=== PATIENT | male | born 1940 | race Two or more races ===

== ENCOUNTER → 2016-09-23 | Outpatient (REF) | payer MEDICARE, OTHER ==
[~2016-09-23] MED LIST: ATOR1TAB21 PO; CHLO25TA PO
[2016-09-23 16:33] LABS: BASO % 0.9 % (0.0-1.0); EOS # 0.2 K/mm3 (0.0-0.50); EOS % 4.1 % (0.0-3.0); LARGE UNSTAINED CELL # 0.1 K/mm3 (0.0-0.4); LARGE UNSTAINED CELL % 2.3 % (0.0-4.0); LYMPH # 1.8 K/mm3 (1.5-4.5); LYMPH % 27.5 % (24.0-44.0); MEAN CORPUSCULAR HEMOGLOBIN 33.2 pg (27.0-33.0); MEAN CORPUSCULAR HGB CONC 34.6 g/dl (32.0-36.5); MONO # 0.5 K/mm3 (0.0-0.8); NEUTROPHILS # 3.4 K/mm3 (1.8-7.7); NEUTROPHILS % 57.2 % (36.0-66.0); PLATELET COUNT, AUTOMATED 234 k/mm3 (150-450); RED CELL DISTRIBUTION WIDTH 12.8 % (11.5-14.5); WHITE BLOOD COUNT 5.9 K/mm3 (4.0-10.0)
[2016-09-23 18:39] LABS: ALBUMIN 4.1 GM/DL (3.2-5.2); ALBUMIN/GLOBULIN RATIO 1.21 (1.00-1.93); ALKALINE PHOSPHATASE 68 U/L (45-117); ALT/SGPT 43 U/L (12-78); ANION GAP 7 MEQ/L (8-16); AST/SGOT 25 U/L (15-37); BILIRUBIN,TOTAL 1.2 MG/DL (0.2-1.0); BLOOD UREA NITROGEN 19 MG/DL (7-18); CALCIUM LEVEL 9.1 MG/DL (8.8-10.2); CARBON DIOXIDE LEVEL 33 MEQ/L (21-32); CHLORIDE LEVEL 99 MEQ/L (98-107); CHOLESTEROL LEVEL 179 MG/DL (<200); GLOMERULAR FILTRATION RATE > 60.0 (>42); GLUCOSE, FASTING 115 MG/DL (83-110); POTASSIUM SERUM 3.6 MEQ/L (3.5-5.1); SODIUM LEVEL 139 MEQ/L (136-145); TOTAL PROTEIN 7.5 GM/DL (6.4-8.2); TRIGLYCERIDES LEVEL 124 MG/DL (<150)
== END ==
LOC: M SFHCPLAZ 11:14
PROVIDERS: ATTEND Nurse Practitioner Family
DX: I10 Essential (primary) hypertension (principal); R73.01 Impaired fasting glucose; E78.00 Pure hypercholesterolemia, unspecified
CPT/HCPCS: 36415; 80053; 80061; 83036; 84443; 85025; G0463

== ENCOUNTER → 2017-09-14 | Outpatient (REF) | payer MEDICARE, OTHER ==
[2017-09-14 17:53] LABS: ALBUMIN/GLOBULIN RATIO 1.18 (1.00-1.93); ALKALINE PHOSPHATASE 66 U/L (45-117); ALT/SGPT 45 U/L (12-78); ANION GAP 9 MEQ/L (8-16); AST/SGOT 26 U/L (7-37); BILIRUBIN,TOTAL 1.6 MG/DL (0.2-1.0); BLOOD UREA NITROGEN 22 MG/DL (7-18); CALCIUM LEVEL 9.3 MG/DL (8.8-10.2); CARBON DIOXIDE LEVEL 30 MEQ/L (21-32); CHLORIDE LEVEL 101 MEQ/L (98-107); CHOLESTEROL LEVEL 195 MG/DL (<200); CHOLESTEROL RISK RATIO 3.362 (<5); GLOMERULAR FILTRATION RATE > 60.0 (>42); GLUCOSE, FASTING 94 MG/DL (70-100); HDL CHOLESTEROL 58 MG/DL (>40); LDL CHOLESTEROL 98.8 MG/DL (<100); NON-HDL-C 137 MG/DL; POTASSIUM SERUM 3.4 MEQ/L (3.5-5.1); SODIUM LEVEL 140 MEQ/L (136-145); TOTAL PROTEIN 7.4 GM/DL (6.4-8.2); TRIGLYCERIDES LEVEL 191 MG/DL (<150)
== END ==
LOC: M SFHCPLAZ 16:02
DX: E78.5 Hyperlipidemia, unspecified (principal)
CPT/HCPCS: 80053

== ENCOUNTER → 2017-10-08 | Outpatient (REF) | payer MEDICARE, OTHER ==
[2017-10-08 13:10] LABS: ANION GAP 9 MEQ/L (8-16); BLOOD UREA NITROGEN 20 MG/DL (7-18); CALCIUM LEVEL 9.3 MG/DL (8.8-10.2); CARBON DIOXIDE LEVEL 31 MEQ/L (21-32); CHLORIDE LEVEL 100 MEQ/L (98-107); CREATININE FOR GFR 1.06 MG/DL (0.70-1.30); GLOMERULAR FILTRATION RATE > 60.0 (>42); GLUCOSE, FASTING 112 MG/DL (70-100); POTASSIUM SERUM 3.5 MEQ/L (3.5-5.1); SODIUM LEVEL 140 MEQ/L (136-145)
== END ==
LOC: M SFHCPLAZ 10:39
DX: I10 Essential (primary) hypertension (principal)
CPT/HCPCS: 80048

== ENCOUNTER → 2018-03-22 | Outpatient (REF) | payer MEDICARE, OTHER ==
[2018-03-22 13:05] LABS: ALBUMIN 3.8 GM/DL (3.2-5.2); ALT/SGPT 31 U/L (12-78); BLOOD UREA NITROGEN 26 MG/DL (7-18); CARBON DIOXIDE LEVEL 32 MEQ/L (21-32); CHLORIDE LEVEL 102 MEQ/L (98-107); CREATININE FOR GFR 1.01 MG/DL (0.70-1.30); GLOMERULAR FILTRATION RATE > 60.0 (>42); GLUCOSE, FASTING 109 MG/DL (70-100); POTASSIUM SERUM 3.7 MEQ/L (3.5-5.1); SODIUM LEVEL 140 MEQ/L (136-145)
== END ==
LOC: M SFHCPLAZ 10:59
PROVIDERS: ATTEND Nurse Practitioner Family
DX: I10 Essential (primary) hypertension (principal); E78.5 Hyperlipidemia, unspecified
CPT/HCPCS: 36415; 80053; G0463

== ENCOUNTER → 2018-05-14 | Outpatient (REF) | payer MEDICARE, OTHER ==
[2018-05-14 18:19] LABS: BASO # 0.1 10^3/uL (0.0-0.2); BASO % 0.7 % (0.0-1.0); EOS # 0.5 10^3/uL (0.0-0.50); EOS % 5.6 % (0.0-3.0); HEMATOCRIT 46.6 % (42.0-52.0); HEMOGLOBIN 15.8 g/dl (13.5-17.5); LYMPH # 2.6 10^3/uL (1.5-4.5); LYMPH % 31.7 % (24.0-44.0); MEAN CORPUSCULAR HEMOGLOBIN 32.8 pg (27.0-33.0); MEAN CORPUSCULAR HGB CONC 33.9 g/dl (32.0-36.5); MEAN CORPUSCULAR VOLUME 96.7 fl (80.0-96.0); MONO # 0.9 10^3/uL (0.0-0.8); MONO % 10.5 % (0.0-5.0); NEUTROPHILS # 4.1 10^3/uL (1.8-7.7); NEUTROPHILS % 51.1 % (36.0-66.0); PLATELET COUNT, AUTOMATED 242 10^3/uL (150-450); RED BLOOD COUNT 4.82 10^6/uL (4.30-6.10); WHITE BLOOD COUNT 8.1 10^3/uL (4.0-10.0)
[2018-05-14 18:39] LABS: BLOOD UREA NITROGEN 26 MG/DL (7-18); CALCIUM LEVEL 8.8 MG/DL (8.8-10.2); CARBON DIOXIDE LEVEL 31 MEQ/L (21-32); CHLORIDE LEVEL 105 MEQ/L (98-107); CREATININE FOR GFR 0.98 MG/DL (0.70-1.30); GLOMERULAR FILTRATION RATE > 60.0 (>42); GLUCOSE, FASTING 101 MG/DL (70-100); SODIUM LEVEL 141 MEQ/L (136-145)
[2018-05-14 19:02] LABS: HEMOGLOBIN A1c 5.9 %
== END ==
LOC: M SFHCPLAZ 15:34
PROVIDERS: ATTEND Nurse Practitioner Family
DX: R19.09 Other intra-abdominal and pelvic swelling, mass and lump (principal); R73.01 Impaired fasting glucose
CPT/HCPCS: 36415; 80048; 83036; 85025; G0463

== ENCOUNTER → 2018-05-21 | Outpatient (CLI) | payer MEDICARE, OTHER ==
--- NOTE | 2018-05-21 14:16 | REP ---
LIMITED PELVIC ULTRASOUND: HISTORY: Groin lump. Bilateral inguinal hernias are present. The right inguinal hernia contains peritoneal fat and intestine. The left inguinal hernia contains peritoneal fat. Bilateral lymph nodes are present. The largest on the right measures 2.2 cm. The largest on the left measures 1.4 cm. The right inguinal hernia is reducible. The left inguinal hernia is not reducible. IMPRESSION: Bilateral inguinal hernias as described above. Electronically Signed by Sarwat Magana MD 05/21/2018 02:20 P
== END ==
LOC: M RAD 10:53
PROVIDERS: ATTEND Nurse Practitioner Family
DX: K40.11 Bilateral inguinal hernia, with gangrene, recurrent (principal)

== ENCOUNTER → 2018-11-22 | Outpatient (REF) | payer MEDICARE, OTHER ==
[~2018-11-22] MED LIST changes: +CHLO125TA PO; -CHLO25TA PO
[2018-11-22 11:00] LABS: BASO # 0.1 10^3/uL (0.0-0.2); EOS # 0.5 10^3/uL (0.0-0.50); EOS % 7.3 % (0.0-3.0); HEMOGLOBIN 16.2 g/dl (13.5-17.5); LYMPH % 29.4 % (24.0-44.0); MEAN CORPUSCULAR HEMOGLOBIN 32.2 pg (27.0-33.0); MEAN CORPUSCULAR HGB CONC 33.8 g/dl (32.0-36.5); MEAN CORPUSCULAR VOLUME 95.4 fl (80.0-96.0); MONO # 0.8 10^3/uL (0.0-0.8); MONO % 12.3 % (0.0-5.0); NEUTROPHILS # 3.4 10^3/uL (1.8-7.7); NEUTROPHILS % 49.6 % (36.0-66.0); PLATELET COUNT, AUTOMATED 250 10^3/uL (150-450); RED BLOOD COUNT 5.03 10^6/uL (4.30-6.10); WHITE BLOOD COUNT 6.8 10^3/uL (4.0-10.0)
[2018-11-22 11:24] LABS: ALBUMIN 3.8 GM/DL (3.2-5.2); ALT/SGPT 37 U/L (12-78); BILIRUBIN,TOTAL 1.1 MG/DL (0.2-1.0); BLOOD UREA NITROGEN 19 MG/DL (7-18); CALCIUM LEVEL 9.2 MG/DL (8.8-10.2); CARBON DIOXIDE LEVEL 34 MEQ/L (21-32); CHLORIDE LEVEL 101 MEQ/L (98-107); CHOLESTEROL LEVEL 177 MG/DL (<200); CHOLESTEROL RISK RATIO 2.854 (<5); CREATININE FOR GFR 0.95 MG/DL (0.70-1.30); GLOMERULAR FILTRATION RATE > 60.0 (>42); GLUCOSE, FASTING 120 MG/DL (70-100); HDL CHOLESTEROL 62 MG/DL (>40); LDL CHOLESTEROL 98 MG/DL (<100); NON-HDL-C 115 MG/DL; SODIUM LEVEL 141 MEQ/L (136-145); TOTAL PROTEIN 7.2 GM/DL (6.4-8.2); TRIGLYCERIDES LEVEL 86 MG/DL (<150)
== END ==
LOC: M SFHCPLAZ 07:58
PROVIDERS: ATTEND Family Medicine
DX: L30.9 Dermatitis, unspecified (principal); E78.00 Pure hypercholesterolemia, unspecified; I10 Essential (primary) hypertension

== ENCOUNTER → 2019-03-14 | Outpatient (CLI) | payer MEDICARE, OTHER ==
[2019-03-14 13:17] LABS: HEMOGLOBIN A1c 5.8 %
== END ==
LOC: M WUC 10:27
PROVIDERS: ATTEND Family Medicine
DX: R73.01 Impaired fasting glucose (principal)

== ENCOUNTER 2020-03-31 22:44 | Inpatient (IN) | payer MEDICARE, OTHER ==
[~2020-03-31] VITALS: Ht 180.3 cm; Wt 82.1 kg
[2020-03-31] MEDS ORDERED: NS 1,000 ML IV ONE (23:00)
[2020-03-31] MEDS ORDERED: JANT4TAB PO (23:01)
[2020-03-31] MEDS ORDERED: ASPI1TAB22 PO (23:08)
[2020-03-31] MEDS ORDERED: ATOR40TA75 PO (23:08)
[2020-03-31] MEDS ORDERED: OS-CTAB PO (23:08)
[2020-03-31 23:33] LABS: BASO # 0.1 10^3/uL (0.0-0.2); BASO % 0.5 % (0.0-1.0); EOS # 0.1 10^3/uL (0.0-0.5); EOS % 1.4 % (0.0-3.0); HEMATOCRIT 31.8 % (42.0-52.0); LYMPH # 1.6 10^3/uL (1.5-5.0); LYMPH % 16.5 % (24.0-44.0); MEAN CORPUSCULAR HEMOGLOBIN 30.7 pg (27.0-33.0); MEAN CORPUSCULAR HGB CONC 31.4 g/dl (32.0-36.5); MEAN CORPUSCULAR VOLUME 97.5 fl (80.0-96.0); MONO # 0.6 10^3/uL (0.0-0.8); MONO % 6.2 % (0.0-5.0); NEUTROPHILS # 7.2 10^3/uL (1.5-8.5); NEUTROPHILS % 75.1 % (36.0-66.0); PLATELET COUNT, AUTOMATED 372 10^3/uL (150-450); RED BLOOD COUNT 3.26 10^6/uL (4.30-6.10); WHITE BLOOD COUNT 9.6 10^3/uL (4.0-10.0)
[2020-03-31] MEDS ORDERED: ONDANSETRON 4MG/2ML VIAL IV ONE (23:45)
[2020-03-31 23:53] LABS: PARTIAL THROMBOPLASTIN TIME 27.7 SECONDS (24.2-38.5)
[2020-04-01] VITALS (19 sets, daily range): BP systolic 106–134; BP diastolic 52–71
[2020-04-01 00:02] LABS: INR 2.13; PROTHROMBIN TIME 24.3 SECONDS (12.5-14.3)
[2020-04-01 00:12] LABS: RSV AMPLIFICATION NEGATIVE (NEGATIVE)
[2020-04-01] MEDS ORDERED: PANTOPRAZOLE 40MG VIAL (C9113 PER 1) IV ONE (00:30)
[2020-04-01 00:37] LABS: ALBUMIN 2.9 GM/DL (3.2-5.2); ALT/SGPT 36 U/L (12-78); BILIRUBIN,DIRECT 0.1 MG/DL (0.0-0.2); BILIRUBIN,TOTAL 0.6 MG/DL (0.2-1.0); BLOOD UREA NITROGEN 56 MG/DL (7-18); CALCIUM LEVEL 8.4 MG/DL (8.8-10.2); CARBON DIOXIDE LEVEL 27 MEQ/L (21-32); CHLORIDE LEVEL 107 MEQ/L (98-107); CPK CREATINE PHOSPHOKINASE 73 U/L (39-308); CREATININE FOR GFR 0.81 MG/DL (0.70-1.30); GLOMERULAR FILTRATION RATE > 60.0 (>42); GLUCOSE, FASTING 165 MG/DL (70-100); LIPASE 89 U/L (73-393); MB/CK RELATIVE INDEX 2.74 (< OR =4); POTASSIUM SERUM 4.4 MEQ/L (3.5-5.1); SODIUM LEVEL 142 MEQ/L (136-145); TROPONIN I 0.08 NG/ML (< 0.10)
[2020-04-01] MEDS ORDERED: ISOVUE-370 76% 100ML VIAL As Ordered ONE (00:50)
[2020-04-01] MEDS ORDERED: NS 1,000 ML IV ONE (01:00)
--- NOTE | 2020-04-01 01:31 | REPVR ---
PROCEDURE INFORMATION: Exam: CT Head Without Contrast Exam date and time: 04/01/2020 1:00 AM Age: 79 years old Clinical indication: Syncope and collapse; Additional info: Syncope, blood thinners TECHNIQUE: Imaging protocol: Computed tomography of the head without contrast. Radiation optimization: All CT scans at this facility use at least one of these dose optimization techniques: automated exposure control; mA and/or kV adjustment per patient size (includes targeted exams where dose is matched to clinical indication); or iterative reconstruction. COMPARISON: No relevant prior studies available. FINDINGS: Brain: There is minimal patchy low attenuation of deep white matter. 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 Cerebral ventricles: No ventriculomegaly. Bones/joints: Unremarkable. No acute fracture. Paranasal sinuses: Minimal ethmoid sinus mucosal thickening. Mastoid air cells: Visualized mastoid air cells are well aerated. Soft tissues: Unremarkable. IMPRESSION: 1. 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 2. Otherwise negative noncontrast head CT. Electronically signed by: Alfreod Corrigan On 04/01/2020 01:32:05 AM
--- NOTE | 2020-04-01 01:40 | REPVR ---
PROCEDURE INFORMATION: Exam: CT Abdomen And Pelvis With Contrast Exam date and time: 04/01/2020 1:00 AM Age: 79 years old Clinical indication: Other: Gi bleeding; Additional info: Syncope, blood thinners, gi bleeding TECHNIQUE: Imaging protocol: Computed tomography of the abdomen and pelvis with intravenous contrast. Radiation optimization: All CT scans at this facility use at least one of these dose optimization techniques: automated exposure control; mA and/or kV adjustment per patient size (includes targeted exams where dose is matched to clinical indication); or iterative reconstruction. Contrast material: ISOVUE 370; Contrast volume: 100 ml; Contrast route: INTRAVENOUS (IV); COMPARISON: Pelvis, limited US 05/21/2018 11:05 AM FINDINGS: Tubes, catheters and devices: Pacemaker in position. Lungs: Minimal bibasilar interstitial coarsening with fibro-atelectatic change. Liver: Multiple hepatic cysts measuring up to 4.0 cm in the lateral right hepatic lobe with a Hounsfield measurement of -3. Gallbladder and bile ducts: Normal. No calcified stones. No ductal dilation. Pancreas: Normal. No ductal dilation. Spleen: Normal. No splenomegaly. Adrenal glands: Normal. No mass. Kidneys and ureters: Probable bilateral renal peripelvic cysts. 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 Appendix: Right inguinal hernia containing the appendix which is within normal limits. Intraperitoneal space: Unremarkable. No free air. No significant fluid collection. Vasculature: There is mild calcification of the abdominal aorta with extension into the iliac arteries. Lymph nodes: Borderline right inferior hilar nodes. Urinary bladder: Unremarkable as visualized. Reproductive: Unremarkable as visualized. Bones/joints: Unremarkable. No acute fracture. Soft tissues: Residua of right inguinal incision with clips adjacent to the right common femoral artery. IMPRESSION: 1. Small right inguinal hernia which contains a normal appendix. 2. Minimal bibasilar pulmonary interstitial coarsening with fibro-atelectatic change. 3. Otherwise negative CT abdomen/pelvis. COMMENTS: Consistent with the [employer]'s Incidental Findings Committee white paper (J Am Merle Radiol 2018): Any incidental renal lesion less than 1 cm or classified as too small to characterize, or any incidental cystic renal lesion characterized as simple-appearing, is likely benign. No follow-up imaging is recommended for these lesions per consensus recommendations based on imaging criteria. Electronically signed by: Alfredo Corrigan On 04/01/2020 01:40:36 AM
[2020-04-01] MEDS ORDERED: ACET-908 PO (03:29)
[2020-04-01] MEDS ORDERED: WARF-20 PO (03:29)
[2020-04-01] MEDS ORDERED: THERTAB19 PO (03:29)
[2020-04-01] MEDS ORDERED: ASPI81TA26 PO (03:29)
[2020-04-01] MEDS ORDERED: MED REC COMMENT (03:31)
--- NOTE | 2020-04-01 04:09 | HPEPDOC ---
General Date of Admission Date of Service: Apr 01, 2020 Attending Physician: SHANNON ROWELL MD Chief Complaint The patient is a 79-year-old male admitted with a reason for visit of Syncope. History of Present Illness History of present illness: Mr. Joy is a 80 year old male patient who recently underwent an mitral valve repair surgery at [facility], dyslipidemia, hypertension presented to the emergency department after sustaining a fall. He reports he was feeling tired the whole day but did his regular work, in the evening he felt more tired and was feeling dizzy. He did not feel like eating his dinner, as he was walking to use the restroom he felt dizzy and had a syncopal episode. He reports he did not hit his head, lost consciousness for a few seconds. His was with him and he felt. Later he use the restroom and noticed black/dark colored stool and no hematochezia. He denied having any chest pain, abdominal pain, headache, vision changes during or after this episode. In the ED he was feeling dizzy and nauseous and had an brown color coffee ground emesis mixed with food. He reports feeling nauseous and dizzy whenever he sits up from a laying position or stands up. Past medical history: On 03/08/2020 patient had minimally invasive mitral valve repair with triangular resection of posterior leaflet and the placement of 33 mm stimulus annuloplasty band. And cryoablation to the left and right atrium with clipping of the left atrial appendage. Last echocardiogram on 01/18/2020, LVEF 70%. 24-hour halter monitor 01/03/2020baseline A. fib with a narrow QRS complex no pauses, occasional ventricular ectopy including single ventricular couplet. Ascending aortic dilation 02/03/2017 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 Coronary artery disease 50% proximal to mid RCA stenosis Dilated aortic root Hyperlipidemia Hypertension. Mitral regurgitation Past surgical history: As above. Social history: Quit smoking 35 years ago, smoked for 16 years one pack a day. Alcohol: Drinks 1 glass of wine 1-2 times a week. - Denies any illicit or recreational drug use. Family History: Father: 23 years ago, in WWII. Mother: 43 years, MVA Sons: Alive, 1 child with partial colectomy for suspected Crohn's. Daughter: Alive 52 years no known medical conditions. REVIEW OF SYSTEMS: Constitutional: Denies having fever, chills, night sweats, weight loss, headaches. Eyes: Denies blurry vision or double vision. Cardiovascular: Denies any chest pain or palpitations. Respiratory: Denies shortness of breath and cough. Gastrointestinal (GI): Reports nausea and one episode of vomiting in the ED. Genitourinary: Denies dysuria, hematuria. Musculoskeletal: Denies muscle aches and pains. Skin: Denies rashes or ulcers. Hematology/Oncology: Denies any easy bleeding or bruising. All other review of systems is negative. PHYSICAL EXAMINATION: General: Patient is awake, alert, oriented times three, laying in bed , no apparent distress. Eyes: Conjunctiva clear, pupils equal round and reactive to light and accommodation. EOM full, Fundus: not visualized. ENT: Hearing Bilateral normal. No nasal deviation, oropharynx clear with no lesions/erythema. Cardiovascular: S1, S2 heard, no murmur, rub, or gallop. Respiratory: Chest is clear to auscultation bilaterally, no rhonchi, wheezes or rubs. Abdomen: Soft, bowel sounds positive, no bruits. Nontender on palpation. Central nervous system (PEDIATRIC OPHTHALMOLOGIST): Awake, alert and fully oriented. Cranial nerves III-XII grossly intact. Motor: Strength normal, patient moves all extremities. Sensory: grossly normal to touch. Cerebellar: no tremor. Skin: No rashes or subcutaneous nodules Imaging: CT head without contrast on 04/01/2020: Reported as 1. 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 2. Otherwise negative noncontrast head CT. CT abdomen/pelvis with IV contrast on 04/01/2020: Reported as 1. Small right inguinal hernia which contains a normal appendix. 2. Minimal bibasilar pulmonary interstitial coarsening with fibro-atelectatic change. 3. Otherwise negative CT abdomen/pelvis. Impression: 29-year-old male patient with recent cardiac surgery and on Coumadin who presented to ED with following syncope, dizziness and dark/black stool. In the ED patient had an coffee-ground emesis mixed with food. His POC hemoglobin is 10 which dropped from 12 (3 weeks ago before the valve repair), hct 31.8, MCV is 97.5, INR 2.13 within therapeutic range, electrolytes are stable, BUN 56, cr eatinine 0.81, normal liver enzymes. Hospitalist team was contacted for further management. Plan: Symptomatic anemia and upper GI bleed: - Patient has a hemoglobin of 10 dropped from 12. He reports feeling dizziness and nausea. - Probably an ulcer bleed vs AVM vs mucosal bleed. - General Duty Nurse manager neonatal Dr. Martell was contacted from the ED and was told he was okay with holding or reversing the Coumadin if necessary. - Keep him nothing by mouth and IV fluids at 120 MLS per hour. - Start IV Protonix 40 MG twice a day. - Please contact surgery manager neonatal Dr. Agustin in the morning for probable endoscopic intervention. - Will monitor H&H every 6 hours. - Will transfuse packed RBC if hemoglobin drops to less than 9. - Hold off on Coumadin for now. - Will monitor him on telemetry overnight Dyslipidemia: - Will continue his home medication. DVT prophylaxis: -Teds and sequentials. Home Medications Scheduled Aspirin (Aspirin EC) 81 Mg Tablet.dr 81 MG PO DAILY, (Reported) Atorvastatin Calcium (Atorvastatin Calcium) 40 Mg Tablet, 40 MG PO DAILY, (Reported) Multivitamin with Folic Acid (Thera Tablet) 400 Mcg Tablet, 1 TAB PO DAILY, (Reported) Warfarin Sodium (Jantoven) 4 Mg Tablet, 6 MG PO DAILY, (Reported) ,WED,FRI,SAT,SUN Warfarin Sodium (Warfarin Sodium) 4 Mg Tablet, 4 MG PO DAILY, (Reported) MON,THURS Scheduled PRN Acetaminophen (Acetaminophen) 325 Mg Tablet, 650 MG PO Q4H PRN for PAIN, (Reported) Miscellaneous Medications [Med Rec Comment] , (Reported) USED EXTERNAL HISTORY AND LIST FROM DR. TEJADA FROM 03/27/20 Allergies Coded Allergies: No Known Allergies (Unverified , 03/31/20) A-FIB/CHADSVASC A-FIB History Current/History of A-Fib/PAF?: Yes Current PO Anticoag Therapy: No Treatment Reason Anticoagulant not given: Current bleeding Vital Signs Vital Signs Date Time Temp Pulse Resp B/P (MAP) Pulse Ox O2 Delivery O2 Flow Rate FiO2 04/01/20 03:15 75 16 112/56 (74) 98 04/01/20 02:30 Room Air 03/31/20 22:48 98.3 Laboratory Data Labs 24H Laboratory Tests 2 03/31/20 23:19: Immature Granulocyte % (Auto) 0.3, Neutrophils (%) (Auto) 75.1H, Lymphocytes (%) (Auto) 16.5L, Monocytes (%) (Auto) 6.2H, Eosinophils (%) (Auto) 1.4, Basophils (%) (Auto) 0.5, Neutrophils # (Auto) 7.2, Lymphocytes # (Auto) 1.6, Monocytes # (Auto) 0.6, Eosinophils # (Auto) 0.1, Basophils # (Auto) 0.1, Nucleated Red Blood Cells % (auto) 0.0, Prothrombin Time 24.3H, Prothromb Time International Ratio 2.13, Activated Partial Thromboplast Time 27.7, Anion Gap 8, Glomerular Filtration Rate > 60.0, Lactic Acid Level 1.7, Calcium Level 8.4L, Total Bilirubin 0.6, Direct Bilirubin 0.1, Aspartate Amino Transf (AST/SGOT) 23, Alanine Aminotransferase (ALT/SGPT) 36, Alkaline Phosphatase 89, Total Creatine Kinase 73, Creatine Kinase MB 2.0, Creatine Kinase MB Relative Index 2.74, Troponin I 0.08, Total Protein 6.0L, Albumin 2.9L, Albumin/Globulin Ratio 0.9, Lipase 89, Coronavirus (COVID-19)(PCR) NEGATIVE, Influenza Type A (RT-PCR) NEGATIVE, Influenza Type B (RT-PCR) NEGATIVE, Respiratory Syncytial Virus (PCR) NEGATIVE CBC/BMP Laboratory Tests 03/31/20 23:19 Plan / VTE VTE Prophylaxis Ordered?: Yes GME ATTESTATION GME ATTESTATION My faculty preceptor for this patient encounter was physically present during the encounter and was fully available. All aspects of the patient interview, examination, medical decision making process, and medical care plan development were reviewed and approved by the faculty preceptor. The faculty preceptor is aware and concurs with the plan as stated in the body of this note and will attest to such by his/her cosignature. ATTENDING NOTE I, A Yousef, have independently examined this patient and performed my own phys ical exam, as well as reviewed the documentation and edited where necessary. I have discussed in detail with the resident / student the findings and plan of treatment as documented by the resident / student and edited their note. I agree with their findings and treatment plan and have edited their documentation. I will continue to follow the patient during this hospital stay. Grey Velarde MD Apr 01, 2020 04:09 SHANNON ROWELL MD Apr 01, 2020 06:13
[2020-04-01] MEDS ORDERED: MOM 30ML SUSPENSION UDC PO PRN (04:15)
[2020-04-01] MEDS ORDERED: MAALOX 30 ML SUSP *UDC PO PRN (04:15)
[2020-04-01] MEDS: NS 1,000 ML IV SCH (05:29)
[2020-04-01 07:08] LABS: HEMATOCRIT 23.7 % (42.0-52.0); MEAN CORPUSCULAR HEMOGLOBIN 31.8 pg (27.0-33.0); MEAN CORPUSCULAR HGB CONC 31.6 g/dl (32.0-36.5); MEAN CORPUSCULAR VOLUME 100.4 fl (80.0-96.0); PLATELET COUNT, AUTOMATED 317 10^3/uL (150-450); RED BLOOD COUNT 2.36 10^6/uL (4.30-6.10); WHITE BLOOD COUNT 8.1 10^3/uL (4.0-10.0)
[2020-04-01 07:10] LABS: HEMOGLOBIN 7.5 g/dl (13.5-17.5)
[2020-04-01 07:41] LABS: BLOOD UREA NITROGEN 62 MG/DL (7-18); CARBON DIOXIDE LEVEL 28 MEQ/L (21-32); CHLORIDE LEVEL 113 MEQ/L (98-107); CREATININE FOR GFR 0.82 MG/DL (0.70-1.30); GLOMERULAR FILTRATION RATE > 60.0 (>42); GLUCOSE, FASTING 146 MG/DL (70-100); POTASSIUM SERUM 4.8 MEQ/L (3.5-5.1); SODIUM LEVEL 144 MEQ/L (136-145)
[2020-04-01 09:00] LABS: INR 2.45; PROTHROMBIN TIME 27.1 SECONDS (12.5-14.3)
[2020-04-01] MEDS ORDERED: DOCUSATE SODIUM 100MG CAPSULE PO SCH (09:00)
[2020-04-01 09:01] LABS: PARTIAL THROMBOPLASTIN TIME 32.1 SECONDS (24.2-38.5)
[2020-04-01] MEDS: PANTOPRAZOLE 40MG VIAL (C9113 PER 1) IV SCH ×2 (09:13→20:23)
[2020-04-01] MEDS ORDERED: FUROSEMIDE 40MG/4ML VIAL (J1940) IV ONE (10:00)
--- NOTE | 2020-04-01 11:46 | IPNPDOC ---
Text Note Date of Service The patient was seen on 04/01/20. NOTE SUBJECTIVE: Had 2 melanotic stools overnight. No abdominal pain, no coffee mathieu und emesis any more. No Fever ro chills. PHYSICAL EXAMINATION: Vitals As below. General: Patient is awake, alert, oriented times three, laying in bed , no apparent distress. Eyes: Conjunctiva clear, pupils equal round and reactive to light and accommodation. EOM full, Fundus: not visualized. ENT: Hearing Bilateral normal. No nasal deviation, oropharynx clear with no lesions/erythema. Cardiovascular: S1, S2 heard, no murmur, rub, or gallop. Respiratory: Chest is clear to auscultation bilaterally, no rhonchi, wheezes or rubs. Abdomen: Soft, bowel sounds positive, no bruits. Nontender on palpation. Central nervous system (TRANSFER DRIVER): Awake, alert and fully oriented. Cranial nerves III-XII grossly intact. Motor: Strength normal, patient moves all extremities. Sensory: grossly normal to touch. Cerebellar: no tremor. Skin: No rashes or subcutaneous nodules Imaging: CT head without contrast on 04/01/2020: Reported as 1. 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 2. Otherwise negative noncontrast head CT. CT abdomen/pelvis with IV contrast on 04/01/2020: Reported as 1. Small right inguinal hernia which contains a normal appendix. 2. Minimal bibasilar pulmonary interstitial coarsening with fibro-atelectatic change. 3. Otherwise negative CT abdomen/pelvis. Assessment and Plan: 79-year-old male patient with recent cardiac surgery( 03/08/20) and on Coumadin who presented to ED with syncope, dizziness and dark/black stool. In the ED patient had an coffee-ground emesis mixed with food. His POC hemoglobin is 10 which dropped from 12 (3 weeks ago before the valve repair). He was admitted for GIB. Acute Blood loss anemia Hb down to 7.5 will transfuse 2 units of PRBC GIB Probably an ulcer bleed vs AVM vs mucosal bleed. Allergy Physician application support Dr. Martell was contacted from the ED and was told he was okay with holding or reversing the Coumadin if necessary. Holding coumadin. INR 2.4 will give 2 units of FFP. IV Protonix 40 MG twice a day. monitor H&H every 6 hours. Syncope vasovagal due to GIB. Mitral valve surgery for Mitral regurgitation On 03/08/2020 patient had minimally invasive mitral valve repair with triangular resection of posterior leaflet and the placement of 33 mm stimulus annuloplasty band. And cryoablation to the left and right atrium with clipping of the left atrial appendage. Last echocardiogram on 01/18/2020, LVEF 70%. 24-hour halter monitor 01/03/2020baseline A. fib with a narrow QRS complex no pauses, occasional ventricular ectopy including single ventricular couplet. Ascending aortic dilation 02/03/2017 Chronic 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 on coumadin Coronary artery disease 50% proximal to mid RCA stenosis Dilated aortic root Hypertension. Dyslipidemia: DVT prophylaxis: -Teds and sequentials. VS,Fishbone, I+O VS, Fishbone, I+O Laboratory Tests 03/31/20 23:19 04/01/20 06:58 Vital Signs Date Time Temp Pulse Resp B/P (MAP) Pulse Ox O2 Delivery O2 Flow Rate FiO2 04/01/20 04:52 98.1 78 18 118/57 (77) 97 Room Air I&O- Last 24 Hours up to 6 AM 04/01/20 06:00 Intake Total 2000 ml Output Total 600 ml Balance 1400 ml TRAVIS CHANEY MD Apr 01, 2020 07:51
--- NOTE | 2020-04-01 16:35 | ECGEPIP ---
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
[2020-04-01 16:50] LABS: HEMATOCRIT 29.6 % (42.0-52.0); HEMOGLOBIN 9.3 g/dl (13.5-17.5)
[2020-04-01] MEDS: SUCRALFATE SUSP 1GM/10ML UD PO SCH (19:23)
[2020-04-01] MEDS ORDERED: NS 500 ML IV ONE (22:00)
[2020-04-01] MEDS ORDERED: LIDOCAINE 2% 100MG/5ML SDV (FOR ANES.) As Ordered ONE (22:33)
[2020-04-01] MEDS ORDERED: fentaNYL 100 MCG/2 ML INJECTION (J3010) As Ordered ONE (22:33)
[2020-04-01] MEDS ORDERED: propofoL 200 MG/20 ML VIAL As Ordered ONE (22:33)
[2020-04-01] MEDS ORDERED: ROCURONIUM BROMIDE 50 MG/5 ML VIAL As Ordered ONE (22:38)
[2020-04-01] MEDS ORDERED: MIDAZOLAM INJ 2MG/2ML VIAL (J2250 PER 1MG) As Ordered ONE (23:27)
[2020-04-01] MEDS ORDERED: PHENYLephrine HCL 500 MCG/5 ML (100MCG/ML) SYRINGE (J2370) As Ordered ONE (23:36)
[2020-04-02] VITALS (14 sets, daily range): BP systolic 112–140; BP diastolic 56–63
[2020-04-02] MEDS ORDERED: ONDANSETRON 4MG/2ML VIAL As Ordered ONE ×2 (00:02→01:11)
[2020-04-02] MEDS ORDERED: SUGAMMADEX SODIUM 500 MG/5 ML VIAL (BRIDION) As Ordered ONE (00:10)
[2020-04-02] MEDS ORDERED: ONDANSETRON 4MG/2ML VIAL IV PRN (00:45)
[2020-04-02] MEDS ORDERED: METOCLOPRAMIDE INJ 10MG/2ML VIAL (J2765 PER 1) IV PRN (00:45)
[2020-04-02] MEDS ORDERED: NS 1,000 ML IV SCH (00:45)
[2020-04-02 01:03] LABS: BASO % 0.4 % (0.0-1.0); EOS % 0.3 % (0.0-3.0); HEMATOCRIT 25.3 % (42.0-52.0); HEMOGLOBIN 7.8 g/dl (13.5-17.5); LYMPH # 1.7 10^3/uL (1.5-5.0); LYMPH % 16.4 % (24.0-44.0); MEAN CORPUSCULAR HEMOGLOBIN 29.2 pg (27.0-33.0); MEAN CORPUSCULAR HGB CONC 30.8 g/dl (32.0-36.5); MEAN CORPUSCULAR VOLUME 94.8 fl (80.0-96.0); MONO # 0.9 10^3/uL (0.0-0.8); MONO % 9.3 % (0.0-5.0); NEUTROPHILS # 7.4 10^3/uL (1.5-8.5); NEUTROPHILS % 73.2 % (36.0-66.0); RED BLOOD COUNT 2.67 10^6/uL (4.30-6.10); WHITE BLOOD COUNT 10.1 10^3/uL (4.0-10.0)
[2020-04-02 01:11] LABS: PLATELET COUNT, AUTOMATED 208 10^3/uL (150-450)
[2020-04-02 01:22] LABS: INR 2.3; PROTHROMBIN TIME 25.8 SECONDS (12.5-14.3)
[2020-04-02 02:06] LABS: BLOOD UREA NITROGEN 60 MG/DL (7-18); CALCIUM LEVEL 7.3 MG/DL (8.8-10.2); CARBON DIOXIDE LEVEL 27 MEQ/L (21-32); CHLORIDE LEVEL 117 MEQ/L (98-107); GLOMERULAR FILTRATION RATE > 60.0 (>42); GLUCOSE, FASTING 133 MG/DL (70-100); POTASSIUM SERUM 4.2 MEQ/L (3.5-5.1); SODIUM LEVEL 148 MEQ/L (136-145)
[2020-04-02] MEDS: SUCRALFATE SUSP 1GM/10ML UD PO SCH ×4 (04:46→17:10)
[2020-04-02] MEDS: PANTOPRAZOLE 40MG VIAL (C9113 PER 1) IV SCH ×2 (08:29→20:15)
[2020-04-02 10:41] LABS: BASO # 0.1 10^3/uL (0.0-0.2); BASO % 0.6 % (0.0-1.0); EOS # 0.1 10^3/uL (0.0-0.5); EOS % 1.5 % (0.0-3.0); HEMATOCRIT 26.6 % (42.0-52.0); HEMOGLOBIN 8.5 g/dl (13.5-17.5); LYMPH # 1.8 10^3/uL (1.5-5.0); LYMPH % 19.8 % (24.0-44.0); MEAN CORPUSCULAR HEMOGLOBIN 29.8 pg (27.0-33.0); MEAN CORPUSCULAR VOLUME 93.3 fl (80.0-96.0); MONO % 10.5 % (0.0-5.0); NEUTROPHILS # 6.1 10^3/uL (1.5-8.5); NEUTROPHILS % 67.3 % (36.0-66.0); PLATELET COUNT, AUTOMATED 182 10^3/uL (150-450); RED BLOOD COUNT 2.85 10^6/uL (4.30-6.10)
[2020-04-02 10:58] LABS: INR 1.92; PROTHROMBIN TIME 22.4 SECONDS (12.5-14.3)
--- NOTE | 2020-04-02 11:08 | IPNPDOC ---
Text Note Date of Service The patient was seen on 04/02/20. NOTE SUBJECTIVE: Had 3 melanotic stools last ngiht none this morning. He had EGD last night the report of which is not available at this time. But pt reports that something was bleeding at 2 spots so had clipps placed in 1 spot and the other spot was burned. Deneis any abdominal pain, nausea or vomiting. Feels a little bloated and passing flatus. PHYSICAL EXAMINATION: Vitals As below. General: Patient is awake, alert, oriented times three, laying in bed , no apparent distress. Eyes: Conjunctiva clear, pupils equal round and reactive to light and accommodation. EOM full, Fundus: not visualized. ENT: Hearing Bilateral normal. No nasal deviation, oropharynx clear with no le sions/erythema. Cardiovascular: S1, S2 heard, no murmur, rub, or gallop. Respiratory: Chest is clear to auscultation bilaterally, no rhonchi, wheezes or rubs. Abdomen: Soft, bowel sounds positive, no bruits. Nontender on palpation. Central nervous system (REMEDIATION BIOANALYTICS CONSULTANT): Awake, alert and fully oriented. Cranial nerves III-XII grossly intact. Motor: Strength normal, patient moves all extremities. Sensory: grossly normal to touch. Cerebellar: no tremor. Skin: No rashes or subcutaneous nodules Imaging: CT head without contrast on 04/01/2020: Reported as 1. 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 2. Otherwise negative noncontrast head CT. CT abdomen/pelvis with IV contrast on 04/01/2020: Reported as 1. Small right inguinal hernia which contains a normal appendix. 2. Minimal bibasilar pulmonary interstitial coarsening with fibro-atelectatic change. 3. Otherwise negative CT abdomen/pelvis. Assessment and Plan: 79-year-old male patient with recent cardiac surgery( 03/08/20) and on Coumadin who presented to ED with syncope, dizziness and dark/black stool. In the ED patient had an coffee-ground emesis mixed with food. His POC hemoglobin is 10 which dropped from 12 (3 weeks ago before the valve repair). He was admitted for GIB. Acute Blood loss anemia s/p 6 units of PRBC and 4 units of FFP Hb 8.5 thsi am will monitor q6. GIB S/P EGD yesterday report not seen in EMR yet. Found to have Bleeding duodenal ulcer had clipps placed and cauterization done Team Manager combustion engineer Dr. Martell was contacted from the ED and was told he was okay with holding or reversing the Coumadin if necessary. Holding coumadin. given 4 FFP. IV Protonix 40 MG twice a day and sucralfate qid. monitor H&H every 6 hours. Syncope vasovagal due to GIB. Mitral valve surgery for Mitral regurgitation On 03/08/2020 patient had minimally invasive mitral valve repair with triangular resection of posterior leaflet and the placement of 33 mm stimulus annuloplasty band. And cryoablation to the left and right atrium with clipping of the left atrial appendage. Last echocardiogram on 01/18/2020, LVEF 70%. 24-hour halter monitor 01/03/2020baseline A. fib with a narrow QRS complex no pauses, occasional ventricular ectopy including single ventricular couplet. Ascending aortic dilation 02/03/2017 Chronic 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 on coumadin now on hold. Coronary artery disease 50% proximal to mid RCA stenosis Dilated aortic root Hypertension. No medications at present. Dyslipidemia: on hold DVT prophylaxis: Teds and sequentials. VS,Fishbone, I+O VS, Fishbone, I+O Laboratory Tests 04/01/20 16:34 04/02/20 00:45 04/02/20 10:34 Vital Signs Date Time Temp Pulse Resp B/P (MAP) Pulse Ox O2 Delivery O2 Flow Rate FiO2 04/02/20 09:39 97.7 69 18 112/57 (75) 97 Room Air 04/02/20 00:35 10 I&O- Last 24 Hours up to 6 AM 04/02/20 06:00 Intake Total 3271 ml Output Total 2800 ml Balance 471 ml TRAVIS CHANEY MD Apr 02, 2020 11:08
[2020-04-02 11:10] LABS: BLOOD UREA NITROGEN 51 MG/DL (7-18); CALCIUM LEVEL 7.9 MG/DL (8.8-10.2); CARBON DIOXIDE LEVEL 28 MEQ/L (21-32); CHLORIDE LEVEL 116 MEQ/L (98-107); CREATININE FOR GFR 0.85 MG/DL (0.70-1.30); GLOMERULAR FILTRATION RATE > 60.0 (>42); GLUCOSE, FASTING 100 MG/DL (70-100); MAGNESIUM LEVEL 2.1 MG/DL (1.8-2.4); POTASSIUM SERUM 3.8 MEQ/L (3.5-5.1); SODIUM LEVEL 148 MEQ/L (136-145)
[2020-04-02] MEDS: NS 1,000 ML IV SCH (14:34)
--- NOTE | 2020-04-02 21:36 | IPN ---
PROGRESS NOTE DATE: 04/02/2020 SUBJECTIVE: The patient was admitted on the march by the Hospitalist with evidence for a GI bleed. I was asked to see him yesterday and he continued to have significant bloody stools during the course of the day. He received transfusions and I took him to the Operating Room late last night into early this morning for an upper endoscopy. Endoscopy disclosed a small duodenal ulcer with an arterial bleeder. He was treated with a heater probe and Hemoclip with cessation of bleeding. He was allowed some ice chips overnight. He reports he has had no further bloody movements since last night. He denies any abdominal pain. Vital signs show that he has been afebrile overnight. His pulse is in the 60's and 70's. Blood pressure is excellent, and his room air oxygen saturation is normal. Intake and output show that yesterday he had 4 liters in with 2,800 out. He has had an excellent urine output today. PHYSICAL EXAMINATION: GENERAL APPEARANCE: The patient is sitting up in bed looking quite comfortable. He is alert and oriented. HEART: Regular rhythm of about 80. LUNGS: Clear bilaterally. ABDOMEN: Soft, nondistended and nontender. LABORATORY STUDIES: Lab studies today show a white count of 9, hemoglobin of 8, hematocrit 27 and a platelet count of 182,000. Differential count shows 67% neutrophils, 20% lymphocytes and 10% monocytes. Chemistry profile shows a sodium of 148, potassium 3.8, chloride 116, CO2 of 28, BUN of 51, creatinine 0.8 and a glucose of 100. Coagulation studies today after two additional units of FFP overnight are still with a PT of 22.4 and an INR of 1.9. He has so far received a total of 5 units of packed red blood cells and 4 units of fresh frozen plasma. IMPRESSION: The patient is quite stable at present with no evidence for ongoing bleeding. His hematocrit has settled to an acceptable but low point. He does not appear to require any further transfusion at this point. PLAN: I have advanced him to a clear liquid diet. He is off any IV fluids at this time. He will remain on the Carafate and twice daily Protonix. He should remain in the hospital for observation for re-bleeding for at least the next 48 hours I would think. MEDIS[facility] HEALTH NETWORKSegundo
[2020-04-03] VITALS (16 sets, daily range): BP systolic 108–138; BP diastolic 51–68
[2020-04-03] MEDS: SUCRALFATE SUSP 1GM/10ML UD PO SCH ×5 (00:25→23:08)
[2020-04-03 00:37] LABS: HEMATOCRIT 24.8 % (42.0-52.0); HEMOGLOBIN 7.9 g/dl (13.5-17.5); MEAN CORPUSCULAR HGB CONC 31.9 g/dl (32.0-36.5); MEAN CORPUSCULAR VOLUME 94.3 fl (80.0-96.0); PLATELET COUNT, AUTOMATED 181 10^3/uL (150-450); RED BLOOD COUNT 2.63 10^6/uL (4.30-6.10)
[2020-04-03 05:20] LABS: BASO % 0.4 % (0.0-1.0); EOS # 0.3 10^3/uL (0.0-0.5); EOS % 4.2 % (0.0-3.0); HEMATOCRIT 24.8 % (42.0-52.0); HEMOGLOBIN 8.1 g/dl (13.5-17.5); LYMPH # 2.1 10^3/uL (1.5-5.0); LYMPH % 25.9 % (24.0-44.0); MEAN CORPUSCULAR HGB CONC 32.7 g/dl (32.0-36.5); MONO # 0.6 10^3/uL (0.0-0.8); NEUTROPHILS # 4.9 10^3/uL (1.5-8.5); NEUTROPHILS % 60.9 % (36.0-66.0); PLATELET COUNT, AUTOMATED 179 10^3/uL (150-450); RED BLOOD COUNT 2.61 10^6/uL (4.30-6.10)
[2020-04-03 05:49] LABS: BLOOD UREA NITROGEN 31 MG/DL (7-18); CALCIUM LEVEL 7.7 MG/DL (8.8-10.2); CARBON DIOXIDE LEVEL 30 MEQ/L (21-32); CHLORIDE LEVEL 114 MEQ/L (98-107); CREATININE FOR GFR 0.76 MG/DL (0.70-1.30); GLOMERULAR FILTRATION RATE > 60.0 (>42); GLUCOSE, FASTING 90 MG/DL (70-100); POTASSIUM SERUM 3.4 MEQ/L (3.5-5.1); SODIUM LEVEL 148 MEQ/L (136-145)
--- NOTE | 2020-04-03 07:46 | ROOR ---
Patient Name: Rufino Mcneill Procedure Date: 04/01/2020 10:27 PM Date of : 1940 Age: 79 Gender: Male Note Status: Finalized Procedure: Upper GI endoscopy Indications: Hematochezia, Active gastrointestinal bleeding Providers: Thanh Agustin MD Referring MD: 2. Inpatient 2. Inpatient Requesting Provider: Medicines: General Anesthesia Complications: No immediate complications. Procedure: Pre-Anesthesia Assessment: - Prior to the procedure, a History and Physical was performed, and patient medications and allergies were reviewed. The patient is competent. The risks and benefits of the procedure and the sedation options and risks were discussed with the patient. All questions were answered and informed consent was obtained. Patient identification and proposed procedure were verified by the physician, the nurse and the anesthesiologist in the procedure room. Mental Status Examination: alert and oriented. Prophylactic Antibiotics: The patient does not require prophylactic antibiotics. Prior Anticoagulants: The patient has taken Coumadin (warfarin). ASA Grade Assessment: E - Emergency. After reviewing the risks and benefits, the patient was deemed in satisfactory condition to undergo the procedure. The anesthesia plan was to use general anesthesia. Immediately prior to administration of medications, the patient was re-assessed for adequacy to receive sedatives. The heart rate, respiratory rate, oxygen saturations, blood pressure, adequacy of pulmonary ventilation, and response to care were monitored throughout the procedure. The physical status of the patient was re-assessed after the procedure. The Endoscope was introduced through the mouth, and advanced to the second part of duodenum. The upper GI endoscopy was somewhat difficult due to excessive bleeding. The patient tolerated the procedure well. Findings: The examined esophagus was normal. Hematin (altered blood/nygnjo-shevel-spxe material) was found in the entire examined stomach. One spurting cratered duodenal ulcer with a visible vessel was found in the first portion of the duodenum. The lesion was 8 mm in largest dimension. Coagulation for hemostasis using heater probe was successful. The bleeding was significantly lessened but a slow ooze remained. For hemostasis, two hemostatic clips were successfully placed (MR conditional). There was no bleeding at the end of the procedure. Impression: - Normal esophagus. - Hematin (altered blood/dfpqgd-ytsdhe-kqxj material) in the entire stomach. - Spurting duodenal ulcer with a visible vessel. Treated with a heater probe. Clips (MR conditional) were placed. - No specimens collected. Recommendation: - [facility]. - NPO. Procedure Code(s): --- Professional --- 61952, Esophagogastroduodenoscopy, flexible, transoral; with control of bleeding, any method Diagnosis Code(s): --- Professional --- K92.2, Gastrointestinal hemorrhage, unspecified K26.4, Chronic or unspecified duodenal ulcer with hemorrhage K92.1, Melena (includes Hematochezia) CPT copyright 2019 [employer]. All rights reserved. The codes documented in this report are preliminary and upon venetian blind worker review may be revised to meet current compliance requirements. Thanh Agustin MD Thanh Agustin MD 04/03/2020 7:46:26 AM Electronically signed by Thanh Agustin MD Number of Addenda: 0 Note Initiated On: 04/01/2020 10:27 PM Estimated Blood Loss: Estimated blood loss: 50 mL.
[2020-04-03] MEDS: PANTOPRAZOLE 40MG VIAL (C9113 PER 1) IV SCH ×2 (08:48→19:49)
--- NOTE | 2020-04-03 08:51 | IPNPDOC ---
Date Seen The patient was seen on 04/03/20. Progress Note SUBJECTIVE: c/o weakness and fatigue. no cp,sob, palpitations, lightheadedness, or dizziness. tolerating his diet w/o abd pain, n/v/coffee ground emesis. denies brbpr. no f/c OBJECTIVE: PE: VITALS: SEE BELOW GEN:pale. no cyanosis aaox3 no respiratory distress HEENT:no jvd or carotid bruits moist mm LUNGS:CTAB no w/r/r HEART:S1S2 RRR nondisplaced pmi ABD:+bs soft nt nd EXT:no edema LABORATORY DATA: SEE BELOW HOSPITAL MEDICATIONS: SEE BELOW Imaging: CT head without contrast on 04/01/2020: Reported as 1. 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 2. Otherwise negative noncontrast head CT. CT abdomen/pelvis with IV contrast on 04/01/2020: Reported as 1. Small right inguinal hernia which contains a normal appendix. 2. Minimal bibasilar pulmonary interstitial coarsening with fibro-atelectatic change. 3. Otherwise negative CT abdomen/pelvis. Assessment and Plan: 79-year-old male patient with recent cardiac surgery( 03/08/20) and on Coumadin admitted for symptomatic anemia with hemoglobin decrease from 12 to 10 and ugibleed w coffee ground emesis. Acute Blood loss anemia s/p 5 units of PRBC and 4 units of FFP no recurrent GI bleed sstill c/o fatigue and weakness, and has not been out of bed. 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 Martell: hold and reverse warfarin due to acute gi bleed IV Protonix 40 MG twice a day and sucralfate qid. monitor H&H every 6 hours. Vasovagal Syncope due to GIB. symptomatic anemia rbc transfused Mitral valve surgery for Mitral regurgitation On 03/08/2020 mitral valve repair with triangular resection of posterior leaflet and the placement of 33 mm stimulus annuloplasty band. And cryoablation to the left and right atrium with clipping of the left atrial appendage. Last echocardiogram on 01/18/2020, LVEF 70%. Telemetry monitoring Ascending aortic dilation 02/03/2017 no acute issues Chronic 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 rate controlled off coumadin due to acute gibleed s/p rbc and ffp transfusion Coronary artery disease 50% proximal to mid RCA stenosis Dilated aortic root no acute ischemic symptoms Hypertension. controlled on no meds Dyslipidemia: chronmic DVT prophylaxis: Teds and sequentials. disposition: await advancement of diet , PT consulted. off warfarin for Afib . VS, I&O, 24H, Fishbone Vital Signs/I&O Vital Signs Date Time Temp Pulse Resp B/P (MAP) Pulse Ox O2 Delivery O2 Flow Rate FiO2 04/03/20 04:00 97.3 81 18 130/64 (86) 97 Room Air 04/02/20 00:35 10 I&O- Last 24 Hours up to 6 AM 04/03/20 06:00 Intake Total 1480 ml Output Total 825 ml Balance 655 ml Laboratory Data 24H LABS Laboratory Tests 2 04/02/20 10:34: Immature Granulocyte % (Auto) 0.3, Neutrophils (%) (Auto) 67.3H, Lymphocytes (%) (Auto) 19.8L, Monocytes (%) (Auto) 10.5H, Eosinophils (%) (Auto) 1.5, Basophils (%) (Auto) 0.6, Neutrophils # (Auto) 6.1, Lymphocytes # (Auto) 1.8, Monocytes # (Auto) 1.0H, Eosinophils # (Auto) 0.1, Basophils # (Auto) 0.1, Nucleated Red Blood Cells % (auto) 0.0, Prothrombin Time 22.4H, Prothromb Time International Ratio 1.92, Anion Gap 4L, Glomerular Filtration Rate > 60.0, Calcium Level 7.9L, Magnesium Level 2.1 04/03/20 00:31: Nucleated Red Blood Cells % (auto) 0.0 04/03/20 04:39: Immature Granulocyte % (Auto) 0.6, Neutrophils (%) (Auto) 60.9, Lymphocytes (%) (Auto) 25.9, Monocytes (%) (Auto) 8.0H, Eosinophils (%) (Auto) 4.2H, Basophils (%) (Auto) 0.4, Neutrophils # (Auto) 4.9, Lymphocytes # (Auto) 2.1, Monocytes # (Auto) 0.6, Eosinophils # (Auto) 0.3, Basophils # (Auto) 0.0, Nucleated Red Blood Cells % (auto) 0.0, Anion Gap 4L, Glomerular Filtration Rate > 60.0, Calcium Level 7.7L CBC/BMP Laboratory Tests 04/02/20 10:34 04/03/20 00:31 04/03/20 04:39 CONCHIS RAM MD Apr 03, 2020 07:18
[2020-04-03] MEDS: ATORVASTATIN 20 MG TAB PO SCH (09:47)
[2020-04-03] MEDS: NS 0.45% 1,000 ML IV SCH (09:48)
[2020-04-03 19:57] LABS: HEMATOCRIT 28.2 % (42.0-52.0)
[2020-04-03 20:27] LABS: BLOOD UREA NITROGEN 28 MG/DL (7-18); CARBON DIOXIDE LEVEL 28 MEQ/L (21-32); CHLORIDE LEVEL 113 MEQ/L (98-107); GLOMERULAR FILTRATION RATE > 60.0 (>42); GLUCOSE, FASTING 135 MG/DL (70-100); POTASSIUM SERUM 3.4 MEQ/L (3.5-5.1); SODIUM LEVEL 146 MEQ/L (136-145)
[2020-04-04] MEDS: NS 0.45% 1,000 ML IV SCH (00:40)
[2020-04-04 02:00] VITALS: BP 116/60
[2020-04-04] MEDS: SUCRALFATE SUSP 1GM/10ML UD PO SCH (05:26)
[2020-04-04 06:00] VITALS: BP 118/64
[2020-04-04] MEDS ORDERED: NS 0.45% 1,000 ML IV SCH (09:00)
[2020-04-04] MEDS ORDERED: POTASSIUM CHLORIDE 10 MEQ SR TABLET PO ONE (09:00)
[2020-04-04] MEDS: PANTOPRAZOLE 40MG VIAL (C9113 PER 1) IV SCH (09:08)
[2020-04-04] MEDS: ATORVASTATIN 20 MG TAB PO SCH (09:08)
[2020-04-04 09:32] LABS: BASO % 0.5 % (0.0-1.0); EOS # 0.3 10^3/uL (0.0-0.5); EOS % 4.1 % (0.0-3.0); HEMATOCRIT 29.2 % (42.0-52.0); HEMOGLOBIN 9.8 g/dl (13.5-17.5); LYMPH # 1.7 10^3/uL (1.5-5.0); LYMPH % 21.7 % (24.0-44.0); MEAN CORPUSCULAR HEMOGLOBIN 31.4 pg (27.0-33.0); MEAN CORPUSCULAR HGB CONC 33.6 g/dl (32.0-36.5); MEAN CORPUSCULAR VOLUME 93.6 fl (80.0-96.0); MONO # 0.8 10^3/uL (0.0-0.8); MONO % 9.6 % (0.0-5.0); NEUTROPHILS % 63.8 % (36.0-66.0); PLATELET COUNT, AUTOMATED 217 10^3/uL (150-450); RED BLOOD COUNT 3.12 10^6/uL (4.30-6.10); WHITE BLOOD COUNT 7.8 10^3/uL (4.0-10.0)
[2020-04-04 10:00] VITALS: BP 115/61
[2020-04-04 10:01] LABS: BLOOD UREA NITROGEN 20 MG/DL (7-18); CALCIUM LEVEL 8.1 MG/DL (8.8-10.2); CARBON DIOXIDE LEVEL 28 MEQ/L (21-32); CHLORIDE LEVEL 111 MEQ/L (98-107); CREATININE FOR GFR 0.72 MG/DL (0.70-1.30); GLOMERULAR FILTRATION RATE > 60.0 (>42); GLUCOSE, FASTING 98 MG/DL (70-100); POTASSIUM SERUM 3.2 MEQ/L (3.5-5.1); SODIUM LEVEL 143 MEQ/L (136-145)
[2020-04-04] MEDS ORDERED: SUCR1ORA PO (10:36)
[2020-04-04] MEDS ORDERED: PROT1TAB2 PO ×2 (10:36→10:52)
--- NOTE | 2020-04-04 10:46 | DS.PDOC ---
Discharge Summary General Date of Admission Apr 01, 2020 at 03:40 Date of Discharge 04/03/20 Discharge Summary DISCHARGE DIAGNOSES: Acute Upper GI Bleed Spurting Duodenal Ulcer with visible vessel Acute Blood Loss Anemia in the setting of chronic warfarin for Afib Symptomatic Anemia Mitral Valve Repair Chronic Atrial Fibrillation DISCHARGE MEDICATIONS: see below DISCHARGE INSTRUCTIONS: repeat EGD to be scheduled by Dr. Agustin. FU appt with Dr. Agustin, Dr. Fernandez, PCP within 5-7days Return to ER if recurrent GI bleed. No warfarin or ASA until seen by Dr. Agustin. HISTORY OF PRESENT ILLNESS: 79-year-old male patient with recent cardiac surgery( 03/08/20) and on Coumadin admitted for vasovagal syncope due to symptomatic anemia with hemoglobin decrease from 12 to 10 and ugibleed w coffee ground emesis. HOSPITAL COURSE: Acute Blood loss anemia s/p 7 units of PRBC and 4 units of FFP no recurrent GI bleed s/p EGD-bleeding duodenal ulcer w visible vessel on ppi bid and carafate held warfarin and aspirin not orthostatic on discharge recommend repeat egd as outpt Acute Upper GIB/Bleeding duodenal ulcer s/p cauterization and clips in the setting of chronic warfarin for Afib S/P EGD 04/01/[address] Martell: hold and reverse warfarin due to acute gi bleed was on IV Protonix 40 MG twice a day and sucralfate qid. held warfarin and aspirin not orthostatic on discharge recommend repeat egd as outpt Vasovagal Syncope due to GIB. symptomatic anemia 7 units rbc transfused Mitral valve surgery for Mitral regurgitation On 03/08/2020 mitral valve repair with triangular resection of posterior leaflet and the placement of 33 mm stimulus annuloplasty band. And cryoablation to the left and right atrium with clipping of the left atrial appendage. Last echocardiogram on 01/18/2020, LVEF 70%. Telemetry monitoring Ascending aortic dilation 02/03/2017 no acute issues Chronic 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 rate controlled off coumadin due to acute gibleed s/p rbc 7units and 4 units ffp transfusion Coronary artery disease 50% proximal to mid RCA stenosis Dilated aortic root no acute ischemic symptoms Hypertension. controlled on no meds Dyslipidemia: chronmic DVT prophylaxis: Teds and sequentials. ALLERGIES: Please see below. PHYSICAL EXAMINATION ON DISCHARGE: VITAL SIGNS: Please see below. GEN:pale. no cyanosis aaox3 no respiratory distress HEENT:no jvd or carotid bruits moist mm LUNGS:CTAB no w/r/r HEART:S1S2 RRR nondisplaced pmi ABD:+bs soft nt nd EXT:no edema LABORATORY DATA: Please see below. Imaging: CT head without contrast on 04/01/2020: Reported as 1. 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 2. Otherwise negative noncontrast head CT. CT abdomen/pelvis with IV contrast on 04/01/2020: Reported as 1. Small right inguinal hernia which contains a normal appendix. 2. Minimal bibasilar pulmonary interstitial coarsening with fibro-atelectatic change. 3. Otherwise negative CT abdomen/pelvis. ACTIVITY:as tolerated DIET: mechanical soft diet DISCHARGE CONDITION:stable TIME SPENT ON DISCHARGE: 30 MIN PROCEDURES PERFORMED DURING STAY: Patient Name: Rufino Mcneill Procedure Date: 04/01/2020 10:27 PM Date of : 1940 Age: 79 Gender: Male Note Status: Finalized Procedure: Upper GI endoscopy Indications: Hematochezia, Active gastrointestinal bleeding Providers: Thanh Agustin MD Referring MD: 2. Inpatient 2. Inpatient Requesting Provider: Medicines: General Anesthesia Complications: No immediate complications. Procedure: Pre-Anesthesia Assessment: - Prior to the procedure, a History and Physical was performed, and patient medications and allergies were reviewed. The patient is competent. The risks and benefits of the procedure and the sedation options and risks were discussed with the patient. All questions were answered and informed consent was obtained. Patient identification and proposed procedure were verified by the physician, the nurse and the anesthesiologist in the procedure room. Mental Status Examination: alert and oriented. Prophylactic Antibiotics: The patient does not require prophylactic antibiotics. Prior Anticoagulants: The patient has taken Coumadin (warfarin). ASA Grade Assessment: E - Emergency. After reviewing the risks and benefits, the patient was deemed in satisfactory condition to undergo the procedure. The anesthesia plan was to use general anesthesia. Immediately prior to administration of medications, the patient was re-assessed for adequacy to receive sedatives. The heart rate, respiratory rate, oxygen saturations, blood pressure, adequacy of pulmonary ventilation, and response to care were monitored throughout the procedure. The physical status of the patient was re-assessed after the procedure. The Endoscope was introduced through the mouth, and advanced to the second part of duodenum. The upper GI endoscopy was somewhat difficult due to excessive bleeding. The patient tolerated the procedure well. Findings: The examined esophagus was normal. Hematin (altered blood/rpohrh-efeogr-jvww material) was found in the entire examined stomach. One spurting cratered duodenal ulcer with a visible vessel was found in the first portion of the duodenum. The lesion was 8 mm in largest dimension. Coagulation for hemostasis using heater probe was successful. The bleeding was significantly lessened but a slow ooze remained. For hemostasis, two hemostatic clips were successfully placed (MR conditional). There was no bleeding at the end of the procedure. Impression: - Normal esophagus. - Hematin (altered blood/mbboxy-qofbct-vgqp material) in the entire stomach. - Spurting duodenal ulcer with a visible vessel. Treated with a heater probe. Clips (MR conditional) were placed. - No specimens collected. Recommendation: - Return patient to [facility] for ongoing care. - NPO. Procedure Code(s): --- Professional --- 27009, Esophagogastroduodenoscopy, flexible, transoral; with control of bleeding, any method Diagnosis Code(s): --- Professional --- K92.2, Gastrointestinal hemorrhage, unspecified K26.4, Chronic or unspecified duodenal ulcer with hemorrhage K92.1, Melena (includes Hematochezia) CPT copyright 2019 [employer]. All rights reserved. The codes documented in this report are preliminary and upon sugar grinder review may be revised to meet current compliance requirements. Thanh Agustin MD Thanh Agustin MD 04/03/2020 7:46:26 AM Electronically signed by Thanh Agustin MD TIME SPENT ON DISCHARGE: Greater than minutes. Vital Signs/I&Os Vital Signs Date Time Temp Pulse Resp B/P (MAP) Pulse Ox O2 Delivery O2 Flow Rate FiO2 04/04/20 06:00 98.8 92 16 118/64 (82) 98 Room Air 04/02/20 00:35 10 I&O- Last 24 Hours up to 6 AM 04/04/20 06:00 Intake Total 3158 ml Output Total 900 ml Balance 2258 ml Laboratory Data Labs 24H Laboratory Tests 2 04/03/20 19:51: Anion Gap 5L, Glomerular Filtration Rate > 60.0, Calcium Level 8.0L 04/04/20 08:46: Anion Gap 4L, Glomerular Filtration Rate > 60.0, Calcium Level 8.1L, Immature Gr anulocyte % (Auto) 0.3, Neutrophils (%) (Auto) 63.8, Lymphocytes (%) (Auto) 21.7L, Monocytes (%) (Auto) 9.6H, Eosinophils (%) (Auto) 4.1H, Basophils (%) (Auto) 0.5, Neutrophils # (Auto) 5.0, Lymphocytes # (Auto) 1.7, Monocytes # (Auto) 0.8, Eosinophils # (Auto) 0.3, Basophils # (Auto) 0.0, Nucleated Red Blood Cells % (auto) 0.0 CBC/BMP Laboratory Tests 04/03/20 19:51 04/04/20 08:46 Discharge Medications Scheduled Aspirin (Aspirin EC) 81 Mg Tablet.dr, 81 MG PO DAILY, (Reported) Atorvastatin Calcium (Atorvastatin Calcium) 40 Mg Tablet, 40 MG PO DAILY, (Reported) Multivitamin with Folic Acid (Thera Tablet) 400 Mcg Tablet, 1 TAB PO DAILY, (Reported) Pantoprazole Sodium (Protonix) 40 Mg Tablet.dr, 40 MG PO BID Sucralfate (Sucralfate) 1 Gm/10 Ml Oral.susp, 1 GM PO ACHS Warfarin Sodium (Jantoven) 4 Mg Tablet, 6 MG PO DAILY, (Reported) TUES,WED,FRI,SAT,SUN Warfarin Sodium (Warfarin Sodium) 4 Mg Tablet, 4 MG PO DAILY, (Reported) THU, Scheduled PRN Acetaminophen (Acetaminophen) 325 Mg Tablet, 650 MG PO Q4H PRN for PAIN, (Reported) Miscellaneous Medications [Med Rec Comment] , (Reported) USED EXTERNAL HISTORY AND LIST FROM DR. TEJADA FROM 03/27/20 Allergies Coded Allergies: No Known Allergies (Unverified , 03/31/20) CONCHIS RAM MD Apr 04, 2020 10:46
--- NOTE | 2020-04-05 08:38 | IPN ---
PROGRESS NOTE DATE: 04/03/2020 SUBJECTIVE: The patient is now postop day #2 from an EGD with cauterization and clipping of a bleeding duodenal ulcer. He had a significant blood loss requiring transfusion initially of 5 units of packed red blood cells and 4 units of FFP. He is ordered a blood transfusion today by the hospitalist. OBJECTIVE: VITAL SIGNS: Show that he has been afebrile over the past 24 hours. His pulse has been in the 60s to 80s. Blood pressure is stable and excellent and his room air oxygen saturation is normal. INTAKE AND OUTPUT: Show that yesterday he had 2800 recorded in with 1200 recorded out. He has had no bowel movements since his upper endoscopy. GENERAL: The patient is propped up in the bed looking quite comfortable. He is alert and oriented. He denies any abdominal pain. He has had no nausea or vomiting. He has had some flatus, but no bowel movements. HEART: Shows a regular rate and rhythm. LUNGS: Clear. ABDOMEN: Soft and nontender. LABORATORY DATA: This morning show a white count of 8, hemoglobin of 8, hematocrit of 25, and a platelet count of 179,000. Differential count is essentially normal. Chemistry profile this morning showed a sodium of 148, potassium 3.4, chloride 114, CO2 of 30, BUN 31, creatinine 0.76, and a glucose of 90. IMPRESSION: The patient is doing well with no signs of any ongoing bleeding. He denies any abdominal pain. He remains on Sucralfate and pantoprazole. PLAN: The patient does not seem to be having any bleeding at this point. He has tolerated a full liquid diet. I will advance him to a soft diet today. There is some blood ordered by the hospitalist. From my standpoint if there is no further evidence of bleeding, he can be discharged when the hospitalist is satisfied. [facility] CENTERSegundo
== END 2020-04-04 12:15 | disposition home or self-care (01) | DRG 811 ==
LOC: M ED 22:44 → M ED INP 04-01 03:40 → ENRESERV 04-01 03:57 → M PCU 04-01 04:52 → M MSPAV 04-03 11:10
PROVIDERS: ADMIT Family Medicine; ATTEND Internal Medicine Nephrology
PROC: 0W3P8ZZ Control Bleeding in Gastrointestinal Tract, Via Natural or Artificial Opening Endoscopic (ICD-10-PCS; principal; 2020-04-01 21:52)
DX: D62 Acute posthemorrhagic anemia (principal); K26.4 Chronic or unspecified duodenal ulcer with hemorrhage; I48.20 Chronic atrial 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, unspecified; I10 Essential (primary) hypertension; E78.5 Hyperlipidemia, unspecified; I25.10 Atherosclerotic heart disease of native coronary artery without angina pectoris; I34.0 Nonrheumatic mitral (valve) insufficiency; Z87.891 Personal history of nicotine dependence; Z79.82 Long term (current) use of aspirin; Z79.899 Other long term (current) drug therapy

== ENCOUNTER → 2020-04-05 | Outpatient (REF) | payer MEDICARE, OTHER ==
[~2020-04-05] MED LIST changes: +ACET-908 PO; +ASPI1TAB22 PO; +ASPI81TA26 PO; +ATOR40TA75 PO; +JANT4TAB PO; +MED REC COMMENT; +OS-CTAB PO; +PROT1TAB2 PO; +SUCR1ORA PO; +THERTAB19 PO; +WARF-20 PO
[2020-04-05 14:22] LABS: HEMOGLOBIN 10.5 g/dl (13.5-17.5); MEAN CORPUSCULAR HEMOGLOBIN 30.9 pg (27.0-33.0); MEAN CORPUSCULAR HGB CONC 31.8 g/dl (32.0-36.5); MEAN CORPUSCULAR VOLUME 97.1 fl (80.0-96.0); PLATELET COUNT, AUTOMATED 263 10^3/uL (150-450); WHITE BLOOD COUNT 9.4 10^3/uL (4.0-10.0)
[2020-04-05 14:50] LABS: ALBUMIN 3.1 GM/DL (3.2-5.2); ALT/SGPT 45 U/L (12-78); BILIRUBIN,TOTAL 0.8 MG/DL (0.2-1.0); BLOOD UREA NITROGEN 14 MG/DL (7-18); CALCIUM LEVEL 8.5 MG/DL (8.8-10.2); CARBON DIOXIDE LEVEL 32 MEQ/L (21-32); CHLORIDE LEVEL 108 MEQ/L (98-107); CHOLESTEROL LEVEL 102 MG/DL (<200); CHOLESTEROL RISK RATIO 2.684 (<5); CREATININE FOR GFR 0.85 MG/DL (0.70-1.30); GLOMERULAR FILTRATION RATE > 60.0 (>42); GLUCOSE, FASTING 106 MG/DL (70-100); HDL CHOLESTEROL 38 MG/DL (>40); LDL CHOLESTEROL 36 MG/DL (<100); NON-HDL-C 64 MG/DL; POTASSIUM SERUM 3.9 MEQ/L (3.5-5.1); SODIUM LEVEL 143 MEQ/L (136-145); TOTAL PROTEIN 5.7 GM/DL (6.4-8.2); TRIGLYCERIDES LEVEL 142 MG/DL (<150)
== END ==
LOC: M SFHCPLAZ 11:32
PROVIDERS: ATTEND Family Medicine
DX: D50.0 Iron deficiency anemia secondary to blood loss (chronic) (principal); E78.00 Pure hypercholesterolemia, unspecified; I10 Essential (primary) hypertension

== ENCOUNTER → 2020-05-31 | Outpatient (CLI) | payer MEDICARE, OTHER ==
[~2020-05-31] MED LIST changes: +CHLO125TA; +ELIQ5TAB
== END ==
LOC: M LABSMTC 09:34
PROVIDERS: ATTEND Anesthesiology
DX: Z01.812 Encounter for preprocedural laboratory examination (principal); Z20.822 Contact with and (suspected) exposure to COVID-19

== ENCOUNTER 2020-06-05 08:38 | Day surgery (SDC) | payer MEDICARE, OTHER ==
[~2020-06-05] VITALS: Ht 180.3 cm; Wt 79.4 kg
[~2020-06-05 08:38] MED LIST changes: +NS 1,000 ML IV ONE
[2020-06-05] MEDS ORDERED: propofoL 200 MG/20 ML VIAL As Ordered ONE (09:12)
[2020-06-05] MEDS ORDERED: LIDOCAINE 2% 100MG/5ML SDV (FOR ANES.) As Ordered ONE (09:12)
[2020-06-05] MEDS ORDERED: fentaNYL 100 MCG/2 ML INJECTION (J3010) As Ordered ONE (09:43)
--- NOTE | 2020-06-05 10:37 | ROOR ---
Patient Name: Rufino Mcneill Procedure Date: 06/05/2020 10:08 AM Date of : 1940 Age: 79 Room: [facility] Gender: Male Note Status: Finalized Procedure: Upper GI endoscopy Indications: Follow-up of acute duodenal ulcer with hemorrhage Providers: Thanh Agustin MD Referring MD: DINA JIMENEZ MD Requesting Provider: Medicines: Monitored Anesthesia Care Complications: No immediate complications. Procedure: Pre-Anesthesia Assessment: - Prior to the procedure, a History and Physical was performed, and patient medications and allergies were reviewed. The patient is competent. The risks and benefits of the procedure and the sedation options and risks were discussed with the patient. All questions were answered and informed consent was obtained. Patient identification and proposed procedure were verified by the physician, the nurse and the anesthesiologist in the procedure room. Mental Status Examination: alert and oriented. Prophylactic Antibiotics: The patient does not require prophylactic antibiotics. Prior Anticoagulants: The patient has taken Eliquis (apixaban), last dose was 4 days prior to procedure. ASA Grade Assessment: III - A patient with severe systemic disease. After reviewing the risks and benefits, the patient was deemed in satisfactory condition to undergo the procedure. The anesthesia plan was to use monitored anesthesia care (MAC). Immediately prior to administration of medications, the patient was re-assessed for adequacy to receive sedatives. The heart rate, respiratory rate, oxygen saturations, blood pressure, adequacy of pulmonary ventilation, and response to care were monitored throughout the procedure. The physical status of the patient was re-assessed after the procedure. The Endoscope was introduced through the mouth, and advanced to the second part of duodenum. The upper GI endoscopy was accomplished without difficulty. The patient tolerated the procedure well. Findings: The examined esophagus was normal. A 2 cm hiatal hernia was present. The entire examined stomach was normal. A small flat scar at the site of his prior ulcer post-ulcer deformity was found in the duodenal bulb. Biopsies were taken with a cold forceps for Helicobacter pylori testing. Impression: - Normal esophagus. - 2 cm hiatal hernia. - Normal stomach. - Duodenal deformity. Biopsied. Recommendation: - Await pathology results. - Telephone endoscopist for pathology results in 1 week. Procedure Code(s): --- Professional --- 53769, Esophagogastroduodenoscopy, flexible, transoral; with biopsy, single or multiple Diagnosis Code(s): --- Professional --- K44.9, Diaphragmatic hernia without obstruction or gangrene K31.89, Other diseases of stomach and duodenum K26.0, Acute duodenal ulcer with hemorrhage CPT copyright 2019 [employer]. All rights reserved. The codes documented in this report are preliminary and upon assistant to the vice president review may be revised to meet current compliance requirements. Thanh Agustin MD Thanh Agustin MD 06/05/2020 10:36:57 AM Electronically signed by Thanh Agustin MD Number of Addenda: 0 Note Initiated On: 06/05/2020 10:08 AM Estimated Blood Loss: Estimated blood loss was minimal.
[2020-06-05 10:45] VITALS: BP 118/64
== END 2020-06-05 10:58 | disposition home or self-care (01) ==
LOC: M OPP 08:38
PROVIDERS: ATTEND Surgery
DX: K26.0 Acute duodenal ulcer with hemorrhage (principal); D13.2 Benign neoplasm of duodenum; K44.9 Diaphragmatic hernia without obstruction or gangrene; K31.89 Other diseases of stomach and duodenum; I10 Essential (primary) hypertension; E78.5 Hyperlipidemia, unspecified; I48.91 Unspecified atrial fibrillation; I25.10 Atherosclerotic heart disease of native coronary artery without angina pectoris; Z87.891 Personal history of nicotine dependence; Z96.89 Presence of other specified functional implants; Z79.01 Long term (current) use of anticoagulants; Z79.899 Other long term (current) drug therapy
CPT/HCPCS: 43239; 88305; J3010

== ENCOUNTER → 2020-07-06 | Outpatient (REF) | payer MEDICARE, OTHER ==
[~2020-07-06] MED LIST changes: -ACET-908 PO; +ACET-910 PO; -CHLO125TA; +CRAN400C PO; -ELIQ5TAB; +ELIQ5TAB PO; +FISH1000 PO; +HYDR-3713 PO; +KELP150T2 PO; -NS 1,000 ML IV ONE; +PANT40TA29 PO; +VITMTA PO
[2020-07-06 15:16] LABS: HEMATOCRIT 50.9 % (42.0-52.0); HEMOGLOBIN 16.6 g/dl (13.5-17.5); MEAN CORPUSCULAR HEMOGLOBIN 30.5 pg (27.0-33.0); MEAN CORPUSCULAR HGB CONC 32.6 g/dl (32.0-36.5); MEAN CORPUSCULAR VOLUME 93.4 fl (80.0-96.0); PLATELET COUNT, AUTOMATED 246 10^3/uL (150-450); RED BLOOD COUNT 5.45 10^6/uL (4.30-6.10); WHITE BLOOD COUNT 7.2 10^3/uL (4.0-10.0)
[2020-07-06 15:19] LABS: BLOOD UREA NITROGEN 22 MG/DL (7-18); CALCIUM LEVEL 9.7 MG/DL (8.8-10.2); CARBON DIOXIDE LEVEL 33 MEQ/L (21-32); CHLORIDE LEVEL 103 MEQ/L (98-107); CREATININE FOR GFR 1.08 MG/DL (0.70-1.30); GLOMERULAR FILTRATION RATE > 60.0 (>42); GLUCOSE, FASTING 125 MG/DL (70-100); POTASSIUM SERUM 3.6 MEQ/L (3.5-5.1); SODIUM LEVEL 141 MEQ/L (136-145)
== END ==
LOC: M SFHCPLAZ 12:23
PROVIDERS: ATTEND Family Medicine
DX: Z01.818 Encounter for other preprocedural examination (principal); Z79.899 Other long term (current) drug therapy
CPT/HCPCS: 36415; 80048; 85027; 93005; G0463

== ENCOUNTER → 2020-07-12 | Outpatient (CLI) | payer MEDICARE, OTHER ==
[~2020-07-12] MED LIST changes: -HYDR-3713 PO
== END ==
LOC: M LABSMTC 10:06
PROVIDERS: ATTEND Anesthesiology
DX: Z11.52 Encounter for screening for COVID-19 (principal)

== ENCOUNTER 2020-07-17 11:45 | Day surgery (SDC) | payer MEDICARE, OTHER ==
[~2020-07-17] VITALS: Ht 180.3 cm; Wt 83.9 kg
[~2020-07-17 11:45] MED LIST changes: +LIDOCAINE 1% MDV 20ML VIAL SQ PRN; +LR 1,000 ML IV ONE
[2020-07-17] MEDS ORDERED: fentaNYL 250 MCG/5 ML INJECTION (J3010) As Ordered ONE (12:30)
[2020-07-17] MEDS ORDERED: LIDOCAINE 2% 100MG/5ML SDV (FOR ANES.) As Ordered ONE (12:31)
[2020-07-17] MEDS ORDERED: ROCURONIUM BROMIDE 50 MG/5 ML VIAL As Ordered ONE ×2 (12:31→14:46)
[2020-07-17] MEDS ORDERED: propofoL 200 MG/20 ML VIAL As Ordered ONE (12:31)
[2020-07-17] MEDS ORDERED: MIDAZOLAM INJ 2MG/2ML VIAL (J2250 PER 1MG) As Ordered ONE (12:31)
[2020-07-17] MEDS ORDERED: ONDANSETRON 4MG/2ML VIAL As Ordered ONE (12:31)
[2020-07-17] MEDS ORDERED: dexameTHASONE 4 MG/ML 1ML VIAL (J1100 PER 1MG) As Ordered ONE (12:31)
[2020-07-17] MEDS ORDERED: BUPIVACAINE HCL 0.25% 30ML VIAL As Ordered ONE (13:41)
[2020-07-17] MEDS ORDERED: SUGAMMADEX SODIUM 500 MG/5 ML VIAL (BRIDION) As Ordered ONE (14:35)
[2020-07-17] MEDS ORDERED: ePHEDrine SULFATE 25 MG/5 ML(5MG/ML) SYRINGE As Ordered ONE (14:35)
[2020-07-17] MEDS ORDERED: METOCLOPRAMIDE INJ 10MG/2ML VIAL (J2765 PER 1) IV PRN (16:35)
[2020-07-17] MEDS ORDERED: PERCOCET 5MG/325MG TAB PO PRN (16:35)
[2020-07-17] MEDS ORDERED: LR 1,000 ML IV SCH (16:35)
[2020-07-17] MEDS ORDERED: ONDANSETRON 4MG/2ML VIAL IV PRN (16:35)
[2020-07-17] MEDS: fentaNYL 100 MCG/2 ML INJECTION (J3010) IV PRN ×2 (16:43→17:00)
[2020-07-17] MEDS ORDERED: HYDR-3713 PO (17:16)
[2020-07-17] MEDS ORDERED: ACETAMINOPHEN TAB 650MG DOSE (2X325MG) PO PRN (17:25)
[2020-07-17] MEDS ORDERED: NORCO, ANEXSIA 5/325MG TABLET (HYDROcodone/ACETAMINOPHEN) PO PRN (17:25)
[2020-07-17 18:25] VITALS: BP 135/63
--- NOTE | 2020-07-18 07:31 | RO ---
OPERATIVE NOTE DATE OF OPERATION: 07/17/2020 PREOPERATIVE DIAGNOSIS: Right inguinal hernia. POSTOPERATIVE DIAGNOSIS: Large indirect right inguinal hernia. PROCEDURE PERFORMED: Robotic-assisted laparoscopic repair of a right inguinal hernia with mesh. The mesh utilized was ProGrip reference code [id number] and the lot number [id number]. SURGEON: Thanh Agustin MD GENERAL WAREHOUSE WORKER: CARMEN Alvarenga. Leatha's assistance was essential for placement of the robotic trocars, management of the robotic instruments, insertion and withdrawal of needles and mesh. ANESTHESIA: General INDICATIONS FOR THE PROCEDURE: The patient is a 79-year-old man who had complained of a uncomfortable bulge in the right inguinal area and was found to have a reducible, moderate sized right inguinal hernia. He is now for repair. OPERATIVE PROCEDURE: The patient was brought to the operating room and placed on the table in a supine position. He was placed under general endotracheal anesthesia. The patient's abdomen, groins and genitalia were prepped and draped in a sterile fashion. 1/4% Marcaine was infiltrated the trocar sites. A short transverse supraumbilical incision was made and a Veress needle was inserted. After a positive hanging drop test, the abdomen was inflated with carbon dioxide. An 8 mm port was placed over the scope and advanced through the abdominal wall without difficulty. Initial exam showed a normal appearing liver. Visualized portions of the small and large bowel were normal. The patient was noted to have a hernia defect on the right but there was no evidence of a hernia on the left. A second robotic port was placed in the right upper quadrant and a third in the left upper quadrant. The patient was then placed in a 15 degree Trendelenburg position. The patient cart of the da Alex XI robot was brought into position and the endoscope arm was docked to the middle port. The camera was inserted and targeting took place in the right side of the pelvis. A fenestrated bipolar and cauterizing scissors were inserted in the other two ports. I moved to the control console to proceed with the surgery. Initial inspection confirmed a large indirect hernia sac on the right with no evidence of hernia on the left. A peritoneal flap was begun at the medial umbilical fold and extended laterally and then inferiorly toward the anterior-superior iliac spine. The flap was completely developed medially initially by deepening the dissection down to expose the pubic symphysis and Rock's ligament and ensuring that there was no evidence of femoral hernia. The lateral aspect of the dissection was then performed and last the hernia sac was carefully dissected free from within the inguinal canal. There was some mild edema noted at points of the dissection in the surrounding tissues. The hernia sac was then dissected off of the underlying spermatic cord structures. A small defect was created in the peritoneum near the opening of the hernia. Once the preperitoneal space was completely developed, I elected to close the internal ring with a 2-0 V-Loc. This was started laterally and worked medially toward the spermatic cord to narrow the opening to prevent herniation of the mesh through this defect. The ProGrip mesh was then rolled and inserted into the abdomen after the corners had been lightly trimmed. This was placed into the preperitoneal space and unfolded and centered over the sutured internal ring. The adherent side of the mesh was pressed gently into the soft tissues of the inguinal floor. The peritoneum was then closed with a running suture of 2-0 V-Loc beginning at the lateral extent of the flap. The inverted hernia sac was incorporated into the closure to strengthen the sutures along the peritoneal edge and also to cover the area of the small defect. As the closure proceeded medially, the patient was gradually returned to a flat and then 5 degree reverse Trendelenburg position with reduction of the intra-abdominal pressure to allow the flap to fall down upon the mesh. The closure was completed. All needles were removed. There had been minimal blood loss with the procedure. The robotic instruments were removed. The robot was undocked and withdrawn. The abdomen was deflated and the trocars were then removed. I then proceeded to close the skin incisions with buried sutures of 4-0 Vicryl and Steri-Strips. Light dressings were applied. The patient tolerated the procedure well without apparent complication. He was awakened in the operating room, extubated and moved to the recovery room in stable condition.
== END 2020-07-17 18:25 | disposition home or self-care (01) ==
LOC: M SDC 11:45
PROVIDERS: ATTEND Surgery
DX: K40.90 Unilateral inguinal hernia, without obstruction or gangrene, not specified as recurrent (principal); I11.9 Hypertensive heart disease without heart failure; E78.5 Hyperlipidemia, unspecified; K25.9 Gastric ulcer, unspecified as acute or chronic, without hemorrhage or perforation; I48.92 Unspecified atrial flutter; I71.2 Thoracic aortic aneurysm, without rupture; N40.0 Benign prostatic hyperplasia without lower urinary tract symptoms; Z95.2 Presence of prosthetic heart valve; Z79.899 Other long term (current) drug therapy; Z79.01 Long term (current) use of anticoagulants; Z87.891 Personal history of nicotine dependence
CPT/HCPCS: 49650; C1781; J1100; J2250; J2405; J3010; S2900

== ENCOUNTER → 2021-01-12 | Outpatient (CLI) | payer MEDICARE, OTHER ==
[~2021-01-12] MED LIST changes: +HYDR-3713 PO; -LIDOCAINE 1% MDV 20ML VIAL SQ PRN; -LR 1,000 ML IV ONE; +PANT20TA6 PO
== END ==
LOC: M LABSMTC 10:27
PROVIDERS: ATTEND Anesthesiology
DX: Z20.828 Contact with and (suspected) exposure to other viral communicable diseases (principal); Z11.52 Encounter for screening for COVID-19

== ENCOUNTER 2021-01-17 12:02 | Day surgery (SDC) | payer MEDICARE, OTHER ==
[~2021-01-17] VITALS: Ht 180.3 cm; Wt 83.9 kg
[~2021-01-17 12:02] MED LIST changes: +NS 1,000 ML IV ONE
--- OUTSIDE RECORDS SUMMARY | 2021-01-17 12:45 | CCD | Continuity of Care Document ---
Author Author Rufino BULLOCK PA Organization Unknown Address [address], [address] [place] [address] Phone [phone] Problems Active Problems Provider Date History of polyp of colon Dyllan Castro MD Onset: 012 Social History Type Date Description Comments Sex Unknown ETOH Use consumes 1-2 glasses of wine per week Tobacco Use Start: Unknown End: Unknown Patient is a former smoker 1 ppd x16 years quit in 1984 Recreational Drug Use Denies Drug Use Allergies, Adverse Reactions, Alerts Description No Known Drug Allergies Medications Active Medications SIG Qnty Indications Ordering Provide r Date Pantoprazole Sodium 40mg Tablets D R Take One Tablet By Mouth Twice A Day (Maximum Daily Dose =2) 60tabs Thanh Agustin M.D. 04/30/2020 Atorvastatin Calcium 20mg Tablets 1 by mouth every day Unknown Thera-Tabs Tablets 1 every d ay Unknown Acetaminophen 325mg Tablets a s needed Unknown Eliquis 5mg Tablets twice a d ay 60tabs Veronica Haro Immunizations Description No Information Available Vital Signs Date Vital Result Comment 11/12/2020 1:45pm BP Systolic 120 mmHg BP Diastolic 70 mmHg Body Temperature 98.5 F Height 71 inches 5'11" Weight 191.00 lb BMI (Body Mass Index) 26.6 kg/m2 [place] Body Weight 172 lb Weight 86.638 kg BSA (Body Surface Area) 2.07 m2 07/31/2020 2:13pm BP Systolic 118 mmHg BP Diastolic 76 mmHg Height 71 inches 5'11" Weight 185.00 lb BMI (Body Mass Index) 25.8 kg/m2 [place] Body Weight 172 lb Weight 83.916 kg BSA (Body Surface Area) 2.04 m2 Results Test Acquired Date Facility Test Result H/L Range Note Laboratory test finding 06/05/2020 [facility] [address] [id number] [phone] Pathology Request For Service (SEE NOTE) 1 1 FINAL DIAGNOSIS Duodenum, biopsy: Duodenal mucosa with intact villous architecture. No evidence for celiac disease. 06/06/2020 - 1255 CLINICAL DIAGNOSIS Duodenal ulcer follow up 06/06/2020 - 712 GROSS DIAGNOSIS Received in formalin labeled "duodenal biopsy" consists of two fragments of wooten tissue, 0.3 x 0.3 x 0.2 cm in aggregate. All in one. -SV 06/06/2020 - 712 Signed LE RAMIREZ MD 06/06/2020 1443 Procedures Date Code Description Status 07/17/2020 25566 Lap Inguinal Hernia Repair Compl eted 06/13/2020 74560 Office/Outpatient Established Mo d MDM 30-39 Min Completed 06/05/2020 56539 Endoscopy Upper GI Biopsy Comple [employer] Description No Information Available Encounters Type Date Location Provider Dx Diagnosis Office Visit 07/31/2020 2:00p [facility] FATOU Jamil K40.90 Unil inguinal hernia, w/o obst or gangr, not spcf as recur Z48.815 Encntr for surgical aftcr fo llowing surgery on the dgstv sys Office Visit 06/13/2020 9:45a [facility] Thanh childs M.D. K26.0 Acute duodenal ulcer with hemorrhage K40.90 Unil inguinal hernia, w/o ob st or gangr, not spcf as recur Assessments Date Code Description Provider 07/31/2020 K40.90 Unilateral inguinal hernia, without obstruction or gangrene, not specified as recurrent FATOU Velasco 07/31/2020 Z48.815 Encounter for surgic al aftercare following surgery on the digestive system FATOU Velasco 07/17/2020 K40.90 Unilateral inguinal hernia, without obstruction or gangrene, not specified as recurrent Thanh Agustin M.D. 06/13/2020 K26.0 Acute duodenal ulcer with hemorr christa Thanh Agustin M.D. 06/13/2020 K40.90 Unilateral inguinal hernia, without obstruction or gangrene, not specified as recurrent Thanh Agustin M.D. 06/05/2020 K26.0 Acute duodenal ulcer with hemorr christa Thanh Agustin M.D. 06/05/2020 K44.9 Diaphragmatic hernia without obs truction or gangrene Thanh Agustin M.D. 06/05/2020 K31.89 Other diseases of stomach and du odenum Thanh Agustin M.D. Plan of Treatment No Information Available Functional Status Description No Information Available Mental Status Description No Information Available Referrals Description No Information Available
--- OUTSIDE RECORDS SUMMARY | 2021-01-17 12:47 | CCD ---
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 Name Role Phone Mitzi BENTON MD Unavailable Unavailable Mitzi BENTON MD Unavailable Unavailable Mitzi BENTON MD Unavailable Unavailable Mitzi BENTON MD Unavailable Unavailable CHANMitzi SANTIAGO MD Unavailable Unavailable Mitzi BENTON MD Unavailable Unavailable Mitzi BENTON MD Unavailable Unavailable Mitzi BENTON MD Unavailable Unavailable Mitzi BENTON MD Unavailable Unavailable Mitzi BENTON MD Unavailable Unavailable Mitzi BENTON MD Unavailable Unavailable Mitzi BENTON MD Unavailable Unavailable Mitzi BENTON MD Unavailable Unavailable Jared-Doug, Mireya Uribe MD Unavailable Unavailable El-Khally, Mireya Uribe MD Unavailable Unavailable El-Khally, Mireya Uribe MD Unavailable Unavailable El-Khally, Mireya Uribe MD Unavailable Unavailable El-Khally, Mireya Uribe MD Unavailable Unavailable El-Khally, Mireya Uribe MD Unavailable Unavailable El-Khally, Mireya Uribe MD Unavailable Unavailable El-Khally, Mireya Uribe MD Unavailable Unavailable El-Khally, Mireya Uribe MD Unavailable Unavailable El-Khally, Mireya Uribe MD Unavailable Unavailable El-Khally, Mireya Uribe MD Unavailable Unavailable El-Khally, Mireya Uribe MD Unavailable Unavailable El-Khally, Mireya Uribe MD Unavailable Unavailable El-Khally, Mireya Uribe MD Unavailable Unavailable El-Khally, Mireya Uribe MD Unavailable Unavailable El-Khally, A Ziad MD Unavailable Unavailable El-Khally, A Ziad MD Unavailable Unavailable El-Khally, A Ziad MD Unavailable Unavailable El-Khally, A Ziad MD Unavailable Unavailable El-Khally, A Ziad MD Unavailable Unavailable El-Khally, A Ziad MD Unavailable Unavailable El-Khally, A Ziad MD Unavailable Unavailable El-Khally, A Ziad MD Unavailable Unavailable El-Khally, A Ziad MD Unavailable Unavailable El-Khally, A Ziad MD Unavailable Unavailable El-Khally, A Ziad MD Unavailable Unavailable El-Khally, A Ziad MD Unavailable Unavailable El-Khally, A Ziad MD Unavailable Unavailable El-Khally, A Ziad MD Unavailable Unavailable El-Khally, A Ziad MD Unavailable Unavailable El-Khally, A Ziad MD Unavailable Unavailable El-Khally, A Ziad MD Unavailable Unavailable El-Khally, A Ziad MD Unavailable Unavailable El-Khally, A Ziad MD Unavailable Unavailable El-Khally, A Ziad MD Unavailable Unavailable El-Khally, A Ziad MD Unavailable Unavailable El-Khally, A Ziad MD Unavailable Unavailable El-Khally, A Ziad MD Unavailable Unavailable El-Khally, A Ziad MD Unavailable Unavailable El-Khally, A Ziad MD Unavailable Unavailable El-Khally, A Ziad MD Unavailable Unavailable El-Khally, A Ziad MD Unavailable Unavailable El-Khally, A Ziad MD Unavailable Unavailable Michelle Cramer MD Unavailable Unavailable Michelle Cramer MD Unavailable Unavailable Michelle Cramer MD Unavailable Unavailable Michelle Cramer MD Unavailable Unavailable Michelle Cramer MD Unavailable Unavailable Michelle Cramer MD Unavailable Unavailable Michelle Cramer MD Unavailable Unavailable Michelle Cramer MD Unavailable Unavailable Michelle Cramer MD Unavailable Unavailable Michelle Cramer MD Unavailable Unavailable Michelle Cramer MD Unavailable Unavailable Michelle Cramer MD Unavailable Unavailable Michelle Cramer MD Unavailable Unavailable Michelle Cramer MD Unavailable Unavailable Michelle Cramer MD Unavailable Unavailable Michelle Cramer MD Unavailable Unavailable Michelle Cramer MD Unavailable Unavailable Michelle Cramer MD Unavailable Unavailable Michelle Cramer MD Unavailable Unavailable Michelle Cramer MD Unavailable Unavailable Michelle Cramer MD Unavailable Unavailable Michelle Cramer MD Unavailable Unavailable Michelle Cramer MD Unavailable Unavailable Michelle Cramer MD Unavailable Unavailable Michelle Cramer MD Unavailable Unavailable Michelle Cramer MD Unavailable Unavailable Michelle Cramer MD Unavailable Unavailable Michelle Cramer MD Unavailable Unavailable Michelle Cramer MD Unavailable Unavailable Michelle Cramer MD Unavailable Unavailable Michelle Cramer MD Unavailable Unavailable Michelle Cramer MD Unavailable Unavailable Michelle Cramer MD Unavailable Unavailable Michelle Cramer MD Unavailable Unavailable Michelle Cramer MD Unavailable Unavailable Michelle Cramer MD Unavailable Unavailable Michelle Cramer MD Unavailable Unavailable Michelle Cramer MD Unavailable Unavailable Michelle Cramer MD Unavailable Unavailable Michelle Cramer MD Unavailable Unavailable Michelle Cramer MD Unavailable Unavailable Michelle Cramer MD Unavailable Unavailable Michelle Cramer MD Unavailable Unavailable Michelle Cramer MD Unavailable Unavailable Michelle Cramer MD Unavailable Unavailable Michelle Cramer MD Unavailable Unavailable Michelle Cramer MD Unavailable Unavailable Michelle Cramer MD Unavailable Unavailable Michelle Cramer MD Unavailable Unavailable Michelle Cramer MD Unavailable Unavailable Michelle Cramer MD Unavailable Unavailable Michelle Cramer MD Unavailable Unavailable Michelle Cramer MD Unavailable Unavailable Michelle Cramer MD Unavailable Unavailable Michelle Cramer MD Unavailable Unavailable Michelle Cramer MD Unavailable Unavailable Michelle Cramer MD Unavailable Unavailable Michelle Cramer MD Unavailable Unavailable Michelle Cramer MD Unavailable Unavailable Michelle Cramer MD Unavailable Unavailable ULISES, M SUSHILA PA Unavailable Unavailable ULISES, M SUSHILA PA Unavailable Unavailable ULISES, M SUSHILA PA Unavailable Unavailable ULISES, M SUSHILA PA Unavailable Unavailable ULISES, M SUSHILA PA Unavailable Unavailable ULISES, M SUSHILA PA Unavailable Unavailable ULISES, M SUSHILA PA Unavailable Unavailable ULISES, M SUSHILA PA Unavailable Unavailable ULISES, M SUSHILA PA Unavailable Unavailable ULISES, M SUSHILA PA Unavailable Unavailable ULISES, M SUSHILA PA Unavailable Unavailable ULISES, M SUSHILA PA Unavailable Unavailable ULISES, M SUSHILA PA Unavailable Unavailable ULISES, M SUSHILA PA Unavailable Unavailable ULISES, M SUSHILA PA Unavailable Unavailable ULISES, M SUSHILA PA Unavailable Unavailable ULISES, M SUSHILA PA Unavailable Unavailable ULISES, M SUSHILA PA Unavailable Unavailable ULISES, M SUSHILA PA Unavailable Unavailable ULISES, M SUSHILA PA Unavailable Unavailable ULISES, M SUSHILA PA Unavailable Unavailable ULISES, M SUSHILA PA Unavailable Unavailable ULISES, M SUSHILA PA Unavailable Unavailable ULISES, M SUSHILA PA Unavailable Unavailable ULISES, M SUSHILA PA Unavailable Unavailable ULISES, M SUSHILA PA Unavailable Unavailable ULISES, M SUSHILA PA Unavailable Unavailable ULISES, M SUSHILA PA Unavailable Unavailable ULISES, M SUSHILA PA Unavailable Unavailable ULISES, M SUSHILA PA Unavailable Unavailable ULISES, M SUSHILA PA Unavailable Unavailable ULISES, M SUSHILA PA Unavailable Unavailable ULISES, M SUSHILA PA Unavailable Unavailable ULISES, M SUSHILA PA Unavailable Unavailable ULISES, M SUSHILA PA Unavailable Unavailable ULISES, M SUSHILA PA Unavailable Unavailable ULISES, M SUSHILA PA Unavailable Unavailable ULISES, M SUSHILA PA Unavailable Unavailable ULISES, M SUSHILA PA Unavailable Unavailable ULISES, M SUSHILA PA Unavailable Unavailable ULISES, M SUSHILA PA Unavailable Unavailable ULISES, M SUSHILA PA Unavailable Unavailable ULISES, M SUSHILA PA Unavailable Unavailable ULISES, M SUSHILA PA Unavailable Unavailable ULISES, M SUSHILA PA Unavailable Unavailable ULISES, M SUSHILA PA Unavailable Unavailable ULISES, M SUSHILA PA Unavailable Unavailable ULISES, M SUSHILA PA Unavailable Unavailable ULISES, M SUSHILA PA Unavailable Unavailable ULISES, M SUSHILA PA Unavailable Unavailable ULISES, M SUSHILA PA Unavailable Unavailable ULISES, M SUSHILA PA Unavailable Unavailable ULISES, M SUSHILA PA Unavailable Unavailable ULISES, M SUSHILA PA Unavailable Unavailable ULISES, M SUSHILA PA Unavailable Unavailable ULISES, M SUSHILA PA Unavailable Unavailable ULISES, M SUSHILA PA Unavailable Unavailable ULISES, M SUSHILA PA Unavailable Unavailable ULISES, M SUSHILA PA Unavailable Unavailable ULISES, M SUSHILA PA Unavailable Unavailable ULISES, M SUSHILA PA Unavailable Unavailable ULISES, M SUSHILA PA Unavailable Unavailable ULISES, M SUSHILA PA Unavailable Unavailable ULISES, M SUSHILA PA Unavailable Unavailable ULISES, M SUSHILA PA Unavailable Unavailable ULISES, M SUSHILA PA Unavailable Unavailable ULISES, M SUSHILA PA Unavailable Unavailable ULISES, M SUSHILA PA Unavailable Unavailable ULISES, M SUSHILA PA Unavailable Unavailable ULISES, M SUSHILA PA Unavailable Unavailable ULISES, M SUSHILA PA Unavailable Unavailable ULISES, M SUSHILA PA Unavailable Unavailable ULISES, M SUSHILA PA Unavailable Unavailable ULISES, M SUSHILA PA Unavailable Unavailable ULISES, M SUSHILA PA Unavailable Unavailable ULISES, M SUSHILA PA Unavailable Unavailable ULISES, M SUSHILA PA Unavailable Unavailable Detor, M Antonia SHAPER MACHINE HAND Unavailable Unavailable Detor, M Antonia SHAPER MACHINE HAND Unavailable Unavailable Detor, M Antonia SHAPER MACHINE HAND Unavailable Unavailable Detor, M Antonia SHAPER MACHINE HAND Unavailable Unavailable Detor, M Antonia SHAPER MACHINE HAND Unavailable Unavailable Detor, M Antonia SHAPER MACHINE HAND Unavailable Unavailable Detor, M Antonia SHAPER MACHINE HAND Unavailable Unavailable Detor, M Antonia SHAPER MACHINE HAND Unavailable Unavailable Detor, M Antonia SHAPER MACHINE HAND Unavailable Unavailable Detor, M Antonia SHAPER MACHINE HAND Unavailable Unavailable Detor, M Antonia SHAPER MACHINE HAND Unavailable Unavailable Detor, Immanuel Knight SHAPER MACHINE HAND Unavailable Unavailable Detor, Immanuel Knight SHAPER MACHINE HAND Unavailable Unavailable Detor, Immanuel Knight SHAPER MACHINE HAND Unavailable Unavailable Detor, Immanuel Knight SHAPER MACHINE HAND Unavailable Unavailable Detor, Immanuel Knight SHAPER MACHINE HAND Unavailable Unavailable Detor, Immanuel Knight SHAPER MACHINE HAND Unavailable Unavailable Detor, Immanuel Knight SHAPER MACHINE HAND Unavailable Unavailable Detor, Immanuel Knight SHAPER MACHINE HAND Unavailable Unavailable Detor, Immanuel Knight SHAPER MACHINE HAND Unavailable Unavailable Detor, Immanuel Knight SHAPER MACHINE HAND Unavailable Unavailable Detor, Immanuel Knight SHAPER MACHINE HAND Unavailable Unavailable Detor, Immanuel Knight SHAPER MACHINE HAND Unavailable Unavailable Detor, Immanuel Knight SHAPER MACHINE HAND Unavailable Unavailable Detor, Immanuel Knight SHAPER MACHINE HAND Unavailable Unavailable Detor, Immanuel Knight SHAPER MACHINE HAND Unavailable Unavailable Detor, Immanuel Knight SHAPER MACHINE HAND Unavailable Unavailable Detor, Immanuel Knight SHAPER MACHINE HAND Unavailable Unavailable Detor, Immanuel Knight SHAPER MACHINE HAND Unavailable Unavailable Detor, Immanuel Knight SHAPER MACHINE HAND Unavailable Unavailable Detor, Immanuel Knight SHAPER MACHINE HAND Unavailable Unavailable Detor, Immanuel Knight SHAPER MACHINE HAND Unavailable Unavailable Detor, Immanuel Knight SHAPER MACHINE HAND Unavailable Unavailable Detor, Immanuel Knight SHAPER MACHINE HAND Unavailable Unavailable Detor, Immanuel Knight SHAPER MACHINE HAND Unavailable Unavailable Detor, Immanuel Knight SHAPER MACHINE HAND Unavailable Unavailable Detor, Immanuel Knight SHAPER MACHINE HAND Unavailable Unavailable MELISA, Nael LOPEZ MD Unavailable Unavailable MELISA, O JOHN HALL Unavailable Unavailable MELISA, O JOHN HALL Unavailable Unavailable MELISA, O JOHN HALL Unavailable Unavailable MELISA, Nael LOPEZ MD Unavailable Unavailable MELISA, O JOHN HALL Unavailable Unavailable MELISA, O JHON HLAL Unavailable Unavailable MELISA, O JOHN HALL Unavailable Unavailable MELISA, Nael LOPEZ MD Unavailable Unavailable MELISA, Nael LOPEZ MD Unavailable Unavailable MELISANael MD Unavailable Unavailable MELISANael MD Unavailable Unavailable MELISANael MD Unavailable Unavailable MELISANael MD Unavailable Unavailable MELISANael MD Unavailable Unavailable MELISA O JOHN HALL Unavailable Unavailable MELISA O JOHN HALL Unavailable Unavailable MELISANael MD Unavailable Unavailable MELISA, O JOHN HALL Unavailable Unavailable MELISA, O JOHN HALL Unavailable Unavailable MELISA, O JOHN HALL Unavailable Unavailable MELISA, O JOHN HALL Unavailable Unavailable MELISA, O JOHN HALL Unavailable Unavailable MELISA, O JHON HALL Unavailable Unavailable MELISA, O JOHN HALL Unavailable Unavailable MELISA, O JOHN HALL Unavailable Unavailable MELISA, O JOHN HALL Unavailable Unavailable MELISA, O JOHN HALL Unavailable Unavailable MELISA, O JOHN HALL Unavailable Unavailable MELISA, O JOHN MD Unavailable Unavailable Nael VINCENT MD Unavailable Unavailable Nael VINCENT MD Unavailable Unavailable Nael VINCENT MD Unavailable Unavailable Nael VINCENT MD Unavailable Unavailable Nael VINCENT MD Unavailable Unavailable Nael VINCENT MD Unavailable Unavailable Nael VINCNET MD Unavailable Unavailable Nael VINCENT MD Unavailable Unavailable Nael VINCENT MD Unavailable Unavailable Nael VINCENT MD Unavailable Unavailable Nael VINCENT MD Unavailable Unavailable Nael VINCENT MD Unavailable Unavailable Nael VINCENT MD Unavailable Unavailable Tres Chambers MD Unavailable Unavaila ble MigeedTres MD Unavailable Unavaila ble MigeedTres MD Unavailable Unavaila ble MigeedTres MD Unavailable Unavaila ble MigeedTres MD Unavailable Unavaila ble MigeedTres MD Unavailable Unavaila ble MigeedTres MD Unavailable Unavaila ble MigeedTres MD Unavailable Unavaila ble MigeedTres MD Unavailable Unavaila ble MigeedTres MD Unavailable Unavaila ble MigeedTres MD Unavailable Unavaila ble MigeedTres MD Unavailable Unavaila ble MigeedTres MD Unavailable Unavaila ble MigeedTres MD Unavailable Unavaila ble MigeedTres MD Unavailable Unavaila ble MigeedTres MD Unavailable Unavaila ble MigeedTres MD Unavailable Unavaila ble MigeedTres MD Unavailable Unavaila ble MigeedTres MD Unavailable Unavaila ble MigeedTres MD Unavailable Unavaila ble MigeedTres MD Unavailable Unavaila ble MigeedTres MD Unavailable Unavaila ble MigeedTres MD Unavailable Unavaila ble MigeedTres MD Unavailable Unavaila ble MigeedTres MD Unavailable Unavaila ble MigeedTres MD Unavailable Unavaila ble MigeedTres MD Unavailable Unavaila ble MigeedTres MD Unavailable Unavaila ble MigeedTres MD Unavailable Unavaila ble MigeedTres MD Unavailable Unavaila ble MigeedTres MD Unavailable Unavaila ble MigeedTres MD Unavailable Unavaila ble MigeedTres MD Unavailable Unavaila ble MigeedTres MD Unavailable Unavaila ble MigeedTres MD Unavailable Unavaila ble MigeedTres MD Unavailable Unavaila ble MigeedTres MD Unavailable Unavaila ble MigeedTres MD Unavailable Unavaila ble MigeedTres MD Unavailable Unavaila ble MigeedTres MD Unavailable Unavaila ble MigeedTres MD Unavailable Unavaila ble MigeedTres MD Unavailable Unavaila ble MigeedTres MD Unavailable Unavaila ble MigeedTres MD Unavailable Unavaila ble MigeedTres MD Unavailable Unavaila ble MigeedTres MD Unavailable Unavaila ble MigeedTres MD Unavailable Unavaila ble MigeedTres MD Unavailable Unavaila ble MigeedTres MD Unavailable Unavaila ble Maria Luisa Fernandez MD Unavailable Unavailable Maria Luisa Fernandez MD Unavailable Unavailable Maria Luisa Fernandez MD Unavailable Unavailable Maria Luisa Fernandez MD Unavailable Unavailable Maria Luisa Fernandez MD Unavailable Unavailable Maria Luisa Feranndez MD Unavailable Unavailable Maria Luisa Fernandez MD Unavailable Unavailable Maria Luisa Fernandez MD Unavailable Unavailable Maria Luisa Fernandez MD Unavailable Unavailable Maria Luisa Fernandez MD Unavailable Unavailable Maria Luisa Fernandez MD Unavailable Unavailable Maria Luisa Fernandez MD Unavailable Unavailable Maria Luisa Fernandez MD Unavailable Unavailable Maria Luisa Fernandez MD Unavailable Unavailable Maria Luisa Fernandez MD Unavailable Unavailable Maria Luisa Fernandez MD Unavailable Unavailable Maria Luisa Fernandez MD Unavailable Unavailable Maria Luisa Fernandez MD Unavailable Unavailable Maria Luisa Fernandez MD Unavailable Unavailable Maria Luisa Fernandez MD Unavailable Unavailable Maria Luisa Fernandez MD Unavailable Unavailable Maria Luisa Fernandez MD Unavailable Unavailable Maria Luisa Fernandez MD Unavailable Unavailable Maria Luisa Fernandez MD Unavailable Unavailable Maria Luisa Fernandez MD Unavailable Unavailable Maria Luisa Fernandez MD Unavailable Unavailable Maria Luisa Fernandez MD Unavailable Unavailable Maria Luisa Fernandez MD Unavailable Unavailable Maria Luisa Fernandez MD Unavailable Unavailable Maria Luisa Fernandez MD Unavailable Unavailable Maria Luisa Feranndez MD Unavailable Unavailable Maria Luisa Fernandez MD Unavailable Unavailable Maria Luisa Fernandez MD Unavailable Unavailable Maria Luisa Fernandez MD Unavailable Unavailable Maria Luisa Fernandez MD Unavailable Unavailable Maria Luisa Fernandez MD Unavailable Unavailable Maria Luisa Fernandez MD Unavailable Unavailable Maria Luisa Fernandez MD Unavailable Unavailable Maria Luisa Fernandez MD Unavailable Unavailable Maria Luisa Fernandez MD Unavailable Unavailable Maria Luisa Fernandez MD Unavailable Unavailable Maria Luisa Fernandez MD Unavailable Unavailable Maria Luisa Fernandez MD Unavailable Unavailable Maria Luisa Fernandez MD Unavailable Unavailable Maria Luisa Fernandez MD Unavailable Unavailable Maria Luisa Fernandez MD Unavailable Unavailable Maria Luisa Fernandez MD Unavailable Unavailable Maria Luisa Fernandez MD Unavailable Unavailable Maria Luisa Fernandez MD Unavailable Unavailable Maria Luisa Fernandez MD Unavailable Unavailable Maria Luisa Fernandez MD Unavailable Unavailable Maria Luisa Fernandez MD Unavailable Unavailable Maria Luisa Fernandez MD Unavailable Unavailable Maria Luisa Fernandez MD Unavailable Unavailable Maria Luisa Fernandez MD Unavailable Unavailable Maria Luisa Fernandez MD Unavailable Unavailable Maria Luisa Fernandez MD Unavailable Unavailable Poncho Fernandeztech Unavailable Unavailable Olya Croft OD GRINDER OPERATOR Unavailable Unavailable Olya Croft OD GRINDER OPERATOR Unavailable Unavailable Brimmer, L Roopa OD GRINDER OPERATOR Unavailable Unavailable Brimmer, L Roopa OD GRINDER OPERATOR Unavailable Unavailable Brimmer, L Roopa OD GRINDER OPERATOR Unavailable Unavailable Brimmer, L Roopa OD GRINDER OPERATOR Unavailable Unavailable Brimmer, L Roopa OD GRINDER OPERATOR Unavailable Unavailable Brimmer, L Roopa OD GRINDER OPERATOR Unavailable Unavailable Brimmer, L Roopa OD GRINDER OPERATOR Unavailable Unavailable Brimmer, L Roopa OD GRINDER OPERATOR Unavailable Unavailable Brimmer, L Roopa OD GRINDER OPERATOR Unavailable Unavailable Brimmer, L Roopa OD GRINDER OPERATOR Unavailable Unavailable Brimmer, L Roopa OD GRINDER OPERATOR Unavailable Unavailable Brimmer, L Roopa OD GRINDER OPERATOR Unavailable Unavailable Brimmer, L Roopa OD GRINDER OPERATOR Unavailable Unavailable Brimmer, L Roopa OD GRINDER OPERATOR Unavailable Unavailable Brimmer, L Roopa OD GRINDER OPERATOR Unavailable Unavailable Brimmer, L Roopa OD GRINDER OPERATOR Unavailable Unavailable Brimmer, L Roopa OD GRINDER OPERATOR Unavailable Unavailable Brimmer, L Roopa OD GRINDER OPERATOR Unavailable Unavailable Marie, L Janki PA Unavailable Unavailable Marie, L Janki PA Unavailable Unavailable Marie, L Janki PA Unavailable Unavailable Marie, L Janki PA Unavailable Unavailable Marie, L Janki PA Unavailable Unavailable Marie, L Janki PA Unavailable Unavailable Marie, L Janki PA Unavailable Unavailable Marie, L Janki PA Unavailable Unavailable Marie, L Janki PA Unavailable Unavailable Marie, L Janki PA Unavailable Unavailable Marie, L Janki PA Unavailable Unavailable Marie, L Janki PA Unavailable Unavailable Marie, L Janki PA Unavailable Unavailable Marie, L Janki PA Unavailable Unavailable Marie, L Janki PA Unavailable Unavailable Marie, L Janki PA Unavailable Unavailable Marie, L Janki PA Unavailable Unavailable Marie, L Janki PA Unavailable Unavailable Marie, L Janki PA Unavailable Unavailable Marie, L Janki PA Unavailable Unavailable Marie, L Janki PA Unavailable Unavailable Marie, L Janki PA Unavailable Unavailable Marie, L Janki PA Unavailable Unavailable Marie, L Janki PA Unavailable Unavailable Marie, L Janki PA Unavailable Unavailable Marie, L Janki PA Unavailable Unavailable Marie, L Janki PA Unavailable Unavailable Marie, L Janki PA Unavailable Unavailable Marie, L Janki PA Unavailable Unavailable Marie, L Janki PA Unavailable Unavailable Marie, L Janki PA Unavailable Unavailable Marie, L Janki PA Unavailable Unavailable Marie, L Janki PA Unavailable Unavailable Marie, L Janki PA Unavailable Unavailable Marie, L Janki PA Unavailable Unavailable Marie, L Janki PA Unavailable Unavailable Marie, Olya Janki PA Unavailable Unavailable Marie, L Janki PA Unavailable Unavailable Marie, L Janki PA Unavailable Unavailable Oates, L Judith RPA Unavailable Unavailable Oates, L Judith RPA Unavailable Unavailable Oates, L Judith RPA Unavailable Unavailable Oates, L Judith RPA Unavailable Unavailable Oates, L Judith RPA Unavailable Unavailable Oates, L Judith RPA Unavailable Unavailable Oates, L Judith RPA Unavailable Unavailable Oates, L Judith RPA Unavailable Unavailable Oates, L Judith RPA Unavailable Unavailable Oates, L Judith RPA Unavailable Unavailable Oates, L Judith RPA Unavailable Unavailable Oates, L Judith RPA Unavailable Unavailable Oates, L Judith RPA Unavailable Unavailable Oates, L Judith RPA Unavailable Unavailable Oates, L Judith RPA Unavailable Unavailable Oates, L Judith RPA Unavailable Unavailable Oates, L Judith RPA Unavailable Unavailable Oates, L Judith RPA Unavailable Unavailable Oates, L Judith RPA Unavailable Unavailable Oates, L Judith RPA Unavailable Unavailable Oates, L Judith RPA Unavailable Unavailable Oates, L Judith RPA Unavailable Unavailable Oates, L Judith RPA Unavailable Unavailable Oates, L Judith RPA Unavailable Unavailable Oates, L Judith RPA Unavailable Unavailable Oates, L Judith RPA Unavailable Unavailable Oates, L Judith RPA Unavailable Unavailable Oates, L Judith RPA Unavailable Unavailable Oates, L Judith RPA Unavailable Unavailable Oates, L Judith RPA Unavailable Unavailable Oates, L Judith RPA Unavailable Unavailable Oates, L Judith RPA Unavailable Unavailable Butler, V MISTY PA-C Unavailable Unavailable Butler, V MISTY PA-C Unavailable Unavailable Tahir, V MISTY PA-C Unavailable Unavailable Butler, V MISTY PA-C Unavailable Unavailable Butler, V MISTY PA-C Unavailable Unavailable Butler, V MISTY PA-C Unavailable Unavailable Butler, V MISTY PA-C Unavailable Unavailable Butler, V MISTY PA-C Unavailable Unavailable Butler, V MISTY PA-C Unavailable Unavailable Butler, V MISTY PA-C Unavailable Unavailable Butler, V MISTY PA-C Unavailable Unavailable Butler, V MISTY PA-C Unavailable Unavailable Butler, V MISTY PA-C Unavailable Unavailable Tahir, V MISTY PA-C Unavailable Unavailable Michelle Cramer MD Unavailable Unavailable Michelle Cramer MD Unavailable Unavailable Michelle Cramer MD Unavailable Unavailable Michelle Cramer MD Unavailable Unavailable Michelle Cramer MD Unavailable Unavailable Michelle Cramer MD Unavailable Unavailable Michelle Cramer MD Unavailable Unavailable Michelle Cramer MD Unavailable Unavailable Michelle Cramer MD Unavailable Unavailable Michelle Cramer MD Unavailable Unavailable Michelle Cramer MD Unavailable Unavailable Michelle Cramer MD Unavailable Unavailable Michelle Cramer MD Unavailable Unavailable Michelle Cramer MD Unavailable Unavailable Michelle Cramer MD Unavailable Unavailable Michelle Cramer MD Unavailable Unavailable Michelle Cramer MD Unavailable Unavailable Michelle Cramer MD Unavailable Unavailable Michelle Cramer MD Unavailable Unavailable Michelle Cramer MD Unavailable Unavailable Michelle Cramer MD Unavailable Unavailable Michelle Cramer MD Unavailable Unavailable Michelle Cramer MD Unavailable Unavailable Michelle Cramer MD Unavailable Unavailable Michelle Cramer MD Unavailable Unavailable Michelle Cramer MD Unavailable Unavailable Michelle Cramer MD Unavailable Unavailable Michelle Cramer MD Unavailable Unavailable Michelle Cramer MD Unavailable Unavailable Michelle Cramer MD Unavailable Unavailable Michelle Cramer MD Unavailable Unavailable Michelle Cramer MD Unavailable Unavailable Michelle Cramer MD Unavailable Unavailable Michelle Cramer MD Unavailable Unavailable Michelle Cramer MD Unavailable Unavailable Michelle Cramer MD Unavailable Unavailable Michelle Cramer MD Unavailable Unavailable Michelle Cramer MD Unavailable Unavailable Michelle Cramer MD Unavailable Unavailable Michelle Cramer MD Unavailable Unavailable Michelle Cramer MD Unavailable Unavailable Michelle Cramer MD Unavailable Unavailable Michelle Cramer MD Unavailable Unavailable Michelle Cramer MD Unavailable Unavailable Michelle Cramer MD Unavailable Unavailable Michelle Cramer MD Unavailable Unavailable Michelle Cramer MD Unavailable Unavailable Michelle Cramer MD Unavailable Unavailable Michelle Cramer MD Unavailable Unavailable Michelle Cramer MD Unavailable Unavailable Michelle Cramer MD Unavailable Unavailable Michelle Cramer MD Unavailable Unavailable Michelle Cramer MD Unavailable Unavailable Michelle Cramer MD Unavailable Unavailable Michelle Cramer MD Unavailable Unavailable Michelle Cramer MD Unavailable Unavailable Michelle Cramer MD Unavailable Unavailable Michelle Cramer MD Unavailable Unavailable Michelle Cramer MD Unavailable Unavailable Michelle Cramer MD Unavailable Unavailable Re-disclosure Warning The records that you are about to access may contain information from federally-assisted alcohol or drug abuse programs. If such information is present, then the following federally mandated warning applies: This information has been disclosed to you from records protected by federal confidentiality rules (42 CFR part 2). The federal rules prohibit you from making any further disclosure of this information unless further disclosure is expressly permitted by the written consent of the person to whom it pertains or as otherwise permitted by 42 CFR part 2. A general authorization for the release of medical or other information is NOT sufficient for this purpose. The Federal rules restrict any use of the information to criminally investigate or prosecute any alcohol or drug abuse patient.The records that you are about to access may contain highly sensitive health information, the redisclosure of which is protected by Article 27-F of the [facility] Public Health law. If you continue you may have access to information: Regarding HIV / AIDS; Provided by facilities licensed or operated by the [facility] Office of Mental Health; or Provided by the [facility] Office for People With Developmental Disabilities. If such information is present, then the following [facility] mandated warning applies: This information has been disclosed to you from confidential records which are protected by state law. State law prohibits you from making any further disclosure of this information without the specific written consent of the person to whom it pertains, or as otherwise permitted by law. Any unauthorized further disclosure in violation of state law may result in a fine or mcc sentence or both. A general authorization for the release of medical or other information is NOT sufficient authorization for further disc losure. Encounters Encounter Providers Location Date Indications Data Source(s ) Outpatient JOSHUA.CT-SJP.SYR 01/02/2021 09:26:24 AM EDT [facility] Unknown [id number] [facility] [id number] 11/30/2020 12:00:00 AM EDT eCW1 ([facility]) Outpatient SJP.CT-[email or web address] 11/21/2020 01:11:37 PM EDT [facility] Outpatient Attender: Judith Arechiga/Flynn/Rossy yanez 11/12/2020 01:45:00 PM EDT MEDJOEL ([facility], ) Outpatient Attender: Janki LOPEZYA-SJP.YA 08/2020 10:05:15 AM EDT - 11/02/2020 11:15:03 AM EDT [facility] Outpatient SJP.CT-SJP.SYR 10/10/2020 09:17:00 AM EDT [facility] Outpatient Referrer: Janki SETHIP.YA 12:00:00 AM EDT [facility] Outpatient [address] [facility] [address] 08/31/2020 12:00:00 AM EDT eCW1 ([facility]) Outpatient SJP.CT-SJP.SYR 08/29/2020 10:26:22 AM EDT [facility] Office Visit Attender: Judith Arechiga/Flynn/Vini/R eindl 07/31/2020 02:00:00 PM EDT MEDENT ([facility], ) Outpatient SJP.CT-SJP.SYR 07/18/2020 11:48:55 AM EDT [facility] Outpatient Attender: MISTY SETHIP.YA 09:12:21 AM EDT [facility] Outpatient [address] [facility] [address] 07/06/2020 12:00:00 AM EDT eCW1 ([facility]) Unknown [address] [facility] [address] 07/04/2020 12:00:00 AM EDT eCW1 ([facility]) Outpatient Attender: JOHN Arechiga/Flynn/Vini/Re indl 06/13/2020 09:45:00 AM EDT MEDENT ([facility]) Outpatient [email or web address]-[email or web address] 06/06/2020 11:10:13 AM EST [facility] Outpatient [email or web address]-SJP.YA 05/31/2020 12:00:00 AM EST [facility] <td ID="encounterTypeDescriptionID0">COV ID [id number] IMM</td><td>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</td><td>[facility]</td><td>05/12/2020</td><td>9:17AM</td><td>04/14/2020 11:59PM</td><td></td>Outpatient Attender: Roopa Croft NP [facility] 05/12/2020 09:17:00 AM EST - 04/14/2020 11:59:00 PM EST MANUEL ([facility]) Outpatient Attender: Janki LAINEZ SJP.YA-SJP.YA 12/2020 02:52:04 PM EST - 05/09/2020 04:15:42 PM EST [facility] Outpatient SJP.YA-SJP.YA 05/01/2020 12:00:00 AM EST [facility] Outpatient SJP.CT-SJP.SYR 04/25/2020 03:33:05 PM EST [facility] Outpatient SJP.YA-SJP.YA 04/24/2020 12:00:00 AM EST [facility] Outpatient Attender: JOHN Arechiga/Flynn/Vini/Ruthie keith 04/23/2020 09:45:00 AM EST MEDENT ([facility] Outpatient [facility] [facility], [facility] [id number] 04/19/2020 12:00:00 AM EST eCW1 ([facility]) Outpatient SJP.YA-SJP.YA 04/17/2020 12:00:00 AM EST [facility] Outpatient<td ID="encounterTypeDescripti onID1">COVID 19 IMM</td><td>Sushila LAINEZ</td><td>[facility]</td><td>04/14/2020</td><td>9:31AM</td><td>10:09AM</td><td></td> Attender: SUSHILA [facility] 04/14/2020 09:31:00 AM EST - 04/14/2020 10:09:00 AM EST MANUEL ([facility]) Outpatient Attender: Janki LAINEZ SJP.YA-SJP.YA 12:00:00 AM EST - 04/11/2020 03:49:01 PM EST [facility] Outpatient [address] [facility], [facility] [address] 04/05/2020 12:00:00 AM EST eCW1 ([facility]) Outpatient Attender: Antonia HILARIOP MOCAM-MOCAM 2019 12:00:00 AM EST - 03/28/2020 12:03:09 PM EST [facility] Outpatient Attender: MISTY FAIRCHILDP.YA-SJP.YA 12:00:00 AM EST - 03/27/2020 03:36:19 PM EST [facility] Outpatient SJP.YA-SJP.YA 03/27/2020 12:00:00 AM EST [facility] Outpatient SJP.YA-SJP.YA 03/21/2020 12:00:00 AM EST [facility] Outpatient SJP.YA-SJP.YA 03/16/2020 12:00:00 AM EST [facility] Inpatient Admitter: Michelle Cramer MDReferrer: MAU GARZA MD ES1-SJ.ANES 03/08/2020 02:13:24 PM EST [facility] Inpatient Attender: Michelle Cramer MDAd mitter: Michelle Cramer MDConsultant: Precious Chambers MD [id number] 03/08/2020 10:54:00 AM EST - 03/14/2020 10:45:00 AM EST [facility] Patient discharged. Outpatient Referrer: Michelle Cramer MD MOB-MOB.PAT 03/05 11:58:00 AM EST - 03/05/2020 11:58:18 AM EST [facility] Outpatient Attender: Michelle Cramer MDReferrer: Michelle sorto MD ES1-SJ.PL 03/01/2020 10:02:00 AM EST - 03/01/2020 11:59:00 PM EST [facility] Patient discharged. Outpatient Attender: Michelle Cramer MDReferrer: Michelle sorto MD MOB-MOB.PAT 03/01/2020 09:55:38 AM EST - 03/01/2020 11:29:33 AM EST [facility] Outpatient Referrer: Michelle Cramer MD 02/15/2020 12:01:29 PM EST [facility] Outpatient Attender: MISTY LOPEZYA-SJP.YA 12:00:00 AM EST - 02/29/2020 10:58:19 AM EST [facility] Outpatient Attender: Michelle Cramer MD MOCAM-MOCAM.CSA 02/07 12:00:00 AM EST - 02/08/2020 02:39:54 PM EST [facility] Outpatient Attender: Rony To MDA dmitter: Rony To MDReferrer: Maria Luisa Fernandez MD ES1-SJ.CVAU 02/03/2020 07:48:00 AM EST - 02/03/2020 03:15:00 PM EST [facility] Patient discharged. Unknown [address] [facility] [address] 01/23/2020 12:00:00 AM EDT eC ([facility]) Outpatient GURINDERP.YA-SJP 01/18/2020 07:16:46 PM EDT [facility] Outpatient SJP.YA-SJP.YA 01/18/2020 12:00 :00 AM EDT - 01/18/2020 08:23:40 AM EDT [facility] Outpatient Referrer: Janki LOPEZCT-JOSHUA.SYR 08/2019 09:33:05 AM EDT - 01/10/2020 09:15:18 AM EDT [facility] Outpatient Attender: Janki LOPEZYA-SJP.YA 04/2019 11:17:21 AM EDT - 01/11/2020 10:23:53 AM EDT [facility] Immunizations Vaccine Date Status Description Data Source(s) COVID-19 VACCINE Moderna 12/24/2020 12:00:00 AM EDT completed [facility] Vaccine Series Complete: YESThis Data wa s Submitted to [facility] Via [employer]. Moderna #2 dose COVID-19(given elsewhere) SARSCOV2 VAC 100MCG/0.5ML IM 07/10/2020 03:04:00 PM EDT completed eCW1 ([facility]) Moderna #2 dose COVID-19(given elsewhere) SARSCOV2 VAC 100MCG/0.5ML IM 07/10/2020 03:04:00 PM EDT completed eCW1 ([facility]) Moderna COVID-19 05/12/2020 09:25:00 AM EST completed <td ID="Yiwvsijwyucvu-Nduhqywrqoq-XO6">Moderna COVID-19</td><td ID="ImmunizationDose-1">2</td><td>05/12/2020</td><td ID="Iapihuvqwmdjj-ErozmHpyo-IY0">Right Deltoid</td><td></td><td ID="Idmctiabyzcqg-Tpzhio-PF6">Complete (Administered)</td><td>[facility]</td><td ID="Impjbawcvxvce-Ktssz-Fvum-Comment-ID1"></td> MANUEL ([facility]) Note: GIVEN BY MARY CHAMBERLAIN COVID-19 VACCINE Moderna 05/12/2020 12:00:00 AM EST completed [facility] Vaccine Series Complete: YESThis Data wa s Submitted to [facility] [employer]. Moderna #1 dose COVID-19(given elsewhere) SARSCOV2 VAC 100MCG/0.5ML IM 04/14/2020 03:03:00 PM EST completed eCW1 ([facility]) Moderna #1 dose COVID-19(given elsewhere) SARSCOV2 VAC 100MCG/0.5ML IM 04/14/2020 03:03:00 PM EST completed eCW1 ([facility]) Moderna COVID-19 04/14/2020 09:42:00 AM EST completed <td ID="Rjhdxaggiwjju-Cixmvanoucy-VC9">Moderna COVID-19</td><td ID="ImmunizationDose-0">1</td><td>04/14/2020</td><td ID="Dniqcqwiqbedl-RagtrYtwi-HB4">Right Deltoid</td><td></td><td ID="Mtzzlrhuggozr-Lqzhho-JJ5">Complete (Administered)</td><td>[facility]</td><td ID="Sfmsoprswrqkj-Fqnhl-Hvsb-Comment-ID0"></td> MANUEL ([facility]) COVID-19 VACCINE a 04/14/2020 12:00:00 AM EST completed [facility] Vaccine Series Complete: NOThis Data was Submitted to [facility] Via [employer]. INFLUENZA VIRUS VACCINE QUADRIVAL SPLIT (65 YR UP)/PF 01/04/2020 12:00:00 AM EDT completed [facility] Medications Medication Brand Name Start Date Product Form Dose Route Admi nistrative Instructions Pharmacy Instructions Status Indications Reaction Description Data Source(s) 100 mcg/0.5 mL 12/24/2020 12:00:00 AM EDT suspension 0 INJECT DIRECTED INJECT DIRECTED SOLD: 12/24/2020 [facility] apixaban 5 MG Oral Tablet [Eliquis] Eliquis 5 MG TABS tablet Eliquis 5 MG TABS tablet 10/03/2020 12:00:00 AM EDT active TAKE ONE TABLET BY MOUTH TWICE A DAY [facility] Chlorthalidone 25 MG Oral Tablet chlorthalidone (HYGRO TEN) 25 MG tablet chlorthalidone (HYGROTEN) 25 MG tablet 06/19/2020 12:00:00 AM EDT 1 {tbl} Oral active Take 1 tablet by albert th daily [facility] pantoprazole 40 MG Delayed Release Oral Tablet Pantoprazole Sodium 04/30/2020 12:00:00 AM EST active M EDJOEL ([facility]) lidocaine (PF) (XYLOCAINE-MPF) 1 % injection [id number] 07:44:43 AM EST active As needed, Start ing Thu03/14/20 at 0744, Intra-Procedure [facility] Medication administered onsite Warfarin Sodium 4 MG Oral Tablet warfarin (COUMADIN) 4 MG tablet warfarin (COUMADIN) 4 MG tablet 03/14/2020 12:00:00 AM EST 4 mg Oral aborted Take 1 tablet (4 mg total) by mouth daily Take 1 tab daily or as directed [facility] Acetaminophen 325 MG Oral Tablet acetaminophen (TYLENO L) 325 MG tablet acetaminophen (TYLENOL) 325 MG tablet 03/14/2020 12:00:00 AM EST 65 0 mg Oral aborted Take 2 tablets (650 mg to ruddy) by mouth every 4 (four) hours [facility] Aspirin 81 MG Delayed Release Oral Tablet aspirin EC 8 1 MG EC tablet aspirin EC 81 MG EC tablet 03/14/2020 12:00:00 AM EST 81 mg Oral ab orted Take 1 tablet (81 mg total) by mouth daily [facility] Warfarin Sodium 3 MG Oral Tablet warfarin (COUMADIN) t ablet 3 mg warfarin (COUMADIN) tablet 3 mg 03/13/2020 05:00:00 PM EST 3 mg Oral completed 3 mg, Oral, WAR, First dose on Thu03/13/20 at 1700, For 1 dose
For administration and preparation considerations, refer to [facility] Policy on [employer].
[facility] Medication administered onsite Warfarin Sodium 3 MG Oral Tablet warfarin (COUMADIN) t ablet 3 mg warfarin (COUMADIN) tablet 3 mg 03/12/2020 05:00:00 PM EST 3 mg Oral completed 3 mg, Oral, WAR17, First dose on Thu03/12/20 at 1700, For 1 dose
For administration and preparation considerations, refer to [facility] Policy on [employer].
[facility] Medication administered onsite Warfarin Sodium 3 MG Oral Tablet warfarin (COUMADIN) t ablet 3 mg warfarin (COUMADIN) tablet 3 mg 03/11/2020 05:00:00 PM EST 3 mg Oral completed 3 mg, Oral, WAR17, First dose on Thu03/11/20 at 1700, For 1 dose
For administration and preparation considerations, refer to [facility] Policy on Intr[employer].
[facility] Medication administered onsite acetaminophen (TYLENOL) 325 MG tablet 650 mg 0 04:00:00 PM EST 650 mg Oral active [Order 1 S tart] Name: acetaminophen (TYLENOL) 325 MG tablet 650 mg Signed Summary: 650 mg, Oral, Every 4 hours (scheduled), First dose on 03/11/20 at 1600, Post-op
"Maximum dose of acetaminophen is 4,000 mg from all sources in 24 hours."
[Order 1 End] [Order 2 Start] Name: acetaminophen (TYLENOL) suppository 650 mg Signed Summary: 650 mg (1 suppository), Rectal, Every 4 hours (scheduled), First dose on 03/11/20 at 1600, Post-op [Order 2 End] [facility] Medication administered onsite lidocaine (ASPERCREME) 4 % 2 patch [id number] 03/11/2020 02:00:00 PM EST 2 {patch} Transdermal active 2 patch, Riley sdermal, Administer over 12 Hours, Daily, First dose on 03/11/20 at 1400 [facility] Medication administered onsite Warfarin Sodium 5 MG Oral Tablet warfarin (COUMADIN) t ablet 2.5 mg warfarin (COUMADIN) tablet 2.5 mg 03/10/2020 05:00:00 PM EST 2.5 mg Oral completed 2.5 mg, Oral, WAR17, First d ose on 03/10/20 at 1700, For 1 dose
For administration and preparation considerations, refer to [facility] Policy on [employer].
[facility] Medication administered onsite Ascorbic Acid 500 MG Oral Tablet ascorbic acid (VITAMI N C) tablet 500 mg ascorbic acid (VITAMIN C) tablet 500 mg 03/10/2020 09:00:00 AM EST 500 mg Oral active 500 mg, Oral, Daily, First dose on 03/10/20 at 0900, Post-op [facility] Medication administered onsite Daily Cleopatra (THERAGRAN) 1 tablet 30651-822-65 03/10/2020 09:00:00 AM EST 1 {tbl} Oral active 1 tablet, Oral, Daily, First dose on 03/10/20 at 0900, Post-op [facility] Medication administered onsite POLYETHYLENE GLYCOL 3350 142 MG/ML Oral Solution polyethylene glycol (GLYCOLAX) packet 17 g polyethylene glycol (GLYCOLAX) packet 17 g 03/10/2020 09:00:00 AM EST 17 g Oral active 17 g, Or al, Daily, First dose on 03/10/20 at 0900, Post-op
Start 2nd POD and continue until result.
[facility] Medication administered onsite Folic Acid 1 MG Oral Tablet folic acid (FOLVITE) table t 1 mg folic acid (FOLVITE) tablet 1 mg 03/10/2020 09:00:00 AM EST 1 mg Oral active 1 mg, Oral, Daily, First dose on 03/10/20 at 0900, Post-op [facility] Medication administered onsite heparin (porcine) injection 5,000 Units [id number] 03/09/20 10:00:00 PM EST 5000 U Subcutaneous active 5,000 Units , Subcutaneous, Every 8 hours (scheduled), First dose on Thu03/09/20 at 2200, Post-op
Hold for platelet count less than 90,000, INR greater than or equal to 1.7 if receiving coumadin t herapy
[facility] Medication administered onsite normal saline flush 0.9 % injection 3 mL [id number] 03/09/2020 10:00:00 PM EST 3 mL Intravenous active 3 mL , Intravenous, PROTOCOL, First dose on Thu03/09/20 at 2200, Post-op
May convert IV to a saline lock when taking in good p.o. intake (minimally 600 mL).
[facility] Medication administered onsite ferrous gluconate 324 MG Oral Tablet ferrous gluconate (FERGON) tablet 324 mg ferrous gluconate (FERGON) tablet 324 mg 03/09/2020 09:00:00 PM EST 324 mg Oral active 324 mg, Oral, 2 times daily, First dose on Thu03/09/20 at 2100, Post-op
Start when taking good p.o. intake.
[facility] Medication administered onsite Docusate Sodium 100 MG Oral Capsule docusate sodium (C OLACE) capsule 100 mg docusate sodium (COLACE) capsule 100 mg 03/09/2020 09:00:00 PM EST 100 mg Oral active 100 mg, Oral, 2 times daily, First dose on Thu03/09/20 at 2100, Post-op
hold for loose stools
[facility] Medication administered onsite Warfarin Sodium 5 MG Oral Tablet warfarin (COUMADIN) t ablet 2.5 mg warfarin (COUMADIN) tablet 2.5 mg 03/09/2020 05:00:00 PM EST 2.5 mg Oral completed 2.5 mg, Oral, WAR17, First d ose on Thu03/09/20 at 1700, For 1 dose
For administration and preparation considerations, refer to [facility] Policy on Intr[employer].
[facility] Medication administered onsite acetaminophen (TYLENOL) 325 MG tablet 650 mg 0 01:49:54 PM EST 650 mg Oral aborted [facility] Medication administered onsite potassium chloride SA (K-DUR,KLOR-CON) CR tablet 20 mEq 62003/09/2020 01:49:53 PM EST 20 meq Oral active 20 mEq, Oral, As needed, Serum K+ 3.9-4.1, Starting Thu03/09/20 at 1349, Post-op
For serum creatinine (SCR) 0.8 to 1.5
[facility] Medication administered onsite potassium chloride SA (K-DUR,KLOR-CON) CR tablet 40 mEq 6203 03/09/2020 01:49:53 PM EST 40 meq Oral active 40 mEq, Oral, As needed, Serum K+ 3.5-3.8, Starting Thu03/09/20 at 1349, Post-op
For serum creatinine (SCR) 0.8 to 1.5
[facility] Medication administered onsite potassium chloride SA (K-DUR,KLOR-CON) CR tablet 10 mEq 62003/09/2020 01:49:53 PM EST 10 meq Oral active 10 mEq, Oral, As needed, Serum K+ 3.9-4.1, Starting Thu03/09/20 at 1349, Post-op
For serum creatinine (SCR) greater than 1.5
[facility] Medication administered onsite potassium chloride SA (K-DUR,KLOR-CON) CR tablet 20 mEq [id number] 03/09/2020 01:49:53 PM EST 20 meq Oral active 20 mEq, Oral, As needed, Serum K+ 3.5-3.8, Starting Thu03/09/20 at 1349, Post-op
For serum creatinine (SCR) greater than 1.5
[facility] Medication administered onsite 50 ML Magnesium Sulfate 40 MG/ML Injecti on magnesium sulfate 2 g in sterile diluent magnesium sulfate 2 g in sterile diluent 03/09/2020 01:49:52 PM EST 2 g Intravenous active 2 g, Int ravenous, at 50 mL/hr, As needed, serum Mg 1.5-1.8, Starting Thu03/09/20 at 1349, Post-op
Give 2 grams magnesium sulfate IV x 1 run over 1 hour. For serum creatinine (SCR) greater than 1.5
[facility] Medication administered onsite magnesium sulfate 1 g in dextrose 5% infusion (premix) 33064 -[id number] 03/09/2020 01:49:52 PM EST 1 g Intravenous active 1 g, Intravenous, at 200 mL/hr, As needed, serum Mg 1.9-2.1, Starting Thu03/09/20 at 1349, Post-op
Give 1 grams magnesium sulfate IV x 1 run over 1 hour For serum creatinine (SCR) greater than 1.5
[facility] Medication administered onsite 50 ML Magnesium Sulfate 40 MG/ML Injecti on magnesium sulfate 2 g in sterile diluent magnesium sulfate 2 g in sterile diluent 03/09/2020 01:49:52 PM EST 2 g Intravenous active 2 g, Int ravenous, at 50 mL/hr, As needed, serum Mg 1.9-2.1, Starting Thu03/09/20 at 1349, Post-op
Give 2 grams magnesium sulfate IV x 1 run over 1 hour. For serum creatinine (SCR) 0.8 to 1.5
[facility] Medication administered onsite 50 ML Magnesium Sulfate 40 MG/ML Injecti on magnesium sulfate 2 g in sterile diluent magnesium sulfate 2 g in sterile diluent 03/09/2020 01:49:52 PM EST 2 g Intravenous active 2 g, Int ravenous, at 50 mL/hr, As needed, serum Mg 1.5-1.8, Starting Thu03/09/20 at 1349, Post-op
Give 2 grams magnesium sulfate IV x 2 runs over 1 hour each. For serum creatinine (SCR) 0.8 to 1.5
[facility] Medication administered onsite ondansetron (ZOFRAN) injection 4 mg [id number] 03/09/2020 01:49:5 2 PM EST 4 mg Intravenous active 4 mg, In travenous, Every 6 hours PRN, nausea, vomiting, Starting Thu03/09/20 at 1349, Post-op
If no response in 15-30 minutes, give metoclopramide 10 mg IV x 1 then q6h prn N/V.
[facility] Medication administered onsite Bisacodyl 10 MG Rectal Suppository bisacodyl (DULCOLAX ) suppository 10 mg bisacodyl (DULCOLAX) suppository 10 mg 03/09/2020 01:49:52 PM EST 10 mg Rectal active 10 mg, Rectal, Daily PRN, constipation, Starting Thu03/09/20 at 1349, Post-op
If polyethylene glycol not effective.
[facility] Medication administered onsite Nitroglycerin 0.4 MG Sublingual Tablet n itroglycerin (NITROSTAT) SL tablet 0.4 mg nitroglycerin (NITROSTAT) SL tablet 0.4 mg 03/09/2020 01:49:52 P M EST 0.4 mg Sublingual active 0.4 mg, S ublingual, Every 5 min PRN, chest pain, Starting Thu03/09/20 at 1349, Post-op
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 Notify MD/PA/OD GRINDER OPERATOR.
[facility] Medication administered onsite Albuterol 0.83 MG/ML Inhalant Solution a lbuterol (PROVENTIL) nebulizer solution 2.5 mg albuterol (PROVENTIL) nebulizer solution 2.5 mg 2019 01:49:51 PM EST 2.5 mg active 2.5 mg, Nebulization, RT every 2 hours as needed, wheezing, shortness of breath, Starting Thu03/09/20 at 1349, Post-op [facility] Medication administered onsite Aluminum Hydroxide 64 MG/ML Oral Suspens ion aluminum hydroxide (ALTERNAGEL) suspension 15 mL aluminum hydroxide (ALTERNAGEL) suspension 15 mL 03/09 01:49:51 PM EST 15 mL Oral active 15 mL, Oral, Every 4 hours PRN, for indigestion/ gas, Starting Thu03/09/20 at 1349, Post-op [facility] Medication administered onsite Chlorthalidone 25 MG Oral Tablet chlorthalidone (HYGRO TEN) tablet 25 mg chlorthalidone (HYGROTEN) tablet 25 mg 03/09/2020 01:00:00 PM EST 2 5 mg Oral aborted 25 mg, Oral, Daily, First dose on Thu03/09/20 at 1300 [facility] Medication administered onsite 1 ML Ketorolac Tromethamine 15 MG/ML Car tridge ketorolac (TORADOL) injection 15 mg ketorolac (TORADOL) injection 15 mg 03/09/2020 12:25:50 PM EST 15 mg Intravenous aborted 15 mg, Intrav enous, Every 6 hours PRN, severe pain (7-10), breakthrough, Starting Thu03/09/20 at 1225, For 24 hours
For a total of 4 doses
[facility] Medication administered onsite Docusate Sodium 100 MG Oral Capsule docusate sodium (C OLACE) capsule 100 mg docusate sodium (COLACE) capsule 100 mg 03/09/2020 09:00:00 AM EST 100 mg Oral aborted 100 mg, Oral, Daily, First dose on Thu03/09/20 at 0900, PACU & Post-op
Give PO/OG. Start first POD
[facility] Medication administered onsite Folic Acid 1 MG Oral Tablet folic acid (FOLVITE) table t 1 mg folic acid (FOLVITE) tablet 1 mg 03/09/2020 09:00:00 AM EST 1 mg Oral aborted 1 mg, Oral, Daily, First dose on Thu03/09/20 at 0900, PACU & Post-op
Give PO/OG. Start first POD
[facility] Medication administered onsite Ascorbic Acid 500 MG Oral Tablet ascorbic acid (VITAMI N C) tablet 500 mg ascorbic acid (VITAMIN C) tablet 500 mg 03/09/2020 09:00:00 AM EST 500 mg Oral aborted 500 mg, Oral, Daily, First dose on Thu03/09/20 at 0900, PACU & Post-op
Give PO/OG. Start first POD.
[facility] Medication administered onsite Famotidine 20 MG Oral Tablet famotidine (PEPCID) table t 40 mg famotidine (PEPCID) tablet 40 mg 03/09/2020 09:00:00 AM EST 40 mg Oral active 40 mg, Oral, Daily, First dose on Thu03/09/20 at 0900
Start after extubation
[facility] Medication administered onsite Aspirin 81 MG Delayed Release Oral Tablet aspirin EC t ablet 81 mg aspirin EC tablet 81 mg 03/09/2020 09:00:00 AM EST 81 mg Oral activ e 81 mg, Oral, Daily, First dose on Thu03/09/20 at 0900
Hold for platelet count less than 90,000. If OG tube in place, give non-enteric coated aspirin.
[facility] Medication administered onsite Insulin Lispro 100 UNT/ML Injectable Jia ution insulin lispro (HumaLOG) injection 1-6 Units insulin lispro (HumaLOG) injection 1-6 Units 0 08:00:00 AM EST Subcutaneous aborted 1-6 Units, Subcutaneous, MEALSS, First dose on Thu03/09/20 at 0800, Post IV Insulin - Critical Care
Frail 3 units Nutritional and Correction Insulin Scale Blood Glucose (mg/dl) <70 start hypoglycemia protocol Glucose &nbsp ; Eats >=50% Eats &l t;50% Eats Nothing (mg/dl) of meal of meal or NPO &nb sp; 70- 120 2 units 1 units 0 units 121-170 & nbsp; 3 units 2 units 0 units 171-220 &nbsp ; 4 units 2 units 1 units 221-270 &am p;nbsp; 4 units 3 units 1 units 271-320 &n bsp; 5 units 3 units 2 units 321- 370 5 units 4 units 2 units 371- 420 6 units 4 units 3 units >420 call MD 6 units 5 units 3 units Test glucose within 30 minutes of insulin administration. Administer insulin within 15 minutes (before or after) of t he patient starting to eat. For patients that are NPO, use the NPO (correction) scale to cover POC glucose at 08:00, 12:00, 17:00.
[facility] Medication administered onsite Patient on Coumadin during hospitalizati on. (To order Coumadin on discharge click the don t prescribe button and go to new orders on discharge section. Coumadin can be ordered there. Alternatively, reconcile the pre admission Coumadin dose if it appears on the list below) 03/09/2020 06:22:35 AM EST 1 {each} active 1 each, Miscellaneous, Daily Coumadin Notification (1000), Starting Thu03/09/20 at 0622, Until Discontinued
Indication for Warfarin: Atrial Fibrillation
Target INR: Other - Specify in Comments / 1.8-2.5 [facility] Medication administered onsite heparin (porcine) injection 5,000 Units [id number] 03/09/20 06:00:00 AM EST 5000 U Subcutaneous aborted 5,000 Units , Subcutaneous, Every 8 hours (scheduled), First dose on Thu03/09/20 at 0600, PACU & Post-op
Start first POD. Hold for platelet count less than 90,000, INR greater than or equal to 1.7 if receiving coumadin therapy.
[facility] Medication administered onsite normal saline flush 0.9 % injection 3 mL [id number] 03/09/2020 06:00:00 AM EST 3 mL Intravenous aborted 3 mL , Intravenous, PROTOCOL, First dose on Thu03/09/20 at 0600, PACU & Post-op
May convert to saline lock with minimally 600 ml PO intake on first POD; prior to transfer
[facility] Medication administered onsite cefazolin (ANCEF) injection 2 g 03/09/2020 01:00:00 AM EST 2 g Intravenous completed 2 g, Intravenou s, Administer over 6 Minutes, Every 8 hours (relative), First dose on Thu03/09/20 at 0100, For 5 doses
Not to exceed 48 hours from time of closure. Time of closure = 1800 RN may administer IV push or infuse this medication through syringe adapter set ref [id number]. Flush line after use
[facility] Medication administered onsite milrinone (PRIMACOR) infusion 20 mg/100 mL [id number] 03/09/2020 12:00:00 AM EST 0.25 ug/kg/min Intravenous aborted 0.25 mcg/kg/min 80.9 kg (6.0675 mL/hr, rounded to 6.1 mL/hr), Intravenous, at 6.1 mL/hr, Continuous, Starting Thu03/09/20 at 0000
This is a "Triggered Filled Infusion" and is automatically sent based on the current rate documented in the flow sheets.Infuse this medication only through single port tubing (SmartSite Infusion Set ref [id number]). Medication and tubing is to be discarded if infusion off for 4 hours.
[facility] Medication administered onsite Famotidine (PEPCID) injection 20 mg [id number] 03/08/2020 09:00:0 0 PM EST 20 mg Intravenous aborted 20 mg, I ntravenous, Every 12 hours (scheduled), First dose on Kierra 03/08/20 at 2100, PACU & Post-op
D/C after extubation
[facility] Medication administered onsite atorvastatin 40 MG Oral Tablet atorvastatin (LIPITOR) tablet 40 mg atorvastatin (LIPITOR) tablet 40 mg 03/08/2020 09:00:00 PM EST 40 mg Oral active 40 mg, Oral, Nightly, First dose on Kierra 03/08/20 at 2100 [facility] Medication administered onsite albumin human 5 % bottle 25 g [id number] 03/08/2020 08:00:00 PM EST 25 g Intravenous completed Hypotension 25 g, Intrav enous, Once, Indications: Hypotension, Kierra 03/08/20 at 2000, For 1 dose [facility] Hypotension Medication administered onsite Vitamin B 12 1 MG/ML Injectable Solution cyanocobalami n injection 1,000 mcg cyanocobalamin injection 1,000 mcg 03/08/2020 07:00:00 PM EST 10 00 ug Subcutaneous completed 1,000 mcg, S ubcutaneous, Once, Kierra 03/08/20 at 1900, For 1 dose, PACU & Post-op
DEEP SUBCUTANEOUS
[facility] Medication administered onsite Dexmedetomidine HCl 400 mcg in sodium chloride (NS) 0.9 % 10 0 mL infusion 03/08/2020 07:00:00 PM EST Intravenous aborted Post-op, 0.2-0.7 mcg/kg/hr 80.9 kg (4.045-14.1575 mL/hr, rounded to 4-14.2 mL/hr), Intravenous, Continuous, Starting Kierra 03/08/20 at 1900, Until Thu03/09/20 at 0445, at 4-14.2 mL/hr [facility] Medication administered onsite propofol (DIPRIVAN) infusion 10 mg/mL [id number] 03/08/2020 07:00 :00 PM EST Intravenous completed 0-25 mcg /kg/min 80.9 kg (0-12.135 mL/hr, rounded to 0-12.1 mL/hr), Intravenous, at 0-12.1 mL/hr, Continuous, Starting Kierra 03/08/20 at 1900, For 2 hours, Post-op
Titrate to maintain target RASS score 0 to -2May give IV bolus of 0.5 mg/kg over 1 minute to maintain target sedation score. If needed may repeat x 1 in 10 minutes prn.PROPOFOL OFF 2 HOURS AFTER ADMISSION TO CVICU
[facility] Medication administered onsite norepinephrine bitartrate (LEVOPHED) 4 m g in sodium chloride (NS) 0.9 % 250 mL infusion 03/08/2020 07:00:00 PM EST Intravenous ab orted PACU & Post-op, 0-6 mcg/min (0-22.5 mL/hr), Intravenous, Continuous, Starting Kierra 03/08/20 at 1900, Until Thu03/09/20 at 1350, at 0-22.5 mL/hr [facility] Medication administered onsite Magnesium Chloride 0.43810 MEQ/ML / Pota ssium Chloride 0.0497 MEQ/ML / Sodium Acetate 0.0163 MEQ/ML / Sodium Chloride 0.0899 MEQ/ML / Sodium gluconate 5.02 MG/ML Injectable Solution [Normosol-R] electrolyte-R (NORMOSOL-R/PLASMALYTE-R) solution electrolyte-R (NORMOSOL-R/PLASMALYTE-R) solution 03/08 07:00:00 PM EST Intravenous aborted at 0 -80 mL/hr, Intravenous, Continuous, Starting Kierra 03/08/20 at 1900, Post-op
From 0600 first post-op day, adjust IV and PO intake so that total fluid intake is 2 liters in 24 hours
[facility] Medication administered onsite potassium chloride 20 mEq in 50 mL IVPB (CRITICAL CARE/PCU O NLY) [id number] 03/08/2020 06:32:04 PM EST 20 meq Intravenous aborted 20 mEq, Intravenous, Administer over 60 Minutes, As needed, other, Starting Kierra 03/08/20 at 1832, PACU & Post-op
For Serum K+ 3.5 to 3.8, give 20 meq for 2 doses, each dose over an hour through a central line For Serum K+ 3.9 to 4.1, give 20 meq for 1 dose, over 1 hour through a central line
[facility] Medication administered onsite HYDROmorphone (DILAUDID) injection 0.2 mg [id number] 03/08/2020 06:32:03 PM EST 0.2 mg Intravenous aborted 0.2 mg, Intravenous, Every 10 min PRN, severe pain (7-10), Starting Kierra 03/08/20 at 1832, For 7 days, PACU & Post- op
Indicated for patients greater than 75 years of age and/or frail. FOR INTUBATED PATIENTS ONLY. DISCONTINUE POST EXTUBATION. Maximum dose 2 mg.
[facility] Medication administered onsite fentaNYL Citrate (PF) (SUBLIMAZE) injection 25 mcg [id number] 03/08/2020 06:32:03 PM EST 25 ug Intravenous aborted 25 mcg, Intravenous, Every 10 min PRN, moderate pain (4-6), Starting Kierra 03/08/20 at 1832, For 7 days, PACU & Post-op
Maximum 10 doses in a 24-hour period. DISCONTINUE 6 HOURS POST EXTUBATION
[facility] Medication administered onsite Metoprolol Tartrate 25 MG Oral Tablet me toprolol tartrate (LOPRESSOR) tablet 12.5 mg metoprolol tartrate (LOPRESSOR) tablet 12.5 mg 020 01:00:00 PM EST 12.5 mg Oral aborted Nonrheumatic mitral valv e regurgitation 12.5 mg, Oral, 2 times daily, First dose on Kierra 03/08/20 at 1300, Pre-op
Hold for HR < 60, or SBP <100
[facility] Nonrheumatic mitral valve regurgitation Medication administered onsite heparin (porcine) injection 5,000 Units [id number] 03/08/20 01:00:00 PM EST 5000 U Subcutaneous completed Nonrheumatic mitral valve regurgitation 5,000 Units, Subcutaneous, Once, Kierra 03/08/20 at 1300, For 1 dose, Pre- op
Once on admission. Hold for platelets < 90,000.
[facility] Nonrheumatic mitral valve regurgitation Medication administered onsite Magnesium Chloride 0.47975 MEQ/ML / Pota ssium Chloride 0.0497 MEQ/ML / Sodium Acetate 0.0163 MEQ/ML / Sodium Chloride 0.0899 MEQ/ML / Sodium gluconate 5.02 MG/ML Injectable Solution [Normosol-R] electrolyte-R (NORMOSOL-R/PLASMALYTE-R) solution electrolyte-R (NORMOSOL-R/PLASMALYTE-R) solution 03/08 01:00:00 PM EST Intravenous aborted at 3 0 mL/hr, Intravenous, Continuous, Starting Kierra 03/08/20 at 1300, Pre-op
For cardiac surgery patients only
[facility] Medication administered onsite normal saline flush 0.9 % injection 3 mL [id number] 02/03/2020 02:00:00 PM EST 3 mL Intravenous active 3 mL , Intravenous, PROTOCOL, First dose on Thu02/03/20 at 1400, Pre-op
flush per protocol, D/C Main IV fluid if appropriate
[facility] Medication administered onsite iopamidol (ISOVUE-370) 76 % [id number] 02/03/2020 12:11:08 PM EST active As needed, Starting Thu02/03/20 at 1211, Intra-Procedu re [facility] Medication administered onsite 1 ML heparin sodium, porcine 1000 UNT/ML Injection hep dony (porcine) injection heparin (porcine) injection 02/03/2020 12:01:54 PM EST active As needed, Starting Thu02/03/20 at 1201, Intra-Procedure [facility] Medication administered onsite 4 ML Verapamil hydrochloride 2.5 MG/ML Injection verap tosin (ISOPTIN) injection verapamil (ISOPTIN) injection 02/03/2020 12:01:23 PM EST active As needed, Starting Thu02/03/20 at 1201, Intra-Procedure [facility] Medication administered onsite lidocaine 1 % injection [id number] 02/03/2020 11:57:25 AM EST active As needed, Starting Thu02/03/20 at 1157, Intra-Procedure [facility] Medication administered onsite fentaNYL Citrate (PF) (SUBLIMAZE) injection [id number] 02/03/2020 11:56:48 AM EST active As neede d, Starting Thu02/03/20 at 1156, Intra-Procedure [facility] Medication administered onsite 2 ML Midazolam 1 MG/ML Injection midazolam (VERSED) in jection midazolam (VERSED) injection 02/03/2020 11:56:36 AM EST active As needed, Starting Thu02/03/20 at 1156, Intra-Procedure [facility] Medication administered onsite Aspirin 325 MG Oral Tablet aspirin tablet 325 mg aspirin tab let 325 mg 02/03/2020 09:00:00 AM EST 325 mg Oral completed 325 mg, Oral, Once, Thu02/03/20 at 0900, For 1 dose, Pre-op
Give if scheduled for cardiac or peripheral angioplasty/stent or carotid stenting. Administer AM dose prior to procedure if NOT taken at home. Max of 1 dose per day.
[facility] Medication administered onsite sodium chloride 0.9% (NS) infusion [id number] 02/03/2020 09:00:00 AM EST 100 mL/h Intravenous active at 100 m L/hr, 100 mL/hr, Intravenous, Continuous, Starting Thu02/03/20 at 0900, Pre-op
Start two hours prior to scheduled start time
[facility] Medication administered onsite Diphenhydramine Hydrochloride 50 MG Oral Capsule diphenhydrAMINE (BENADRYL) capsule 50 mg diphenhydrAMINE (BENADRYL) capsule 50 mg 02/03/2020 09 :00:00 AM EST 50 mg Oral completed 50 mg, Oral, cafeteria helper, Thu02/03/20 at 0900, For 1 dose, Pre-op [facility] Medication administered onsite normal saline flush 0.9 % injection 3 mL [id number] 02/03/2020 09:00:00 AM EST 3 mL Intravenous active 3 mL , Intravenous, Every 8 hours (scheduled), First dose on Thu02/03/20 at 0900, Pre-op
Rapid push positive pressure flushing shall be performed with a 10 cc normal saline syringe to check the PATENCY of a PIV site prior to any infusion therapy initiation unless resistance is met.
[facility] Medication administered onsite normal saline flush 0.9 % injection 3 mL [id number] 02/03/2020 09:00:00 AM EST 3 mL Intravenous active 3 mL , Intravenous, Every 8 hours (scheduled), First dose on Thu02/03/20 at 0900, Pre-op
Rapid push positive pressure flushing shall be performed with a 10 cc normal saline syringe to check the PATENCY of a PIV site prior to any infusion therapy initiation unless resistance is met.
[facility] Medication administered onsite apixaban 5 MG Oral Tablet Apixaban (ELIQUIS) 5 MG TABS tablet Apixaban (ELIQUIS) 5 MG TABS tablet 12/30/2019 12:00:00 AM EDT 5 mg Oral aborted 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 Take 1 tablet (5 mg total) by mouth 2 (t wo) times a day [facility] 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 [place] 450 MG CAPS [id number] 10/13/2011 12:00:00 AM EDT Oral aborted Take by mouth daily [facility] Calcium Carbonate 1500 MG Oral Tablet ca lcium carbonate (CALCIUM 600) 600 MG tablet calcium carbonate (CALCIUM 600) 600 MG tablet 10/13/2011 12: 00:00 AM EDT 600 mg Oral aborted Take 600 mg by m outh daily [facility] Calcium Carbonate 1500 MG Oral Tablet calcium carbonat e (OS-SETH) 600 MG tablet calcium carbonate (OS-SETH) 600 MG tablet 600 mg Oral aborted Take 600 mg by mouth daily [facility] Chlorthalidone 25 MG Oral Tablet chlorthalidone (HYGRO TEN) 25 MG tablet chlorthalidone (HYGROTEN) 25 MG tablet 25 mg Oral aborted Take 25 mg by mouth daily [facility] atorvastatin 40 MG Oral Tablet atorvastatin (LIPITOR) 40 MG tablet atorvastatin (LIPITOR) 40 MG tablet 40 mg Oral aborted Take 40 mg by mouth nightly [facility] Insurance Providers Payer name Policy type / Coverage type Policy ID Covered constitution party ID Covered constitution party's relationship to subramanian Policy Subramanian Plan Information MEDICARE [id number] Mary [id number] MEDICARE [id number] SP [id number] MEDICARE [id number] xxxxxxxxxxx [id number] MEDICARE [id number] Mary [id number] D67 Medicare Part A [facility] Other 0 [id number] Self 0 UMR [id number] xxxxxxxxx [id number] UMR [id number] Mary [id number] UMR [id number] Mary [id number] R [facility] [id number] SP [id number] INSURANCE COVID-19 COVID Mary C OVID INSURANCE COVID-19 [id number] [id number] INSURANCE COVID-19 COVID Mary C OVID ANSI-Medicare Part B [id number] ANSI-Commercial [id number] ANSI-Commercial [id number] ANSI-Medicare Part B [id number] ANSI-Medicare Part B [id number] ANSI-Commercial [id number] ANSI-Commercial [id number] ANSI-Commercial [id number] ANSI-Medicare Part B [id number] ANSI-Commercial [id number] ANSI-Commercial [id number] ANSI-Medicare Part B [id number] ANSI-Commercial [id number] MEDICARE [id number] SP [id number] A [facility]OMCO [id number] SP [id number] [facility] [id number] SP [id number] [facility] [id number] SP [id number] UMR [facility] [id number] SP [id number] A MEDICARE [id number] SP [id number] R [facility] [id number] SP [id number] [facility] Other 0 [id number] Self 0 UMR O [id number] S [id number] MEDICARE C [id number] S [id number] MEDICARE [id number] SP [id number] ANSI-Commercial [id number] ANSI-Medicare Part B [id number] ANSI-Commercial [id number] ANSI-Commercial [id number] ANSI-Commercial [id number] Problems, Conditions, and Diagnoses Code Display Name Description Problem Type Effective Dates Data Source(s) I77.810 Thoracic aortic ectasia Thoracic aortic ectasia Diagno sis 11/02/2020 10:05:15 AM EDT [facility] I10 Essential (primary) hypertension Essential (primary) h ypertension Diagnosis 11/02/2020 10:05:15 AM EDT [facility] I25.10 Atherosclerotic heart diseas e of [place] coronary artery without angina pectoris Atherosclerotic heart disease of [place] Diagnosis 11/02/2020 10:05:15 AM EDT [facility] E78.2 Mixed hyperlipidemia Mixed hyperlipidemia Diagnosis 11/02/2020 10:05:15 AM EDT [facility] I34.1 Nonrheumatic mitral (valve) prolapse Nonrheumati c mitral (valve) prolapse Diagnosis 11/02/2020 10:05:15 AM EDT [facility] I48.92 Unspecified atrial flutter Unspecified atrial flutter Diagnosis 11/02/2020 10:05:15 AM EDT [facility] Z01.818 Encounter for other preprocedural examin ation Encounter for other preprocedural examin Diagnosis 07/10/2020 09:12:21 AM EDT [facility] I48.91 Unspecified atrial 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 Unspecified atri al 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 Diagnosis 05/09/2020 02:52:04 PM EST [facility] 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 Diagnosis 03/08/2020 10:54:00 AM [facility] R06.02 Shortness of breath Shortness of breath Diagnosis 1 05/09/2019 10:54:00 AM [facility] I34.0 Nonrheumatic mitral (valve) insufficienc y Nonrheumatic mitral (valve) insufficienc Diagnosis 03/08/2020 10:54:00 AM [facility] U07.1 COVID-19 COVID-19 Diagnosis 03/05/2020 11:58:00 AM [facility] I34.0 Nonrheumatic mitral (valve) insufficienc y Nonrheumatic mitral (valve) insufficienc Diagnosis 02/08/2020 01:50:01 PM EST [facility] I34.1 Nonrheumatic mitral (valve) prolapse Nonrheumati c mitral (valve) prolapse Diagnosis 02/08/2020 01:50:01 PM EST [facility] s Z95.2 [id number] Status post mitral valve replacement Pro blem 07/13/2020 12:00:00 AM EDT eCW1 ([facility]) Z01.818 Preoperative clearance Preoperative clearance [id number] 07/10/2020 12:00:00 AM EDT [facility] I25.10 Coronary artery disease Coronary artery disease [id number] 05/09/2020 12:00:00 AM EST [facility] E78.6 [id number] Low HDL (under 40) Problem 04/19/2020 12:00: 00 AM EST eCW1 ([facility]) Z79.01 care home current use of anticoagulant L edvin term current use of anticoagulant [id number] 04/11/2020 12:00:00 AM EST [facility] I48.92 [id number] Atrial flutter, unspecified type Problem 04/05/2020 12:00:00 AM EST eCW1 ([facility]) E78.00 [id number] Pure hypercholesterolemia, unspecified Pr oblem 04/05/2020 12:00:00 AM EST eCW1 ([facility]) D50.0 [id number] Anemia due to gastrointestinal blood loss Problem 04/05/2020 12:00:00 AM EST eCW1 ([facility]) 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 s care home (current) use of anticoagulants [id number] 03/21/2020 12:00:00 AM EST [facility] I48.92 Atrial flutter Atrial flutter [id number] 03/13/2020 12:00: 00 AM EST [facility] I77.810 Dilated aortic root Dilated aortic root [id number] 1 05/02/2019 12:00:00 AM [facility] I34.0 Mitral regurgitation Mitral regurgitation [id number] 03/01/2020 12:00:00 AM [facility] I48.91 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 [id number] 1 04/14/2019 12:00:00 AM EST [facility] I34.0 Nonrheumatic mitral valve regurgitation Nonrheumatic mitral valve regurgitation [id number] 02/13/2020 12:00:00 AM EST [facility] I10 Essential hypertension Essential hypertension [id number] 01/25/2020 12:00:00 AM EDT [facility] E78.2 Mixed hyperlipidemia Mixed hyperlipidemia [id number] 01/25/2020 12:00:00 AM EDT [facility] R06.02 SOB (shortness of breath) SOB (shortness of breath) 64 600352 01/25/2020 12:00:00 AM EDT [facility] I34.0 Mitral valve insufficiency Mitral valve insufficiency [id number] 01/25/2020 12:00:00 AM EDT [facility] I48.91 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 [id number] 1 12:00:00 AM EDT [facility] Surgeries/Procedures Procedure Description Date Indications Data Source(s) OFFICE OUTPATIENT VISIT 25 MINUTES 11/12/2020 12:00:00 AM EDT [facility] ([facility], ) POCT AMB EKG <td>POCT AMB EKG</td><td>Rou dustin</td><td>11/02/2020 11:20 AM EDT</td><td> Atrial flutter</td><td> </td> 11/02/2020 11:20:00 AM EDT Atrial flutter [facility] Atrial flutter Lap Inguinal Hernia Repair 07/17/2020 12:00:00 AM EDT [facility] ([facility], ) OFFICE OUTPATIENT VISIT 25 MINUTES 06/13/2020 12:00:00 AM EDT [facility] ([facility], ) Endoscopy Upper GI Biopsy 06/05/2020 12:00:00 AM EST [facility] ([facility], ) Moderna COVID-19 Vaccine Moderna COVID-19 Vaccine 05/12/2020 12:00: 00 AM EST [place] ([facility]) Moderna COVID19 Vaccine Administration First Dose Mode rna COVID19 Vaccine Administration First Dose 04/14/2020 12:00:00 AM EST [place] ([facility]) ECG ROUTINE ECG W/LEAST 12 LDS W/I&R <td>POCT AMB EKG</td><td>Routine</td><td>04/11/2020 4:22 PM EST</td><td> 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</td><td> </td> 04/11/2020 09:22:00 PM EST 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 [facility] 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 BLOOD COUNT COMPLETE AUTO&AUTO DIFRNTL WBC COUNT <td>C BC AND DIFFERENTIAL</td><td>Routine</td><td>04/05/2020</td><td></td><td> </td> 04/05/2020 12:00:00 AM EST [facility] HEPATIC FUNCTION PANEL <td>HEPATIC FUNCTION PANEL</td><td>Routine</td><td>04/05/2020</td><td></td><td> </td> 04/05/2020 12:00:00 AM EST [facility] POCT AMB EKG <td>POCT AMB EKG</td><td>Vianney chan</td><td>03/27/2020 4:14 PM EST</td><td> 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</td><td> </td> 03/27/2020 09:14:00 PM EST 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 [facility] 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 EP STUDY <td>EP STUDY</td><td>Routine </td><td>03/14/2020 7:48 AM EST</td><td> 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</td><td> </td> 03/14/2020 12:48:38 PM EST 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 [facility] 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 PROTHROMBIN TIME <td>PROTIME-INR</td><td>Time d</td><td>03/14/2020 2:20 AM EST</td><td></td><td> </td> 03/14/2020 07:20:00 AM EST [facility] PROTHROMBIN TIME <td>PROTIME-INR</td><td>Time d</td><td>03/13/2020 2:19 AM EST</td><td></td><td> </td> 03/13/2020 07:19:00 AM EST [facility] PROTHROMBIN TIME <td>PROTIME-INR</td><td>Time d</td><td>03/12/2020 2:37 AM EST</td><td></td><td> </td> 03/12/2020 07:37:00 AM EST [facility] BLOOD COUNT COMPLETE AUTOMATED <td>CBC</td><td>Timed</ td><td>03/12/2020 2:37 AM EST</td><td></td><td> </td> 03/12/2020 07:37:00 AM EST [facility] MAGNESIUM <td>MAGNESIUM</td><td>Timed< /td><td>03/12/2020 2:37 AM EST</td><td></td><td> </td> 03/12/2020 07:37:00 AM EST [facility] BASIC METABOLIC PANEL CALCIUM TOTAL <td>BASIC METABOLI C PANEL</td><td>Timed</td><td>03/12/2020 2:37 AM EST</td><td></td><td> </td> 03/12/2020 07:37:00 AM EST [facility] ECG ROUTINE ECG W/LEAST 12 LDS TRCG ONLY W/O I&R <td>E CG 12- LEAD</td><td>Routine</td><td>03/11/2020 8:13 AM EST</td><td></td><td></td> 03/11/2020 01:13:58 PM EST [facility] ECG ROUTINE ECG W/LEAST 12 LDS TRCG ONLY W/O I&R <td>E CG 12- LEAD</td><td>Routine</td><td>03/11/2020 8:13 AM EST</td><td></td><td></td> 03/11/2020 01:13:00 PM EST [facility] PROTHROMBIN TIME <td>PROTIME-INR</td><td>Time d</td><td>03/11/2020 2:45 AM EST</td><td></td><td> </td> 03/11/2020 07:45:00 AM EST [facility] BLOOD COUNT COMPLETE AUTOMATED <td>CBC</td><td>Timed</ td><td>03/11/2020 2:45 AM EST</td><td></td><td> </td> 03/11/2020 07:45:00 AM EST [facility] MAGNESIUM <td>MAGNESIUM</td><td>Timed< /td><td>03/11/2020 2:45 AM EST</td><td></td><td> </td> 03/11/2020 07:45:00 AM EST [facility] BASIC METABOLIC PANEL CALCIUM TOTAL <td>BASIC METABOLI C PANEL</td><td>Timed</td><td>03/11/2020 2:45 AM EST</td><td></td><td> </td> 03/11/2020 07:45:00 AM EST [facility] BASIC METABOLIC PANEL CALCIUM TOTAL <td>BASIC METABOLI C PANEL</td><td>STAT</td><td>03/10/2020 6:32 PM EST</td><td></td><td> </td> 03/10/2020 11:32:00 PM EST [facility] XR ABDOMEN PORTABLE <td>XR ABDOMEN PORTABLE</td> <td>STAT</td><td>03/10/2020 3:32 PM EST</td><td></td><td> </td> 03/10/2020 08:32:00 PM EST [facility] XR CHEST PA AND LATERAL <td>XR CHEST PA AND LATERAL</td><td>Routine</td><td>03/10/2020 2:02 PM EST</td><td></td><td> </td> 03/10/2020 07:02:36 PM EST [facility] PROTHROMBIN TIME <td>PROTIME-INR</td><td>Time d</td><td>03/10/2020 2:29 AM EST</td><td></td><td> </td> 03/10/2020 07:29:00 AM EST [facility] BLOOD COUNT COMPLETE AUTOMATED <td>CBC</td><td>Timed</ td><td>03/10/2020 2:29 AM EST</td><td></td><td> </td> 03/10/2020 07:29:00 AM EST [facility] MAGNESIUM <td>MAGNESIUM</td><td>Timed< /td><td>03/10/2020 2:29 AM EST</td><td></td><td> </td> 03/10/2020 07:29:00 AM EST [facility] BASIC METABOLIC PANEL CALCIUM TOTAL <td>BASIC METABOLI C PANEL</td><td>Timed</td><td>03/10/2020 2:29 AM EST</td><td></td><td> </td> 03/10/2020 07:29:00 AM EST [facility] GLUC BLD GLUC MNTR DEV CLEARED FDA SPEC HOME USE <td>P OCT GLUCOSE</td><td>Routine</td><td>03/09/2020 12:43 PM EST</td><td></td><td> </td> 03/09/2020 05:43:00 PM EST [facility] GLUC BLD GLUC MNTR DEV CLEARED FDA SPEC HOME USE <td>P OCT GLUCOSE</td><td>Routine</td><td>03/09/2020 8:20 AM EST</td><td></td><td> </td> 03/09/2020 01:20:00 PM EST [facility] POC ARTERIAL BLOOD GAS <td>POC ARTERIAL BLOOD GAS</td><td>Routine</td><td>03/09/2020 3:18 AM EST</td><td></td><td> </td> 03/09/2020 08:18:00 AM EST [facility] GLUC BLD GLUC MNTR DEV CLEARED FDA SPEC HOME USE <td>P OCT GLUCOSE</td><td>Routine</td><td>03/09/2020 2:57 AM EST</td><td></td><td> </td> 03/09/2020 07:57:00 AM EST [facility] PROTHROMBIN TIME <td>PROTIME-INR</td><td>Time d</td><td>03/09/2020 2:54 AM EST</td><td></td><td> </td> 03/09/2020 07:54:00 AM EST [facility] BLOOD COUNT COMPLETE AUTOMATED <td>CBC</td><td>Timed</ td><td>03/09/2020 2:54 AM EST</td><td></td><td> </td> 03/09/2020 07:54:00 AM EST [facility] MAGNESIUM <td>MAGNESIUM</td><td>Timed< /td><td>03/09/2020 2:54 AM EST</td><td></td><td> </td> 03/09/2020 07:54:00 AM EST [facility] CALCIUM IONIZED <td>CALCIUM, IONIZED</td><td >Timed</td><td>03/09/2020 2:54 AM EST</td><td></td><td> </td> 03/09/2020 07:54:00 AM EST [facility] BASIC METABOLIC PANEL CALCIUM TOTAL <td>BASIC METABOLI C PANEL</td><td>Timed</td><td>03/09/2020 2:54 AM EST</td><td></td><td> </td> 03/09/2020 07:54:00 AM EST [facility] GLUC BLD GLUC MNTR DEV CLEARED FDA SPEC HOME USE <td>P OCT GLUCOSE</td><td>Routine</td><td>03/09/2020 1:28 AM EST</td><td></td><td> </td> 03/09/2020 06:28:00 AM EST [facility] GLUC BLD GLUC MNTR DEV CLEARED FDA SPEC HOME USE <td>P OCT GLUCOSE</td><td>Routine</td><td>03/08/2020 11:01 PM EST</td><td></td><td> </td> 03/09/2020 04:01:00 AM EST [facility] BLOOD COUNT COMPLETE AUTOMATED <td>CBC</td><td>STAT</t d><td>03/08/2020 10:59 PM EST</td><td></td><td> </td> 03/09/2020 03:59:00 AM EST [facility] POTASSIUM SERUM PLASMA/WHOLE BLOOD <td>POTASSIUM</td><td>Routine</td><td>03/08/2020 10:59 PM EST</td><td></td><td> </td> 03/09/2020 03:59:00 AM EST [facility] GLUC BLD GLUC MNTR DEV CLEARED FDA SPEC HOME USE <td>P OCT GLUCOSE</td><td>Routine</td><td>03/08/2020 7:32 PM EST</td><td></td><td> </td> 03/09/2020 12:32:00 AM EST [facility] POC ARTERIAL BLOOD GAS <td>POC ARTERIAL BLOOD GAS</td><td>Routine</td><td>03/08/2020 7:31 PM EST</td><td></td><td> </td> 03/09/2020 12:31:00 AM EST [facility] XR CHEST PORTABLE <td>XR CHEST PORTABLE</td><t d>STAT</td><td>03/08/2020 6:56 PM EST</td><td></td><td> </td> 03/08/2020 11:56:52 PM EST [facility] BLOOD COUNT COMPLETE AUTOMATED <td>CBC</td><td>STAT</t d><td>03/08/2020 6:41 PM EST</td><td></td><td> </td> 03/08/2020 11:41:00 PM EST [facility] MAGNESIUM <td>MAGNESIUM</td><td>STAT</ td><td>03/08/2020 6:41 PM EST</td><td></td><td> </td> 03/08/2020 11:41:00 PM EST [facility] CALCIUM IONIZED <td>CALCIUM, IONIZED</td><td >STAT</td><td>03/08/2020 6:41 PM EST</td><td></td><td> </td> 03/08/2020 11:41:00 PM EST [facility] BASIC METABOLIC PANEL CALCIUM TOTAL <td>BASIC METABOLI C PANEL</td><td>STAT</td><td>03/08/2020 6:41 PM EST</td><td></td><td> </td> 03/08/2020 11:41:00 PM EST [facility] GLUC BLD GLUC MNTR DEV CLEARED FDA SPEC HOME USE <td>P OCT GLUCOSE</td><td>Routine</td><td>03/08/2020 6:40 PM EST</td><td></td><td> </td> 03/08/2020 11:40:00 PM EST [facility] ECG ROUTINE ECG W/LEAST 12 LDS TRCG ONLY W/O I&R <td>E CG 12- LEAD</td><td>Routine</td><td>03/08/2020 6:37 PM EST</td><td></td><td></td> 03/08/2020 11:37:36 PM EST [facility] POC ACT <td>POC ACT</td><td>Routine< /td><td>03/08/2020 5:47 PM EST</td><td></td><td> </td> 03/08/2020 10:47:00 PM EST [facility] POC ARTERIAL BLOOD GAS W LYTES <td>POC ARTERIAL BLOOD GAS W LYTES</td><td>Routine</td><td>03/08/2020 5:47 PM EST</td><td></td><td> </td> 03/08/2020 10:47:00 PM EST [facility] THROMBOPLASTIN TIME PARTIAL PLASMA/WHOLE BLOOD <td>APTT</td><td>Routine</td><td>03/08/2020 5:47 PM EST</td><td></td><td> </td> 03/08/2020 10:47:00 PM EST [facility] PROTHROMBIN TIME <td>PROTIME-INR</td><td>Rout ine</td><td>03/08/2020 5:47 PM EST</td><td></td><td> </td> 03/08/2020 10:47:00 PM EST [facility] POC ACT <td>POC ACT</td><td>Routine< /td><td>03/08/2020 5:04 PM EST</td><td></td><td> </td> 03/08/2020 10:04:00 PM EST [facility] POC VENOUS BLOOD GAS W LYTES <td>POC VENOUS BLOOD GAS W LYTES</td><td>Routine</td><td>03/08/2020 4:53 PM EST</td><td></td><td> </td> 03/08/2020 09:53:00 PM EST [facility] POC ACT <td>POC ACT</td><td>Routine< /td><td>03/08/2020 4:52 PM EST</td><td></td><td> </td> 03/08/2020 09:52:00 PM EST [facility] POC VENOUS BLOOD GAS W LYTES <td>POC VENOUS BLOOD GAS W LYTES</td><td>Routine</td><td>03/08/2020 4:26 PM EST</td><td></td><td> </td> 03/08/2020 09:26:00 PM EST [facility] POC ACT <td>POC ACT</td><td>Routine< /td><td>03/08/2020 4:25 PM EST</td><td></td><td> </td> 03/08/2020 09:25:00 PM EST [facility] POC VENOUS BLOOD GAS W LYTES <td>POC VENOUS BLOOD GAS W LYTES</td><td>Routine</td><td>03/08/2020 3:57 PM EST</td><td></td><td> </td> 03/08/2020 08:57:00 PM EST [facility] POC ACT <td>POC ACT</td><td>Routine< /td><td>03/08/2020 3:56 PM EST</td><td></td><td> </td> 03/08/2020 08:56:00 PM EST [facility] POC VENOUS BLOOD GAS W LYTES <td>POC VENOUS BLOOD GAS W LYTES</td><td>Routine</td><td>03/08/2020 3:30 PM EST</td><td></td><td> </td> 03/08/2020 08:30:00 PM EST [facility] POC ACT <td>POC ACT</td><td>Routine< /td><td>03/08/2020 3:30 PM EST</td><td></td><td> </td> 03/08/2020 08:30:00 PM EST [facility] POC ARTERIAL BLOOD GAS W LYTES <td>POC ARTERIAL BLOOD GAS W LYTES</td><td>Routine</td><td>03/08/2020 3:00 PM EST</td><td></td><td> </td> 03/08/2020 08:00:00 PM EST [facility] POC ACT <td>POC ACT</td><td>Routine< /td><td>03/08/2020 2:59 PM EST</td><td></td><td> </td> 03/08/2020 07:59:00 PM EST [facility] ECG TRANSESOPHAG R-T 2D W/PRB IMG ACQUISJ I&R <td>ECHO CARDIOGRAM TRANSESOPHAGEAL</td><td>Routine</td><td>03/08/2020 2:13 PM EST</td><td></td><td> </td> 03/08/2020 07:13:24 PM EST [facility] POC VENOUS BLOOD GAS W LYTES <td>POC VENOUS BLOOD GAS W LYTES</td><td>Routine</td><td>03/08/2020 1:56 PM EST</td><td></td><td> </td> 03/08/2020 06:56:00 PM EST [facility] POC ACT <td>POC ACT</td><td>Routine< /td><td>03/08/2020 1:55 PM EST</td><td></td><td> </td> 03/08/2020 06:55:00 PM EST [facility] REPAIR OR REPLACEMENT, MITRAL VALVE, MIN IMALLY INVASIVE, RIGHT THORACOTOMY APPROACH, USING HEARTPORT TECHNIQUE <td>REPAIR OR REPLACEMENT, MITRAL VALVE, MINIMALLY INVASIVE, RIGHT THORACOTOMY APPROACH, USING HEARTPORT TECHNIQUE</td><td></td><td>03/08/2020 1:38 PM EST</td><td> Nonrheumatic mitral valve regurgitation 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, unspecified type</td><td></td> 03/08/2020 06:38:00 PM EST - 03/09/2020 12:10:00 AM EST 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, unspecified typeNon rheumatic mitral valve regurgitation [facility] 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, unspecified type Nonrheumatic mitral valve regurgitation NT PRO BNP <td>NT PRO BNP</td><td>Routi ne</td><td>03/08/2020 12:22 PM EST</td><td> Nonrheumatic mitral valve regurgitation</td><td> </td> 03/08/2020 05:22:00 PM EST Nonrheumatic mitral valve regurgitation [facility] Nonrheumatic mitral valve regurgitation GLUC BLD GLUC MNTR DEV CLEARED FDA SPEC HOME USE <td>P OCT GLUCOSE</td><td>Routine</td><td>03/08/2020 12:16 PM EST</td><td></td><td> </td> 03/08/2020 05:16:00 PM EST [facility] LEVEL IV SURG PATHOLOGY GROSS&MICROSCOPIC EXAM <td>[facility] HISTOLOGY</td><td>Routine</td><td>03/08/2020 8:41 AM EST</td><td></td><td> </td> 03/08/2020 01:41:00 PM EST [facility] BLOOD TYPING ABO <td>PREPARE RBC</td><td>Rout ine</td><td>03/08/2020 12:01 AM EST</td><td></td><td> </td> 03/08/2020 05:01:00 AM EST [facility] PULMONARY FUNCTION TEST <td>PULMONARY FUNCTION TEST</td><td>Routine</td><td>03/01/2020 12:45 PM EST</td><td> Nonrheumatic mitral valve regurgitation 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, unspecified type</td><td></td> 03/01/2020 05:45:10 PM EST 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, unspecified typeNonrheumatic mitral valve regurgitation [facility] 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, unspecified type Nonrheumatic mitral valve regurgitation POC ARTERIAL BLOOD GAS <td>POC ARTERIAL BLOOD GAS</td><td>Routine</td><td>03/01/2020 12:44 PM EST</td><td></td><td> </td> 03/01/2020 05:44:00 PM EST [facility] ECG ROUTINE ECG W/LEAST 12 LDS TRCG ONLY W/O I&R <td>E CG 12- LEAD</td><td>Routine</td><td>03/01/2020 11:18 AM EST</td><td> Nonrheumatic mitral valve regurgitation 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, unspecified type care home current use of anticoagulant Dilated aortic root</td><td></td> 03/01/2020 04:18:33 PM EST Dilated aortic rootLong term current use of anticoagulant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, unspecified typeNonrheumatic mitral valve regurgitation [facility] Dilated 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 root 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, unspecified type Nonrheumatic mitral valve regurgitation ROOM TEMP AB SCREEN <td>ROOM TEMP AB SCREEN</td> <td>Routine</td><td>03/01/2020 11:10 AM EST</td><td> Nonrheumatic mitral valve regurgitation 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, 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 type 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 Dilated aortic root</td><td> </td> 03/01/2020 04:10:00 PM EST Dilated aortic rootLong term current use of anticoagulant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, unspecified typeNonrheumatic mitral valve regurgitation [facility] Dilated aortic root care home current use of anticoagulant 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, unspecified type Nonrheumatic mitral valve regurgitation BLOOD TYPING ABO <td>TYPE AND SCREEN</td><td> Routine</td><td>03/01/2020 11:10 AM EST</td><td> Nonrheumatic mitral valve regurgitation 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, 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 type 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 Dilated aortic root</td><td> </td> 03/01/2020 04:10:00 PM EST Dilated aortic rootLong term current use of anticoagulant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, unspecified typeNonrheumatic mitral valve regurgitation [facility] Dilated aortic root 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, unspecified type Nonrheumatic mitral valve regurgitation NT PRO BNP <td>NT PRO BNP</td><td>Routi ne</td><td>03/01/2020 11:00 AM EST</td><td> Nonrheumatic mitral valve regurgitation 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, 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 type 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 Dilated aortic root</td><td> </td> 03/01/2020 04:00:00 PM EST Dilated aortic rootLong term current use of anticoagulant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, unspecified typeNonrheumatic mitral valve regurgitation [facility] Dilated aortic root 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, unspecified type Nonrheumatic mitral valve regurgitation URNLS DIP STICK/TABLET RGNT AUTO W/O MICROSCOPY <td>UR INALYSIS W/O MICRO</td><td>Routine</td><td>03/01/2020 11:00 AM EST</td><td> Nonrheumatic mitral valve regurgitation 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, 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 type 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 Dilated aortic root</td><td> </td> 03/01/2020 04:00:00 PM EST Dilated aortic rootLong term current use of anticoagulant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, unspecified typeNonrheumatic mitral valve regurgitation [facility] Dilated aortic root care home current use of anticoagulant 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, unspecified type Nonrheumatic mitral valve regurgitation THROMBOPLASTIN TIME PARTIAL PLASMA/WHOLE BLOOD <td>APTT</td><td>Routine</td><td>03/01/2020 11:00 AM EST</td><td> Nonrheumatic mitral valve regurgitation 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, unspecified type care home current use of anticoagulant Dilated aortic root</td><td> </td> 03/01/2020 04:00:00 PM EST Dilated aortic rootLong term current use of anticoagulant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, unspecified typeNonrheumatic mitral valve regurgitation [facility] Dilated aortic root care home current use of anticoagulant 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, unspecified type Nonrheumatic mitral valve regurgitation PROTHROMBIN TIME <td>PROTIME-INR</td><td>Rout ine</td><td>03/01/2020 11:00 AM EST</td><td> Nonrheumatic mitral valve regurgitation 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, 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 type 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 Dilated aortic root</td><td> </td> 03/01/2020 04:00:00 PM EST Dilated aortic rootLong term current use of anticoagulant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, unspecified typeNonrheumatic mitral valve regurgitation [facility] Dilated aortic root 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, unspecified type Nonrheumatic mitral valve regurgitation BLOOD COUNT COMPLETE AUTO&AUTO DIFRNTL WBC COUNT <td>C BC AND DIFFERENTIAL</td><td>Routine</td><td>03/01/2020 11:00 AM EST</td><td> Nonrheumatic mitral valve regurgitation 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, 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 type 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 Dilated aortic root</td><td> </td> 03/01/2020 04:00:00 PM EST Dilated aortic rootLong term current use of anticoagulant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, unspecified typeNonrheumatic mitral valve regurgitation [facility] Dilated aortic root care home current use of anticoagulant 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, unspecified type Nonrheumatic mitral valve regurgitation HEMOGLOBIN GLYCOSYLATED A1C <td>HEMOGLOBIN A1C</td><td>Routine</td><td>03/01/2020 11:00 AM EST</td><td> Nonrheumatic mitral valve regurgitation 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, 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 type 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 Dilated aortic root</td><td> </td> 03/01/2020 04:00:00 PM EST Dilated aortic rootLong term current use of anticoagulant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, unspecified typeNonrheumatic mitral valve regurgitation [facility] Dilated aortic root 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, unspecified type Nonrheumatic mitral valve regurgitation COMPREHENSIVE METABOLIC PANEL <td>COMPREHENSIVE METABO LIC PANEL</td><td>Routine</td><td>03/01/2020 11:00 AM EST</td><td> Nonrheumatic mitral valve regurgitation 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, 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 type 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 Dilated aortic root</td><td> </td> 03/01/2020 04:00:00 PM EST Dilated aortic rootLong term current use of anticoagulant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, unspecified typeNonrheumatic mitral valve regurgitation [facility] Dilated aortic root 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, unspecified type Nonrheumatic mitral valve regurgitation RADEX SPINE ENTIRE SURVEY STD ANTEROPOST&LAT <td>CARDI AC CATHETERIZATION</td><td>Routine</td><td>02/03/2020 12:17 PM EST</td><td> Mitral valve prolapse Mitral valve insufficiency, unspecified etiology 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 Ascending aorta dilatation SOB (shortness of breath) Mixed hyperlipidemia Essential hypertension</td><td> </td> 02/03/2020 05:17:16 PM EST Essential hypertensionMixed hyperlipidem iaSOB (shortness of breath)Ascending aorta dilatation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Mitral valve insufficiency, unspecified etiologyMitral valve prolapse [facility] Essential hypertension Mixed hyperlipidemia SOB (shortness of breath) Ascending aorta dilatation 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 Mitral valve insufficiency, unspecified etiology Mitral valve prolapse ECG ROUTINE ECG W/LEAST 12 LDS TRCG ONLY W/O I&R <td>E CG 12- LEAD</td><td>Routine</td><td>02/03/2020 8:12 AM EST</td><td></td><td></td> 02/03/2020 01:12:22 PM EST [facility] Results ID Date Data Source [id number] 09/10/2020 06:53:40 PM EDT [facility] Name Value Range Interpretation Code Description Data Shiloh rce(s) Supporting Document(s) &PDF [facility] GWXCUk8gEqPCRyAi42/RIZvqDHYvm5UqVXbfDZz1KEliLUKhN3ArdTuiIQnMFDtYY9YLAHEQLBEWA4EF lYX [file] ICAgICAgICAgICAgICAgICAgICAgICAgICAgICAgICAgICAgICAgICAgICAgICAgICAgICAgICAgICAg ICAgICAgICAgICAgICAgICAgICAgICAgICAgICAgIC AgICAgDQogICAgICAgICAgICAgICAgICAgICAgICAgICAgICAgICAgICAgICAgICAgICAgICAgICAgIC AgICAgICAgICAgICAgICAgICAgICAgICAgICAgICAgICAgICAgICAgICAgICAgDQogICAgICAgICAgIC AgICAgICAgICAgICAgICAgICAgICAgICAgICAgICAg ICAgICAgICAgICAgICAgICAgICAgICAgICAgICAgICAgICAgICAgICAgICAgICAgICAgICAgICAgDQog ICAgICAgICAgICAgICAgICAgICAgICAgICAgICAgICAgICAgICAgICAgICAgICAgICAgICAgICAgICAg ICAgICAgICAgICAgICAgICAgICAgICAgICAgICAgIC AgICAgICAgDQogICAgICAgICAgICAgICAgICAgICAgICAgICAgICAgICAgICAgICAgICAgICAgICAgIC AgICAgICAgICAgICAgICAgICAgICAgICAgICAgICAgICAgICAgICAgICAgICAgICAgDQogICAgICAgIC AgICAgICAgICAgICAgICAgICAgICAgICAgICAgICAg ICAgICAgICAgICAgICAgICAgICAgICAgICAgICAgICAgICAgICAgICAgICAgICAgICAgICAgICAgICAg DQogICAgICAgICAgICAgICAgICAgICAgICAgICAgICAgICAgICAgICAgICAgICAgICAgICAgICAgICAg ICAgICAgICAgICAgICAgICAgICAgICAgICAgICAgIC AgICAgICAgICAgDQogICAgICAgICAgICAgICAgICAgICAgICAgICAgICAgICAgICAgICAgICAgICAgIC AgICAgICAgICAgICAgICAgICAgICAgICAgICAgICAgICAgICAgICAgICAgICAgICAgICAgDQogICAgIC AgICAgICAgICAgICAgICAgICAgICAgICAgICAgICAg ICAgICAgICAgICAgICAgICAgICAgICAgICAgICAgICAgICAgICAgICAgICAgICAgICAgICAgICAgICAg ICAgDQogICAgICAgICAgICAgICAgICAgICAgICAgICAgICAgICAgICAgICAgICAgICAgICAgICAgICAg ICAgICAgICAgICAgICAgICAgICAgICAgICAgICAgIC PvHISyRWFaZUCfKGTgKUn3N0noMLGcDRBnQA6aVCk9Ol7+RQhKLrEyUDF3miLqvJ3JJA5yb0BlQMehAD Goz3AaCNq7UP6ZBECsAPtqIO7EOZhpqr5WJKBzDXOlyQCOv4bdLbXtBYM0YBDfTqdfHY7XIBOeZ2ozia UnGZEwAVVSSUbbSMJMVT5HKkMbE9TnoK52DHTZPi0+ VWqzfzGaWhqDRmD5ZTQih0AeZEn7PG7ORAAcAUdgNI3GVZVvvZ4pECtkFY5NKbMuRzRzEHGCFkEoZ82x cWLiKJm7Y3IzPzNuETJvLdrrHSCoNArePsRoMNOhEiKvEZfiZF1+ID4+KXkpMB6GADogxsEaZSMsTn3P WYHmKGO3XFOcmLMvXeqxJYDNESzxHN6ZjQRaOXR8hA 0eWGpdKGIbDQNnS2cMBsRvlHlzSO28fHkdyaOylQHjTAa+Io3HPD0bi2GdOMb7yjAwHGqhEWD9ZEsiGR UgBJLgBFTjTAB6BHB8DTYVTvUnKTJnKKKuLGfuWBBxERHwov6MOMLiLAFsAWCmWGAyRSUfLSXdPAtbOW AkTGG7EuU5XBQeZSNtSM3KUdWyEKLoKMKpMSJbBNHa NFBxop1NBUHjTTNxCnh9XLZgZALjKOUkQDjuMCYvVUZ1PUG9ZMWtLSYcUK3TMvApXAJcGWvlSHBbHSOh JELblr9CCPTgYZFjIrJ8LYLjSNAfAYQjFIuaIKCbBGE4AaN3LOOpTIWbJG6BPyClQBMdBOa6ROOpCVXr UTJixa1OSEFuHHErVSDoHQEeVEZtIFZrQGwjSFWhKN Q8WDdpLOYlKJInVI9DAuIrHJKjMWq4YQMvHKTdIOImek6IOBJnWPUgWIb5IKDpRXIfRMAlTMndDLSmZW KvFZV4MGIzAXRzZY5RJlIoDMPyDUCuVygzAHTsNJZmqz2LALJdREOyVSByCHChARJjFQTcOOhdVGMyOM WvOjrjYXPxLXPpJH2VEbVkLJFsJSM8SpHcZAEsZAZq pm7BKVBsQIOjUqQ5RMSxRZUnTHKjZKtvFKGuCZZjAVh8CGXdUPOcMN7GRfPcEBZnFKPoLEClLWUbNKWu wv0HVOTlLNMoMgA1PTKkAATsCLWeLCqcAPDgHQMqRLLjKVIqOKCfIY4KAeKzCYVyWSJgWITfTPHgPMAe co0QFJNqSJThDXEvSACcKDWzZJWiETnxDKRbSRG8YL R8EGCeWWTqHO4TPeJxURGcYHKoRtQiLKGyESOtre2VxBGibPmlci5QFCyMJk9KiMggJCJ5LKyqEq0doS MqZRZmXYWGRy9RzjIdDTZfNQGBLXikZXCvPXL7JrW2QCBfVCCgIgM8BrOxGXUqUkC3FeJjCOZiSQExDw R7BYOcLIv4GlE2XSYjBZrcTTN0XeKgJlIdNtD3ITGb ZDM+WG7fREt+Fy9Fp9PutzF5maZrWWiaWmO0XR1FSIVBJ3LATf== ID Date Data Source [id number] 07/12/2020 09:30:00 AM EDT [facility] Name Value Range Interpretation Code Description Data Shiloh rce(s) Supporting Document(s) SARS-CoV-2 (COVID-19) RNA [Presence] in Respiratory specimen by JW with probe detection Not Detected [facility] This lab was ordered by [facility] and reported by [employer] ID Date Data Source Basic Metabolic Profile (BMP) 07/06/2020 12:00:00 AM EDT eCW 1 ([facility]) Name Value Range Interpretation Code Description Data Shiloh rce(s) Supporting Document(s) 125 70-100 GLUCOSE, FASTING eCW1 ([facility]) 22 7-18 BLOOD UREA NITROGEN eCW1 ([facility]) > 60.0 >42 GLOMERULAR FILTRATION RATE eCW 1 ([facility]) 141 136-145 SODIUM LEVEL eCW1 ([facility]) 1.08 0.70-1.30 CREATININE FOR GFR eCW1 ([facility]) 3.6 3.5-5.1 POTASSIUM SERUM eCW1 ([facility]) 9.7 8.8-10.2 CALCIUM LEVEL eCW1 ([facility]) 103 98-107 CHLORIDE LEVEL eCW1 ([facility]) 33 21-32 CARBON DIOXIDE LEVEL eCW1 ([facility]) ID Date Data Source CBC - Complete Blood Count 07/06/2020 12:00:00 AM EDT eCW1 ( [facility]) Name Value Range Interpretation Code Description Data Shiloh rce(s) Supporting Document(s) 7.2 4.0-10.0 WHITE BLOOD COUNT eCW1 ([facility]) 16.6 13.5-17.5 HEMOGLOBIN eCW1 ([facility]) 5.45 4.30-6.10 RED BLOOD COUNT eCW1 ([facility]) 93.4 80.0-96.0 MEAN CORPUSCULAR VOLUME e CW1 ([facility]) 50.9 42.0-52.0 HEMATOCRIT eCW1 ([facility]) 30.5 27.0-33.0 MEAN CORPUSCULAR HEMOGLOB IN eCW1 ([facility]) 14.6 11.5-14.5 RED CELL DISTRIBUTION WID TH eCW1 ([facility]) 32.6 32.0-36.5 MEAN CORPUSCULAR HGB CONC eCW1 ([facility]) 246 150-450 PLATELET COUNT, AUTOMATED eCW1 ([facility]) ID Date Data Source [id number] 06/05/2020 10:21:00 AM EST JOSE ([facility], ) Name Value Range Interpretation Code Description Data Shiloh rce(s) Supporting Document(s) Surgical pathology study Laboratory test result [facility] ([facility], ) FINAL DIAGNOSIS Duodenum, biopsy: Duodenal mucosa with intact villous architecture. No evidence for celiac disease. 06/06/2020 - 1255 CLINICAL DIAGNOSIS Duodenal ulcer follow up 06/06/2020712 GROSS DIAGNOSIS Received in formalin labeled "duodenal biopsy" consists of two fragments of wooten tissue, 0.3 x 0.3 x 0.2 cm in aggregate. All in one. -SV 06/06/2020 - 712 Signed LE RAMIREZ MD 06/06/2020 1443 ID Date Data Source [id number] 05/31/2020 10:00:00 AM EST [facility] Name Value Range Interpretation Code Description Data Shiloh rce(s) Supporting Document(s) SARS coronavirus 2 RNA Not Detected [facility] [place] This lab was ordered by [facility] and reported by [facility]. ID Date Data Source [id number] 05/11/2020 08:20:00 AM EST [facility] FASTING: UNKNOWNReceived: 05/11/2020 at 08:18:00 QPT: [facility], [address], [address] [place], [address], Kyree Corral MD Name Value Range Interpretation Code Description Data Shiloh rce(s) Supporting Document(s) Leukocytes [#/volume] in Blood by Automated count 6.5 Thousand/u L 3.8-10.8 Normal (applies to non-numeric results) [facility] Erythrocytes [#/volume] in Blood by Automated count 4.37 Million /uL 4.20-5.80 Normal (applies to non-numeric results) [facility] Hemoglobin [Mass/volume] in Blood 13.5 g/dL 13.2-17.1 Normal (applies to non- numeric results) [facility] Hematocrit [Volume Fraction] of Blood by Automated count 42.0 % 38.5-50.0 Normal (applies to non-numeric results) [facility] Erythrocyte mean corpuscular volume [Entitic volume] by Auto mated count 96.1 fL 80.0-100.0 Normal (applies to non-numeric results) [facility] Erythrocyte mean corpuscular hemoglobin [Entitic mass] by Automated count 30.9 pg 27.0-33.0 Normal (applies to non-numeric results) [facility] Erythrocyte mean corpuscular hemoglobin concentration [Mass/volume] by Automated count 32.1 g/dL 32.0-36.0 Normal (applies to non-numeric results) [facility] Erythrocyte distribution width [Ratio] by Automated count 13.6 % 11.0-15.0 Normal (applies to non-numeric results) [facility] Platelets [#/volume] in Blood by Automated count 294 Thousand/uL 140-400 Normal (applies to non-numeric results) [facility] Platelet mean volume [Entitic volume] in Blood by Jeb-Carmen 11. 7 fL 7.5-12.5 Normal (applies to non-numeric results) [facility] Your request to have a duplicate copy faxed has been acknowledged. Queued to: [id number] ID Date Data Source LIPID PANEL (CARDIAC RISK) 04/05/2020 12:00:00 AM EST eCW1 ( [facility]) Name Value Range Interpretation Code Description Data Shiloh rce(s) Supporting Document(s) Cholesterol [Moles/volume] in Serum or Plasma 102 <200 CHOLESTEROL LEVEL eCW1 ([facility]) Triglyceride [Mass/volume] in Serum or Plasma by calculation 142 <150 TRIGLYCERIDES LEVEL eCW1 ([facility]) 2.684 <5 CHOLESTEROL RISK RATIO eCW1 ([facility]) Cholesterol in HDL [Moles/volume] in Serum or Plasma 38 >40 HDL CHOLESTEROL eCW1 ([facility]) Cholesterol in LDL [Mass/volume] in Serum or Plasma by calculation 36 <100 LDL CHOLESTEROL eCW1 ([facility]) 64 NON-HDL-C eCW1 ([facility]) ID Date Data Source Comprehensive Metabolic Profile (CMP) 04/05/2020 12:00:00 AM EST eCW1 ([facility]) Name Value Range Interpretation Code Description Data Shiloh rce(s) Supporting Document(s) 106 70-100 GLUCOSE, FASTING eCW1 ([facility]) 14 7-18 BLOOD UREA NITROGEN eCW1 ([facility]) > 60.0 >42 GLOMERULAR FILTRATION RATE eCW 1 ([facility]) 0.85 0.70-1.30 CREATININE FOR GFR eCW1 ([facility]) 143 136-145 SODIUM LEVEL eCW1 ([facility]) 3.9 3.5-5.1 POTASSIUM SERUM eCW1 ([facility]) 108 98-107 CHLORIDE LEVEL eCW1 ([facility]) 28 7-37 AST/SGOT eCW1 ([facility]) 8.5 8.8-10.2 CALCIUM LEVEL eCW1 ([facility]) 45 12-78 ALT/SGPT eCW1 ([facility]) 32 21-32 CARBON DIOXIDE LEVEL eCW1 ([facility]) 0.8 0.2-1.0 BILIRUBIN,TOTAL eCW1 ([facility]) 85 45-117 ALKALINE PHOSPHATASE eCW1 ([facility]) 5.7 6.4-8.2 TOTAL PROTEIN eCW1 ([facility]) 1.2 ALBUMIN/GLOBULIN RATIO eCW1 ([facility]) 3.1 3.2-5.2 ALBUMIN eCW1 ([facility]) ID Date Data Source [id number] 03/31/2020 11:19:00 PM EST [facility] Name Value Range Interpretation Code Description Data Shiloh rce(s) Supporting Document(s) SARS coronavirus 2 RNA [Presence] in Res piratory specimen by JW with probe detection [facility] This lab was ordered by [facility] a nd reported by [facility]. ID Date Data Source [id number] 03/28/2020 08:23:29 PM EST [facility] INFORMATIONPatient MRN Name Date of Age Gend*PT [id number] Akira Mcneill 1940 79 years M ---PT Location Admission Date/Time Visit ID Attending Provider --- --- --- --- EPI ID CSN Admitting Provider [id number] ---Cardiothoracic Surgery Post Operative Follow UpName: Akira Mcneill : 1940MRN: [id number] Visit Date: March 28, 2020ASSESSMENT:PT doing well 3 weeks s.p MVrVSS and incisions healedPLAN:- The patient was educated on endocarditis prophylaxis.- 15 lbs lifting restriction x 6 weeks from surgeryFollow up with Instructional Technology Specialist: Dr. Fernandez and PCP: Estrella ROBERT to office prnSUBJECTIVE:Akira Mcneill is a pleasant 79 years male who recently underwentminimally invasive mitral valve rep air with triangular resection ofposterior leaflet and the placement of 33 mm Simulus annuloplasty band,cryoablation to left and the right atrium with clipping of the left atrialappendage on 03/08/[address] Siddiqui. Pt tolerated the procedure well. He had aloop records placed d/t some junctional rhythm. He also had aflutter/afib andwas anticoagulated. Dr Fernandez's office is following. PT was discharged home andcomes in for 3 week f/u today. He is doing well. The patient denies any fevers,chills, dizziness, dyspnea, chest pain or palpitations.Past Medical History:Diagnosis Date 24 hr holter monitor 01/03/2020 Baseline A. fib with narrow QRS complex. No pauses. Occasional ventricularectopy (0.4% of all beats) including single ventricular couplet. Average HR 89bpm. Ascending aorta dilatation 02/03/2017 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 Coronary artery disease 50% prox to mid RCA stenosis Dilated aortic root Echocardiogram 12/11/2017 LVEF 65%, severe prolapse of posterior mitral leaflet, moderate to severe MR,normal CVP and PAP, dilated aortic root (4.0 cm). Echocardiogram 12/27/2016 Normal LV size with moderate LVH and preserved LV systolic function. Normaldiastolic function. Severe prolapse of posterior mitral leaflet resulting in aprobably moderately severe mitral insufficiency. Normal CVP and PA pressure.Mildly dilated aortic root and ascending aorta(4.0 cm). Echocardiogram 01/18/2019 Mild LVH. LVEF 55-65%. Severe posterior mitral leaflet prolapse with resultingmoderately severe AR. No additional significant valvular disease. Normal CVPand PA P. Dilated aortic root and ascending aorta (4.0 and 4.1 cm). Echocardiogram 01/18/2020 LVEF 70%. Severe posterior mitral leaflet prolapse, severe eccentric mitralinsufficiency. Mild tricuspid and pulmonary insuffiiciency. Normal CVP and PAP.Mildly dilated aortic root and ascending aorta (4.1 and 4.0 cm) ETT 11/21/2014 10.1 METs, 9 minutes. No ischemia at maximal workload. The patient has normalfunctional aerobic capacity. There were no exercise-induced arrhythmias. Hyperlipidemia 02/03/2017 Hypertension 02/03/2017 care home current use of anticoagulant Eliquis Mitral regurgitation severe and symptomatic; Maria Luisa Fernandez MD Mitral valve prolapse 10/14/2011 Stress echo 02/10/2011 EF 65-70 %, reached 10.5 METs, mitral valve prolapse - moderate-severe, MR -moderate-severe IRENA 12/19/2015 Severe posterior MVP with approximately moderate MR with very eccentric MR jet.Normal LV and RV systolic function. No other hemodynamically significantvalvular disease.Past Surgical History:Procedure Laterality Date CARDIAC CATHETERIZATION N/A 02/03/2020 Procedure: Right heart cath; Surgeon: Rony To MD; Laterality: N/A;needs labs drawn on admit CARDIAC CATHETERIZATION N/A 02/03/2020 Procedure: Left heart cath; Surgeon: Rony To MD; Laterality: N/A; CARDIAC CATHETERIZATION N/A 02/03/2020 Procedure: Coronary angiography; Surgeon: Rony To MD; Laterality:N/A; CARDIAC CATHETERIZATION N/A 02/03/2020 Procedure: Left ventriculography; Surgeon: Rony To MD; Laterality:N/A; CARDIAC VALVE SURGERY Right 03/08/2020 Procedure: REPAIR MITRAL VALVE (SIMULUS 33MM), MINIMALLY INVASIVE, RIGHTTHORACOTOMY APPROACH, USING HEARTPORT TECHNIQUE IRENA CRYOABLATION, LEFT ATRIALAPPENDAGE CLIP (45MM); Surgeon: Michelle Cramer MD; Laterality: Right; COLONOSCOPY IMPLANT LOOP RECORDER N/A 03/14/2020 Procedure: Loop insertion; Surgeon: Immanuel Chambers MD; Laterality: N/A; SHOULDER SURGERY RightAllergies: Patient has no known drug allergies.OBJECTIVE:VITALS: blood pressure is 134/72 and his pulse is 73. His respiration is 16 andoxygen saturation is 96%.Physical ExamGeneral: AO x 3. In n o apparent distress.Heart: +S1,S2. RegularLungs: Clear to auscultation bilaterally. Good respiratory effort. No use ofaccessory muscles. No wheezes, rales, rhonchiIncision: right chest incisions healed, right groin healedExtremities: Warm and well perfused. No edema.Neuro: Grossly intactSignature: Antonia Jaramillo NPDate: March 28, 2020Time: 7:52 PM Name Value Range Interpretation Code Description Data Shiloh rce(s) Supporting Document(s) ID Date Data Source [id number] 03/16/2020 05:32:46 PM EST [facility]FORMATIONPatient MRN Name Date of Age Gend*PT [id number] Akira Mcneill 1940 79 years M IPPT Location Admission Date/Time Visit ID Attending [id number] 03/08/20 1054 --- --- EPI ID CSN Admitting Provider [id number] Michelle Cramer MD([id number]) Attestation signed by Michelle Cramer MD at 03/16/2020 5:32 PMI saw and evaluated the patient and reviewed Ryne's note. I agree with thehistory, physical and medical decision makingSignature: RUPESH Chaconate: March 16, 2020Time: 5:32 PM --Surgical Discharge SummaryPanchojenn Ernandez RamonyMBENJAMÍN: [id number] date: 03/08/2020Admitting Physician: RUPESH Chaconischarge date and time:Discharge Orders Placed(From admission, onward) Start Ordered 03/14/20 0748 Discharge patient OnceExpected Discharge Date: 03/14/20Expected Discharge Time: MiddayDischarge Disposition: Home or Self Care 03/14/20 0754Discharge Physician: Karen Rich Diagnosis: <principal problem not specified>Secondary Diagnoses:Active Hospital Problems Diagnosis Date Noted Atrial flutter Nonrheumatic mitral valve regurgitation 02/13/2020 Added automatically from request for surgery [id number] 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 02/13/2020 Added automatically from request for surgery [id number] Hospital ProblemsNo resolved problems to display.Discharge Medications:Your medication listSTART taking these medications Instructions Last Dose Given Morning Afternoon Evening Bedtime As Neededacetaminophen 325 MG tabletCommonly known as: TYLENOL Take 2 tablets (650 mg total) by mouth every 4 (four) hours03/14aspirin 81 MG EC tablet Take 1 tablet (81 mg total) by mouth daily03/15warfarin 4 MG tabletCommonly known as: COUMADIN Take 1 tablet (4 mg total) by mouth daily Take 1 tab daily or as idzuvrye50/16CONTINUE taking these medications Instructions Last Dose Given Morning Afternoon Evening Bedtime As Neededatorvastatin 40 MG tabletCommonly known as: LIPITOR Take 40 mg by mouth aejppgt49/16calcium carbonate 600 MG tabletCommonly known as: OS-SETH Take 600 mg by mouth dailyCalcium 600 600 MG tabletGeneric drug: calcium carbonate Take 600 mg by mouth dailydesonide 0.05 % lotionCommonly known as: DESOWEN Apply 1 application topically as needed (rash/breakout)MULTIPLE VITAMIN-FOLIC ACID PO Take 1 tablet by mouth dailySaw [place] 450 MG Caps Take by mouth dailySTOP taking these medicationsApixaban 5 MG Tabs tabletCommonly known as: ELIQUISchlorthalidone 25 MG tabletCommonly known as: HYGROTENWhere to Get Your MedicationsThese medications were sent to [address] [address] acetaminophen 325 MG tablet warfarin 4 MG tabletInformation about where to get these medications is not yet availableAsk your nurse or doctor about these medications aspirin 81 MG EC tabletIndication for Admission: This is a 79-year-old male patient with symptoms offatigue and shortnessof breath. He has no mitral valve prolapse, but recently he becamesymptomatic in the last few months. He was also found in atrial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, which has been going on for about 2-3 years. Cardiaccatheterization showed no significant coronary artery disease and thepatient was referred for surgical evaluation. We feel patient to be acandidate for minimally invasive surgery.Hospital Course & Complications: SDA on 03/08 for minimally invasive MV repair,cryoablation, and clipping of the left atrial appendage. Procedure toleratedwell and he was weaned from CPB without difficulty. Transferred to the CVICU incritical but stable condition. Extubated on the operative day and transferred tothe floor. He had required AV pacing due to a slow JR. Eventually his HR pickedup and the temporary pacer was turned off. He had a LOOP recorder placed todaythe bedside to evaluate his rhythm and will follow up with Dr Fernandez in 10 days.It appears as if the rhythm is variable and goes between atrial flutter, atrila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, and perhaps sometimes SR. Coumadin will be communicated to Grayson's office and his next INR will be on 03/16. He did have a mild ileuspostoperatively which resolved with cessation of narcotics. He is deemedmedically fit for discharge to home todayPast Medical History:Past Medical History:Diagnosis Date 24 hr holter monitor 01/03/2020 Baseline A. fib with narrow QRS complex. No pauses. Occasional ventricularectopy (0.4% of all beats) including single ventricular couplet. Average HR 89bpm. Ascending aorta dilatation 02/03/2017 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 Coronary artery disease 50% prox to mid RCA stenosis Dilated aortic root Echocardiogram 12/11/2017 LVEF 65%, severe prolapse of posterior mitral leaflet, moderate to severe MR,normal CVP and PAP, dilated aortic root (4.0 cm). Echocardiogram 12/27/2016 Normal LV size with moderate LVH and preserved LV systolic function. Normaldiastolic function. Severe prolapse of posterior mitral leaflet resulting in aprobably moderately severe mitral insufficiency. Normal CVP and PA pressure.Mildly dilated aortic root and ascending aorta(4.0 cm). Echocardiogram 01/18/2019 Mild LVH. LVEF 55-65%. Severe posterior mitral leaflet prolapse with resultingmoderately severe AR. No additional significant valvular disease. Normal CVPand PA P. Dilated aortic root and ascending aorta (4.0 and 4.1 cm). Echocardiogram 01/18/2020 LVEF 70%. Severe posterior mitral leaflet prolapse, severe eccentric mitralinsufficiency. Mild tricuspid and pulmonary insuffiiciency. Normal CVP and PAP.Mildly dilated aortic root and ascending aorta (4.1 and 4.0 cm) ETT 11/21/2014 10.1 METs, 9 minutes. No ischemia at maximal workload. The patient has normalfunctional aerobic capacity. There were no exercise-induced arrhythmias. 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 No other hemodynamically significantvalvular disease.Surgical Procedures:Procedure(s):REPAIR MITRAL VALVE (SIMULUS 33MM), MINIMALLY INVASIVE, RIGHT THORACOTOMYAPPROACH, USING HEARTPORT TECHNIQUE IRENA CRYOABLATION, LEFT ATRIAL APPENDAGE CLIP(45MM) (Right)Discharge Exam:Vitals: Temp: [97 F-98.4 F] 98 FHeart Rate: [54-61] 55Resp: [16] 16BP: (124-138)/(58-65) 138/65Pleasant, comfortable, not in acute distress.Lungs: Clear to auscultation bilaterally.Heart: regular rate and rhythm, S1, S2 normal, no murmur, click, rub or gallopAbdomen: Soft, nontender, bowel sounds present.Extremities: No edema.Wound/Incision: clean, dry and no drainageItems needing special attention: coumadin follow upDischarged Condition:goodDisposition: Home or Self CareSignature: Korin Rich: March 14, 2020Time: 8:07 AM Name Value Range Interpretation Code Description Data Shiloh rce(s) Supporting Document(s) ID Date Data Source [id number] 03/14/2020 07:56:04 AM EST [facility] Name Value Range Interpretation Code Description Data Shiloh rce(s) Supporting Document(s) &PDF [facility] LIPJJd8cSuVKFlMh75/EPPloABQqg5BhKWptXDr3MXzdFUClM6NieVoaAOfTPFkLD7KREZBVCRKZZ3EC yZW [file] [place]/QtHpE0rJ9WHN+BF0fwunp2pkfTMfDFcGQ5DXRh [file] [employer]+ngzOoI6GIjHMuhiJBcizfLFpk/iIqPYE0JcitnivMbS50w9Q7b8iKzes+ZAup1wN+3ZAeD2M05+S [file] [id number]== ID Date Data Source [id number] 03/14/2020 03:09:14 AM EST [facility] Name Value Range Interpretation Code Description Data Shiloh rce(s) Supporting Document(s) PT 14.2 s (9.2-11.9) H [facility] INR 1.38 [facility] SUGGESTED THERAPEUTIC RANGES USING INR F ORSTABILIZED ANTICOAGULATED PATIENTS:STANDARD DOSE THERAPY INR 2.0-3.0 DVT, PE, PREVENT DVT OR EMBOLISMHIGH DOSE THERAPY INR 2.5-3.5 PREVENT EMBOLISM FROM MECHANICAL HEART VALVE ID Date Data Source [id number] 03/13/2020 04:11:55 PM EST [facility]PAT[facility] NT INFORMATIONPatient MRN Name Date of Age Gend*PT [id number] Akira Mcneill 1940 79 years M IPPT Location Admission Date/Time Visit ID Attending [id number] 03/08/20 1054 --- Michelle Cramer MD([id number]) EPI ID CSN Admitting Provider [id number] Michelle Cramer MD([id number])INPATIENT EP CONSULT NOTEPatient Name: Akira Mcneill of : 1940 Age: 79 yearsGender: male Primary Physician: RUPESH ROBERTate of Referral: 03/13/2020 PCP [facility] PHYSICIAN: Tres Chambers M.D.REQUESTING PHYSICIAN: Dr Hirsch FOR REFFERAL: junctional rhythmHISTORY OF PRESENT ILLNESS:Akira Mcneill is a 79 years male with medical problems of severe mr, htn,hld, paf on eliquis, cared for by Dr More had MVR / Cryo /JUAN clip this admit.EP service was consulted because of episodes AF/flutter.No significant bradycardia or AVBNo CPNo dyspneaNo syncopeRelated procedures MVR this admitHistory was taken from ptFamily was not present during interviewPAST MEDICAL HISTORY:Past Medical History:Diagnosis Date 24 hr holter monitor 01/03/2020 Baseline A. fib with narrow QRS complex. No pauses. Occasional ventricularectopy (0.4% of all beats) including single ventricular couplet. Average HR 89bpm. Ascending aorta dilatation 02/03/2017 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 Coronary artery disease 50% prox to mid RCA stenosis Dilated aortic root Echocardiogram 12/11/2017 LVEF 65%, severe prolapse of posterior mitral leaflet, moderate to severe MR,normal CVP and PAP, dilated aortic root (4.0 cm). Echocardiogram 12/27/2016 Normal LV size with moderate LVH and preserved LV systolic function. Normaldiastolic function. Severe prolapse of posterior mitral leaflet resulting in aprobably moderately severe mitral insufficiency. Normal CVP and PA pressure.Mildly dilated aortic root and ascending aorta(4.0 cm). Echocardiogram 01/18/2019 Mild LVH. LVEF 55-65%. Severe posterior mitral gustavo flet prolapse with resultingmoderately severe AR. No additional significant valvular disease. Normal CVPand PA P. Dilated aortic root and ascending aorta (4.0 and 4.1 cm). Echocardiogram 01/18/2020 LVEF 70%. Severe posterior mitral leaflet prolapse, severe eccentric mitralinsufficiency. Mild tricuspid and pulmonary insuffiiciency. Normal CVP and PAP.Mildly dilated aortic root and ascending aor ta (4.1 and 4.0 cm) ETT 11/21/2014 10.1 METs, 9 minutes. No ischemia at maximal workload. The patient has normalfunctional aerobic capacity. There were no exercise-induced arrhythmias. Hyperlipidemia 02/03/2017 Hypertension 02/03/2017 care home current use of anticoagulant Eliquis Mitral regurgitation severe and symptomatic; Maria Luisa Fernandez MD Mitral valve prolapse 10/14/2011 Stress echo 02/10/2011 EF 65-70 %, reached 10.5 METs, mitral valve prolapse - moderate-severe, MR -moderate-severe IRENA 12/19/2015 Severe posterior MVP with approximately moderate MR with very eccentric MR jet.Normal LV and RV systolic function. No other hemodynamically significantvalvular disease.PAST SURGICAL HISTORY:Past Surgical History:Procedure Laterality Date CARDIAC CATHETERIZATION N/A 02/03/2020 Procedure: Right heart cath; Surgeon: Rony To MD; Laterality: N/A;needs labs drawn on admit CARDIAC CATHETERIZATION N/A 02/03/2020 Procedure: Left heart cath; Surgeon: Rony To MD; Laterality: N/A; CARDIAC CATHETERIZATION N/A 02/03/2020 Procedure: Coronary angiography; Surgeon: Rony To MD; Laterality:N/A; CARDIAC CATHETERIZATION N/A 02/03/2020 Procedure: Left ventriculography; Surgeon: Rony To MD; Laterality:N/A; CARDIAC VALVE SURGERY Right 03/08/2020 Procedure: REPAIR MITRAL VALVE (SIMULUS 33MM), MINIMALLY INVASIVE, RIGHTTHORACOTOMY APPROACH, USING HEARTPORT TECHNIQUE IRENA CRYOABLATION, LEFT ATRIALAPPENDAGE CLIP (45MM); Surgeon: Michelle Cramer MD; Laterality: Right; COLONOSCOPY SHOULDER SURGERY RightMEDICATIONS:Scheduled Meds: acetaminophen 650 mg Oral Q4H ANUP Or acetaminophen 1 suppository Rectal Q4H ANUP ascorbic acid 500 mg Oral Daily aspirin EC 81 mg Oral Daily atorvastatin 40 mg Oral Nightly Daily Cleopatra 1 tablet Oral Daily docusate sodium 100 mg Oral BID famotidine 40 mg Oral Daily ferrous gluconate 324 mg Oral BID folic acid 1 mg Oral Daily heparin (porcine) 5,000 Units Subcutaneous Q8H ANUP lidocaine 2 patch Transdermal Daily normal saline flush 3 mL Intravenous Per Protocol polyethylene glycol 17 g Oral DailyContinuous Infusions:PRN Meds:.albuterol, aluminum hydroxide, bisacodyl, magnesium sulfate, magnesiumsulfate, magnesium sulfate, magnesium sulfate, nitroglycerin, ondansetron,warfarin daily dose, potassium chloride (K-SHERMAN/KDUR) oral tablet, potassiumchloride (K-SHERMAN/KDUR) oral tablet, potassium chloride (K-SHERMAN/KDUR) oral tablet,potassium chloride (K-SHERMAN/KDUR) oral tabletALLERGIES:No Known Drug AllergiesSOCIAL HISTORY:Social HistoryTobacco Use Smoking status: Former Smoker Years: 21.00 Types: Cigarettes Last attempt to quit: 1980 Years since quittin.9 Smokeless tobacco: Never Used Tobacco comment: 2 cigarettes/daySubstance Use Topics Alcohol use: Yes Frequency: 2-4 times a month.FAMILY HISTORY:Family HistoryFamily history unknown: YesReview of Systems:Pertinent positives as mentioned in the HPI. Denies recent fever, chills, orchange in appetite. Denies unilateral weakness, numbness, slurred speech, orfacial droop. Denies any hematemesis, hematochezia, or melena. Denies nausea,vomiting, diarrhea, or abdominal pain. All other systems were reviewed and theremainder are negative.PHYSICAL EXAMINATION:Vital Signs:Vitals: 03/13/20 1116BP: 124/58Pulse: 54Resp: 16Temp: 97.7 FSpO2: 95%General: Well-developed well-nourished, NAD.HEENT: externally normalNeck: Supple. No carotid bruits. No lymphadenopathy or thyromegalyLungs: Clear to auscultation bilaterally, no rales/rhonchi/wheezes.CV: iregular rate & rhythm, no murmurs, rubs, or gallops. Variable S1/S2. TheJVP is <8 cm.Abd: Soft, non-tender, non-distended.Extremities: No edema; no cyanosis or clubbing.Skin: Warm & dry, without jaundice or bruising.Psych: A&O x3, affect appropriate.Neuro: grossly normalPERTINENT LABS:Results from last 7 daysLab Units 03/11/200203/10/[id number] g/dL 12.2* 13.0* -- 12.6*HEMATOCRIT % 35.7* 38.7* -- 37.5*PLATELETS 10*3/uL 134* 107* -- 102*SODIUM mmol/L 141 140 137 139POTASSIUM mmol/L 3.8 3.8 4.1 3.7CHLORIDE mmol/L 104 103 100 104CO2 mmol/L 30 32* 30 28BUN mg/dL 32* 35* 37* 44*CREATININE mg/dL 0.84 0.93 1.13 1.44*GLUCOSE mg/dL 101* 102* 141* 145*CALCIUM mg/dL 8.5 8.8 8.8 8.5DIAGNOSTIC DATA:I personally reviewedEKG: a flutterTelemetry Monitoring:AFEchocardiogram EF: 60%FINAL DIAGNOSES:1. Intermittent Atrial flutter fib2. PAF on eliquis3. MV rep, Cryo, JUAN clip this admitPLAN:1. ILR implant in am2. DW pt and Dr Fernandez3. Procedure was discussed with patient : risks, benefits, and alternativesexplained.Tres Chambers M.D., [facility], [facility]ICAL CENTERClinical Cardiac Hhvewgxnxzmxdfnbo01/15/2020 12:10 PM Name Value Range Interpretation Code Description Data Shiloh rce(s) Supporting Document(s) ID Date Data Source [id number] 03/13/2020 09:05:23 AM EST [facility] Name Value Range Interpretation Code Description Data Shiloh rce(s) Supporting Document(s) EKG [facility] KQZQUh8hMuNGSkXki7AvUbMfAMBsLZ6ofpp8E2X0lQEiE9KovPOoq3hbR9HfU4MtEHTzDHERXV6JhCCt jb2 [file] hKpiabmrTB+Phbtwbpw3NTDLt+B5QEZOvF1OJvLxSbbqKqFkdHhRAIstbh+Sandra+GGGMdA6/RqPimvt3p JI2X+6yP1vZneRE7KS9w8apV7YKUbsx0kzYiBLjRPbDpcMdBO4K9JjVFShq1rdocxoGeJJzVGa9wLdak D6Wjpx8IminNs53UDA5RXmK6tFMUzBgbpWWM2uBhmH kAl4j76tf4d2LQCiI4FaOSdkASn7M+YjZIduRsS6vyyRavDNeqU2VIHkqXUiVkWgxTwpKWKwja1zcZat /Hv4sbWnoBhmiXjkio0mFBCwUzsv2v2aD+Tn+pDchI+Aq7O6gdT0vTPpgBSLNRZyqcbULivC+klXUwD8 cXXSrm5f/QUDxMVagaoabQPDdtTAx3NW1d8svrHo7k dmY8ORdeeL+YSUwroke+XP+E9cncqxv+FuoL9zCRTXsJcY4jZtDFX+lxQmITIb6fcJJk+Lo3rNegORL/ e8d+YSH8Pc83h9rA/oUqOP/HKe3hyeQMeBta55Xy4+eocUh29O3l7rqCx4uZ0z2vu558i6jpXqyCfWz6 DiN9JsPEb1qc3qgk2b11UdLHuKK72ygm0/YMe [file] MDAwMDAgbiAKMDAwMDAwMDQwOSAwMDAwMCBuIAowMD TlZXDpVTTmEFXoYPDtPZ0nNbWrHWQdEWB7GXXmTGAlWCAeslKDIKCtOATpKDc0PCFzHOYcABIhJHkoSB AoGLJpOSB9IIOmRJEbFW0iIlAwIMHqUUN4GxNfFCBqNTSiisBMEDUgJQRcRJS9IjDbEPGuJWBfCYqzOH QiALYnALxbGEXhSJCrAW7cYdFoKSYyPHUsCFpySXGm QEAqctTEHOTxDNHgQORlQcPdGULoSHFeMNeeYIUcAWd5JAr1TDPpMLExHJ3zPgEiEEJeDOX2EXjrYIQj DQRinyMRILAmODViSMrkKHTcGILcJDScHApxMELeZKUxSBQ7PMDzIQHsRH8sLkJpWSJnKFPgJDZaYbP8 CiEcAdEFzJJtxHcbelc1PCtkH5x4KIRxEQudEA2twb BbHJUfJhnoRm5zuJV1DIRkXbxDNs6Nl3ElmyI6mqFqNut1EGcoLeEeUN7L ID Date Data Source [id number] 03/13/2020 03:30:13 AM EST [facility] Name Value Range Interpretation Code Description Data Shiloh rce(s) Supporting Document(s) PT 15.1 s (9.2-11.9) H [facility] INR 1.47 [facility] SUGGESTED THERAPEUTIC RANGES USING INR F ORSTABILIZED ANTICOAGULATED PATIENTS:STANDARD DOSE THERAPY INR 2.0-3.0 DVT, PE, PREVENT DVT OR EMBOLISMHIGH DOSE THERAPY INR 2.5-3.5 PREVENT EMBOLISM FROM MECHANICAL HEART VALVE ID Date Data Source [id number] 03/12/2020 10:11:01 PM EST [facility] CenterPATIE NT INFORMATIONPatient MRN Name Date of Age Gend*PT [id number] Akira Mcneill 1940 79 years M IPPT Location Admission Date/Time Visit ID Attending ProviderD-[id number] 03/08/20 1054 --- Michelle Cramer MD([id number]) EPI ID CSN Admitting Provider [id number] Michelle Cramer MD([id number]) [place] [address] OPERATIVE REPORT OPNAME: AKIRA MCNEILL#: [id number] #: [id number] ADMISSION DATE: 03/08/2020DOB: 1940 SEX: M PT TYPE: I SURACCT #: [id number] CARE PHYSICIAN: DINA POP OF OPERATION: 03/08/2020SURGEON:Michelle Cramer MD.CANDLE MAKER:JOHNNY BrownOPERATIVE DIAGNOSES:Mitral valve regurgitation and chronic atrial 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.POSTOPERATIVE DIAGNOSES:Mitral valve regurgitation and chronic atrial 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.SURGICAL PROCEDURE:1. Minimally invasive mitral valve repair with triangular resection ofposterior leaflet and the placement of 33 mm Simulus annuloplasty band.2. Cryoablation to left and the right atrium with clipping of the leftatrial appendage.BRIEF HISTORY:This is a 79-year-old male patient with symptoms of fatigue and shortnessof breath. He has no mitral valve prolapse, but recently he becamesymptomatic in the last few months. He was also found in atrial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, which has been going on for about 2-3 years. Cardiaccatheterization showed no significant coronary artery disease and thepatient was referred for surgical evaluation. We feel patient to be acandidate for minimally invasive surgery.SURGICAL SUMMARY:The triangular resection was performed in the posterior leaflet and thenthe gap was closed, and then a 33 mm Simulus band was used for annuloplastyring. The left atrial appendage was clipped with 45 mm AtriCure clipthrough the transverse sinus and then, the cryoablation was performed toleft and the right atrium. Patient tolerated the procedure well. Theentire surgery was performed with a small thoracotomy incision with fem-fembypass.ANESTHESIA:General anesthesia.SURGICAL TECHNIQUE:After informed consent was obtained, patient was then brought into theoperating room and placed supine on the operating table. Generalendotracheal anesthesia was achieved. The patient had a Mattaponi-Ganzcatheter, radial arterial line placed. He was sterilized and draped instandard surgical fashion. Mini thoracotomy incision was performed in thethird intercostal space and then the right chest was entered and then rightlung was deflated and then we performed the open femoral artery veincannulation with 17-St Lucian femoral arterial cannula and 25-St Lucian femoralvenous cannula after the patient was fully heparinized and then thecardiopulmonary bypass was started. Ascending aorta was clamped.Antegrade cardioplegia was given and then the left atriotomy was opened.We first performed cryoablation to the coronary sinus to the mitral valveannulus and then a box lesion to encircle all the pulmonary veins and then,the left atrial appendage was clipped with 45 mm clip and then the mitralvalve was exposed. The posterior leaflet in the P2 portion appeared veryredundant and then triangular resection was performed and then the gap wasclosed with running 4-0 Ethibond suture. Then, the valve was tested, whichappeared competent, therefore, we decided to size the annulus and use a 33mm Simulus band. Now, I placed total of 15 stitches on the annulus and wepassed the sutures through the annuloplasty band and tied down the stitcheswith help of knot pusher. Then, the left atriotomy was closed with somerunning 3-0 Prolene suture and then the vent was placed through the rightsuperior pulmonary vein to cross the mitral valve to the left ventricle.Then, we snared the superior vena cava and inferior vena cava afteradditional cannula was placed into the superior vena cava and then thecryoablation was performed to the superior vena cava, inferior vena cavaand then from the free wall incision to the tricuspid valve annulus and theright atrial appendage. At this point, we deaired the heart and removedthe clamp on the ascending aorta. Patient slowly achieved junctionalrhythm and then the right atriotomy was closed with a running 4-0 Prolenesuture and right atrial appendage was closed with a pursestring closure ofthe right atrial appendage. After the heart recovered and then we de-airedthe heart and removed the vent on the aortic root and the right superiorpulmonary vein and then placed pacing wires on the ventricle and the atriumand then the heart was weaned off cardiopulmonary bypass withoutdifficulty. Transesophageal echogram was performed and mitral valve repairwas perfect, no mitral valve regurg. Therefore, we gave the protamine anddecannulated the femoral artery vein. Careful hemostasis was performed.The chest tubes placed in the pericardium and the right chest and the ribsapproximated with 3 interrupted #2 Vicryl suture and the patient was stableupon finishing surgery. Fascia was then closed with 2-0 Vicryl suture.Skin was closed with 4-0 Vicryl suture. On-Q system was used for paincontrol. Patient tolerated the procedure well and was stable during entireprocedure.LALITHA Chacon/FAUSTO Job #: [id number] DOC #: [id number]: MD MARIA LUISA ROBERT MD Ziad El-khally, MD Name Value Range Interpretation Code Description Data Shiloh rce(s) Supporting Document(s) ID Date Data Source [id number] 03/12/2020 04:15:27 AM EST [facility] Name Value Range Interpretation Code Description Data Shiloh rce(s) Supporting Document(s) MAGNESIUM 2.4 mg/dL (1.7-2.4) [facility] ID Date Data Source [id number] 03/12/2020 04:15:27 AM EST [facility] Name Value Range Interpretation Code Description Data Shiloh rce(s) Supporting Document(s) SODIUM 141 mmol/L (136-145) [facility] POTASSIUM 3.8 mmol/L (3.6-5.2) [facility] CHLORIDE 104 mmol/L (100-108) [facility] CO2 30 mmol/L (22-31) [facility] ANION GAP 7 mmol/L (7-16) [facility] UREA NITROGEN 32 mg/dL (7-24) H [facility] CREATININE 0.84 mg/dL (0.80-1.30) [facility] BUN/CREAT RATIO 38.1 RATIO (10.0-20.0) H [facility] GLUCOSE 101 mg/dL (70-99) H [facility] CALCIUM 8.5 mg/dL (8.4-10.2) [facility] GFR >60 ml/min/1.73m2 (>59) [facility] GFR ( AMER) >60 ml/min/1.73m2 (>59) [facility] GFR INTERPRETATION [facility] --NORMAL KIDNEY FUNCTION OR MILD DISEASE - GFR >OR= 60CHRONIC KIDNEY DISEASE - GFR 15 - 59RENAL FAILURE - GFR <15 Est. GFR calculation based on the MDRDstudy equation, which assumes a steadystate for creatinine. Est. GFR should notbe used for medication dosing. ID Date Data Source [id number] 03/12/2020 03:52:01 AM EST [facility] Name Value Range Interpretation Code Description Data Shiloh rce(s) Supporting Document(s) PT 13.2 s (9.2-11.9) H [facility] INR 1.27 [facility] SUGGESTED THERAPEUTIC RANGES USING INR F ORSTABILIZED ANTICOAGULATED PATIENTS:STANDARD DOSE THERAPY INR 2.0-3.0 DVT, PE, PREVENT DVT OR EMBOLISMHIGH DOSE THERAPY INR 2.5-3.5 PREVENT EMBOLISM FROM MECHANICAL HEART VALVE ID Date Data Source [id number] 03/12/2020 03:44:25 AM EST [facility] Name Value Range Interpretation Code Description Data Shiloh rce(s) Supporting Document(s) WBC 10.0 10*3/uL (4.1-11.0) [facility] RBC 3.70 10*6/uL (4.60-6.10) L [facility] HGB 12.2 g/dL (13.5-18.0) L [facility] HCT 35.7 % (41.0-53.0) L [facility] MCV 96.6 fL (80.0-95.0) H [facility] MCH 33.1 pg (27.0-32.0) H [facility] MCHC 34.2 g/dL (32.0-36.0) [facility] RDW 13.6 % (10.5-14.5) [facility] PLT 134 10*3/uL (150-450) L [facility] MPV 10.2 fL (7.1-10.7) [facility] ID Date Data Source [id number] 03/11/2020 08:36:38 AM EST [facility] Name Value Range Interpretation Code Description Data [facility]iloh rce(s) Supporting Document(s) [facility] ETRSRn6cZtELIzKyd5VsWwKpKKOtFG9ftqw9P1Z1oKAdU4GcdTDtf4ahC2AwJ6VeGGTuHULCVM6GqTTe jb2 [file] hC66462yxY+1/65i22GO6vbxb/z4yK5e5LY162EZn4r+gX3x8jon4NUL7ugX+r2//h0n2e/17/7+PM4+ x/74egOy4jXg+1H+Z+/rLcw7UlM/ep7XuP+d0521Q1 fS29p0rqrI4+T9sf6/GT7K/Oxd+9fAPru+Vsvr3/38w+g/e9/r3/38S+mJ1rfrqyb/e99r3O+43+3q2q 4/u9Cax02Xfw56G5YQr+T/Xe8Y+AD8U1daVdLuw405nx5FELF2Vrk/JiivKK+71o1z434Q+O46qJvrbs ZU0zbqgSrolL0UwbK+ROins2jsW/e+h3lvWGep9/Ft t7zY2ofcP6det/W62gd9bx8+/ez9+tNhr+K4sdDytG+DsLl6ZsW/FWxd81Hkb+be1os9F/NRdVZO6s99 +zPwfEe7/UlM4WkQ93/fhuG+3X4Ov/8umoQN1uEirj8qgA53L4MxvZ3Oo0x+t/mD512bhdKkd86eNstQ /2tiWpwjis12pedtG5A37T38xd99J7ilqJ/uc5+I5z wz21S520kRug2/C0xtcCOxumcmtUP9h+J+x06a3cKunodT+V48unnuE/G8/Gz3IC3K3hnHzmrdoBC+Wn e+8mxY8lXtx5rBYuB+3te3//v4+HvdUE97/bnPjr/0wER742uxp+Monitoring Coordinator+b27lq7fv1Dn1HG2xsosP+NvmY n7C/1cb/zs8+Jydo3vriSnSxvbtb2++3x57oDdOmPi +2N7qNk78fw74HTbu7QD6ZG6T+8T4hl7+4D4W//E/Vl48mGtn5MRhp1ao884/L0vt/8Ke1Vv/ze/yjoV 9m5+da77+f2aX4IC36JWjpEeu2T26GR5Vo7uL08n2veXk75/6B2/+ph6kq86gNN1vitUSxC6Xfp4N+3D R6fddt+/+/q7hCY6bknro/nt5+OY72weu9T23uh0B/ t++3KPv2SeffF0ev6a+ZPGm8l3lk11+GAbX03y8Sxb/Ubd8I5rvd/y+von+IH0RmihD/hV9v++f7Vj/A a/Fezd99RnDtOMg3O2un1q3Gyjr817nVPkLmlF6pLsyr4s8e8ekg3b7ds+qsbIr2wbo3k7idli0k1u4C KTbwVslVt0RJnU6Kjj+toV/Opc3+cb/Eip3sr20QR8 znC78bq8Mw6WI1w001SV4Ff1O2VgwB2AdzCz+VRIwqlpiev9MIsYc+ZrSaAsosm0sNP8Bhevezku+FXL 6+ll7Ioyh5Cb15Vpt1aPlPRUo+D5Br+K6+LA8dcY394Pm8DoGj+EC0OW2MsjV12Za/wqr++4A7/SifE7 Ye+EvRPjdyKeJ+zdNF5D21Hwtofg0/JJXXi+wa+ifP CrLA++gjfwlaKcMyli3XsZZrngGy5P8XyHb8LdA18Zo9LwWj8lV/iVBr+Ssmm5ST1PxY/ac/qqV31wyv 737Lhaoqp3To0XRnh/N/KdOltx4tXSZ4z/f/+20La5CD9c58LoR/Ysz6jrr0097tcjbG08pg+iEgf90H S+j5rc+arJna+u4YaTd1e3qwWc60be4l2a5/dRE8f9 +5tyJH3DLCRdhsm992DTS11g+FVTPF+AvFyrv4u+qyjW9diKXxQ7xeD+R/p3cqu7LRM/nzpma3AF8AAV 9sNR2QiPN+R3G0681TpTYV/ifp024IrDTH3Dyi++g6f674q6O73m64nkwK/p4Iz3EZ9UO6Lh0fHHqY7l e7xhLnvwejXOA8+88rDnmruOubzt5v/7t/P4R0xTsn ueb7/hXw05Bn13+BPDOmv4c4BC56XP+ptMDdcUcNq3b9mmn2u/kjX/1uMfzWK/2cvi2G71/o2PHw03/F zRgjQdMgnn4SavcvYaZFQbGBsNkB+XwF1aw1bvjK1fuk9h6Zheq545wIb4fxr1Jb9iA+HpYFvxNDbbyq qp2bbSP+HgyvUy7c0Twhdq+1j0+r3S/c8wuuRNjh+K jpwe0DgFX2h6iBdOadtma5h/9NpvwXd10DatUR4ieewuOmd2u+2ddxEKbd8M4qZ/Vmfj/nA3abzsD2Oi qH/i/kI/1+6geN6g7/r96tr9Hqu1eoSoCcj48+80X4XelO8ttK6lgfkB/lN8Nnd1512L9yvawtHzsLtl xuz7re9dP+vZbOvcl+fLQHk800yfin/hPuydsHezrb DjYqflpedizPF2iLD/D3rZtZwfqaf8/tfAUsa16YnqMxgxmLuataxTqdP/wTdEj1Hq9hNp65lmowuk64 X4e8aI553ypKW+xm/82e/9fHte/+98OERmPgz5ueVE8pu0sDyu0G8jG4he/j7A/Hf9nl++07TuNul23s 79c7DSR7uaFr3ygFX1rHcbw8ayaLuCautmhoQSkC6m Z2Ekh6u+39kdBWeI6g84b0ns28PmwrP7kKMZMaiHh775vgca535mQG2jT7mcP1P8bS09eKjipxBJpdsk s0aaY9Uq/qPiQOiobgYsqkIM7i/aw3kFybcildXAc3+RWZh1PepR71S1Rqe2CVqLW8NrkPw42PxOqPWe ABpbiYGgylV53nsze/p60zowpA+4v+UC4f3op/vo/S Pc7/11ogl2TsaPmF0YpAPji0LC+aoH24o/Cnnkx787b5LxzI3i0p381KO11h3O/fv+7z3shvKmZxO83M Fff865lberx0XeWA9As/096ZbDWWB4S0buZ0q65Yf5kpqdU4bV2+VHHttj2vzqRsyG4n41N0c57LMOOe /477PZ9wyn49/tw/655Wa72m/9yF3U5gQ3ZfiFklsu Wjan583b/NBsnNeLsR6cplppk0iVe6h3mZyft8nwcxdM7/F8Dc/RSebW2wMXp8pdd0U+9orvC7rkBDrs 4/lmtjCuFfdvdqX7/bXUveF+v301F1a7cffQpDM6T/qWpkX7sF0dyRyM62efUm5rn74zx/EYDTPMe6n8 6zWg5CnS1oQn78UdC/uAweP+/Z1TGP6xkLiAg/UBg8 ec0tuRH1grF9vnC1J2X/Xf5dk+78//XtKJnB1aC4MgY1hthZQfYfaz1cneYLDeDhLqhB/7vtreo20PFB zLi5N1QT0xtqxwYy73wjMaPezkIH0DfdqZj43LN5gIjAIZAFgf9f7b4xfSv6lqgf9G1YKKg/iC245ikY mc6I0yiAkpmcg1Tysdqg/i6G/+GyUNc0nMd9P0z9pu zzXYkC+0545ge+66pU45xFGRVTt2Qbed65BO07p659Qq3/69eyuI1j8wu3DgxoV5bjN93o5wy16B3C9q [file] 0L3QwIK9GEKXTAKEL4AnMuekJQUUHYmTqH/xIsSLUD 8SiheheFHqR/xq81nWM5JmzlRbSojG2UWBNNnFijw7e5GiWW7Mrma1XeDdYWW2dS4d7LGwemqIa8l1Lm IW9gdb+J03V8LpEZn9sPpIU+MYPA0tv7wt7kWy8la1Pndmc7unBNd8oWUiDgo8aYlCvLUYU39s2lFjMe b36HKfvrCGP96a9uWlZmrHpTtjjwSJC847XWQGP2HW +cULOQviJSi/BOXdWIRRvATxEkJ+ygKMDG4M4CxdhX1cLr9msIwuKfCMwapla+oQV3wizFBdcRpY9knG cVTCr9vhC1qkrGDu+7NA1/5i1nR9y3c5jqF2j7I13+rUy2jNBccuLlX2R0QtGzyJtqHKZ/L7Ff1i7tC/ PF9he30i530yQqkzQtl8uKfq7/phlebotomy specialist+bSxTHks0qffCY [file] MDAwMDUyMyAwMDAwMCBuIAowMDAwMDAwNjQxIDAwMD MoUM5yBzVwEDVvPCN9BUZlTOFuNQNyhaZEUECvERRxFBf0ZIDqNOUnFCWiYXpvDCKmJLNlKUP7ECVcXI NsJL4wVaKwTHYaEXMxFUTaGLSjPWMqoxKGHAKmXPDxDLS3SMBnBGOnFLYzKOccVTZaNEYkYff8GVVvUY LiNY1nFcFnAYIcSXK1ELVpKVGlZYDpkyAPGDLwEFR9 SEo4CrTuWUItABVkPXssEGUmTFNmTdN1VZHbHZTgUR9bVxSgTBAuBQY7RqDfPPYeGYAnleICZPTrFIPh UCO7YvTnTGPzJUPyEGqqFZPkZKDiEYIlBSN3HYU4CDSnCkAmOXqoNQFKLOeXJ8UrerJmHtOLA2yyJd5p TfJuBMBVI6Doq7DqMPKyXEUZIg0+HzO6AJX2pMZxBsp2QXU2ZTcqLCQNRm== ID Date Data Source [id number] 03/11/2020 08:35:27 AM EST [facility] Name Value Range Interpretation Code Description Data Shiloh rce(s) Supporting Document(s) EKG [facility] OTSGZj6tEjVUUvNdf6MxVoFbUHBaZC4nsfl3S2A5oCMjV3ZwmKYuz3gvC4ZvA0ZtJDEaXYJCHP1SnFPz jb2 [file] 9n5ILOk7I22OFyQO316QfIk56647NlK082YoojtCbB Ent9AdvcuKzCGpz9HZnlFdA6KMyzqFtuTMc1XTvpzSdvJG47BZzzmPvbMJ53XZhwnMj/WrYzunsHfi9Q vupa5aqPfY3m4qFc40v5Fre2ou2Kck7k45KaF5m2TEb9lLOx1QJqS6uOmTmQLVFpUJCPcOTL9SRlXWL9 xFtXtS7c2iUu73o8Ikj0N31sku4fWWa5rErQik7k86 Ya43y0Gxa4wz9Jgu7l25YyP1m0SOiEta7Czk4s9tKa/fyHE19lc0+7+eHL+fm8nR++pipe setter/P+/nhC/r5vK KbipLcqcn19Lv5+vpeB54oh9+pWJP5esZDtVO75ZyXvRhBTUrWIr9Itvn7X6afnJkDBksMMjoE9xspGb nLABbwGrxZZLs77xxf9acAxpPjgSIBwsOwgECZgySe lOBClySfyTAPrzNjuLZHliGuxFCOhqBpwTNXcvDauF5WreQFf32TSVmnBryUVrofDtxUYieeRugQH1lp RbaWCQuaEeqITvltZbsMGuccwhdSN3dmzahKTSypeqbQWdoedddBSausmvmNM1bbejgVBNluvosDStsc bwyWMnpyjiyDY9f5T07RXO19BxBmb3pkQGbrs3jvZD 0zx2xfDYRzt8kxMNNlw5myZDklw0ztZN6sf6vqNITb/q9oww7g7FEebJfq9VJkxHed/KYwwSmfDKcwxS jfLRbkqVplCDgjoCivZLvl0XpsYOst1NdyMSbo2XnmzSvs1DowsDew3TmuvPle5NyzsVhr4DmeeKlj9K otwWvp3LxtcAzz2Qae3Nfc+Dnh9Tey/Smf/KcwASqf FEqwYFipZPdpUZhbMIqaXStsDNyqGGreSQyjUUjyTPvuMNvjpMtuLVttmMjdW8nojPbrV2mayPjqV7uk mIuyV2whuQahJ3upaQceF1qfcQfsN6pvzWrgL5rniMcxK1vthFwcD9bxqAxzA5phlJzgP6xlbKryV7xl xEhxK8wckFjwG1bpvLfyM5kfrfNBPV+GJlE0/w1Hk0 tex74CnumuRLny+VG8dox6boGXhHzaKAhf+eRDlflQ/eRDlflQ/eRDlflQ/eRDlflQ/eRDlflQ/eRDlf lQ/eRDlflQ/eRDlflQ/eRDlflQ/eRDlflQ/eRDlflQ/eRDlflQ/eRDlflQ/eRDlflQ/eRDlflQ/eRDlf lQ/eRDlflQ/eRDlflQ/eRDlflQ/eRDlflQ/eRDlflQ /eRDlflQ/eRDlflQ/eRDlflQ/eRDlflQ/eRDlflQ/eRDlflQ/eRDlflQ/eRDlflQ/eRDlflQ/eRDlflQ /eRDlflQ/eRDlflQ/eRDlflQ/eRD/QqNsTdEYkEUuQPAfNKgr7BC9pLRPHIJQNBAlOSxiAfYPDD8e7Ze Dcdv5uk0k7VqPjct1Av7b2OgWdcd3Ox5m8KrKpuq6I b5s3QwBdsz9Pq8e1QmWkr27tn0b4HoCfj82le0z1XfCob29on2p9PqSlq12gg4x8Jsqk4Xc6l6WG0i9g D4x5xR9Y1rKPS9mRkuxJN8c1uT1U6gQE96qYJ31YQi99WBvG/QEcd4Izbb8aspxerezLtvq7Fhhu3O5x trX6jGlT7P8snfS1fIuZ4O7iyxO9xHiQ7L1jczL3xH tD8U9zmuM8bPrK7A9xvjM6qTaI4P1yndT8nKuV3I3ozeK8oOjS6M8qjvf4bMic2D5llld8qPlr6Q9vsk d7pVqi4J1guje5qOmd4jrz1R4/JziIvwEuvckMAvW9bzjURaQXon8qe2A5/0cn3S2/JId5ib2GgChUMT H2A9CzpWiv4i7AhZwYMPW4F8FkfVC3iuD+TkIWcPOX 1I+QPVCXPIJTYHFBYASEDQVTKBQEGNhDLCnSSNySFIsOJIaCRTxUKTqQRE7BRF6ILP+URJCUVJGUVJKU KRTRPKDXODSODQwYOHwMTAmFCJjVRJqICDjEQFzPMR8HPP7NUL+UVJCUZJGUZJKUZJOUZJSUZJWUZJaU URsWFLnEMNzBAHoJDAnWZQlRKS9WAL3ELG+UZJCUdJ OHfQJWmKPFiDBSeDTYdUaXiSdGiWwKl5D53aIOWvMfJukkpnTmumEp0W9wRIoBMXmEA0IoOD1zbJcwxc JkdfaSlsyvPueNjG6gLsz6Zg0zbl5MCiObAwiYLR7ycx2RHxZhZ9awrX4yezS3jlw17iphi5iML+z5gP +nMOSu0g4/GsIk1u21ZKNaDuSYkIJxWUXOCeWaQZGQ I+xXSZCFTASDKjSbs7zqF5psHBNsVPG5JOBa6GIaso9FRxpFYEXwKDTUprOzxPwZM+lLINNaKUK7VZOp 7RUxg+5RM/lLCLHuUBEBJtU2UQWYM/MVQZQ/NXR5YgNE8vVKgO1GuPhGfbY0KwhjXGY5FcWD8nQRmJ5U PLwJTBLjKUMCS0G6MYEEF/MVQZQ/SSA8XcUB9uLHzJ [file] 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+OTaKpbDkkFtcKrXMoSxeP3X2NQ/6zmv0k+6/n5vk1iJGQhabK2avspJqbG5OZmcbbNyKKDFW0A9 [file] SDFFUfPD8WZDFWCDG4YKsYkPpi6R/rVYAT2oLfxWZl 84qfRQMu80BO+5tBJE/APCHrSdJgECQYCkL1htwfgbchsj3Cys7wesLDwCV9ceHIjTIipxW0ZhZHZfE2 riCMzbchGVGyOLUiKUyaGq2DkEVieCWDervp6GbGdiG1VJwZG/xfau5sfHFDKsbY1dxlz1S4vtx8lUig lMS4l5B7CjUEQ6i2mYKSJqmfHJq6/gzAtsItlN2Jt0 BSMXL55cOUKFYdW6+xMbGht4DrZjULe48WAkhqg70EiPIOzLiksoWSRKj99iONZzNcBvQHjTI2Gubm20 hVXoB51uCtFVOGXyh5Hwgqx4EpbVjP/XBW8pZBLkt2DXzR/3jNOEDm0yGchOqOGfGPNIukvhIWvaPutl AAPPFTARpCJlEjamHYPis6a0uJVLtJCGESbm0dh0NY gArPTTN1ufy1F6IXZbdaL+jAqllWRChVJRMp/Yf4DVCuGtRdjKvxhwR901AmGkhIwolSRN2Ry5CsouKa xDDiDXVc9LnIw/IEOMB5wKHkdB1cHwOuFrGKrFIaFTjyGZWezj5KUoDvs+pZtKCYb6DXgGMfFIZRVi+H YgSZLHRvN7GGQzIG4FnEUeg4q7oeG8+v0r4edLRiHg F8ueBIEvKGSJqcbxnuE3gXTFaMmXEDO9EBJ9S3wdM8KmxExS7KJw0gT0oouchJKrj2UUFER17Nt/jEtv 3Vt78S1MCewopXbMCm2pWDakUU/llzts/6f2jITq6vZQhPzsRU+a83a0nZWyRDHoC6FdwfHYZkHex2qE eqK/hWtTw15mPvFheIOisgLQ/QVWPLIqgAwKbz+Academic Guidance Specialist [file] 892bAMMfd42G/4sWm78Xb38t/i29Da1f4+r9tTFqw3 QN6Wt801P9PwP7nJHrd962+/46/n3vSx6S3r/bu7/GN/bX/jn7a3+V/Snyt3/Oru+DK6+R3v4b+5u4r8 G+wf5C/oX8G/dtPGd/DjuO+h/JBN4usbQyE0yidtU/2iLI3/4MG/5XG/jVTv+rum5/pe0B0r71Gp/Y0v 0SU3aiMAL/pXHr1yoaVC6GQvpD7/6xW9u/gtiS036I y1tbY0zV4Mpc/K+35rms8yXA3earY9ehr4Jtsv/8H9W270YaqE+cG60flrkNE/Rodney/b2roPpD/do/7o9 DGfTn3g8I04nTbp67Y51UxWBxW/uf10Mghkw3wUdr9h0kzx8Wr4K1j4YwjB554TDW+1J87590bfkhr2b wea1y9iwK2bun3Gb0pctmcva6jnXV7I+CSiDMjgG87 Tl1tn7lt/uxK+toHj2zE/tifbi/OC2Pk+3rfHJbRjPOD+4E7/SzB/f5Ymq15N46dw2pgT/0D4J0Ro/uO u8AX7yhW+di751N6ysbmFnmaH6b/RMObh7w0qy63/3ailqwg7ousI/KvYnO/FgZqcJC8ws7212OzekfF /Ij/LzeStgt1c/4vt8Owl91G/zv3u1/+RwhG8DT3EB 3edDd/ziAR0P5533Nd3Xbtk18k7F17g5Z574N+3d/sK01aeqr/G9HO12oi/JtF37vuymy6P48d6e0ZSb 8yb9bt39XmeTa6o7eQ/j+cX64Lnbu916+3a0N/Gruq/4dTg8wxzgqfggbm+TdmRVtP17bn4pJG+M54P2 4hbGjVDox7jwX0ko2sF859sUl4CmnUL4D7ghN3mrBL 3C8tz7g2yzWRu1sr2M4KHk6mwg6+frX6/PnvuryO+3p5dKf76+hT/ifEZ9y3k+DaRPpE+lS5QF6Y8R+Z a77Agb5VqesX6Gj/URF2Lpy7f+Ks8Le+aoOlmb5J7C6zyuxR+gx/4qsT6P/vYOd9FF/MoTvxqZHvjkvb brK+aju3zW9FF/lTihx/4qsT6P/VR5CtbjjnFN3Hzj ST6L2F+PCUs5S7D1+BPG/LUVZ0sfviyROcbIvvTrua0+1hP9VjGnXp4G2yj//RJ6zu9tz1MIBr/Sy86I 9JPXyD/zcPAV9RmEqo77X6NBuvlkkg1+7b11i/Z+wOfqn0Ujcr5mp9/91L2c09r4s1k07Dmq/T7oo7// Xf5FIaXRyjdYGnt/6WMgf/vz+1P7jx7OsjQmF03uG0 2748yxdzbnjT5/5CP2dJ88uNpjxiwiicO/7/vs790+21/FZ3/v5vjPG7Ig9Apyuc+D5/gKc121Sjdt/O Lpn5juw51+2syhccuz7/wMzPOI05MqeF5+om7tL+i2mvRjdP83lLglp//luDn36Kyz+cHKP5C/8Um3xj smSOcmu9Sl/GDlj/bmvMjvg/yjrhjukyfC2yNqbD0s /lcO/bimiwt46nuH+XjiV/qgQn6alE2O+kD+twYXikYz25bpC78Z+muFK1tL/QqqnxIy6weP/2rcqqu9 FbjzeGZ5r//1/bVwZGzJfNhb13a347dO8R8877Km4eRek0klnY+6/rG/utftT+o9931D+0uiNqe95hcq p3uf7/gHQpBr1b3TI+KC0etzmnvfw7Vz+Tqeb+yvbr x2YQj0JyV9btaBksDDfIxPI5+83i8C5d1T0r76+8W7Cp84hsJ/KrA+T/wq5/Coffee Sampler/zo/Sal/Fj9Y960Ts/l [file] icOLB2Fp2SzuNtTIBzCCBYIx2Ru027FTViEEVGFkl+HwyjjWCylHisLQVQYBRiZFVlZhWsQD8N ID Date Data Source [id number] 03/11/2020 04:04:19 AM EST [facility] Name Value Range Interpretation Code Description Data [place] rce(s) Supporting Document(s) MAGNESIUM 2.5 mg/dL (1.7-2.4) H [facility] ID Date Data Source [id number] 03/11/2020 04:04:19 AM EST [facility] Name Value Range Interpretation Code Description Data [place] rce(s) Supporting Document(s) SODIUM 140 mmol/L (136-145) [facility] POTASSIUM 3.8 mmol/L (3.6-5.2) [facility] CHLORIDE 103 mmol/L (100-108) [facility] CO2 32 mmol/L (22-31) [facility] ANION GAP 5 mmol/L (7-16) L [facility] UREA NITROGEN 35 mg/dL (7-24) [facility] CREATININE 0.93 mg/dL (0.80-1.30) [facility] BUN/CREAT RATIO 37.6 RATIO (10.0-20.0) [facility] GLUCOSE 102 mg/dL (70-99) [facility] CALCIUM 8.8 mg/dL (8.4-10.2) [facility] GFR >60 ml/min/1.73m2 (>59) [facility] GFR ( AMER) >60 ml/min/1.73m2 (>59) [facility] GFR INTERPRETATION [facility] --NORMAL KIDNEY FUNCTION OR MILD DISEASE - GFR >OR= 60CHRONIC KIDNEY DISEASE - GFR 15 - 59RENAL FAILURE - GFR <15 Est. GFR calculation based on the MDRDstudy equation, which assumes a steadystate for creatinine. Est. GFR should notbe used for medication dosing. ID Date Data Source [id number] 03/11/2020 03:40:32 AM EST [facility] Name Value Range Interpretation Code Description Data [place] rce(s) Supporting Document(s) PT 12.1 s (9.2-11.9) [facility] INR 1.16 [facility] SUGGESTED THERAPEUTIC RANGES USING INR F ORSTABILIZED ANTICOAGULATED PATIENTS:STANDARD DOSE THERAPY INR 2.0-3.0 DVT, PE, PREVENT DVT OR EMBOLISMHIGH DOSE THERAPY INR 2.5-3.5 PREVENT EMBOLISM FROM MECHANICAL HEART VALVE ID Date Data Source [id number] 03/11/2020 03:31:37 AM EST [facility] Name Value Range Interpretation Code Description Data [place] rce(s) Supporting Document(s) WBC 11.4 10*3/uL (4.1-11.0) [facility] RBC 3.97 10*6/uL (4.60-6.10) L [facility] HGB 13.0 g/dL (13.5-18.0) L [facility] HCT 38.7 % (41.0-53.0) L [facility] MCV 97.6 fL (80.0-95.0) [facility] MCH 32.7 pg (27.0-32.0) [facility] MCHC 33.5 g/dL (32.0-36.0) [facility] RDW 14.0 % (10.5-14.5) [facility] PLT 107 10*3/uL (150-450) L [facility] MPV 10.9 fL (7.1-10.7) [facility] ID Date Data Source [id number] 03/10/2020 08:28:49 PM EST [facility] Name Value Range Interpretation Code Description Data Shiloh rce(s) Supporting Document(s) SODIUM 137 mmol/L (136-145) [facility] POTASSIUM 4.1 mmol/L (3.6-5.2) [facility] CHLORIDE 100 mmol/L (100-108) [facility] CO2 30 mmol/L (22-31) [facility] ANION GAP 7 mmol/L (7-16) [facility] UREA NITROGEN 37 mg/dL (7-24) [facility] CREATININE 1.13 mg/dL (0.80-1.30) [facility] BUN/CREAT RATIO 32.7 RATIO (10.0-20.0) [facility] GLUCOSE 141 mg/dL (70-99) [facility] CALCIUM 8.8 mg/dL (8.4-10.2) [facility] GFR >60 ml/min/1.73m2 (>59) [facility] GFR ( AMER) >60 ml/min/1.73m2 (>59) [facility] GFR INTERPRETATION [facility] --NORMAL KIDNEY FUNCTION OR MILD DISEASE - GFR >OR= 60CHRONIC KIDNEY DISEASE - GFR 15 - 59RENAL FAILURE - GFR <15 Est. GFR calculation based on the MDRDstudy equation, which assumes a steadystate for creatinine. Est. GFR should notbe used for medication dosing. ID Date Data Source [id number] 03/10/2020 05:06:07 PM EST [place], [place] [address]Patient Name: AKIRA SHOREOB: 1940Sex: MOrdering Provider: OSMIN COLOSIMOAuthorizing Prov: OSMIN COLOSIMOReferring Provider: Procedure Performed: XR ABDOMEN PORTABLEExam Date: 03/10/2020 15:32MRN: [id number] Number: [id number] Class: InpatientAccount #: [id number] for Exam: follow up - poss. ileusTechnique: Single AP view obtained.Comparison: 03/10/2020Findings: Spinal degenerative changes are seen. Small bilateral pleural effusions are seen. No aggressive osseous lesion is identified. No fluid level is identified. Bowel gas pattern is nonspecific. No pathologic calcification is noted.IMPRESSION: Bowel gas pattern is nonspecific. Mild ileus cannot be excluded. No specific evidence of obstruction or pneumoperitoneum or ascites.Report electronically signed by: LUCIO ARROYO On 03/10/2020 5:06 PMWorkstation ID: [id number] Name Value Range Interpretation Code Description Data Shiloh rce(s) Supporting Document(s) ID Date Data Source [id number] 03/10/2020 02:43:45 PM EST [place], [place] [address]Patient Name: AKIRA SHOREOB: 1940Sex: MOrdering Provider: OSMIN COLOSIMOAuthoriruslan Prov: OSMIN COLOSIMOReferring Provider: Procedure Performed: XR CHEST PA AND LATERALExam Date: 03/10/2020 14:02MRN: [id number] Number: [id number] Class: InpatientAccount #: [id number] for Exam: chest tube removal.Technique: PA and lateral views obtained.Comparison: 03/08/2020Findings: Lines and tubes have been removed. No pneumothorax identified. Right chest wall subcutaneous air identified.There are small bilateral pleural effusions. There is mild bibasilar airspace disease likely postoperative atelectasis.Atrial closure device is again identified.Slight accentuation to the cardiac and mediastinal contours likely related to diminished lung volumes.Air seen within mildly prominent loops of bowel in the upper abdomen. Plain film of the abdomen suggested for follow-up.IMPRESSION: No pneumothorax.Lung volumes are diminished.Small bilateral pleural effusions and mild bibasilar airspace disease likely atelectasis.Air seen within mildly prominent loops of bowel in the upper abdomen. Plain film of the abdomen sugges amada for evaluation.This study was communicated via the departmental critical results reporting protocol.Report electronically signed by: BENNY WHALEY On 03/10/2020 2:43 PMWorkstation ID: [id number] Name Value Range Interpretation Code Description Data Shiloh rce(s) Supporting Document(s) ID Date Data Source [id number] 03/10/2020 05:00:19 AM EST [facility] Name Value Range Interpretation Code Description Data Shiloh rce(s) Supporting Document(s) MAGNESIUM 2.7 mg/dL (1.7-2.4) H [facility] ID Date Data Source [id number] 03/10/2020 05:00:19 AM EST [facility] Name Value Range Interpretation Code Description Data Shiloh rce(s) Supporting Document(s) SODIUM 139 mmol/L (136-145) [facility] POTASSIUM 3.7 mmol/L (3.6-5.2) [facility] CHLORIDE 104 mmol/L (100-108) [facility] CO2 28 mmol/L (22-31) [facility] ANION GAP 7 mmol/L (7-16) [facility] UREA NITROGEN 44 mg/dL (7-24) H [facility] CREATININE 1.44 mg/dL (0.80-1.30) H [facility] BUN/CREAT RATIO 30.6 RATIO (10.0-20.0) [facility] GLUCOSE 145 mg/dL (70-99) H [facility] CALCIUM 8.5 mg/dL (8.4-10.2) [facility] GFR 48 ml/min/1.73m2 (>59) L [facility] GFR ( AMER) 58 ml/min/1.73m2 (>59) L [facility] GFR INTERPRETATION [facility] --NORMAL KIDNEY FUNCTION OR MILD DISEASE - GFR >OR= 60CHRONIC KIDNEY DISEASE - GFR 15 - 59RENAL FAILURE - GFR <15 Est. GFR calculation based on the MDRDstudy equation, which assumes a steadystate for creatinine. Est. GFR should notbe used for medication dosing. ID Date Data Source [id number] 03/10/2020 04:52:49 AM EST [facility] Name Value Range Interpretation Code Description Data Shiloh rce(s) Supporting Document(s) WBC 11.9 10*3/uL (4.1-11.0) H [facility] RBC 3.87 10*6/uL (4.60-6.10) L [facility] HGB 12.6 g/dL (13.5-18.0) L [facility] HCT 37.5 % (41.0-53.0) L [facility] MCV 96.9 fL (80.0-95.0) H [facility] MCH 32.5 pg (27.0-32.0) [facility] MCHC 33.5 g/dL (32.0-36.0) [facility] RDW 14.1 % (10.5-14.5) [facility] PLT 102 10*3/uL (150-450) L [facility] MPV 10.7 fL (7.1-10.7) [facility] ID Date Data Source [id number] 03/10/2020 04:14:25 AM EST [facility] Name Value Range Interpretation Code Description Data Shiloh rce(s) Supporting Document(s) PT 11.9 s (9.2-11.9) [facility] INR 1.14 [facility] SUGGESTED THERAPEUTIC RANGES USING INR F ORSTABILIZED ANTICOAGULATED PATIENTS:STANDARD DOSE THERAPY INR 2.0-3.0 DVT, PE, PREVENT DVT OR EMBOLISMHIGH DOSE THERAPY INR 2.5-3.5 PREVENT EMBOLISM FROM MECHANICAL HEART VALVE ID Date Data Source [id number] 03/09/2020 12:45:53 PM EST [facility] Name Value Range Interpretation Code Description Data Shiloh rce(s) Supporting Document(s) POC NOVA GLU 210 mg/dL (70-99) [facility] BY [facility] ID Date Data Source [id number] 03/09/2020 08:21:51 AM EST [facility] Name Value Range Interpretation Code Description Data Shiloh rce(s) Supporting Document(s) POC NOVA GLU 160 mg/dL (70-99) [facility] ID Date Data Source [id number] 03/09/2020 06:32:55 AM EST [facility] Name Value Range Interpretation Code Description Data Shiloh rce(s) Supporting Document(s) EKG [facility] EDKTNh8aJxDCKbKjc4YhFrCrFLGqFK2jwwf7U8U3jZVmC9EfdNFrq2kjC4DoV9WaZGQpOPKPCK0UwIAp jb2 [file] u7DPy+597z6UwR1fAZZZjM2089+6qhr1Ot2Bn/82yP XCrn56hhTB+Xb/jE+ip6jnhqq+BXO7/2+LF5+tKToj9EoH5SH46d5oWF83VH+2jifTQvf/Z5YyU+b6zE 1+QTae1SG+jiE6TL42KLb7+T8Qt6631C9wWFp4ICZI24ipzqgwqF/N3ljDhj9KjknN8l+rjf4FOyZi8t DaiKb89Uh14dkrZAnt1BBmYQX1/62Ia+pvrced73so qG+ful5iJABpkdN7ydo2Y2ZWOwH88W5nRvRCw2Ieoq3mwGxPOeZw5haumNrF3ei5PSgqDXYsTP6E63g6 XTLETU9plX8Zc3eR9jyPXCuZ4wyy4OV5BCmxKgIDF5cstuFXd2E8vdb5gr4HN1kP1h0e8II6235/supervisor agricultural education [file] FLKGzHD8ufM33YP/medical social consultant+UghLvEtdUI/uHaagT/GIZPqSkmB3IH49PbDy3nxnskGJn8brqi8CiX/3BtPI J/uDYewT+8vNhBHd6Qn3vcLBNF9bE+3O1eaPTr58zieC63aykNYrxLH4sL7aCMbdr7CXPgItCXfeuTEv 2em8lTxSi7Bzu6cBzjK5x2vtT7vLaJwMIJYppVpVQp JTDHVthoo18JYQOBnStGtEHjlQ9PCm0ofSU9l3QZDVuhTBIa5LmSybAzJzDMmu2tMsjsfPCdQmYjBSek c0c8Xdf2JueExiBqHXCxyRKLVfvOiRSARBKdpGVNWcwH9iiWasZAjzFCt5olpGMwU1W8Zn8ZnjxcLYXQ UejuD2zymZnXl5SeJRm1DogorNBvc33+b27+Z2yuhc 3/zc3/WZobhUK6UWgKC+rnbJOW4wA37Y0CorYNIQhFbI3okYyRQK0mC9xIzpRMk1vImWajMDvOxwKJA4 qQGsm7zBWZ6YGrPQ0OpfkvnMoU/xpGDpiQoj5dMJSf5H4rEMriJJJqSm9uJoJUbivfNdm4EoXn/2sDju HaeAKNoYiwsOxLOIiwsOjNBRJDEWFhyWDdoUQ+YrPM vvWubKDowBxiftGHHHKX36VK+AvvqUOJzL+WBE22OZ2hk8l3RQabkJvrCqeSK1gNV2lTB+YduHWg5jTe e3SNaRsTdjMOB+17tp0UFm9pg+NJiebBJep/taaiiBWoMGvWeM6fIeHptDforeJor3nfKhWUnz0P0nec wPRWoktQqIwlVXmbX74dgTj+Ss6vDvXrZEIleLerHN BYGMDy8MwTxFgGyLOexUjdQ0F5xmPYyRihWyiP84rl1iikvdDxgRtSsNMJ7bacABBJJ3hmwaQQEEbDun oPHKwDReFly2/WKWksg++4qOmVyRx8GECCtjiv0Umgt2Nyb8ouc2uCi7n+jJwa47ZZn9Ubr4Pv/wsCTL mkCC1ewh1jUYWqSk/hz5cUQmA2xV+dg+AcBJ+UTEoW i4ObxcZEemoh3BXLO5t+lbYec6IlDYB8wDgzGTfXS0+fHIPZKYHzQp+wGVKoQBySr2WiRQNibkwUElw6 fwBsm60DHK08ceClD8uq+xFPuV1TbpkyMWixXKpSdspqyXJiBeY4UJQrozOJiFjC4JOwZ9zew8SIbnrM Syyhi2Sd57xUrB4vI6yxthntssBdG6on++LD7MaAP6 yW7leshrVB4zgegnmsuoP3iW14x9dNXTYPdu4qM1pc8W+64vLptZ10+dxQWVWkn6wliQfRZiWdKChJAe 4F9iSgjS8ec07xaRHwARr43iLVKlphrzrWINE1PBi3Vt2p05HjuKfQAdvHiagFmXyEXBGNV9+QuTHjd8 yfvKzcQ5dOP+fFyAaUy4Y1ML6Ry+eIPHTE74BvRDhv 2VKUTtsLRpNK3ZYHdLl6Fyz3N7+eeSELKGsfrDUCMPg+3b2NLGe+r5FPZyqUsYSWtxhwhAh7aQnAQIkv 1mQtWTV5TaQDk+V2qoChz0KNJnLm4xgvnDEcXphPvwCZQNh5wA3MvmF8ntR1pZ/qPP+7nxq7RUdtvLp0 DuWV/ktftPTVQt1E40Uf3TAu+rOtbzwekhAh0B0ZTY mJNfBn0k9HjFN9bVI+wd8UUF/00Jjkts3fu7ej7SnyTWsJG4RVV8MSkrXLLFMxMSlAkpPotN7vJ1VkFo 7RcbYcvbEM/h0BarEIMfkhjWZTukhIHbMTomhVaSDZaslNwTzMYuXiGTIRSViLlJAG3ztGWUZd0DT5No FcXJN0E214WEqul4dEwpRzARqMOf1jL/0fh/wf8z67 /B+IuE6kxbUphtTA0eWSFI6mD0ekdq6pdwo4CZoyJDzLPhvla6UjwcmBSI5QQ7B3mi9lxOM95F9BtTpu Jl0tCAuUPiBtUHoBCuV8Ivrdb5OQA2WD1CGGARj6BuE9dcS6ZgQ1SGxeiHlNH64dawG5AYV+QJ0fyxBb zwoVtV4S4ZoKmkBvUMrR/4yaFp3jnAjt/96KjCimr4 UmbZpG6ZeZHcsScR9JNDRCXYfBPDL8++pJZ0xpLnv8N5NMMLvHCXquq0yOZiNgD1XXAPCqVVc1yUxxVA PQz1ITZtdSNGZvOZIuj8wU1U7G2BzTeXRMatIHKSnfYj9Z3qkGFLQp5pmKNrnEakKexsXZwFY0EQ6F3Q Y32PKFfkhnpSYMYk+wdR9gTg6nQ8uuwc1AUI1eKhnE UFOUy6mC5nrVdP9G0Kdbii/Fml0IeSxp3sKHi0D0wAfa9W/sAY5M35+of1r/5Z6h7uXp2PeuV3QOOZoh GP/ksyKEStvjHgCIYjHSO1C/ixIcq/zDscq/w0jc7v5tUPt16HuayJFNSMMwppsG9sake87WNJvH3rtS CrfgMx1FDzKsh8VBrgWXznnuKNp9nkvt5zQVZZgLYK GhJpu8DhoMFBoCFV9GPeXv1FAaZFkWsZIYyXHlIS1EHUFumV0uHr1ypF6X4PXygKabozhAxc7OMZ15Ms RbCIE0Qx6eRt5ccskpP0CAhRZGH1nUVllmGNtDh7IQlhLAo0KaNBfREr9GediWZC7+PrUDIp3UmgHljB 6TFsjHXadK8OGKFWZUjBEo944Pjz7hYMLiHEi2znwv QucSbZvFb1YoLus3IRed0R4ojKW30LjfJKWpyM2aYE1VoaTlayHvKixbS3DgRZBxVWbueSWXq7XdVEQ7 hI9Vz9WKMHzZXeuhu1SheRa14i5Om2JiDhwh8ZGdWVZPn70P4VaVPS7c727sDsC+asQpEVHq9FwaSRfo QB8LsosFzNTYVlrO4gWCDKXiyfH+1qk0RRmCDXqEXe dhWt1suFiep/JcvR5eKz6Misx97azGFS2Tz4zkvoDs1U90N+okFbIcr+0wP+ge/p+QarAP9Ywpn20aYY uCt07vhyt/cD346QMjnjmknBKsa/cl1vDtHzsR2n0+1/ajHplCCdMTz9l/HwiwNGzw1tHMwG1oK+PSvS vfgUBzQuc5Czrc28gCwEt0q//7uSNBGFp31LHGrWWR FTXdw/9T+aQ6UNizay+Y1XQP/5qBdA//jgNCYhno9Gzg+Qr8U73l+YVL+T1ppSTPj038+L+/hgA8qWcP //1s596ksk/1X7/N/pN1Fd2P/vbvnclWSatkr+MceWeeMdTOszvwuUWq6uw7Obk8Ev3Rtx5Co2Mja6Lk uLDknbvgxCFwhEphWWgsTkiG6uhCBhV8ecDWfi9ofW fda4ym3mle3lv0gwj5Un6ilp8Cm5rxS9NwirPRhPnizWGurKipNGgiYipCWcmjBjjwbMksS7Nisv96ao muBRxl9UurxcTJ1zzvl/qWEf6qe2PIguqjJJPeQUl6JthmwT4vHdtqKagY7hxHBsR0q2YBop9ivKVyc3 fi6yog8tq2kpw8Cq8eld6Up5diF7SzblR3jvpufG1t 2IfcX6u2PmaJ4c9JpcL4c7MDiR4d1XWwk9q14ilg6s25zsb8Q49arz2s4qmrsoHj5QXbP47r+Uoj3KSB aUtsKp9Ngid4Tx8zsEQBs2Uq6IydP6DZhnVyM/E25EiIMpX1m4ALpj5amQIps6sw8acz2sw7xbd7Po4h lh9Hm0eoV4KftwXOjgoaoLSr3YtlV9f7RjvI2n4Nqd D2z6Uyfo9xhGhge6q36mog8y73dpi4I84xso9Tm2xpX0YsEO958Yj9Eh8MNa/93/8VN1D/Lmj6LQA+5p m/9IhcJ/nSGd5QNzuvx/9FOvbrmwbfkN/A78j/m5nfVihQgpf28r3Eo09MPl3wtiw+BH+Bv1D/r78vjf wH/RS3v3dY2OJuOn4kxu+x/Aqg5ZgkcERauI+rfkN/ fnqjljYE4lr6a/0a4fZyTWlZj7O/m8LRzCw1hIlzkcKG+tdf/1ohY905Lhqmgc5b+zZ3QoTL0YwsY5Hz 1cSwUkTezy5Mutpd/Pq7Vf/H2BPWvOEElyA/o0qL9K+/H2o8y1smk9lL/X2Z/nu/T2yOr8dn+8v6/cd3 2h1OAU0D0N//LK7QTio2+1ns4zcq+uzydHO3p/Cjv7 9Xspsp//ebPvE9uwBjar/kja6mG87eom/rda7pA6b2P8rrB88a/dOEmvr+s6u8/IO4GMSs6ujEu92K/R 2NF91v20/GZsqqITRjwcTKoPXWm4aJs15Bsss481207lTxpMG77nC+9Tw/I1etyPJOx0TJlEJJGAO1V6 upM5ski2T0Z8z14h/m5M+GcueqY/36qHXx+1eqdKwL pX/jvq8Wb5Q/06aMXMMqU34az/Wbz/xct6aiOawquZH/9Iz1q/7OWL9d/Fi/N/3jm/LE+l4t9XC7yiJY +s10rF+2uoi7ohFVM/3EumhU65vEY/r7KX/8K1CAT72UotN/yP/rr+kdra/y/wwkj//e64iUs9YF/l9/ bYv/6+6JG885nwc8l7/58/tn/hr4jp3Wu/0vXU3th2 1u35xaXBo4R40S7/UvXGwHb37+pH/3WVMXlb1uFsR8+qs9ZEd/dqy04D7if/L013BorxwihUW9d8UD+t ffdjIdfNU/wf/745KJ2N2pa/QO/qe0V/og/yn+T7m4/J+h46Ub+Z6tYgGkhGAraw6q/ma6+oqSsnJ9Ed J2gc5yN4dNkka7fJx/qsdc8Ck/q+kK7QNxgm67hR2q a8PetuuLwNbJ0k8bfoz2jld7IqwegR2rXvKd4hD9WFPGXE0hVt1Nj0/HMPHeGR8Rlp4x7/rmGomGE/+/ kr152l/r4s+1I8gCaUbZI/vHklVQI3wX7Jl1XUkeHjyn/cQOd04iY4m4e1hr+Sr2hjuX/SqfQfrVFD/6 a1vi33W+fqxhVjvbgu460Jk0snqH5A8eOuqP/qnxDP 4eacg2o3hyZ9+Ca8avuaOu+NHfG+3TRf9Ic/7eiMLgO/jzQ/oeODu8ksS2fsd/oV+9dPCV/4B/ih/6Vf JAj7q49rMfeTw636jz/BkbNm960qAkpQlFL2SrjYsaJ/jSn/UMC/yF/BvPucE/yH+vgnP0yTBlDm95d3 GP/v9T819+HPcrK+2VB/0gO4dIrrf/xv3WCol34N1I NG8a/CP9msgdkY5O7wVFy7ckt7Sil/t1vF/vqKeDj/463q/j/brX+Xw1nLYj/fUFPvrrG/pNeka3UIok L39+lT/9w3dUcH/dtCG/1ToK/nak3jqvtL7Jbc/3Li6Qymhuo4Ay02p2Qyni7qsb03ym5EBjJ/q7MJ8X 1u9qyI/+rjr/pz2CQyd6GSS3Y/vFxkxsFcxjujw7Bz 3/sicpYR0N/V3o70J/v9522bfe83K/G/2a9P969Fh75M4Mgktf521sisvHqCeyHsbqfr/kr/N+3H2sNP If8LF+D/m6oX8Z2djXkJaq7+J2Nromk/0d8IfNQT5ek+H4M7dY9sBw66/wJ/gL9UR/dgKDbbSz4eoW2O eZ/7x6+ws4qNpPiXd22T9w/Pb+6qie2XP1BIWSZz5o cUc27Cx6gFk232a3ijsgSr1XIu+vvzPz//r1Yk811oPtpb/w6+/O+n/2XlAnslEFUCYEfiR9fmvdd2Xi E+wi0lM6G3KyA2jx4FxyZmXrfG48a/pVnrvjMmOex+Dh98733QX+1yK8rHo3iIsI+OJx5EBkXtWg4+MW C2C03tisc5rnpU+ylQ31wu/8qTwb/R6VTluqQP59TX rBMQ6176eE3g3Y+eoR8t9h84gIpHV4DhlMs2ofN/1npHak0123DT7/37sUTmF6OfmFL0A/mtnW7/1OvY tXf7c5Zq9EjatioB618Uxi/HPy00CgqlX4yXuvH+4prp/PUao5XkljnvkXlGoUjNPDQ3lUtnoChWUAWo C4qUuE373U4pkjWhr1/o0ypCznpYRwJmRpP/1mngX+ qdrqzCr53wAgp4zQAo0xcS7OIf+6gV/n/biP+UohTlqZb4so50Dx0gb31+A7+MLh7Ntv86Ji0azygOpK wrO8Tjv2hPjgjZpWdUmUW8ftP1k9aEn1r6mD+qSWw7ycB+33TBpXDx/fwI/+XqMgv8S83L2K+m6gilMN Wem7F3WKitvya69Dl97rY8+1pkK/emiAxdZ4Z6/n/U jPOu/CKrPL6tk/Uxr8X3/bzrRXuiN/90oP5B+BL1yL75AGSJ9C0G7879O6yu+oL9Ff/mnL9Mz9V00G3L y1uwvjGE55K57Kumuk+0NHeQ1I2a16rmxtc+mFSu2X1rjuUeZrc1Xh4NjJ/Fd2jPNswe2V/Sr3maX/X6 VL3+uvchv47AcoJ15XigQQk+qZ/vHVR+lXnunaDzf+ q0sY43HBzGLhLooXvyM8XdDeqCs/9CuNm/Sr5C/kX+Sb1EghFvKt8w/6xt+lXyW/gY/+HvRX+pXWsvSr kPob8WB/sI40qtzhTbmX38LhpyWIo6zrdO/ka2LhN2tn/c30qf+pU+93SL+7jpHjwf4H+tFa1rktY/pV mut4OpcKq4xV78NwPgr80p/fBH+CX+sY7R4yV/gb/D r/jvw+GOlW59+A06TK3wmSju+BBrZLsE0d/VUa/DZu135zHnv6/eIo3NZyAZrE/TQ6MeeTD85A3NA/qX r0ffCm/z9QL84Kf0+zYcf82Woml3k67N/gD+T/1IN81jH22y/m5N4Vq73Sx1J/g3/QK093bM5j4z3x5h Rr3Fl7In6Ok6Py87WYx/vteL/SrzQfpF/oSQp3Yzv6 gb+Rf4OP+dzr++2SgT9vhD+MPangCbw5C9mNf0xsil/IX9/LBuxXA/szjZy04wqrRR/HAh/rd6C/Y6N+ 9Hdg/cp+FrmS1QstE2m/Cp677RlD/gjkSvx303agXR3zdv3V7feB+9WA/WrAfjUc/C50uzrI/vpBfvRX 6nh0Bae+iZnULktyTJXjgysQ65O8djfqMa0iyCapfy B+9X0w8+J3Zuudqo3nRa+c6T5c8p+b29BR1I/WB357+vaxyDr8nW+FfnXzdOTHfrWwfqVfZRrzeaG/sl 9pnsh+1ZWO9+zo1eqe0XiboemtB4LuqTe2y8Dgg1n6i3pvN6+ang6Af/wV3/9oDd2xomyBg6w700mfva T1lCM0mVaIbwu98ckZV+r+2piR/vX3LPF//T1Z56+/ 02Oy76r06nTwE+trz2d/iJt0aX+Ym1Rin2y8aXa/zBo7Gw80LoL45JywhGvAS0WJRz05UxD4a3VRRfD1 5/7GwpSu+sOz86V//E/5B/KPes7w+bztRn/Vl3AA/SKCWFyb++v9bQZyGvw+dO1zfeQA/zuaFR8wVZGk On1BhJUcbEMaF+5vfjSlf+570Wf9SevtdPR6HDl09R BxV+4v+1L6zSv/3ioOm6Adx2dlFtfuvcsO+5v/yQrv3BzdGb5/A9INeFvldW41LInJIxi7R9S3uZjUE+ r2I7ae5GGqvnIdNF0ZdBDGt3Xt74x1zR0U12ByP385P8eDB15T/gA/+vuJH/8KmNS792me3/x7xI/zb6 Y3+Pr+q/omDnumv3lO8lSwPMsSx2Kc7hVb2If8aDpO V+mVooS7GDGe55qP501nN8337Ozf787OI910xm9v3AXtZW9TqoSlk0fa2+3xN/lC31yc5vEcnp2tnjoj 96/4oV/wQDpX0wpb41ba725rMV558W78yo/9/VRnnPeP+FQhqpYTF46m8COkcp+RX+v5P0dmvIv5u/KE G0Vzf45Fmld8z+XCysQL8SibF/jHypT0GF3o9G/SNQ 6kE6Nt71W4HEi2x3b0K+ayX+k2Xatz3f/03mW/0pxJ+0Iie23UydCuTdmVhV89q0Xn4swZaV4SXmrXqA B09rrsqA95bG8y4eqq3spzNk/LXPqV+ut1/iPs717Ps0Vvku7dg4hJH/qRQs00JJ+69zY+dVPz1SvoTD pgx1PL97nzRqOg1ZqSzCGUB/7baayVu9n+9bcg8tN+ O281vzuw158z+6D4q+w5ru+OquJfpavc930p+6Vi3pnxdj8Ft/EY534bO/dBabUx1Cr3Rt560fp6cD/1 l0oXx3vNk5ho2D/op97sx5BG5t0YFkk249Bx722kH/RXeRIgmt62+BnRGT52TvnMm878Wr7DJMt3X/A3 6rw71yjW/is0R48sCgzvd/DdOf1Wy+B31NNR/wB/gA 51S29XY78+c45lr8widF//SaU38u/aT/R9MPP/9MkeEYTnV/6zS3w48xp2fmR/muLbq39+tV/Vd1Lred oG+KVfTehXE/rVlH6V/An+QrsL/I38G+0e8E/te970H551T/or/Fh63eOfa5632yzmK/r1Iavl0rVW/W rJkzQxx0odA702oU+of6Pdg/a9GeqU01a5pKbKcbXG 4KO/VufBaXi/sF9Nw/s1vF/D+9P2fvifp45Kc5Rs3TZ1Ma6m1e4n++UW64AL9Q288q9ruZ/+boF2r22g 26e2i8wvYlaCp9972bxi1EF+19P9LlWd1Am/2D5w56eUJ/4rOb4yj+J6Frvarfzx02BNOq8K/1Xm6ah/ gD/Ad9SD/g70d6C/A+t3oL+yX900+QsllYb4tM+v+x uFa00mbjxMtobU6s79Nt+K//op+4No9o92W8BRs8O8E47Ku6zUBPiLWYIC50aq6Wczk1+hX62j5/z1d2 e7v/1jiGdCB07dlSSp6hIwT+tDA7e19Cb6kCe2hg7XZ/Qr+ULM0K/86W4WWB2/Fnu0eW1oY8/Ks/mMO7 G6czF/+lXaJWZckJW/qZng0keel3ehYThg0dKg0q74 J/bY8XD3D9Cj/I3nOR/AFL1kf8Remkhe+GHfaOL/8e9rMvK8shkWMasKScnWC6kYY/WiJEHOr1syN1xu RJY27kXK+d25Ux898DxyD1dgg9fc4IXge/SrzF/0wdjDZioH0eBfD2YcEPwFzRqNjO/ebIB0vNnk1Urf DX5/54u56/2UpP8v7vq80Dbl/qEbsU8u1gjhE+lXma 7z/pR+9Sn/Br/8vefW+Bw38s0PFAblCjb8IgeS/BmUNuSv+wvzdPDr/fDDg1nkY/g1q6SqvNp/oHScB8 NWMOXfPsUv//C0QtxL96orhczV5q/wz+Jp7S36qlpsV+e8nj686m0Uz0wk5V/eui6ZLjuqB725+NHfWC Pr2JtURULP449R+aORh85N+yVAhUM778b570P4+vR9 35UG/8Rlr1QAH/cgsIl4KouiLgn93Ny99wiT/jjvL/HjvL/ED3+OFFICE AUTOMATION CLERK/kH+HZgZQBon3I/In8E/yF51l4 no3nr/by1SQ90pe/Y8l+pXGzD/a8t1Hd6NlK2morznwa6j+yZL/HtCd3Llf0ijQn+0HG5kX18YV71f+y 5zttDc0Qn0z+lkpxGf1aC1j+7/687ppj3cY1YkB2/r t6+QOvXt+7V6/z75J/u+IfP8ekmw+7xqHX9/3V6/v+6g5+nfdXr/P+3eQydik9VDPD+HV/YfUN/kH9p9 zuoL2zoE/4Nh1mB9uu1p+sgf7q+0UQao6NFtu8/9se20QA8pt4An8An9pg51fZZpCNwMKPj/iU50la53 l/jTrvL/i3L/i3L2/gN/YEa431bfeF1/g7EoxW1bzb tnyA7+CXf+wxGd9cq6f/wC//2OUb/Prevbz+f5fXeX/M1ceXuDK+rcIjICZVn4njqVsdv4//72uW/rzm YF0H84U/gj/BX+Kc3ACV4+AhAUmkX8znD4+38kW99GcQ+P605Z10D5d5MghCkC/FGnWO65ImRjvJ/i70 d83Dl1Y/+rs26t+oH/3wtL1nL+93o78b/d0N/LLnrI 3+uswm3yFDqpl6vd64I/gT+Kq6U7yER8oplljMYqlvA83z/t7rYH8+Za9bp/b4Pnlx5xs40DT/+zpYvw frF/7t66C/8G9fB/2Ff/v2Bo0TZ+v3LDw/+nuwfg/6C//2/ZW/yv6qv/wv9SquC/AN+Ye0Khggq/f+yp 6zPwffwZ/gT/AX+PV+19oqeI7q+Q/2NP067Ug3czMG fN6wX+1myG/F90Hz0Z/EU7VUiB/MU+l2j6b0JawS5WG/sF/ttlF/5Jj36X40Ua+KM/iG/NzVwlCcd8ro 0Zl8KifI/kD96K/h/Aymp7I6ke78w/XboY57Ahe692abafk0cdm8nSP++DPE+UMPsbHn0F41neUgeCH/ wnJa1yBm2T12A45RdiC0oc6cE/Qr+TQu9DGTSP3Dm4 AzoX050rg8G966RMs6K0kR+/Rs6OKjfVns+/1h916fp+VpcM3qpxn8ZvmKF7KPyr77wroY9/7FsHp+ET rsJS85xzqFU+oe8amkA0E2bu3e/4Qd+IllJx7CRgFHl89/po9Hhu03rJ4yt+OluHw0rrAe9YNLWf7Z+T Uf5WVz12bnVoiFGkUz6Ox4GIR8bo6/dp19Kg3/6Fc5 T2S/4fAQtkH40uA+sV00qWm1gxazV8k8QdzaaeLtiW70iuYq+tVNg7/B3+BEg5L9aG/Qyn530+88sqVf yx5iC34Z+3DVvoFFP04Kb1ikV/vk503yN4Kt9iaJo79AH/Srl/ZtO5iU1v3Jg6/Br++/yk1dy17ur/Jn 6Yp4Rkk40yUd4Q+w03qSkLQ//Bm2/QlmAeIrz6KjgP ab9mt/2MPqpLmx7d+Qaa/0Bj/3X0Ud0Lhlz7/Ln3/t8icZycrfcmJOR/gGfge/g1/6AVofYAYEoE488a 4L3rm0BNsbDLCN4/Qp1RDz3Q/QLn+GvcufYe/uL2fNC0Hc+Up0RriP9Gl8gbDn+FbPc+DEGO62r5aQt0 6tz99zm1Ig1EJ0B3tfLbne1+WUP8OW/UrvXfYrzTHZ krW0RjwcuKdOeU4L2MdIn+er9Xu+2sd48h6h/PJnOPg+qW7CI60Y+9X5yp/hwL/5bMSJrK71d1/k3x59 KG157r0ggjhEI+f9I//2mWm//8XnK3+V24I2hFZ/6aqME39/MW5H/d0WZrBpusTUcSrlU/KN9F9Bo7wu AJ/hAJ/hAJ/hYAY13QiK3cBkQp/rA7wwCjs1ZgJwnN X9/qccq/uhJ/IPqP1dXDm5YAqUczvb3cj+xhE+f365wUBci/Ad/QWWXWv2nUXX/RN3x24n33dm+0ami9 /LvnF6+Baz6mWwOL+7gW/IX+ejA//20+g4vLt4Ss/4t5/uyD/Fq3g3dn/Ar/VO0FRoRR1MF+eFM+q8cM LYfb5YvtpmZ/Ib+B35O/vtk8cwmNhDT/6QQ0cvm71z xgJ/bG4GzkzjRpPDWqtHXM4M0R977ObJD8i/3ZAf/fUOPvoL/KsD+9WB/bc82u4J4FP+fYGP9+t1f+FI u6c7RL55k/n5c2q5Cds23Ae1dr97j02/Z2I+T+zPc4Bf/krh7h50Vi39AO4G5ef/pCP/q0xj/c09Jkdq Ab/8+c8q+8ZZdd4/k094G9J/C/0b7B8Fmkz2z7Eusi cL//azHM+B15lxqmyNkqpzyf9j++BZdV/nTZN3i5/wvzob/YX/1dmG/VhfAy3py1BrvQ/G2qezNg272h NGf+F/Jeaneth/Jeaneth/dWC/Rvw7HatCF1H+d123db7Sb3TyzuTT0a4xkd/go7+p5TXT4tmebO/B/+ss8Egvng rwvzqn/BERLIN/K/BsY06Cjaw/seB4gn23iIzu/wjClLm [file] IaeLSRSaIUbRkMz2XFA3cC2uu8WlVnl25OBQ/pTr2jY4FaSGgAy/sB/Caitlin/olO/1Nvb7LKI1ZLh25O/0 Cdc9FhzExR0bU5Afi5W78cMzyUK4aQUQ8plPXBYVuq EDzwpjvK8sctvbWCEjSfaRV61yJ9KN9OMzY0hDzhS28hDbdOldMB4bZiwBxSO2pXXDYj2qqKyewEO3lc XJDxiAfg38WElZwGijXAKkZ3pwwqsNNVMQd1URNp2cmSBVpXxZA7ld9EzAF4NdIXf4USKuGK0NbCa8GO wWrVbFI3fnj3eGygHDsrJotiKKQR9AtIFAr8CtTbyE Yer3LDh7VdgqqPu6KWsWpGaqqbqpADaxSRqxAkTC3ZAU7W6muI1UfVZ2knEYWieqRtNR4QmOXShSfGRC b5VkB3ZXe4OsOOkzUxUgixcnfOkrQZlIxp6VOaI1+8+eF+o+Rf5MW48//1f/3Pf+Iuy9x/6+F//t///B //T/s///M//99//u//+a/g/+np5z//+7/iikuk/9d/ xQ2Xv/RQ2l/6pz9W+ojE7eFXp2o1vwq5XR2Ec8Wxyt9P7ZfT4w/HZNgsOgns9SlnB51xnr/A3+BHf01t FW9EwHQ/W/At+nvT4Ed/nSHz7y4QO1+Ne8GQ96hFxi/lif5m+tfffabSXmlHfkf+aqqPjP1I/kL+X3+3 Gqq8GXA/dKCR/DTDx//7t95Dbo/q+Rb3G0WYY32hu/ 5OpaO/GY09+lhyvxKbujlV4SdDo/d70+CZv5WA7J/URz7ABzxUArhLP0N/6+/fqWsp/yJBPsV4NR7WUj rLX3/jjPO/Ilb9f+CELINA+kfX+/7689DX0hA/+rR+O31zC49O/3rl5tab//2pRfpzN66ICz0pD+/k+NW+v f8R+fO7kKP1+qocRtpUoHi7O7EKsDgwSwjW9C1YIwD hjODO4Xkpi946fKEPchiw0fWWwme4oanZosa+e/RX/BIF12867bnKObL1/f2HJ+1//aHq2K05F2awuwC px/ol00u7a+v+FWOl0V7x6wQI/NZeTCfZwe/g4/4Kik0Wf88QqBwG/orIP8Z/zJcribBhhzPcV8tFGgX /EG17L7Ot0pCBlfDB10z0FhhhQmYCYhnHqtu2/mnwP 3T31cbm7O/fsTZ7y57/ClvLz1//CA1wW2xulAuiS/L64Zjkike09gR/7d+Pxc+7dxjGW2Jh1Dh9Xq64B /tITv6m+iEo/aBPcCP/mr/3A7+BD/6u8WP/l63rq8wo/A3+YOtx6c5lZ+dr/gH+9Vv+YJeJ8JqxvnjOc hblo/fwf/1N/lX654ens7uaB+trNK1f/50skr/+Monitoring Coordinator/ fhrZ46/gK/3r70v/+Pp/P7E/o663xY0K3/ayr41vp9cilyovK55j/SqgFeAsGa9M/mF9AjI1V2707y0c +vV8qNwg4Xler0lxadSNM9An+jarx7zw+V7iXki+79rSys35ixKcuHrILJck6d7Fvv//LIbFsnIZW9Sc HgX1uXgmtG0v051fXck/xgsRzfi23wBC+e3UwIRh42 V7DBJKyU7Zj/3K2gH/vH3PpF/viFQl5XXe/liegO83e2Sw0paRa9018JaKtglkK/rt/2YOviN/7M+ZZ7 7/F5N+ddPgb/D3+5+KGx+YUg71c7txoaFd3TF4ryaJulw5UukK/gDf3/+pSb/K9ET+ifwL/AX+Bh/97X VeiMsdNz2+hzs15u9r2Uxtmh3l8Htla8WffZ+Aj/4O 0TdS3Pp9Z/wF/qu5P23qeJ+4xt4w3O5msw68+uvor/SrTKO/jv46+et2Kunaw/ZohZ81K1ab1Ru9EsgD V7PgC2TTfzModtA5o0+Q/7J11h1cxe5r0gaSnX6cXe6x7Q/QxQ8Ss5SjeDXv7x/E+pV+pbWf+jLU5NF2 B+lXNw3+rn1D+lXWeVB/6ZMm/bhezrv5TOi/C+t3Gf F03OCDl508Fe5LzeDZylEw0r/wV/Pktg9sw8dFdZ3Y/OjvRn83+rsb+J719XrbtgMq171uImYrmx/pml le71e05y+ab3vW/YzOh2ynRnnskex2AS1Pr3JhSm9pNS66md3Oat3PhVberub/Hfz+uhhg6lNTTZAl2k X9nb/issVLT/RpJTr3TEbH/gZ/v/Vl7GC6R5b7ek2j 445FpV/+pKFIvnNWKMFT8m7K5e/XK/O4TZxl4fCOhjaGtqhJiGTnV8i3zjMGxr3sslqQo7XsAocL3FjX yW0WNhS+9We/qtGwC709m0vblxy8qqdhy633s6Dhm7b1MaroWn6xjZsw/Jy1xs8depQ+KG9iviPvytg6 APPv3zTxubIOou6s0n+91ojra4i9r7kWrwdAaB4ne8 r0K/VR+pXGM+4N6RvLo68C89pX/SrfKexXXfqVKX/M1f186uUdAoxgD+gDLqtY6opDq5QzvtlN9I/kP6 jx9SG1Sb+91/rtsF/7Pk2Wspe/Ue+4Y8UkF8522Ab2lB324VkiRV0+JI7MC4s1W760tttr/Urvsdf/Ue +8U2hhH7tPe6xv6Isp60v3h4bf13a61YfYo5w9h+R3 9UlF63s9c8o4+A7+BH+CX+wEhJGUuod5P2Au20k8d9kT/7zzSNx/sMQlr4Rka6LSeWDVlqsrTcj+7BVx 0uGip0q3CJv2Y0z1/iK90XHu3+HxJ/jrQ/qdy+K+u877sKC/wD/ijUf0XOzOiuN/gW/vnBjXHO4+M/uH 4ISiyU4QTsKh6Apip4S+SD/9G8bhaZupCR9jAU9NL+ NmQ6Wf/IOcBSA1jLnbIhLdy/0h7jRU+n4W67WAzbGHxG/1jYllw4iGhSE/LgfYKKA12HB+An+Dv8E/4J d9I+4nOQnz3b8kS+xX+fwb/I197Q95Jp+oZ802aZAcp44Q2Dn9ajveY/FltTsZh4thH7szN/NZ9ivN/1 04cg85Gq13qzhB7Ex4sd1mqg224sCBdR1t67ygT680 k56doX33O+xXB/fA8Mkz4EnR4YBzeBuDr7M+eUp/1oQjxF0Eb9XbQf4m6/j/Rebekah/x92ESr/7v2g6Atbj A7/555cJ1CBn/Po/ijsJjz+P12J76Hc4U26D/gJ/of4N/gb/gF/6xoB+NdoHfgO/zvuj1f/c2NxRnxee +dHfNpB/IL+D76gf/pI6ghUuf/o+mQp3TrvsGx+g/r JvDKvvocM+2BfoRIs0bhLWL/17jop79dv6iApvlD0n6Ckx0XbJQ1LfcJ/+2gYf/DD256Ih1V+O0k+/Gq twOhtaf2pu47JSfkOU0y+kwR/IP1C/o34HH/3f0D5i2J/w0d+O/ppT8748chQYPyjIvZaJ2AlE/WoMA7 ++K22P2rkhBee54d8zvK3UB9y7e6pI7YedD/AXnn+D l6KSwZ9wUS+C/Wo4+fpUw7mSke/Dd87nqx83+bu36Y9fB/or+1XWOVF/6c/P9X24Ugod6dvl9H8n65ld nyf6C/yZsQRFMGn8i8t8S4J+Zwe/gz/AH6jn9/+ck5bnd1nXnoU40uJ2pooSX/eJ7GtgE9PwmJ7OGu+N Dm3JV92qW/CbV9qe/QCRqiWpRg9Pl4tw7YN2HtZ+zn CrTcGMdRs7jBK0AI8fztDl1DVoLLW3/nx8nz9i5/fusdHfjfcL+9WQ/ZpHAxJ9n9DRmtkEB5pR6635mu GfZb/K/HU+RgDmLlPe18/Gru+tE17B9ft213/C1T+/K4Wnf+wB1qrffeT12B63DrBy0md9iQSwMt1thC wh/Xk0uKFmi4i6ujn/71L240zxCjR/UtprXR+s34P/ 34P9+WA+H8zng/70TR2et/zn/V/4V/PZv/GYgcmN7x7f+lWmDfnLvuFfzWf/ZuBJZ5U/pW/4V98X/Kv9 2b/tyg06aW/1PcW/hfylT/pX+qR/pU/6V/ume5DuOoXxmk531wflUm3N0cw0vHf/umnwB/pa7bzdio61 6FrjWGOJ5R24TyxTS8P60jjpgN/0/5+qK2s98VJnz/ +/il+KgZFBNkz7XuWAxZHLIKt06+nxskRzlrg1n7sFVSH7kz/LgH0m8gEEow5QHMseMGlxQQuT+uVbOH M5AX7ZkE0rW/AH+PPZHSdE/5V7P/EE3Xw8upUerbd+drVj7DlLXbZffsLZkC+47luWQeucwYL9EIpKE4 WqrCYGpv2b+ROrr6bc0Veu3sjItuXk7QoaA4mEC1B1 gX/au7J+apQaTDfR6y/Kb/21KuzfczfrTasY0pOFn2xbB0a7/A8n+x6j3vU6M6ngcf8dmuXguls7ffyr 8DC6c92C2N4fxMnc/kV5eyQL7F/wfvm8RtqjP//P57r2kZWlaPalt4/gK/gD/GjdkRvUC5OSA/yvge/P 03ID4S390oZsz4+c+Prbdovun+O/tv4v7n0d1h47gz W3/9N/le8x/Vf53tN/ixz2caG/rdVIAF8Nx3ObQ/4SHuo796TVSJ1c0qo6C5lw8vdgUVf1Uub/Va0tiL 0dhB5P3m7A4Yg7eC9zmsAiHpoGhFhhkkLpkgqPLO7nT37qIF2Uu9mhxC/ge6//q/5rbt7Yg/3BLAfuE+ Lov4N7u6vn+4NVBl/Ax/ul3e9l4G8FF/4f3pkuC+p3 /KSFgW+oj+7vDHdr0Olx0/sb+U3WZq75w9xRT8wfv40eOS/Ab3+T9vvb7O3lS0If0v4u0xkba4ClcWkL 09wHVlp9zQ4xQ+KycYxeIZ2d/9r+ovevdDvZvHou4NSF/AH+AH+WR2A97Gx+w+G/8q/tI/9an/Sv9Un/ AvxA/iFNCo4rK6v3g3/lgvaKgK/il91kvZ17OHx6q6 43LlFb743Vk6UwAo23dqS/Kv5C/QA/3nriqV/V/Xv/yLXnr+sHfu+HevqvqqzgK/gD/D8sJKn1at8fgw 7pauA7+A7Wy94Ffofnxdr1Fbmk/yuo3ucW4a/rmnnSGi9k1v8t/xhcbiyCU48rE8zetCvN/qCPnr+O/U FP/9Wsco/P0f5JH+5I4MZj1321j6eRaYV+tx/9Kv0M Ptu/4Yi/7iogQRCAIBa56w/7KUK7pZ6R/9AZIUo1U4w3v/aUp//qlp+95rPPL/sj4Hq3Pw7+9prPPq/h 3qjlU0r5vf5ifL0q+A1P/9Ut9/On/6ru0+c13Nq/4em/ymeo+Ksq9/u1/e048O2v8/3o2IB99mkp+QF+ PLvGbYO/h69gKf43xHH/kECZeq7w5no+cg73kb2uD/ 2nY2Ws3ztRhm980Re6udjL45uDa8/e4C850Sb6Km/nurmy0HR/jgf23B+sZ4inH/iUC1q04y0/fc/P/m KyHb1Z4bhtf+cp/Znm6LqN6Owv8b8o4Cpj+jLirD8ecV/V/mdf7X/25eA7+KvHG/xXvjCeU7/Kfljtr/ PV/omBlW4V40CR/M1BI1MrzkE+3NMfZCM4EdnX2q2t D3x/g7AwxLdsLm1Kf/eYJCN70sz1Ap8Yu/OM52amN8jk0g338+1w515jFA5hqydVs+CDyRVOq4jpvVd8 w37U62QO/Y138ycMs+jC4L08xeT/d8/f9fV+6Po+67KALy/DDK519qpT0VeY1bT85gppUwkfoF6weH65 c27bxwCcd4zAl/AX+OutM+vr/d/1Bfgb/PZvrIxvzz rygS/gC/jt31jS/itw7w9MJC4U6Wz++hjDiD3nhSRx/m9c8w9E7xi8yqG/rlB52yiiZ/z9/JXXwHlw12 Udz7+8k7msgY/sUnn+flN8Ve9G1/J46+aZ1klF5/yfGbebee3ZOaSeAq+36c1mWs20/oR1/Ao7DUQH4h Fp04628qcR1t+v1e6UEjn5eoa+v8zGlw7q/imc1shC SUlZ4oy5uAxt2p5Cp65A/Xn8V6/c/Z/+q3xHA+934P2m/yrHSfqvclyNPn+7Cfyi6ivw15s/0yukr9ud P4o9K2vt/GDO6+O/bhPkTp9uMc8yJx1aZw2kCq2nlaZR0nd6xcH+SQsPX1VmH/itP6/Pv45365jZ9/bC MgVfcZ+1U5GA1QunA0wSLG/Ad/D8D8DVv3+WLdw/UL /u25De6Ma5qQkwt+Uf+AK+gN/+jeUK/gC//RvLJ/ht/y7v7+9yA9/JZ4j1op0NZ5LD7Bw4dnc/VfJX+z dW+q+yDuLbF+Pl71GcJyxAP9ee+U16Zo9fwQw+2Q+uz4QangUyE5/h/gv3Cdw/wEd7V+/vr+g75oI7fo F/wGFsCxq2zeRQ2uvjTamJ/Al+4v8nwIgsvGzaxTdg 24MrFvhob+E9Sv5o8N3+sa87fm8fJyzTf/r6y5M2pAYTfqB5en9DE/X6980f9rQ/a+Ab+A6+97saP9q8 Ar/2qab6D2NFpyP5x9ui8o+0FrGKuKBuiT58Km8AKgN2V7Sh84e8ur2Mi5ap+Ax8B7/Gf2LC5sYL+PbA /iU5zz8kya5JQs2GzZ7H3bA+CV8fGS2IhV4V8YFR3p 9CBvgdzxCIvwrpeIYQw/M47u+4z8L9F/iB+lypi9Nmp24Q5pxb/MsW2j6i3M5/fjOb2DP4F/wB/nx+ht X31yE1D5J/ZdZlB9/uFOirO062/eC3pu1G8fCmftkCaL/t34jR+CcT84Xm8w4K2R/tKr/4yRgD/I6fjD HBn+Ab+Wcmj4u7bpEMjJr0BEwHi2fhK/G4tP7Pas+Q T0m3SmvVa7DzEpLQSiHU/9Q/+lXdZ7b+PDrmVK81Js25+frFSp2WfB0e/X5flRwZwB4C9s/Sr6rc/Tk7 Vwkeb91t0nlnQI8Zb+ORAvFXMTF/Z/etMwTjROmiU5MsWBxH07GpBByT42F0GSIBxnA86kvlyyWo/ZMB /0RYt82C6QdiVG8G09W5mO/Qr8I2+Z55XmyZILkGkU 3T6wkgVV7qaNLS7Y6iEN/vd89IU0/VReu3KwwYsoEotDBwsw+Wf42woIeS8ILB6uqS+4OB/Isela/mBgfz [file] [id number] ID Date Data Source [id number] 03/09/2020 03:24:18 AM EST [facility] Name Value Range Interpretation Code Description Data [facility] r[facility](s) Supporting Document(s) POC TEMPERATURE [facility] 37.0C POC SOURCE [facility] PUNCTURE SITE [facility] O2 THERAPY [facility] POC FIO2 40 [facility] RUBY TEST [facility] MODE [facility] PEEP/MAP 8 CM H2O [facility] PRESSURE SUPPORT 10 CM H2O [facility] SP RATE 10 BMP [facility] POC PH 7.29 pH (7.35-7.45) L [facility] POC PCO2 43.0 MMHG (32.0-48.0) [facility] POC PO2 94 MMHG (83-108) [facility] POC SAT O2 96 % (95-99) [facility] POC BASE DEFICIT 6 MMOL/L (0-2) H [facility] POC HCO3 20.9 MMOL/L (21.0-29.0) L [facility] POC TOTAL CO2 22 MMOL/L (23.0-32.0) L [facility] BY [facility] ID Date Data Source [id number] 03/09/2020 05:27:59 AM EST [facility] Name Value Range Interpretation Code Description Data [facility] r[facility](s) Supporting Document(s) POC NOVA GLU 125 mg/dL (70-99) H [facility] [place] [facility] ID Date Data Source [id number] 03/09/2020 03:55:19 AM EST [facility] Name Value Range Interpretation Code Description Data [facility](s) Supporting Document(s) MAGNESIUM 2.7 mg/dL (1.7-2.4) H [facility] ID Date Data Source [id number] 03/09/2020 03:55:19 AM EST [facility] Name Value Range Interpretation Code Description Data [facility] r[facility](s) Supporting Document(s) SODIUM 143 mmol/L (136-145) [facility] POTASSIUM 4.3 mmol/L (3.6-5.2) [facility] CHLORIDE 109 mmol/L (100-108) H [facility] CO2 24 mmol/L (22-31) [facility] ANION GAP 10 mmol/L (7-16) [facility] UREA NITROGEN 27 mg/dL (7-24) H [facility] CREATININE 1.17 mg/dL (0.80-1.30) [facility] BUN/CREAT RATIO 23.1 RATIO (10.0-20.0) H [facility] GLUCOSE 124 mg/dL (70-99) H [facility] CALCIUM 8.8 mg/dL (8.4-10.2) [facility] GFR >60 ml/min/1.73m2 (>59) [facility] GFR ( AMER) >60 ml/min/1.73m2 (>59) [facility] GFR INTERPRETATION [facility] --NORMAL KIDNEY FUNCTION OR MILD DISEASE - GFR >OR= 60CHRONIC KIDNEY DISEASE - GFR 15 - 59RENAL FAILURE - GFR <15 Est. GFR calculation based on the MDRDstudy equation, which assumes a steadystate for creatinine. Est. GFR should notbe used for medication dosing. ID Date Data Source [id number] 03/09/2020 03:52:39 AM EST [facility] Name Value Range Interpretation Code Description Data [facility] rce(s) Supporting Document(s) CALCIUM IONIZED 4.92 mg/dL (4.64-5.28) [facility] IONIZED CALCIUM NORMALIZED TO PH 7.40 AN D 37 DEGREES C. ID Date Data Source [id number] 03/09/2020 03:34:48 AM EST [facility] Name Value Range Interpretation Code Description Data [facility](s) Supporting Document(s) PT 12.2 s (9.2-11.9) H [facility] INR 1.17 [facility] SUGGESTED THERAPEUTIC RANGES USING INR F ORSTABILIZED ANTICOAGULATED PATIENTS:STANDARD DOSE THERAPY INR 2.0-3.0 DVT, PE, PREVENT DVT OR EMBOLISMHIGH DOSE THERAPY INR 2.5-3.5 PREVENT EMBOLISM FROM MECHANICAL HEART VALVE ID Date Data Source [id number] 03/09/2020 03:28:18 AM EST [facility] Name Value Range Interpretation Code Description Data [facility](s) Supporting Document(s) WBC 15.1 10*3/uL (4.1-11.0) H [facility] RBC 4.23 10*6/uL (4.60-6.10) L [facility] HGB 14.0 g/dL (13.5-18.0) [facility] HCT 39.7 % (41.0-53.0) L [facility] MCV 93.7 fL (80.0-95.0) [facility] MCH 33.0 pg (27.0-32.0) H [facility] MCHC 35.2 g/dL (32.0-36.0) [facility] RDW 13.7 % (10.5-14.5) [facility] PLT 130 10*3/uL (150-450) L [facility] MPV 10.2 fL (7.1-10.7) [facility] ID Date Data Source [id number] 03/09/2020 01:29:40 AM EST [facility] Name Value Range Interpretation Code Description Data [facility] rce(s) Supporting Document(s) POC NOVA GLU 123 mg/dL (70-99) H [facility] [place] [facility] ID Date Data Source [id number] 03/08/2020 11:04:03 PM EST [facility] Name Value Range Interpretation Code Description Data [facility] rce(s) Supporting Document(s) POC NOVA GLU 107 mg/dL (70-99) H [facility] [place] [facility] ID Date Data Source [id number] 03/08/2020 11:56:11 PM EST [facility] Name Value Range Interpretation Code Description Data [facility] r[facility](s) Supporting Document(s) POTASSIUM 5.1 mmol/L (3.6-5.2) [facility] ID Date Data Source [id number] 03/08/2020 11:18:45 PM EST [facility] Name Value Range Interpretation Code Description Data [facility] r[facility](s) Supporting Document(s) WBC 12.5 10*3/uL (4.1-11.0) H [facility] RBC 4.35 10*6/uL (4.60-6.10) L [facility] HGB 14.0 g/dL (13.5-18.0) [facility] HCT 42.0 % (41.0-53.0) [facility] MCV 96.6 fL (80.0-95.0) H [facility] MCH 32.3 pg (27.0-32.0) H [facility] MCHC 33.4 g/dL (32.0-36.0) [facility] RDW 13.4 % (10.5-14.5) [facility] PLT 119 10*3/uL (150-450) L [facility] MPV 10.2 fL (7.1-10.7) [facility] ID Date Data Source [id number] 03/08/2020 07:33:31 PM EST [facility] Name Value Range Interpretation Code Description Data [facility] rce(s) Supporting Document(s) POC NOVA GLU 106 mg/dL (70-99) H [facility] [place] [facility] ID Date Data Source [id number] 03/08/2020 07:36:31 PM EST [facility] Name Value Range Interpretation Code Description Data [facility] rce(s) Supporting Document(s) POC SOURCE [facility] PUNCTURE SITE [facility] O2 THERAPY [facility] POC FIO2 80 [facility] RUBY TEST [facility] MODE [facility] TIDAL VOLUME 550 mL [facility] RATE 16 BPM [facility] PEEP/MAP 10 CM H2O [facility] PRESSURE SUPPORT 12 CM H2O [facility] SP RATE 0 BMP [facility] POC PH 7.29 pH (7.35-7.45) L [facility] POC PCO2 44.8 MMHG (32.0-48.0) [facility] POC PO2 130 MMHG (83-108) H [facility] POC SAT O2 99 % (95-99) [facility] POC BASE DEFICIT 5 MMOL/L (0-2) H [facility] POC HCO3 21.6 MMOL/L (21.0-29.0) [facility] POC TOTAL CO2 23 MMOL/L (23.0-32.0) [facility] ID Date Data Source [id number] 03/08/2020 06:59:25 PM EST [address] [id number] Name: AKIRA MATTSONYDOB: 1940Sex: MOrdering Provider: JUDY Hernandez Prov: JUDY Martínez Provider: Procedure Performed: XR CHEST PORTABLEExam Date: 03/08/2020 18:56MRN: [id number] Number: [id number] Class: InpatientAccount #: [id number] Exam: Evaluate for [place] Jorge Alberto catheter placement and/or endotracheal tubeTechnique: AP portable view obtained.Comparison: 03/01/2020Findings: ET tube tip above the joana. NG tube tip in the stomach side-port in the distal esophagus.[place]Jorge Alberto c atheter tip right pulmonary artery. Mediastinal tube in place. Right-sided chest tube in place.No evidence of pneumothorax. Atelectasis in the right lung.IMPRESSION: Supportive lines and catheters as described. NG tube tip is in the proximal stomach with the side port at the distal esophagus.Subsegmental atelectasis on the right.No evidence of pneumothorax.Stat report was conveyed in usual fashion.Report electronically signed by: ERICA LAWRENCE On 03/08/2020 6:59 PMWorkstation ID: [id number] Name Value Range Interpretation Code Description Data [facility] rce(s) Supporting Document(s) ID Date Data Source [id number] 03/08/2020 07:40:32 PM EST [facility] Name Value Range Interpretation Code Description Data [facility] rce(s) Supporting Document(s) MAGNESIUM 3.5 mg/dL (1.7-2.4) H [facility] ID Date Data Source [id number] 03/08/2020 07:40:32 PM EST [facility] Name Value Range Interpretation Code Description Data [facility] rce(s) Supporting Document(s) SODIUM 141 mmol/L (136-145) [facility] POTASSIUM 3.8 mmol/L (3.6-5.2) [facility] CHLORIDE 109 mmol/L (100-108) H [facility] CO2 22 mmol/L (22-31) [facility] ANION GAP 10 mmol/L (7-16) [facility] UREA NITROGEN 25 mg/dL (7-24) H [facility] CREATININE 1.08 mg/dL (0.80-1.30) [facility] BUN/CREAT RATIO 23.1 RATIO (10.0-20.0) H [facility] GLUCOSE 99 mg/dL (70-99) [facility] CALCIUM 9.7 mg/dL (8.4-10.2) [facility] GFR >60 ml/min/1.73m2 (>59) [facility] GFR ( AMER) >60 ml/min/1.73m2 (>59) [facility] GFR INTERPRETATION [facility] --NORMAL KIDNEY FUNCTION OR MILD DISEASE - GFR >OR= 60CHRONIC KIDNEY DISEASE - GFR 15 - 59RENAL FAILURE - GFR <15 Est. GFR calculation based on the MDRDstudy equation, which assumes a steadystate for creatinine. Est. GFR should notbe used for medication dosing. ID Date Data Source [id number] 03/08/2020 07:33:41 PM EST [facility] Name Value Range Interpretation Code Description Data [facility](s) Supporting Document(s) CALCIUM IONIZED 5.52 mg/dL (4.64-5.28) H [facility] IONIZED CALCIUM NORMALIZED TO PH 7.40 AN D 37 DEGREES C. ID Date Data Source [id number] 03/08/2020 07:07:30 PM EST [facility] Name Value Range Interpretation Code Description Data [facility] e(s) Supporting Document(s) WBC 9.3 10*3/uL (4.1-11.0) [facility] [place] RBC 4.51 10*6/uL (4.60-6.10) L [facility] HGB 14.8 g/dL (13.5-18.0) [facility] HCT 43.5 % (41.0-53.0) [facility] MCV 96.4 fL (80.0-95.0) H [facility] MCH 32.8 pg (27.0-32.0) H [facility] MCHC 34.1 g/dL (32.0-36.0) [facility] RDW 13.4 % (10.5-14.5) [facility] PLT 133 10*3/uL (150-450) L [facility] MPV 10.4 fL (7.1-10.7) [facility] ID Date Data Source [id number] 03/08/2020 06:46:01 PM EST [facility] Name Value Range Interpretation Code Description Data [facility] rce(s) Supporting Document(s) POC NOVA GLU 111 mg/dL (70-99) H [facility] [place] [facility] ID Date Data Source [id number] 03/08/2020 06:44:05 PM EST [facility] Name Value Range Interpretation Code Description Data [facility] r[facility](s) Supporting Document(s) PT 14.2 s (9.2-11.9) H [facility] INR 1.38 [facility] SUGGESTED THERAPEUTIC RANGES USING INR F ORSTABILIZED ANTICOAGULATED PATIENTS:STANDARD DOSE THERAPY INR 2.0-3.0 DVT, PE, PREVENT DVT OR EMBOLISMHIGH DOSE THERAPY INR 2.5-3.5 PREVENT EMBOLISM FROM MECHANICAL HEART VALVE ID Date Data Source [id number] 03/08/2020 06:44:05 PM EST [facility] Name Value Range Interpretation Code Description Data [facility](s) Supporting Document(s) APTT 21.7 s (22.0-34.3) L [facility] ID Date Data Source [id number] 03/08/2020 05:51:07 PM EST [facility] Name Value Range Interpretation Code Description Data [facility](s) Supporting Document(s) POC ACT 103 s (80-140) [facility] ID Date Data Source [id number] 03/08/2020 05:50:35 PM EST [facility] Name Value Range Interpretation Code Description Data [facility](s) Supporting Document(s) POC SOURCE [facility] CP BYPASS [facility] POC PH 7.36 pH (7.35-7.45) [facility] POC PCO2 40.8 MMHG (32.0-48.0) [facility] POC PO2 171 MMHG (83-108) H [facility] POC SAT O2 99 % (95-99) [facility] POC BASE DEFICIT 2 MMOL/L (0-2) [facility] POC HCO3 23.3 MMOL/L (21.0-29.0) [facility] POC TOTAL CO2 24 MMOL/L (23.0-32.0) [facility] POC HCT 37 % (41.0-53.0) L [facility] POC SODIUM 138 MMOL/L (136-145) [facility] POC POTASSIUM 4.4 MMOL/L (3.6-5.2) [facility] POC IONIZED CALCIUM 5.0 MG/DL (4.6-5.3) [facility] POC GLU 128 MG/DL (70-99) H [facility] PER[facility] LAB [facility] ID Date Data Source [id number] 03/08/2020 05:25:38 PM EST [facility] Name Value Range Interpretation Code Description Data [facility] rce(s) Supporting Document(s) &PDF [facility] QFJQZv9dXgJJDcTi26/PUHtxYTDla6QpVNeaUYx8XAkpYNWtE1BhxEwyPOrFTTtIO0GQAUCQRMBZC9LJ yZW [file] AgICAgICAgICAgICAgICAgICAgICAgICAgICAgICAg CTBrZZDpMXIjSKNzCZHjLOGcZPHqUUUtVZXdLSYxOHJhOCGhUDTqAJJhZUXgEH4LTVUjRRNeKOEyBFFq ICAgICAgICAgICAgICAgICAgICAgICAgICAgICAgICAgICAgICAgICAgICAgICAgICAgICAgICAgICAg DGJhMEJbUJUrXFJyJFAlKWUlTWTqJBWwLCKtJG9URU AgICAgICAgICAgICAgICAgICAgICAgICAgICAgICAgICAgICAgICAgICAgICAgICAgICAgICAgICAgIC LvZEIqRUMmPRCgFWKyYNQtTUQcOUUtUJEkYHRyFZKaVXPxEKPzDL9BHPDfUYFoUQBrFDSsSXDbVYOhXB AgICAgICAgICAgICAgICAgICAgICAgICAgICAgICAg CYSyVRAzNLDkRKTvKLGhJZWqKFFdPVGmSJQuXSZrTRRrCWBhOSQwSAYbFBMdZSMnVW0SIJGmHHJrTWYq ICAgICAgICAgICAgICAgICAgICAgICAgICAgICAgICAgICAgICAgICAgICAgICAgICAgICAgICAgICAg ICAgICAgICAgICAgICAgICAgICAgICAgICAgICAgIA 0KICAgICAgICAgICAgICAgICAgICAgICAgICAgICAgICAgICAgICAgICAgICAgICAgICAgICAgICAgIC AnNEQxDXHwOURuDZZaYPOnTFKpUFWvLYOgQJNzMGUbFWSxSRDmIOBhYU7JXYAbXGKdBADuGRYaFSIyDS AgICAgICAgICAgICAgICAgICAgICAgICAgICAgICAg MKFvQDUdOLEaBKIpKGToYWQfWTHiITIwUEVyLFDfGAAlOPTjRKPtGJYzEZMpGTVeQFOgVZ9ESMMdFZSg ICAgICAgICAgICAgICAgICAgICAgICAgICAgICAgICAgICAgICAgICAgICAgICAgICAgICAgICAgICAg ICAgICAgICAgICAgICAgICAgICAgICAgICAgICAgIC RyHR5TZGDbFOJaBRExFSGvDXJfXNHtEGWaQOIcMBVyUSSoVFAnJRXrFDGyOQEdOUBbXFRuCTLbFCVmAD BdLOLcLAGmSLPoXGMjNHQvLBFnARFfHTNhNFDmEHZjJRMlQWLmHVEfXMZkHC1VPQUzIXYmJFJbCKOzBI AgICAgICAgICAgICAgICAgICAgICAgICAgICAgICAg REUtLUKvOTOsUVQnKQAiGTNeFPZrZDKmLIQqGUNgCLCzLSTnGBJkJIWeYFWeMSQwZCEyZVQoRM4DRJ57 qFWeg1L3RVNkVH4emlx/Ab9WMGnjrlXsdHDeYB1GUxDjGZ3oss4OEmVqCM1zjp9AQPoJTjKeB9T8uONo PEDlEFULDcJyD39dDQtrAz33XGioXFOdOgXmWIr1Hz 6DVeReT1foSSFfCrG1XFTjKhB0BRMbWgFhTEapPJ5Fn9JphGKsEUi+Ie3CWU8qn8KdHEppAwXpUZ6jyu 8WPDzBRtKbU3C1aUCgN2T3ZLmlSv9ZXIZeAPGrFzQoBLYVANipXA4XNA9cfnE8QO0RtARfIYTvYMHciQ LoLWz6X29xdPRhJVpzFH3QUZV+Severo+Ic8ISYWpDZNu IBDgUgXxNWQPPiGrU82hqLJrHSNwXPG5XBPfVz2QGGJuR5ZdonLbhCerebIkYGWeIVIUFI1TIPkqyxOf qVUdtQerDF51tEwbHQ6MCz7FSiCqAA4ozt7ZvYFsTy5KAMCcWi8KEEJfQHBuPEZvASQ6VLDgXaZaFExt EMFcOFStGAX5ABYeJCKlDI7BEhJuPKRlEpBrVJwwSQ NcCUSwyo9PQRJdTQBgTKl0NGCkAMKeVKNmCAksHNLnESZyOBb2EAFcFDJgON1MTgJcLTUpLJP0FtbaBB YxKFWvoe7LBDSqBCLcDsQ5VZVbHFExTFUfNRgbBWScWMN5Euf3UJWuCOYzYE8FPyBbMGYkVDH0YxfeZR WzBPKxca0BZEUaEUFiOPhmZpXaQZHdCRNjDGyuJZNr VXQ4PIZnIUFaWVZzOM6MGoPkAIEvUFObZPIeSKWxDPSxkb0YDHPiKQKoPcC7GbSjOFCxOLZyIDitHCHj IJK2Zvz5AVPrWNFvKV4QJrEcBINbCBq9YjLyQMQiZSHlxf8CXZNrXPMuBiHoXJFpSTIwBKMwNIesPSZr UNLzPgP6CHYnGMXeTS1HVgRiQXDpCNT0QExpOUSyNU Wkum8QBREoDLUeGyP0OCEfXLFiHZIbYFvdIVAhPWXdVzE6WEHuUANcMU0YQkQdALCxZCUeYslvQIMfQY Qvam7LEJLpCGHqUMM0QuZlCHEbPJOzAPfiJXWnEAY1EgQ8CATwITUgUR4RGiPzSATrZUs0MzQlTCNmMY Bbbt0DIKPdBFJuKFY7CkBcNKDeLYOnQOimFDAbPQU2 GFK7AIIeQYQwKC9KCsJjCUPeDaO4MEgnHHUjOMIhmm5EzFSvyGddqa9GKYnBMr3DpQddGVX1EIagZn9n lGXoMvYaZDELXz6ScfWqZBFjNPZHKJicIEBzFEA5VkDdPQP2ORvkZuXtNnMtCujoQtV1VpO4PuUtUuL2 UnN5RjQpXTTlXSElKWY0WNZeKLCnHXNxVBo3Wfd0Dp NmZjk+DY8cIXt+Jk0Dm7LpufT1jmHdORqtNxW1KW6HASOYV5VQEw== ID Date Data Source [id number] 03/08/2020 05:11:55 PM EST [facility] Name Value Range Interpretation Code Description Data [facility](s) Supporting Document(s) POC ACT 433 s (80-140) H [facility] ID Date Data Source [id number] 03/08/2020 04:56:30 PM EST [facility] Name Value Range Interpretation Code Description Data [facility](s) Supporting Document(s) POC SOURCE [facility] CP BYPASS [facility] POC VENOUS PH 7.31 pH (7.33-7.43) L [facility] POC VENOUS PCO2 51.6 MM HG (38.0-50.0) H [facility] POC [facility]ENOUS PO2 52 MM HG (30-50) H [facility] POC VENOUS SO2 83 % (60-85) [facility] POC [facility]ENOUS BASE DEFICIT 1 MMOL/L (0-2) [facility] POC VENOUS HCO3 26.2 MMOL/L (23.0-27.0) [facility] POC [facility]ENOUS TOTAL CO2 28 MMOL/L (24-28) [facility] PER[facility] BY [facility] CLIN[facility] STAFF POC HCT 39 % (41.0-53.0) L [facility] POC SODIUM 138 MMOL/L (136-145) [facility] POC POTASSIUM 5.1 MMOL/L (3.6-5.2) [facility] POC IONIZED CALCIUM 4.4 MG/DL (4.6-5.3) L [facility] POC GLU 120 MG/DL (70-99) H [facility] PER[facility] LAB [facility] ID Date Data Source [id number] 03/08/2020 05:00:58 PM EST [facility] Name Value Range Interpretation Code Description Data [place] rce(s) Supporting Document(s) POC ACT 334 s (80-140) H [facility] PERFORMED BY [facility] CLINICAL STAFF ID Date Data Source [id number] 03/08/2020 04:31:30 PM EST [facility] Name Value Range Interpretation Code Description Data [place] rce(s) Supporting Document(s) POC SOURCE [facility] CP BYPASS [facility] POC VENOUS PH 7.37 pH (7.33-7.43) [facility] POC VENOUS PCO2 42.1 MM HG (38.0-50.0) [facility] POC VENOUS PO2 54 MM HG (30-50) H [facility] POC VENOUS SO2 87 % (60-85) H [facility] POC VENOUS BASE DEFICIT 1 MMOL/L (0-2) [facility] POC VENOUS HCO3 24.5 MMOL/L (23.0-27.0) [facility] POC VENOUS TOTAL CO2 26 MMOL/L (24-28) [facility]IN[facility] STAFF POC HCT 38 % (41.0-53.0) L [facility] POC SODIUM 139 MMOL/L (136-145) [facility] POC POTASSIUM 4.9 MMOL/L (3.6-5.2) [facility] POC IONIZED CALCIUM 4.2 MG/DL (4.6-5.3) L [facility] POC GLU 113 MG/DL (70-99) H [facility] ID Date Data Source [id number] 03/08/2020 04:34:30 PM EST [facility] Name Value Range Interpretation Code Description Data [place] rce(s) Supporting Document(s) POC ACT 500 s (80-140) H [facility] PERFORMED BY [facility] CLINICAL STAFF ID Date Data Source [id number] 03/08/2020 04:01:28 PM EST [facility] Name Value Range Interpretation Code Description Data [place] rce(s) Supporting Document(s) POC SOURCE [facility] CP BYPASS [facility] POC VENOUS PH 7.38 pH (7.33-7.43) [facility] POC VENOUS PCO2 42.7 MM HG (38.0-50.0) [facility] POC VENOUS PO2 53 MM HG (30-50) H [facility] POC VENOUS SO2 86 % (60-85) H [facility] POC VENOUS BASE EXCESS 0 mmol/L [facility] POC VENOUS HCO3 25.2 MMOL/L (23.0-27.0) [facility] POC VENOUS TOTAL CO2 26 MMOL/L (24-28) [facility] CLIN[facility] STAFF POC HCT 36 % (41.0-53.0) L [facility] POC SODIUM 139 MMOL/L (136-145) [facility] POC POTASSIUM 4.2 MMOL/L (3.6-5.2) [facility] POC IONIZED CALCIUM 4.2 MG/DL (4.6-5.3) L [facility] POC GLU 107 MG/DL (70-99) H [facility] ID Date Data Source [id number] 03/08/2020 04:04:58 PM EST [facility] Name Value Range Interpretation Code Description Data [place] rce(s) Supporting Document(s) POC ACT 439 s (80-140) H [facility] PERFORMED BY [facility] CLINICAL STAFF ID Date Data Source [id number] 03/08/2020 03:38:56 PM EST [facility] Name Value Range Interpretation Code Description Data [place] rce(s) Supporting Document(s) POC ACT 488 s (80-140) H [facility] PERFORMED BY [facility] CLINICAL STAFF ID Date Data Source [id number] 03/08/2020 03:34:59 PM EST [facility] Name Value Range Interpretation Code Description Data [place] rce(s) Supporting Document(s) POC SOURCE [facility] CP BYPASS [facility] POC VENOUS PH 7.28 pH (7.33-7.43) L [facility] POC VENOUS PCO2 54.3 MM HG (38.0-50.0) H [facility] POC VENOUS PO2 55 MM HG (30-50) H [facility] POC VENOUS SO2 83 % (60-85) [facility] POC VENOUS BASE DEFICIT 2 MMOL/L (0-2) [facility] POC VENOUS HCO3 25.5 MMOL/L (23.0-27.0) [facility] POC VENOUS TOTAL CO2 27 MMOL/L (24-28) [facility] CLIN[facility] STAFF POC HCT 43 % (41.0-53.0) [facility] POC SODIUM 139 MMOL/L (136-145) [facility] POC POTASSIUM 3.9 MMOL/L (3.6-5.2) [facility] POC IONIZED CALCIUM 4.5 MG/DL (4.6-5.3) L [facility] POC GLU 111 MG/DL (70-99) H [facility] ID Date Data Source [id number] 03/08/2020 03:03:24 PM EST [facility] Name Value Range Interpretation Code Description Data [place] rce(s) Supporting Document(s) POC SOURCE [facility] CP BYPASS [facility] POC PH 7.32 pH (7.35-7.45) L [facility] POC PCO2 51.4 MMHG (32.0-48.0) H [facility] POC PO2 67 MMHG (83-108) L [facility] POC SAT O2 91 % (95-99) L [facility] POC BASE EXCESS 0 MMOL/L (0-3) [facility] POC HCO3 26.7 MMOL/L (21.0-29.0) [facility] POC TOTAL CO2 28 MMOL/L (23.0-32.0) [facility] BY [facility] CLINICAL STAFF POC HCT 48 % (41.0-53.0) [facility] POC SODIUM 141 MMOL/L (136-145) [facility] POC POTASSIUM 3.9 MMOL/L (3.6-5.2) [facility] POC IONIZED CALCIUM 4.8 MG/DL (4.6-5.3) [facility] POC GLU 112 MG/DL (70-99) H [facility] ID Date Data Source [id number] 03/08/2020 03:09:57 PM EST [facility] Name Value Range Interpretation Code Description Data [place] rce(s) Supporting Document(s) POC ACT 417 s (80-140) H [facility] PERFORMED BY [facility] CLINICAL STAFF ID Date Data Source [id number] 03/08/2020 02:24:27 PM [facility] INFORMATIONPatient MRN Name Date of Age Gend*PT [id number] Akira Mcneill 1940 79 years M SDAPT Location Admission Date/Time Visit ID Attending Provider --- --- --- --- EPI ID CSN Admitting Provider [id number] ---Introducer AdditionsPatient location during procedure: ORIndications for introducer addition: Hemodynamic monitoringStaffingPerformed by: Nathan Agrawal CRNAApproved by: RODNEY Caroompleted: patient identified, risks and benefits discussed, surgical consentobtained, anesthesia consent obtained, monitors and equipment checked, pre-opevaluation completed, timeout performed, patient was prepped and draped in usualsterile fashion,Introducer AdditionsIntroducer addition: Pulmonary Artery CatheterInsertion depth (cm): 50Introducer placed: At time of introducer additionPA Catheter procedure: Oximetric PA Catheter introduced, Pulmonary arteryidentified and balloon taken back down and PAOP was not obtainedAssessmentSecurement method: securement deviceAssessment: tolerated well, no changes to vital signs and catheter flushed [id number] NS Name Value Range Interpretation Code Description Data Shiloh rce(s) Supporting Document(s) ID Date Data Source [id number] 03/08/2020 02:24:11 PM EST [facility] INFORMATIONPatient MRN Name Date of Age Gend*PT [id number] Akira Mcneill 1940 79 years M SDAPT Location Admission Date/Time Visit ID Attending Provider --- --- --- --- EPI ID CSN Admitting Provider [id number] ---Central Line InsertionPatient location during procedure: ORIndications for central line: hemodynamic monitoring and vascular accessStaffingPerformed by: Nathan Agrawal CRNAApproved by: RODNEY Caroompleted: patient identified, risks and benefits discussed, surgical consentobtained, anesthesia consent obtained, monitors and equipment checked, pre-opevaluation completed, timeout performed, patient was prepped and draped in usualsterile fashion,Central LineCatheter type: IntroducerCVC type: non-tunnelledNeedle gauge: 18 GCatheter size: 7.5 FrSite prep: chlorhexidine gluconateLaterality: rightLocation: internal jugularTechnique: CVC inserted using ultrasound guidanceProcedure: Catheter inserted and manometry was performed, Guidewire passedthrough the catheter, No arrythmias and Catheter was withdrawnAssessmentSecurement method: SuturedPlacement verification: UltrasoundAssessment: tolerated well, no changes to vital signs and catheter flushed [id number] NS Name Value Range Interpretation Code Description Data Shiloh rce(s) Supporting Document(s) ID Date Data Source [id number] 03/08/2020 02:23:19 PM EST [facility] NT INFORMATIONPatient MRN Name Date of Age Gend*PT [id number] Mcneill Akira C 1940 79 years M SDAPT Location Admission Date/Time Visit ID Attending Provider --- --- --- --- EPI ID CSN Admitting Provider [id number] ---Central Line InsertionPatient location during procedure: ORIndications for central line: vascular accessStaffingPerformed by: Nathan Agrawal CRNAApproved by: Calderon Caroleted: patient identified, risks and benefits discussed, surgical consentobtained, anesthesia consent obtained, monitors and equipment checked, pre-opevaluation completed, timeout performed, patient was prepped and draped in usualsterile fashion,Central LineCatheter type: Single LumenCVC type: non-tunnelledNeedle gauge: 18 GCatheter size: 5 FrSite prep: chl orhexidine gluconateLaterality: rightLocation: internal jugularTechnique: CVC inserted using ultrasound guidanceProcedure: Catheter inserted and manometry was performed, Guidewire passedthrough the catheter, No arrythmias and Catheter was withdrawnAssessmentSecurement method: SuturedPlacement verification: UltrasoundAssessment: tolerated well, no changes to vital signs and catheter flushed [id number] NS Name Value Range Interpretation Code Description Data Shiloh rce(s) Supporting Document(s) ID Date Data Source [id number] 03/08/2020 02:22:43 PM [facility] NT INFORMATIONPatient MRN Name Date of Age Gend*PT [id number] Akira Mcneill 1940 79 years M SDAPT Location Admission Date/Time Visit ID Attending Provider --- --- --- --- EPI ID [facility] Admitting Provider [id number] ---Arterial Line PlacementPatient location during procedure: ORIndications for arterial line: hemodynamic monitoringStaffingPerformed by: Nathan Agrawal CRNAApproved by: RODNEY aCroompleted: patient identified, risks and benefits discussed, surgical consentobtained, anesthesia consent obtained, monitors and equipment checked, pre-opevaluation completed, timeout performed, patient was prepped and draped in usualsterile fashion,Arterial Line InsertionSite prep: chlorhexidineAnesthesia: local infiltrationLocal anesthetic: lidocaine 1% without epinephrineLaterality: rightLocation: radial arteryNeedle gauge: MP 5 FTechnique: ultrasound guidedNumber of attempts: 2AssessmentSutured: noDressing: dressing appliedPatient tolerance: tolerated well Name Value Range Interpretation Code Description Data Shiloh rce(s) Supporting Document(s) ID Date Data Source [id number] 03/08/2020 02:22:27 PM [facility] NT INFORMATIONPatient MRN Name Date of Age Gend*PT [id number] Akira Mcneill 1940 79 years M SDAPT Location Admission Date/Time Visit ID Attending Provider --- --- --- --- EPI ID CSN Admitting Provider [id number] ---AirwayPatient location during procedure: ORUrgency: electiveDifficult airway: noAdvanced airway equipment used: noStaffingPerformed by: Nathan Agrawal CRNAAnesthesiologist: Mau Benton MDIndications and Patient ConditionIndications for airway management: anesthesiaPreoxygenated: yesPatient position: sniffingIn-line stabilization: noMask ventilation: 0 - not attemptedFinal Airway/ApproachesFinal airway type: ETTNumber of attempts at final approach: 1Number of other approaches attempted: 0Final Airway DetailsFinal ETT airway: ETT - blockerCuffed: yesTechnique used for successful ETT placement: direct laryngoscopyCricoid pressure: noRSI: noInsertion site: oralBlade type/size: MAC 3.5ETT size: 8.5 mmMeasured from: lipsETT to lips: 23 cmPlacement verified by: chest auscultation and + AKKR5Wwnbvxqmlhwz: equal breath sounds bilateral and CTAGrade view: grade I - full view of glottis Name Value Range Interpretation Code Description Data Shiloh rce(s) Supporting Document(s) ID Date Data Source [id number] 03/08/2020 01:59:28 PM EST [facility] Name Value Range Interpretation Code Description Data Shiloh rce(s) Supporting Document(s) POC SOURCE [facility] CP BYPASS [facility] POC VENOUS PH 7.40 pH (7.33-7.43) [facility] POC VENOUS PCO2 40.0 MM HG (38.0-50.0) [facility] POC [facility]ENOUS PO2 273 MM HG (30-50) H [facility] POC VENOUS SO2 100 % (60-85) H [facility] POC VENOUS BASE EXCESS 0 mmol/L [facility] POC VENOUS HCO3 24.9 MMOL/L (23.0-27.0) [facility] POC VENOUS TOTAL CO2 26 MMOL/L (24-28) [facility] POC HCT 46 % (41.0-53.0) [facility] POC SODIUM 142 MMOL/L (136-145) [facility] POC POTASSIUM 4.0 MMOL/L (3.6-5.2) [facility] POC IONIZED CALCIUM 4.6 MG/DL (4.6-5.3) [facility] POC GLU 106 MG/DL (70-99) H [facility] PERFORM LAB [facility] ID Date Data Source [id number] 03/08/2020 02:00:29 PM EST [facility] Name Value Range Interpretation Code Description Data Shiloh rce(s) Supporting Document(s) POC ACT 120 s (80-140) [facility] ID Date Data Source [id number] 03/08/2020 12:43:15 PM EST [facility] NT INFORMATIONPatient MRN Name Date of Age Gend*PT [id number] Akira Mcneill 1940 79 years M SDAPT Location Admission Date/Time [facility] --- Michelle Cramer MD([id number]) EPI ID CSN Admitting Provider [id number] Michelle Cramer MD([id number])H&P reviewed. The patient was examined and there are no changes to the H&P. Name Value Range Interpretation Code Description Data Shiloh rce(s) Supporting Document(s) ID Date Data Source [id number] 03/08/2020 02:18:58 PM EST [facility] Name Value Range Interpretation Code Description Data Shiloh rce(s) Supporting Document(s) NT PRO BNP 1057 pg/mL (0-450) H [facility] ID Date Data Source [id number] 03/08/2020 12:18:27 PM EST [facility] Name Value Range Interpretation Code Description Data Shiloh rce(s) Supporting Document(s) POC NOVA GLU 116 mg/dL (70-99) H [facility] [place] [facility]FORMED [facility] ID Date Data Source [id number] 03/12/2020 03:20:00 PM EST [facility] [address] [address]# Surgical Pathology ReportPatient Name: AKIRA MCNEILL: 1940ccession #:[id number]) ReceivedA: P2 mitral valve leafletClinical Diagnosis and HistoryNonrheumatic mitral valve regurgitation DIAGNOSISMITRAL VALVE, P2 LEAFLET, EXCISION: MYXOID DEGENERATION Gross DescriptionReceived in formalin labeled "P2 mitral valve leaflet" is a 2.2 x 1.5 x0.2 cm wooten-yellow irregular fragment of valvular tissue with multiplethickened fused chordae tendineae measuring up to 2.0 cm. The specimen isserially sectioned to show a moderate myxoid change. No vegetations orcalcifications are identified. The specimen is entirely submitted as A1. juan antonio/pinky Reported: 03/12/2020Electronically Signed Out By Rio Mckenzie MD [facility] [place] [address] [id number] component performed at [facility], Histopathology, [address] [place] [address], [phone].Reported at [facility], [address] [place] [address], [phone]. This report may includeimmunohistochemical or in-situ hybridization results. Testing wasdeveloped and the performance characteristics determined by [facility] [place] [facility] as required by CLIA '88. The FDA hasdetermined that approval for specific use is not necessary for clinicaluse. The quality of Hematoxylin and Eosin stains and as applicable, forall immunohistochemical and/or special stains, including positive andnegative controls, were reviewed and considered appropriate.ICD codes I34.0CPT codesA: 74503R Name Value Range Interpretation Code Description Data Shiloh rce(s) Supporting Document(s) ID Date Data Source [id number] 03/10/2020 12:24:26 AM EST Lab [facility] SPEC EXP DATE 03/09/2020TEST ING SITE PERFORMED AT [address] [place] [address] [id number] NUMBER [id number] COMPONENT TYPE LEUKOPOOR RED CELLSUNIT DIVISION 00STATUS OF UNIT REL FROM ALLOCTRANSFUSION STATUS OK TO TRANSFUSECROSSMATCH RESULT COMPATIBLEUNIT NUMBER [id number] COMPONENT TYPE LEUKOPOOR RED CELLSUNIT DIVISION 00STATUS OF UNIT REL FROM ALLOCTRANSFUSION STATUS OK TO TRANSFUSECROSSMATCH RESULT COMPATIBLE Name Value Range Interpretation Code Description Data Shiloh rce(s) Supporting Document(s) TRANSFUSE RED CELLS [facility] TESTING SITE PERFORMED AT [address] [place] [id number] ID Date Data Source [id number] 03/05/2020 08:40:00 AM EST [facility] Name Value Range Interpretation Code Description Data Shiloh rce(s) Supporting Document(s) SARS coronavirus 2 RNA [Presence] in Res piratory specimen by JW with probe detection [facility] This lab was reported by [facility]. ID Date Data Source [id number] 03/13/2020 10:05:26 AM EST [facility] Name Value Range Interpretation Code Description Data Shiloh rce(s) Supporting Document(s) SPECIMEN DESCRIPTION [facility] COVID19 RESULT (NDET) [facility] THIS ASSAY AMPLIFIES AND DETECTSTHE TARG ET RNA USING REAL-TIME PCR.NEGATIVE 2019_NCOV RT-PCR RESULTS DONOT PRECLUDE 2019_NCOV INFECTION ANDSHOULD NOT BE USED THE SOLE BASISFOR PATIENT MANAGEMENT DECISIONS. COMMENT [facility] APPROV[facility] B Y THE [facility]. THE [place]. FOODAND DRUG ADMINISTRATION HAS NOT APPROVEDTHIS TEST. NEGATIVE RESULTS DO NOT UVXLILXQXTMZ-PMR-7 INFECTION AND SHOULD NOT BEUSED THE SOLE BASIS FOR CLINICALDIAGNOSIS OR PATIENT MANAGEMENT DECISIONS.EMAILED TO [facility] AT [address] [id number] [place] [id number]. FIRST TEST [facility] EMPLOYED IN THCARE [facility] SYMPTOMATIC [facility] DATE OF SYMPT ONSET [facility] HOSPITALIZED [facility] ICU [facility] CONGREGATE CARE SET [facility] ID Date Data Source [id number] 03/01/2020 12:49:39 PM EST [facility] Name Value Range Interpretation Code Description Data Shiloh rce(s) Supporting Document(s) EKG [facility] IZSGGm6pDjXZBgNbl6BaYmSwTUQzQF4hcxp7F5F1iRMfI7JzdOUtb5alW5OeB8ZpMODjAVLDVX4FsCTv jb2 [file] CY/M52T5VBO6f28PeIK3jzuw7439z6aa58//7sk8pdO87o20R/dujfj+W28dqxc+4/ejsr1B/029Rd16 9dIoJ9hxSCq/rqh1iqiA3/+urSXw1q6xIZ9a8S2dD1 kzzePgT402R8EjTS+wK1lhxyo7psVgnTGtr2nq1f7wQleI/SP+Z4v//jjX/fc/8DyN2YADH1V2RRTlg5 4l/fop8/tlhXjf7/uOJf2/Lucía/j9h65lhf/8M47ral8P721sihwwoSWciIrm0hiQ45/0QiE994X/kSX [file] svp research and strategic analysis/DbWzo1z3sEa1vXEaG2h/D4UoCngiPBns6bF7ckdxNNr54dcb7hzJiMYywm9jRk3G8aSo/sN96EFMH [file] MDAgbiAKMDAwMDAwMTQwNiAwMDAwMCBuIAowMDAwMD F3QgS6BSWgEMAmEK5uNgXmGRWmZEU6PBheKIVtOXErtrXACOHwAIXjRCvuJRVxOGIzMLTwLUwqAMPgKB EnWDB6COMnSWQkJP7wStHlKVCqUSOlSTOqKlG4PaFcXeQGvZOfuMfagfi4EXuvW9v6XTWsTUqfGZ6oer CwYUBzZyuzMc6osKP0HQJoDciWMj7Jp4XsglV6jeVmYnA6EYXdQeXaKJ1K ID Date Data Source [id number] 03/01/2020 12:47:46 PM EST [facility] Name Value Range Interpretation Code Description Data Shiloh rce(s) Supporting Document(s) POC SOURCE [facility] PUNCTURE SITE [facility] O2 THERAPY [facility] RUBY TEST [facility] POC PH 7.43 pH (7.35-7.45) [facility] POC PCO2 44.7 MMHG (32.0-48.0) [facility] POC PO2 81 MMHG (83-108) L [facility] POC SAT O2 96 % (95-99) [facility] POC BASE EXCESS 4 MMOL/L (0-3) H [facility] POC HCO3 29.5 MMOL/L (21.0-29.0) H [facility] POC TOTAL CO2 31 MMOL/L (23.0-32.0) [facility] ID Date Data Source [id number] 03/01/2020 12:24:00 PM EST [facility] CHEST ROUT[facility] PA and LATCLINICAL HISTORY: Pretesting Reair or replacement mitral valve, atrial 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, and coarotid disease.COMPARISON: NoneTECHNIQUE: PA lateral views.FINDINGS: The lungs are clear. Cardiac mediastinal contour is unremarkable. No evidence of infiltrate or edema.IMPRESSION: No evidence of acute diseaseDictated by: FABRIZIO BATRES M.D. on 03/01/2020 Transcribed by: aa on 03/01/2020 12:40 PMCDS G code: ,CDS Modifier: ,cc: Name Value Range Interpretation Code Description Data Shiloh rce(s) Supporting Document(s) ID Date Data Source [id number] 03/01/2020 11:42:00 AM EST [facility] ULTR ASOUND CAROTID DUPLEXCLINICAL HISTORY: Pretesting. Repair or replacement mitral valve, atrial 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 and carotid disease.COMPARISON: None available.FINDINGS: RIGHT:CCA PS: 73 cm/secICA PS: 116 cm/secICA ED: 19 cm/secECA PS: 177 cm/secVertebral: 42 cm/sec, antegradeRatio: ICA/CCA: 1.6ICA Stenosis: Less than 50%Comments: Moderate atherosclerotic plaquingLEFT:CCA PS: 86 cm/secICA PS: 83 cm/secICA ED: 29 cm/secECA PS: 66 cm/secVertebral: 42 cm/sec, antegradeRatio: ICA/CCA: 1ICA Stenosis: Less than 50%Comments: Moderate atherosclerotic plaquingIMPRESSION: No evidence of hemodynamically significant internal carotid artery stenosis bilaterally.Carotid stenosis measurements were performed using the NASCET method.Dictated by: FABRIZIO BATRES M.D. on 03/01/2020 Transcribed by: PS on 03/01/2020 12:43 PMCDS G code: ,CDS Modifier: ,cc: Name Value Range Interpretation Code Description Data Shiloh rce(s) Supporting Document(s) ID Date Data Source [id number] 03/01/2020 07:15:06 PM EST [facility] SPEC EXP DATE 03/09/2020PATI ENT ABO/Rh O POSITIVEANTIBODY SCREEN NEGATIVETESTING SITE PERFORMED AT [address] [place] [address] Name Value Range Interpretation Code Description Data Shiloh rce(s) Supporting Document(s) TYPE AND SCREEN [facility] [place] ANTIBODY SCREEN NEGATIVE ID Date Data Source [id number] 03/01/2020 06:10:34 PM EST [facility] Name Value Range Interpretation Code Description Data Shiloh rce(s) Supporting Document(s) ROOM TEMP AB SCREEN [facility] ROOM TEMP AB SCREEN NEGATIVE ID Date Data Source [id number] 03/01/2020 11:07:52 AM EST [facility] NT INFORMATIONPatient MRN Name Date of Age Gend*PT [id number] Akira Mcneill 1940 79 years M OPPT Location Admission Date/Time Visit ID Attending Provider --- --- --- Michelle Cramer MD([id number]) EPI ID CSN Admitting Provider [id number] ---HISTORY PHYSICALName: Akira Mcneill : 1940 Sex: male Care Provider: DINA JIMENEZ MDA[facility] institute Physician: Dr. Michelle Cramer.Informant: The patient who is reliable.Chief Complaint: Easy fatigue and shortness of breath.HISTORY OF PRESENT ILLNESS: 79 year old white male who presents with complaintsof easy fatigue and shortness of breath. Mr. Mcneill has longstanding mitralvalve prolapse. He became symptomatic this past summer 2019. He notes easyfatigue and exertional shortness of breath. He will note the dyspnea whenlifting hay kalli or bringing laundry up from the basement. He can walk 2 1/2 to3 miles a day without difficulty, but he cannot run or ride a bike the samedistance. Echocardiogram dated 01/18/2020 showed severe prolapse of theposterior mitral leaflet with severe mitral regurgitation. Cardiaccatheterization dated 02/03/2020 showed single vessel borderline CAD (prox to midRCA 50% stenosis).The patient met with Dr. Cramer, options were discussed and he has elected toundergo repair or replacement, mitral valve, minimally invasive, rightthoracotomy approach, using HeartPort technique IRENA cryoablation - right on03/08/2020.PAST MEDICAL HISTORY:Past Medical History:Diagnosis Date 24 hr holter monitor 01/03/2020 Baseline A. fib with narrow QRS complex. No pauses. Occasional ventricularectopy (0.4% of all beats) including single ventricular couplet. Average HR 89bpm. Ascending aorta dilatation 02/03/2017 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 Coronary artery disease 50% prox to mid RCA stenosis Dilated aortic root Echocardiogram 12/11/2017 LVEF 65%, severe prolapse of posterior mitral leaflet, moderate to severe MR,normal CVP and PAP, dilated aortic root (4.0 cm). Echocardiogram 12/27/2016 Normal LV size with moderate LVH and preserved LV systolic function. Normaldiastolic function. Severe prolapse of posterior mitral leaflet resulting in aprobably moderately severe mitral insufficiency. Normal CVP and PA pressure.Mildly dilated aortic root and ascending aorta(4.0 cm). Echocardiogram 01/18/2019 Mild LVH. LVEF 55-65%. Severe posterior mitral leaflet prolapse with resultingmoderately severe AR. No additional significant valvular disease. Normal CVPand PA P. Dilated aortic root and ascending aorta (4.0 and 4.1 cm). Echocardiogram 01/18/2020 LVEF 70%. Severe posterior mitral leaflet prolapse, severe eccentric mitralinsufficiency. Mild tricuspid and pulmonary insuffiiciency. Normal CVP and PAP.Mildly dilated aortic root and ascending aorta (4.1 and 4.0 cm) ETT 11/21/2014 10.1 METs, 9 minutes. No ischemia at maximal workload. The patient has normalfunctional aerobic capacity. There were no exercise-induced ar rhythmias. Hyperlipidemia 02/03/2017 Hypertension 02/03/2017 care home current use of anticoagulant Eliquis Mitral regurgitation severe and symptomatic; Maria Luisa Fernandez MD Mitral valve prolapse 10/14/2011 Stress echo 02/10/2011 EF 65-70 %, reached 10.5 METs, mitral valve prolapse - moderate-severe, MR -moderate-severe IRENA 12/19/2015 Severe posterior MVP with approximately moderate MR with very eccentric MR jet.Normal LV and RV systolic function. No other hemodynamically significantvalvular disease.PAST SURGICAL HISTORY:Past Surgical History:Procedure Laterality Date CARDIAC CATHETERIZATION N/A 02/03/2020 Procedure: Right heart cath; Surgeon: Rony oT MD; Laterality: N/A;needs labs drawn on admit CARDIAC CATHETERIZATION N/A 02/03/2020 Procedure: Left heart cath; Surgeon: Rony To MD; Laterality: N/A; CARDIAC CATHETERIZATION N/A 02/03/2020 Procedure: Coronary angiography; Surgeon: Rony To MD; Laterality:N/A; CARDIAC CATHETERIZATION N/A 02/03/2020 Procedure: Left ventriculography; Surgeon: Rony To MD; Laterality:N/A; COLONOSCOPY SHOULDER SURGERY RightALLERGIES: No Known Drug AllergiesMEDICATIONS:Prior to Admission medicationsMedication Sig Start Date End Date Taking? Authorizing ProviderApixaban (ELIQUIS) 5 MG TABS tablet Take 1 tablet (5 mg total) by mouth 2 (two)times a day 12/30/19 06/27/20 Janki Marie, PAatorvastatin (LIPITOR) 40 MG tablet Take 40 mg by mouth nightly HistoricalProvider, MDcalcium carbonate (CALCIUM 600) 600 MG tablet Take 600 mg by mouth daily10/13/11 Historical Provider, MDcalcium carbonate (OS-SETH) 600 MG tablet Take 600 mg by mouth dailyHistorical Provider, MDchlorthalidone (HYGROTEN) 25 MG tablet Take 25 mg by mouth daily HistoricalProvider, MDdesonide (DESOWEN) 0.05 % lotion Apply 1 application topically as needed(rash/breakout) Historical Provider, MDMULTIPLE VITAMIN-FOLIC ACID PO Take 1 tablet by mouth daily 10/13/11Historical Provider, ZANEaw [place] 450 MG CAPS Take by mouth daily 10/13/11 Historical Provider, MDSocial HistorySocioeconomic History Marital status: Spouse name: Not on file Number of children: Not on file Years of education: Not on file Highest education level: Not on fileOccupational History Not on fileSocial Needs Financial resource strain: Not on file Food insecurity: Worry: Not on file Inability: Not on file Transportation needs: Medical: Not on file Non-medical: Not on fileTobacco Use Smoking status: Former Smoker Years: 21.00 Types: Cigarettes Last attempt to quit: 1980 Years since quittin.9 Smokeless tobacco: Never Used Tobacco comment: 2 cigarettes/daySubstance and Sexual Activity Alcohol use: Yes Frequency: 2-4 times a month Drug use: Never Sexual activity: Not on fileLifestyle Physical activity: Days per week: Not on file Minutes per session: Not on file Stress: Not on fileRelationships Social connections: Talks on phone: Not on file Gets together: Not on file Attends rastafarian service: Not on file Active member of club or organization: Not on file Attends meetings of clubs or organizations: Not on file Relationship status: Not on file Intimate partner violence: Fear of current or ex partner: Not on file Emotionally abused: Not on file Physically abused: Not on file Forced sexual activity: Not on fileOther Topics Concern Not on fileSocial History Narrative Not on fileFamily HistoryFamily history unknown: YesREVIEW OF SYSTEMS:Constitution: Weight stable. Denies fever or chills.HEENT: Denies any blurred vision, double vision, dizziness, tinnitus, dysphagiaor headaches.Respiratory: Denies cough, yellow sputum production or wheezing.Cardiovascular: Denies any chest pain, pressure or tightness. Denies nocturnaldyspnea or orthopnea.Muscle/Skeletal System: Denies any muscle ache, joint ache or weakness.Neurologic: Denies tremors or syncope.GI: Denies any nausea, vomiting, diarrhea, constipation or melena.: Denies any dysuria, hematuria or nocturia.Endocrine: Denies polyuria, polydipsia or polyphagia. Denies any heat or coldintolerance, fatigue or night sweats.Hematology: Denies any bleeding or bruising tendencies.Anesthesia complications: Denied.Steroid use: Denied.Code Status: Full code.HCP: None.PHYSICAL EXAM:General: He is a 79 year old, pleasant white male, in no acute distress at timeof examination. Vitals on arrival to the office were: BP 142/82 (BP Location:Left upper arm, Patient Position: Sitting) | Pulse 85 | Ht 1.778 m (5' 10") |Wt 85.4 kg (188 lb 4.8 oz) | SpO2 96% | BMI 27.02 kg/m Body mass index is27.02 kg/m .Skin is pink, warm and dry.HEENT: Head is normocephalic, atraumatic. [place] conjunctivae. Anicteric sclerae.Pupils are equal, round, reactive to light and accommodation. Extraocularmovements are intact. Ears: Without drainage or lesion. Mouth: Dentition is ingood repair. He has a class II airway. Neck is supple midline without cervicaladenopathy. There is no tonsillo pharyngeal congestion. Mucous membranes aremoist. There are no oral lesions. No jugular distention. No carotid bruits. Nothyromegaly.CHEST/BREAST: A/P less than transverse.LUNGS: Clear to auscultation. No wheezes, rhonchi or crackles.HEART: Rate rhythm irregularly irregular. S1, S2. Grade 2/6 systolic murmur bestheard at the LSB to axilla. No diastolic murmur, rub or gallop.ABDOMEN: Bowel sounds positive. Soft, non tender. No rebound tenderness. Nohepatosplenomegaly. Negative CVAT.GENITAL/RECTAL: Deferred.NEUROLOGICALLY: Cranial nerves II through XII are grossly intact.VASCULAR: Pulses are symmetric. No edema.IMPRESSION and PLAN:Primary Diagnosis: Non rheumatic mitral valve regurgitation; atrialfi brillation, unspecified type. Surgery as per Dr. Cramer.Secondary Diagnosis and Plan:1. CAD: EKG obtained in Pre-Admission testing or external EKG within 6 months.Continuation of cardiac medications post-operatively based on clinical status.2. Hypertension: Continuation of prior to admission anti- hypertensivemedications unless precluded by clinical status.3. GI prophylaxis: Per surgeon.4. DVT prophylaxis: Early ambulation. Pneumatic compression device. SubcutaneousHeparin or LMW Heparin if clinically indicated.Based on above medical co morbidities, length of stay may be prolonged greaterthan previously anticipated.ALLERGIES:Patient has no known drug allergies.03/01/2020 11:07 Carlton Flores MD Name Value Range Interpretation Code Description Data [facility](s) Supporting Document(s) ID Date Data Source [id number] 03/02/2020 12:19:43 PM EST [facility] Name Value Range Interpretation Code Description Data [facility](s) Supporting Document(s) SPECIMEN DESCRIPTION [facility] STAPH SCREEN RESULTS (ONEGSA) [facility] COMMENT [facility] GENE TO DETECT STAPH AUREUS. (2) RT-P CR WAS PERFORMED FOR THE mecA AND [employer] GENES TO DETECT METHICILLIN RESISTANCE IN STAPH AUREUS. ID Date Data Source [id number] 03/02/2020 11:43:03 AM EST [facility] SPECIMEN DESCRIPTION MIDSTREAM UR INE,CLEAN CATCHCULTURE RESULTS NO GROWTHREPORT STATUS FINAL 03/02/2020 Name Value Range Interpretation Code Description Data [facility](s) Supporting Document(s) ID Date Data Source [id number] 03/01/2020 04:35:55 PM EST [facility] Name Value Range Interpretation Code Description Data [facility](s) Supporting Document(s) COLOR [facility] APPEARANCE [facility] SPEC GRAV URINE 1.026 (1.003-1.030) [facility] PH URINE 5.5 (5.0-7.5) [facility] LEUK ESTERASE (NEG) [facility] NITRITE URINE (NEG) [facility] PROTEIN URINE 1+ (NEG) A [facility] GLUCOSE URINE (NEG) [facility] KETONE URINE (NEG) A [facility] [place] UROBILINOGEN 0.2 mg/dL (0-1.0) [facility] [place] BILIRUBIN URINE (NEG) [facility] BLOOD/HGB URINE (NEG) A [facility] EPITHELIAL CELLS (NEG) [facility] HYALINE CASTS 1.9 [LPF] (0-5) [facility] BACTERIA (NEG) [facility] URINE WBC 1.5 [HPF] (0-8) [facility] URINE RBC 6.9 [HPF] (0-3) H [facility] ID Date Data Source [id number] 03/01/2020 03:58:12 PM EST [facility] Name Value Range Interpretation Code Description Data [facility]) Supporting Document(s) APTT 25.6 s (22.0-34.3) [facility] ID Date Data Source [id number] 03/01/2020 03:58:12 PM EST [facility] Name Value Range Interpretation Code Description Data [facility](s) Supporting Document(s) PT 11.1 s (9.2-11.9) [facility] INR 1.07 [facility] SUGGESTED THERAPEUTIC RANGES USING INR F ORSTABILIZED ANTICOAGULATED PATIENTS:STANDARD DOSE THERAPY INR 2.0-3.0 DVT, PE, PREVENT DVT OR EMBOLISMHIGH DOSE THERAPY INR 2.5-3.5 PREVENT EMBOLISM FROM MECHANICAL HEART VALVE ID Date Data Source [id number] 03/01/2020 03:41:55 PM EST [facility] Name Value Range Interpretation Code Description Data [facility](s) Supporting Document(s) HEMOGLOBIN A1C @ 5.8 % (4.0-6.0) [facility] Performed using Siemens [place] immunoassa y.Care must be taken when interpreting [id number] in patients with a hemoglobin variantor decreased erythrocyte lifespan. Values 5.7 - 6.4% suggest prediabetes.Values >=6.5% are diagnostic for diabetes.REFERENCE: DIABETES CARE 2018: 41(S13-S27). EST AVERAGE GLUCOSE 120 mg/dL [facility] ID Date Data Source [id number] 03/01/2020 03:20:04 PM EST [facility] Name Value Range Interpretation Code Description Data [facility](s) Supporting Document(s) WBC 7.4 10*3/uL (4.1-11.0) [facility] [place] RBC 5.16 10*6/uL (4.60-6.10) [facility] HGB 16.6 g/dL (13.5-18.0) [facility] HCT 49.2 % (41.0-53.0) [facility] MCV 95.4 fL (80.0-95.0) H [facility] MCH 32.2 pg (27.0-32.0) H [facility] MCHC 33.7 g/dL (32.0-36.0) [facility] RDW 13.7 % (10.5-14.5) [facility] PLT 204 10*3/uL (150-450) [facility] MPV 10.5 fL (7.1-10.7) [facility] NEUT % 56.5 % (35.0-75.0) [facility] LYMPH % 27.3 % (16.0-52.0) [facility] MONO % 10.9 % (0.0-8.0) H [facility] EOS % 4.4 % (0.0-5.0) [facility] BASO % 0.9 % (0.0-4.0) [facility] NEUT # 4.2 10*3/uL (1.8-7.7) [facility] LYMPH # 2.0 10*3/uL (1.2-4.8) [facility] MONO # 0.8 10*3/uL (0.0-0.8) [facility] Eosinophils [#/volume] in Blood by Automated count 0.3 10*3/uL (0.0-0 .5) [facility] BASO # 0.1 10*3/uL (0.0-0.2) [facility] ID Date Data Source [id number] 03/01/2020 03:11:16 PM EST [facility] Name Value Range Interpretation Code Description Data [facility](s) Supporting Document(s) NT PRO BNP 1080 pg/mL (0-450) H [facility] ID Date Data Source [id number] 03/01/2020 03:11:16 PM EST [facility] Name Value Range Interpretation Code Description Data [facility](s) Supporting Document(s) SODIUM 141 mmol/L (136-145) [facility] POTASSIUM 4.2 mmol/L (3.6-5.2) [facility] CHLORIDE 104 mmol/L (100-108) [facility] CO2 32 mmol/L (22-31) [facility] ANION GAP 5 mmol/L (7-16) L [facility] UREA NITROGEN 27 mg/dL (7-24) [facility] CREATININE 1.16 mg/dL (0.80-1.30) [facility] BUN/CREAT RATIO 23.3 RATIO (10.0-20.0) H [facility] GLUCOSE 128 mg/dL (70-99) [facility] CALCIUM 9.3 mg/dL (8.4-10.2) [facility] TOTAL PROTEIN 7.1 g/dL (6.4-8.2) [facility] ALBUMIN 3.8 g/dL (3.2-4.5) [facility] GLOBULIN 3.3 g/dL (2.7-4.3) [facility] ALB/GLOB RATIO 1.2 RATIO [facility] ALKALINE PHOSPHATASE 85 U/L (45-117) [facility] BILIRUBIN,TOTAL 1.3 mg/dL (0.0-1.0) H [facility] PLEASE NOTE:Total bilirubin results may be falselyelevated in patients taking Eltrombopag. AST (SGOT) 22 U/L (11-39) [facility] ALT (SGPT) 43 U/L (12-78) [facility] GFR >60 ml/min/1.73m2 (>59) [facility] GFR ( AMER) >60 ml/min/1.73m2 (>59) [facility] GFR INTERPRETATION [facility] --NORMAL KIDNEY FUNCTION OR MILD DISEASE - GFR >OR= 60CHRONIC KIDNEY DISEASE - GFR 15 - 59RENAL FAILURE - GFR <15 Est. GFR calculation based on the MDRDstudy equation, which assumes a steadystate for creatinine. Est. GFR should notbe used for medication dosing. ID Date Data Source [id number] 02/10/2020 06:32:54 AM EST [facility]FORMATIONPatient MRN Name Date of Age Gend*PT [id number] Akira Mcneill 1940 79 years M ---PT Location Admission Date/Time Visit ID Attending Provider --- --- --- --- EPI ID CSN Admitting Provider [id number] ---ConsultAssessment/Plan:After I reviewd the detailed history and examined the patient the care plan forthe patient is as follows:1. Mitral valve prolapse2. Mitral valve insufficiency, unspecified etiology After I reviewed detailed history and exam, I believe the patient needs mitralvalve repair/replacement. I felt the surgical risk should be less than 1% withcomplication includes, but not limited to post-op bleeding, irregular heartrhythm, wound infection, organ failures such as kidney failure, respiratoryfailure and stroke, etc. Patient understand the benefit vs risks. He agreedwith the plan for minimally invasive approach.Follow Up Return for Post op Follow up.Subjective: mitral valve regurgitationHPBrianna is a 79 years old male patient with symptoms of exertion related fatigueand shortness of breath. He states symptoms started a few months ago, graduallygetting worse, usually relieved with resting. Denies any chest pain, sy cope ordizziness. Echocardiogram shows severe mitral valve regurgitation. Cardiac cathshow normal coronary arteryThe following portions of the patient's history were reviewed and updated asappropriate: allergies, current medications, past family history, past medicalhistory, past social history, past surgical history and problem list.Past Medical History:Diagnosis Date 24 hr holter monitor 01/03/2020 Baseline A. fib with narrow QRS complex. No pauses. Occasional ventricularectopy (0.4% of all beats) including single ventricular couplet. Average HR 89bpm. Ascending aorta dilatation 02/03/2017 Echocardiogram 12/11/2017 LVEF 65%, severe prolapse of posterior mitral leaflet, moderate to severe MR,normal CVP and PAP, dilated aortic root (4.0 cm). Echocardiogram 12/27/2016 Normal LV size with moderate LVH and preserved LV systolic function. Normaldiastolic function. Severe prolapse of posterior mitral leaflet resulting in aprobably moderately severe mitral insufficiency. Normal CVP and PA pressure.Mildly dilated aortic root and ascending aorta(4.0 cm). Echocardiogram 01/18/2019 Mild LVH. LVEF 55-65%. Severe posterior mitral leaflet prolapse with resultingmoderately severe AR. No additional significant valvular disease. Normal CVPand PA P. Dilated aortic root and ascending aorta (4.0 and 4.1 cm). Echocardiogram 01/18/2020 LVEF 70%. Severe posterior mitral leaflet prolapse, severe eccentric mitralinsufficiency. Mild tricuspid and pulmonary insuffiiciency. Normal CVP and PAP.Mildly dilated aortic root and ascending aorta (4.1 and 4.0 cm) ETT 11/21/2014 10.1 METs, 9 minutes. No ischemia at maximal workload. The patient has normalfunctional aerobic capacity. There were no exercise-induced arrhythmias. Hyperlipidemia 02/03/2017 Hypertension 02/03/2017 Mitral valve prolapse 10/14/2011 Stress echo 02/10/2011 EF 65-70 %, reached 10.5 METs, mitral valve prolapse - moderate-severe, MR -moderate-severe IRENA 12/19/2015 Severe posterior MVP with approximately moderate MR with very eccentric MR jet.Normal LV and RV systolic function. No other hemodynamically significantvalvular disease.Past Surgical History:Procedure Laterality Date CARDIAC CATHETERIZATION N/A 02/03/2020 Procedure: Right heart cath; Surgeon: Rony To MD; Laterality: N/A;needs labs drawn on admit CARDIAC CATHETERIZATION N/A 02/03/2020 Procedure: Left heart cath; Surgeon: Rony To MD; Laterality: N/A; CARDIAC CATHETERIZATION N/A 02/03/2020 Procedure: Coronary angiography; Surgeon: Rony To MD; Laterality:N/A; CARDIAC CATHETERIZATION N/A 02/03/2020 Procedure: Left ventriculography; Surgeon: Rony To MD; Laterality:N/A; COLONOSCOPY SHOULDER SURGERY RightFamily HistoryFamily history unknown: YesSocial HistorySocioeconomic History Marital status: Spouse name: None Number of children: None Years of education: None Highest education level: NoneOccupational History NoneSocial Needs Financial resource strain: None Food insecurity: Worry: None Inability: None Transportation needs: Medical: None Non-medical: NoneTobacco Use Smoking status: Former Smoker Years: 21.00 Types: Cigarettes Last attempt to quit: 1980 Years since quittin.8 Smokeless tobacco: Never Used Tobacco comment: 2 cigarettes/daySubstance and Sexual Activity Alcohol use: Yes Frequency: 2-4 times a month Drug use: Never Sexual activity: NoneLifestyle Physical activity: Days per week: None Minutes per session: None Stress: NoneRelationships Social connections: Talks on phone: None Gets together: None Attends rastafarian service: None Active member of club or organization: None Attends meetings of clubs or organizations: None Relationship status: None Intimate partner violence: Fear of current or ex partner: None Emotionally abused: None Physically abused: None Forced sexual activity: NoneOther Topics Concern NoneSocial History Narrative NoneCurrent Outpatient MedicationsMedication Sig Dispense Refill Apixaban (ELIQUIS) 5 MG TABS tablet Take 1 tablet (5 mg total) by mouth 2(two) times a day 180 tablet 1 atorvastatin (LIPITOR) 40 MG tablet Take 40 mg by mouth daily calcium carbonate (CALCIUM 600) 600 MG tablet Take 600 mg by mouth daily chlorthalidone (HYGROTEN) 25 MG tablet Take 25 mg by mouth daily MULTIPLE VITAMIN-FOLIC ACID PO Take by mouth daily Saw [place] 450 MG CAPS Take by mouth dailyNo current facility-administered medications for this visit.No Known Drug AllergiesReview of SystemsConstitutional: Positive for fatigue. Negative for activity change, appetitechange, chills, fever and unexpected weight change.HENT: Negative for congestion, sore throat, trouble swallowing and voice change.Eyes: Negative for photophobia and visual disturbance.Respiratory: Positive for shortness of breat h. Negative for cough and chesttightness.Cardiovascular: Negative for chest pain, palpitations and leg swelling.Gastrointestinal: Negative for abdominal pain, constipation, diarrhea, nauseaand vomiting.Endocrine: Negative for polydipsia, polyphagia and polyuria.Genitourinary: Negative for dysuria and hematuria.Musculoskeletal: Negative for arthralgias and back pain.Skin: Negative for pallor, rash and wound.Allergic/Immunologic: Negative for environmental allergies, food allergies andimmunocompromised state.Neurological: Negative for dizziness, syncope and light-headedness.Hematological: Negative for adenopathy. Does not bruise/bleed easily.Psychiatric/Behavioral: Negative for confusion and hallucinations.I reviewed 01/10 systems based on the medical records and patient, no othersignificant medical problems other than the ones I reviewed earlier.Objective:Vitals: BP 152/84 (BP Location: Left upper arm, Patient Position: Sitting) |Pulse 94 | Resp 16 | SpO2 96% Comment: room airPhysical ExamConstitutional: He is oriented to person, place, and time. He appearswell- developed and well-nourished.HENT:Head: Normocephalic.Right Ear: External ear normal.Left Ear: External ear normal.Eyes: Pupils are equal, round, and reactive to light.Neck: No JVD present. No tracheal deviation present.Cardiovascular: Normal rate and regular rhythm.Murmur heard.Pulmonary/Chest: Effort normal and breath sounds normal. No stridor. Norespiratory distress. He has no wheezes. He has no rales. He exhibits notenderness.Abdominal: Soft. Bowel sounds are normal. He exhibits no distension.Musculoskeletal: Normal range of mot ion.Lymphadenopathy: He has no cervical adenopathy.Neurological: He is alert and oriented to person, place, and time. No cranialnerve deficit. Coordination normal.Skin: Skin is warm and dry. No rash noted. No erythema. No pallor. Cardiac Catheterization: normal coronary artery Echocardiogram: severe mitral valve regurgitation Name Value Range Interpretation Code Description Data [facility](s) Supporting Document(s) ID Date Data Source [id number] 02/03/2020 12:34:36 PM EST [facility] Name Value Range Interpretation Code Description Data [facility](s) Supporting Document(s) &PDF [facility] [place]KJXn4jXdSGQjCk21/IXCyaFNSmd0YzXIaeNKb0ANjsCVFzR5BenQykRHsMJRyAW0DWBVQRWMITS8EU lYX [file] ICAgICAgICAgICAgICAgICAgICAgICAgICAgICAgIC BtMJKpJMXnLGQyMJJuKYZjSWUtUHYkXB7WVWFuMZGsTCQiFFRtGMKvYAEmXPIpSTRkSFMcYEQyUKOvUS AgICAgICAgICAgICAgICAgICAgICAgICAgICAgICAgICAgICAgICAgICAgICAgICAgICAgICAgICAgIC DiOEDlYZ9IHGMvTXVdYXPwCBGrXYQwWAOwZEIyOXRw ICAgICAgICAgICAgICAgICAgICAgICAgICAgICAgICAgICAgICAgICAgICAgICAgICAgICAgICAgICAg LWEfTPZbPBAiRIGmPBOaEO6IFUWeIFVcTWEhVVYgHYBfGPKbIPOjUXPhRMNeXGYtZQGfDVZxZGVnUIBx ICAgICAgICAgICAgICAgICAgICAgICAgICAgICAgIC AaVPRfIVWqDXQoYAJcDVVtVMOePXFuMFJpSF5XPOKyCHWkXPAhSZMeZEKcXPVoFJScEFYdBFPlVYZgIT AgICAgICAgICAgICAgICAgICAgICAgICAgICAgICAgICAgICAgICAgICAgICAgICAgICAgICAgICAgIC NeSSCbGQCvRP2BQJKnBNBcJLPcHJWuKIHnDNHyPHTn ICAgICAgICAgICAgICAgICAgICAgICAgICAgICAgICAgICAgICAgICAgICAgICAgICAgICAgICAgICAg VZNgMJOcURNkQSGzGHFkTDXeNQ9CLSOlOXJcFFVzZBEfXHRmOWJjFQVkDATbWZDqXLXaVZAfEMEuUEEf ICAgICAgICAgICAgICAgICAgICAgICAgICAgICAgIC AbVUVjTIDyIODkOBLuGECnWSPmVLIuZAFfRIOuGN8RKMEnKXMwKJKgYJKgRBMoZZTpLXQrZIXnPXQgJX AgICAgICAgICAgICAgICAgICAgICAgICAgICAgICAgICAgICAgICAgICAgICAgICAgICAgICAgICAgIC BqPWStCVNoYNIgXJ2ARKUmQSImIIRvUNVqVKLfVTMq ICAgICAgICAgICAgICAgICAgICAgICAgICAgICAgICAgICAgICAgICAgICAgICAgICAgICAgICAgICAg MSMmHIQdHTQjRFOyTYPqVTImISXuEC7BMUCbBCNlXEDhWQNwTHOyPHByPVBaYHByDOLxQUDpZHPuLFOx ICAgICAgICAgICAgICAgICAgICAgICAgICAgICAgIC FzNQBxBCUxDLFoFILcKKRrUSYgYMMrYIQeVSOmETFgAN6HNG10qDVns6W8CJHeNZ7opsh/Vg1YLBkxnn HusXEbLW2MNfJkJS4xxh1MKpJwGU1fip4UYUxNHqJjJ5M7aKGiBXMuJKQABhDnD36dOAwuCb96VNacTJ TyPpGnFXp3Bd1SHxNaL1dvNMKyGjB3RNHyLdB9OKJi AqC8AVQvGfPuWPQiUPHcHA4GDXJoH662exBkED9ZJa5VFvPhKG4xhc7WTjTtDXWfHosHVut9KQojDG4W gXScdSBaUeZjEHMKJdFuW4nkp2KhUpjgYWYZQHbyHA2Ha3DdoBNnTKy+Zz4LER1bw5MqLHniFnTfUG0m lo2GILuFTcIsP2MqxFbfLZkdpDovcqGmKP4WJGIdBL NunFCgQCxgMKCFXN3EBDhdVQN5KSXmstZyyVRdSSneZN6CVFCdipZkHzNvLIBNWLq+Mn2YWX6jy2HdZH vjAPIjSV2voj1JGWiJIoBaQ1T1iHSfG6D0ZHeyUq1MCDJtCCFhDtJwLJLJVJrfUJ3WYL4jqcF8RW7OpJ KiZBLmLJSdvLTtTYn6A15dkMCjLKedTR7ZDRW+Severo+ Tc0AKOFrOCMpKPCaZkAuATLVFwDdT2SoF3ZPo3FxQ1EbKF37tHikhwPtKKnmLU9FBW9yUTWaLEZRIF8I oCCmsO7uqbFtZdObQWHGPoGwQ08noWTvTBZsGMG3LKJqJk9OMVWbV9FhvcXzqNcugvLgQIVuAVGWOW6U XSixsuTmkLHzmKwxGR87dFekWK2HKm0XEfCiLJ0cgl 1ZrGNmZw5DBFRbYV4OZOEaXWIjIFZtDRG5TDWhVmEaXMzzTOQuRWFzBZC2TGDdRDUcDA4FRvKeEYPbGZ NpQLKwVFJvPFBmhd6TATNlVST7CDYeTDZwGGBfRAVtZFnoMQWaUOEuSBv5BFLwURFrGV9TNfMkNSEgSR TqQyZmFFRtXAAxjn7XFDLpNNKjRgN1KDYoBHGcLGHq XLzxKCAlERX9CDXwPIAsOSGqJD7ZDfFoZYXjEJLrHkSwFCTeKSDnew8IGOTkWPZeCld1HYAoBQAtRLSh CJynFIHzJCX0KXZ8IMSaHWObUD9VFsHbNVFuEEumNjHwCGEfVUIrmo6DXTTvAHYaVTCqMlQzODFbHILp RVbsSRQjTBH1AlgfTRGvBTGhWN4LSaVmCMGiPPh2KO jhLVGmWSFmeu7JNYWrXOUxNPX5TbKjLHLnYTYoGCniCRFpLXAzSfFnEHRiKPRoLJ9YGoTzNIKcBCF7Ar LuOSKwTNXdun3WZJDvJLYnBHNpMUUmTWSfCCFmLFzoUUGtQWA6THW7STZdLCCaLI7CUoQjDHBgJZG1Ly LeFOQhFIDwso5BDINjSZBwQtT1UkDgYYLaCXSxETsc KDPlJYQ6OvAkIHMsSNMeXR5JHtVpQNFqStt6NYzlIRStSIEofp7IVPJkYCY8NhA8JPGjJCXlUKYuVYwa BXUwCNX6RxCaSYJoJDBeQI6NNcQxKNReHBfpDTvnJHCtFBCofj4MSEMqNKI4XGO0TYPvXYNwNDAdGRfc DLMdIVN1Ulp7HYZmBMBoFJ7JFlZmXBxjLGNYIdo5WV jdQ1n3SOFvGS4KS4Ywc5StTgyuTRUMOZnjAT3yuuOiCNSxNo1FB8iBIuxpYbW0OSAyKTG0ByRsWdJ3Mq YmOsJzNbBoRZX5MCD9CB5kYXS4WFK0FWLkOvslXHSpWqhbPTKiFRTdZ3I7ZbgcMcs9GcZtDG9AHg2ZLb R6BGU3tGJdMd0ILKo4XjYAUmTmRN2CFCd= ID Date Data Source [id number] 02/03/2020 09:10:25 AM EST [facility] Name Value Range Interpretation Code Description Data [facility](s) Supporting Document(s) EKG [facility] FDYTGr1bKxTDLoNpl0QqRxUrJKBmXY0qlmf7V5L1vLZmG3BykMXrr8owA7FtM0MwBGNoUGCVAI3UaUEs jb2 [file] ncbJzFnNkqoVHJxLvRqhmBwk7rQaSBV40otKFz9kxp+Y11iPsrkksmOC3KBnFMqZaV0RFG/0yCxZ/generator assembler [file] SzKtPCSHK5Fls6MfNLYqRTZKUx1+KrV5FAV9sCShZao3MZtfLIzyIOXIMx== ID Date Data Source [id number] 01/29/2020 12:00:00 AM EDT [facility] Name Value Range Interpretation Code Description Data [facility](s) Supporting Document(s) SARS coronavirus 2 RNA [Presence] in Res piratory specimen by JW with probe detection [facility] This lab was ordered by Nico Cerda and reported by depict. ID Date Data Source [id number] 01/18/2020 07:05:23 PM EDT [facility] Name Value Range Interpretation Code Description Data [facility](s) Supporting Document(s) &PDF [facility] DKDYWw7jStPQPxFa86/VEKshAGPhh2GxTAozDHs6OYgjNJYnZ4SybPppLUlXVMwSC9XBKIXWXAOLM7VR yZW [file] ICAgICAgICAgICAgICAgICAgICAgICAgICAgICAgIC AgICAgICAgICAgICAgICAgICAgICAgICAgICAgICAgICAgICAgICAgICAgICAgICAgICAgICAgICAgIC AgICAgDQogICAgICAgICAgICAgICAgICAgICAgICAgICAgICAgICAgICAgICAgICAgICAgICAgICAgIC AgICAgICAgICAgICAgICAgICAgICAgICAgICAgICAg ICAgICAgICAgICAgICAgDQogICAgICAgICAgICAgICAgICAgICAgICAgICAgICAgICAgICAgICAgICAg ICAgICAgICAgICAgICAgICAgICAgICAgICAgICAgICAgICAgICAgICAgICAgICAgICAgICAgICAgDQog ICAgICAgICAgICAgICAgICAgICAgICAgICAgICAgIC AgICAgICAgICAgICAgICAgICAgICAgICAgICAgICAgICAgICAgICAgICAgICAgICAgICAgICAgICAgIC AgICAgICAgDQogICAgICAgICAgICAgICAgICAgICAgICAgICAgICAgICAgICAgICAgICAgICAgICAgIC AgICAgICAgICAgICAgICAgICAgICAgICAgICAgICAg ICAgICAgICAgICAgICAgICAgDQogICAgICAgICAgICAgICAgICAgICAgICAgICAgICAgICAgICAgICAg ICAgICAgICAgICAgICAgICAgICAgICAgICAgICAgICAgICAgICAgICAgICAgICAgICAgICAgICAgICAg DQogICAgICAgICAgICAgICAgICAgICAgICAgICAgIC AgICAgICAgICAgICAgICAgICAgICAgICAgICAgICAgICAgICAgICAgICAgICAgICAgICAgICAgICAgIC AgICAgICAgICAgDQogICAgICAgICAgICAgICAgICAgICAgICAgICAgICAgICAgICAgICAgICAgICAgIC AgICAgICAgICAgICAgICAgICAgICAgICAgICAgICAg ICAgICAgICAgICAgICAgICAgICAgDQogICAgICAgICAgICAgICAgICAgICAgICAgICAgICAgICAgICAg ICAgICAgICAgICAgICAgICAgICAgICAgICAgICAgICAgICAgICAgICAgICAgICAgICAgICAgICAgICAg ICAgDQogICAgICAgICAgICAgICAgICAgICAgICAgIC AgICAgICAgICAgICAgICAgICAgICAgICAgICAgICAgICAgICAgICAgICAgICAgICAgICAgICAgICAgIC TjUBSiEMDnNCGePJOyLVz3U6tcEQVsSMTzYC1xNOy1Fg2+NYyIPaFbRDX6acMboI5HPM9ou6JlABoeXL Dwc2MkOAk4LI9RXETvTMenTL8FDLooyt3BFSQsOVAw tRQEs8asPbGaDTA1OZPjXerdPP9JHAAoD5xljnAaUIDwIBTQKQwfVDBKAI3UEhYsR2VvxM32YCIPWl8+ FOhnqlYoIixNKuKgSBFbx4LrEDx2QR4PGGMxCZtmXE9OXKIddF8xDDamBE2HTxNyLPYrEETWEjHhA51w eZBqJOa1R7CiJmPtDLSgWhwaQQEkIZafLqPjZVYsTi BdDQogID4+ID4+UBmjEO9KDNjcloVbAOFtMx4CJSScRWR3AVGjsCRaRhXtLWJYCTmxHC7BpGZjEAT3cX 5eCLdlXLNaNIShJ7oLNhHqqCmoVV76lFicggLhtLDcDOe+Gf5JWJ7yu5AeLEm2kjTeKLriKBHvHZnbJB RqNNFiPMAiFEO2BHS5ELTMNlVkSQLnNKSiWGutSWTy RXUamr4BGIQnGUEnGJDuOKWdUQTjJGXhHLixNSWbVLVnJLybHFKaDOMaTG5YXjZnJCMwQCIcPJjyZEOq IZZqmd6OPSSbVSGoZaV5UuShEIIqXWUjSQlqQNTrMCLsGgVuWAYqKTBvRC1SXiGdONEbZGBwIEtdHHAq YKTyxh0IRPZyNZZkGkD7RnNySKPdYWScPStzGKXyFX C1KfQrLVRaFOMuSL5AUrBeVEKmUGu9LNpbUCLzAVUnsf5WSAEqLGKtOeQ1MHWeALGoXRZbLZggGSHgHI M3HcS3UOOcRNTqZY0FZuKcXANzANy0DwLzGKWgILAgme4JUXQxKDSaTFN4OAIoZVPdDEQuEQylPSBeDX UdMFL5MTFsOGYqRO0VXvIoJIVnMAQrNCooDVUyGSTq iu5YVCOmMEQeRYV1WnMiGNJcSWUqBQreKOQtHPW9JPu0JKOnHSMiQP2SQeNuXUPpWMsdOAUzKFMvDYUc pu6YSOHkPRMlOZPrPfQjNFMsUXFpZQlhBLJiZBQcTPm0XAQaDHUtZI5ARtXqHDlmHLQFAkk8XGwvC0i3 FDZyKg0BV3Ztk6MgDeZaNLUYPFocJS2qfkQyREPbJw 1UL5hHXnq5FnXgSJKvNVV2NJWnDbwhOMopKjVdBSD8WVF3IEllPJ4wODEjLLP1KgK7FQO2VfUdJMVmGP K7TQEhTERqUechPHWcOeOzNT8VFj1EPwV6VSR3yLApCr7JEtFoFcPBIjFqEJ7MFXr= ID Date Data Source [id number] 01/06/2020 09:12:43 AM EDT [facility] Name Value Range Interpretation Code Description Data Shiloh rce(s) Supporting Document(s) &PDF [facility] FWMHTq6kSpLRUmAo99/ZDSqrRAWut8XpCBggUKz9YXjwJLMeV9TgbZzqJAyXKAwDG4QVEDNYZOFFN2NZ lYX [file] D4SoF5KPB0CsWeBSA0Dn7mGOHHEg9+SMducUIvaZacVVJCBzG1WjN8IZxmQUESXq9Y Procedure Social History Code Duration Value Status Description Data Source(s ) Alcohol intake 11/02/2020 12:00:00 AM EDT Current drinker of al cohol (finding) completed Current drinker of alcohol (finding) [facility] Smoking 08/31/2020 12:00:00 AM EDT Former Smoker completed Former Smoker [email or web address] ([facility]) Smoking 08/31/2020 12:00:00 AM EDT Former Smoker completed Former Smoker [email or web address] ([facility]) Smoking 07/13/2020 12:00:00 AM EDT Former Smoker completed Former Smoker eCW1 ([facility]) Smoking 07/06/2020 12:00:00 AM EDT Former Smoker completed Former Smoker eCW1 ([facility]) Smoking 04/19/2020 12:00:00 AM EST Former Smoker completed Former Smoker eCW1 ([facility]) Smoking 04/19/2020 12:00:00 AM EST Former Smoker completed Former Smoker eCW1 ([facility]) Alcohol intake 04/11/2020 12:00:00 AM EST Not Currently completed [facility] Smoking 04/11/2020 12:00:00 AM EST Former smoker completed Former smoker [facility] Alcohol intake 03/28/2020 12:00:00 AM EST Not Currently completed [facility] Smoking 03/28/2020 12:00:00 AM EST Former smoker completed Former smoker [facility] Alcohol intake 03/27/2020 12:00:00 AM EST Not Currently completed [facility] Smoking 03/27/2020 12:00:00 AM EST Former smoker completed Former smoker [facility] Alcohol intake 03/09/2020 12:00:00 AM EST Yes completed [facility] Smoking 03/09/2020 12:00:00 AM EST Former smoker completed Former smoker [facility] Alcohol intake 03/01/2020 12:00:00 AM EST Yes completed [facility] Smoking 03/01/2020 12:00:00 AM EST Former smoker completed Former smoker [facility] Alcohol intake 02/03/2020 12:00:00 AM EST Yes completed [facility] Smoking 02/03/2020 12:00:00 AM EST Former smoker completed Former smoker [facility] Tobacco use and exposure 12/30/2019 12:00:00 AM EDT Never used co mpleted Never used [facility] Smoking 12/30/2019 12:00:00 AM EDT Former smoker completed Former smoker [facility] Vital Signs ID Date Data Source UNK Name Value Range Interpretation Code Description Data Source(s) [facility]stolic blood pressure 120 mm[Hg] 120 mm[facility]Hg] [facility] Diastolic blood pressure 70 mm[Hg] 70 mm[Hg] [facility] ([facility]) Body temperature 98.5 [degF] 98.5 [degF] [facility] ([facility]) Body height 71 [in_i] 71 [in_i] [facility] ([facility]) 5'11" Body weight 191.00 [lb_av] 191.00 [lb_av] [facility] T ([facility]) Body mass index (BMI) [Ratio] 26.6 kg/m2 26.6 k g/m2 [facility] ([facility]) [place] body weight 172 [lb_av] 172 [lb_av] [facility] Body weight 86.638 kg 86.638 kg [facility] ([facility]) Body surface area Derived from formula 2.07 m2 2.07 m2 [facility] ([facility]) Body weight 86.183 kg 86.183 kg [facility] Body mass index (BMI) [Ratio] 26.50 kg/m2 26.50 kg/m2 [facility] Oxygen saturation in Arterial blood by Pulse oximetry 96 % 96 % [facility] Systolic blood pressure 118 mm[Hg] 118 mm[Hg] [facility] Diastolic blood pressure 72 mm[Hg] 72 mm[Hg] [facility] Heart rate 81 /min 81 /min [facility] Body height 180.3 cm 180.3 cm [facility] Body weight 185.8 [lb_av] 185.8 [lb_av] eCW1 ([facility]) Body height 71 [in_i] 71 [in_i] eCW1 ([facility]) Body mass index (BMI) [Ratio] 25.91 kg/m2 25.91 kg/m2 eCW1 ([facility]) Heart rate 82 /min 82 /min eCW1 ([facility]) Respiratory rate 18 /min 18 /min eCW1 ([facility]) Body temperature 98.7 [degF] 98.7 [degF] eCW1 ( [facility]) Systolic blood pressure 132 mm[Hg] 132 mm[Hg] e CW1 ([facility]) Diastolic blood pressure 80 mm[Hg] 80 mm[Hg] eCW1 ([facility]) Body mass index (BMI) [Ratio] 25.8 kg/m2 25.8 k g/m2 [facility] ([facility]) Body weight 83.916 kg 83.916 kg [facility] ([facility]) Body surface area Derived from formula 2.04 m2 2.04 m2 [facility] ([facility]) Systolic blood pressure 118 mm[Hg] 118 mm[Hg] M EDENT ([facility]) Diastolic blood pressure 76 mm[Hg] 76 mm[Hg] [facility] ([facility]) Body height 71 [in_i] 71 [in_i] [facility] ([facility]) 5'11" Body weight 185.00 [lb_av] 185.00 [lb_av] [facility] T ([facility]) [place] body weight 172 [lb_av] 172 [lb_av] [facility] ([facility]) Body weight 83.916 kg 83.916 kg [facility] ([facility]) Body surface area Derived from formula 2.04 m2 2.04 m2 [facility] Body height 71 [in_i] 71 [in_i] [facility] 5'11" Body weight 185.00 [lb_av] 185.00 [lb_av] [facility] ([facility]) Body mass index (BMI) [Ratio] 25.8 kg/m2 25.8 k g/m2 [facility] ([facility]) [place] body weight 172 [lb_av] 172 [lb_av] [facility] ([facility]) Body weight 186.2 [lb_av] 186.2 [lb_av] eCW1 ([facility]) Body height 71 [in_i] 71 [in_i] eCW1 ([facility]) Body mass index (BMI) [Ratio] 25.97 kg/m2 25.97 kg/m2 eCW1 ([facility]) Heart rate 89 /min 89 /min eCW1 ([facility]) Respiratory rate 18 /min 18 /min eCW1 ([facility]) Body temperature 97.7 [degF] 97.7 [degF] eCW1 ( [facility]) Systolic blood pressure 124 mm[Hg] 124 mm[Hg] e CW1 ([facility]) Diastolic blood pressure 80 mm[Hg] 80 mm[Hg] eCW1 ([facility]) Systolic blood pressure 150 mm[Hg] 150 mm[Hg] M EDENT ([facility], ) Diastolic blood pressure 74 mm[Hg] 74 mm[Hg] [facility] Body height 71 [in_i] 71 [in_i] [facility] ([facility]) 5'11" Body weight 184.00 [lb_av] 184.00 [lb_av] [facility] T ([facility]) Body mass index (BMI) [Ratio] 25.7 kg/m2 25.7 k g/m2 [facility] ([facility]) [place] body weight 172 [lb_av] 172 [lb_av] [facility] ([facility]) Body weight 83.462 kg 83.462 kg [facility] ([facility]) Body surface area Derived from formula 2.04 m2 2.04 m2 [facility] ([facility]) Body height 71 [in_i] 71 [in_i] [facility] 5'11" Body weight 178.25 [lb_av] 178.25 [lb_av] [facility] T ([facility]) Body mass index (BMI) [Ratio] 24.9 kg/m2 24.9 k g/m2 [facility] ([facility]) [place] body weight 172 [lb_av] 172 [lb_av] [facility] ([facility]) Body weight 80.854 kg 80.854 kg [facility] ([facility]) Body surface area Derived from formula 2.01 m2 2.01 m2 [facility] Systolic blood pressure 124 mm[Hg] 124 mm[Hg] M EDENT ([facility]) Diastolic blood pressure 68 mm[Hg] 68 mm[Hg] [facility] ([facility]) Body weight 177 [lb_av] 177 [lb_av] eCW1 ([facility]) Body height 71 [in_i] 71 [in_i] eCW1 ([facility]) Body mass index (BMI) [Ratio] 24.68 kg/m2 24.68 kg/m2 eCW1 ([facility]) Heart rate 92 /min 92 /min eCW1 ([facility]) Respiratory rate 18 /min 18 /min W1 ([facility]) Body temperature 97.1 [degF] 97.1 [degF] eCW1 ( [facility]) Systolic blood pressure 118 mm[Hg] 118 mm[Hg] e CW1 ([facility]) Diastolic blood pressure 66 mm[Hg] 66 mm[Hg] eCW1 ([facility]) Systolic blood pressure 114 mm[Hg] 114 mm[Hg] [facility] Diastolic blood pressure 60 mm[Hg] 60 mm[Hg] [facility] Heart rate 83 /min 83 /min [facility] Body height 180.3 cm 180.3 cm [facility] Body weight 80.74 kg 80.74 kg [facility] Body mass index (BMI) [Ratio] 24.83 kg/m2 24.83 kg/m2 [facility] Oxygen saturation in Arterial blood by Pulse oximetry 98 % 98 % [facility] Body weight 181.4 [lb_av] 181.4 [lb_av] eCW1 ([facility]) Body height 71 [in_i] 71 [in_i] eCW1 ([facility]) Body mass index (BMI) [Ratio] 25.30 kg/m2 25.30 kg/m2 eCW1 ([facility]) Heart rate 98 /min 98 /min eCW1 ([facility]) Respiratory rate 18 /min 18 /min eCW1 ([facility]) Body temperature 97.8 [degF] 97.8 [degF] eCW1 ( [facility]) Systolic blood pressure 118 mm[Hg] 118 mm[Hg] e CW1 ([facility]) Diastolic blood pressure 66 mm[Hg] 66 mm[Hg] eCW1 ([facility]) Systolic blood pressure 134 mm[Hg] 134 mm[Hg] [facility] Diastolic blood pressure 72 mm[Hg] 72 mm[Hg] [facility] Heart rate 73 /min 73 /min [facility] Respiratory rate 16 /min 16 /min [facility] Oxygen saturation in Arterial blood by Pulse oximetry 96 % 96 % [facility] room air Systolic blood pressure 130 mm[Hg] 130 mm[Hg] [facility] Diastolic blood pressure 72 mm[Hg] 72 mm[Hg] [facility] Heart rate 70 /min 70 /min [facility] Body height 180.3 cm 180.3 cm [facility] Body weight 80.74 kg 80.74 kg [facility] Body mass index (BMI) [Ratio] 24.83 kg/m2 24.83 kg/m2 [facility] Oxygen saturation in Arterial blood by Pulse oximetry 95 % 95 % [facility] Systolic blood pressure 143 mm[Hg] 143 mm[Hg] [facility] Diastolic blood pressure 68 mm[Hg] 68 mm[Hg] [facility] Heart rate 65 /min 65 /min [facility] Respiratory rate 18 /min 18 /min [facility] Oxygen saturation in Arterial blood by Pulse oximetry 94 % 94 % [facility] Body temperature 36.44 Lexie 36.44 Lexie [facility] Body weight 82.691 kg 82.691 kg [facility] Body mass index (BMI) [Ratio] 25.43 kg/m2 25.43 kg/m2 [facility] Body height 180.3 cm 180.3 cm [facility] Systolic blood pressure 142 mm[Hg] 142 mm[Hg] [facility] Diastolic blood pressure 82 mm[Hg] 82 mm[Hg] [facility] Heart rate 85 /min 85 /min [facility] Body height 177.8 cm 177.8 cm [facility] Body weight 85.412 kg 85.412 kg [facility] Body mass index (BMI) [Ratio] 27.02 kg/m2 27.02 kg/m2 [facility] Oxygen saturation in Arterial blood by Pulse oximetry 96 % 96 % [facility] Systolic blood pressure 137 mm[Hg] 137 mm[Hg] [facility] Diastolic blood pressure 94 mm[Hg] 94 mm[Hg] [facility] Heart rate 74 /min 74 /min [facility] Body temperature 36.78 Lexie 36.78 Lexie [facility] Oxygen saturation in Arterial blood by Pulse oximetry 97 % 97 % [facility] Respiratory rate 18 /min 18 /min [facility] Body height 180.3 cm 180.3 cm [facility] Body weight 81.7 kg 81.7 kg [facility] Body mass index (BMI) [Ratio] 25.12 kg/m2 25.12 kg/m2 [facility] Patient Treatment Plan of Care Planned Activity Planned Date Details Description Data Source (s) apixaban 5 MG Oral Tablet [Eliquis] 10/03/2020 12:00:00 AM EDT [facility] Chlorthalidone 25 MG Oral Tablet 06/19/2020 12:00:00 AM EDT [facility] Warfarin Sodium 4 MG Oral Tablet 03/14/2020 12:00:00 AM EST [facility] Aspirin 81 MG Delayed Release Oral Tablet 03/14/2020 12:00:00 AM ES T [facility] Acetaminophen 325 MG Oral Tablet 03/14/2020 12:00:00 AM EST [facility] apixaban 5 MG Oral Tablet 12/30/2019 12:00:00 AM EDT [facility] Saw [place] 450 MG CAPS 10/13/2011 12:00:00 AM EDT [facility] Calcium Carbonate 1500 MG Oral Tablet 10/13/2011 12:00:00 AM EDT [facility] Calcium Carbonate 1500 MG Oral Tablet [facility] atorvastatin 40 MG Oral Tablet [facility] Chlorthalidone 25 MG Oral Tablet [facility]
[2021-01-17] MEDS ORDERED: LIDOCAINE 2% 100MG/5ML SDV (FOR ANES.) As Ordered ONE (13:30)
[2021-01-17] MEDS ORDERED: propofoL 200 MG/20 ML VIAL As Ordered ONE ×2 (13:30→13:41)
[2021-01-17 14:30] VITALS: BP 104/66
--- NOTE | 2021-01-17 14:51 | ROOR ---
Patient Name: Rufino Mcneill Procedure Date: 01/17/2021 1:24 PM Date of : 1940 Age: 80 Room: [facility] Gender: Male Note Status: Finalized Procedure: Colonoscopy Indications: High risk colon cancer surveillance: Personal history of non-advanced adenoma, Last colonoscopy: June 2015 Providers: Thanh Agustin MD Referring MD: DINA JIMENEZ MD Requesting Provider: Medicines: Monitored Anesthesia Care Complications: No immediate complications. Procedure: Pre-Anesthesia Assessment: - Prior to the procedure, a History and Physical was performed, and patient medications and allergies were reviewed. The patient is competent. The risks and benefits of the procedure and the sedation options and risks were discussed with the patient. All questions were answered and informed consent was obtained. Patient identification and proposed procedure were verified by the physician, the nurse and the wrapper stripper in the procedure room. Mental Status Examination: alert and oriented. Airway Examination: normal oropharyngeal airway and neck mobility. Prophylactic Antibiotics: The patient does not require prophylactic antibiotics. Prior Anticoagulants: The patient has taken Eliquis (apixaban), last dose was 4 days prior to procedure. ASA Grade Assessment: III - A patient with severe systemic disease. After reviewing the risks and benefits, the patient was deemed in satisfactory condition to undergo the procedure. The anesthesia plan was to use monitored anesthesia care (MAC). Immediately prior to administration of medications, the patient was re-assessed for adequacy to receive sedatives. The heart rate, respiratory rate, oxygen saturations, blood pressure, adequacy of pulmonary ventilation, and response to care were monitored throughout the procedure. The physical status of the patient was re-assessed after the procedure. The Colonoscope was introduced through the anus and advanced to the cecum, identified by appendiceal orifice and ileocecal valve. The colonoscopy was somewhat difficult due to a redundant colon. The patient tolerated the procedure well. The quality of the bowel preparation was excellent. Findings: The perianal and digital rectal examinations were normal. A 3 mm polyp was found in the cecum. The polyp was sessile. The polyp was removed with a jumbo cold forceps. Resection and retrieval were complete. Three sessile polyps were found in the proximal ascending colon and cecum. The polyps were 4 to 7 mm in size. These polyps were removed with a cold snare. Resection and retrieval were complete. Estimated blood loss was minimal. A few medium-mouthed diverticula were found in the sigmoid colon. Impression: - One 3 mm polyp in the cecum, removed with a jumbo cold forceps. Resected and retrieved. - Three 4 to 7 mm polyps in the proximal ascending colon and in the cecum, removed with a cold snare. Resected and retrieved. - Diverticulosis in the sigmoid colon. Recommendation: - Discharge patient to home. - Resume previous diet. - Continue present medications. - Await pathology results. - Return to my office as previously scheduled. Procedure Code(s): --- Professional --- 73803, Colonoscopy, flexible; with removal of tumor(s), polyp(s), or other lesion(s) by snare technique 38666, 59, Colonoscopy, flexible; with biopsy, single or multiple Diagnosis Code(s): --- Professional --- K63.5, Polyp of colon Z86.010, Personal history of colonic polyps CPT copyright 2019 [employer]. All rights reserved. The codes documented in this report are preliminary and upon general office dispatcher review may be revised to meet current compliance requirements. Thanh Agustin MD Thanh Agustin MD 01/17/2021 2:51:42 PM Electronically signed by Thanh Agustin MD Number of Addenda: 0 Note Initiated On: 01/17/2021 1:24 PM Estimated Blood Loss: Estimated blood loss was minimal. Estimated blood loss was minimal.
== END 2021-01-17 15:08 | disposition home or self-care (01) ==
LOC: M OPP 12:02
PROVIDERS: ATTEND Surgery
DX: Z12.11 Encounter for screening for malignant neoplasm of colon (principal); Z86.010 Personal history of colon polyps; D12.6 Benign neoplasm of colon, unspecified; K57.30 Diverticulosis of large intestine without perforation or abscess without bleeding; K62.5 Hemorrhage of anus and rectum; Z79.01 Long term (current) use of anticoagulants; Z79.899 Other long term (current) drug therapy; Z87.891 Personal history of nicotine dependence

== ENCOUNTER 2021-07-31 19:05 | Emergency (ER) | payer MEDICARE, OTHER ==
[~2021-07-31] VITALS: Ht 180.3 cm; Wt 77.7 kg
[~2021-07-31 19:05] MED LIST changes: -NS 1,000 ML IV ONE
[2021-07-31 19:47] LABS: BASO # 0.1 10^3/uL (0.0-0.2); BASO % 0.8 % (0.0-1.0); EOS # 0.2 10^3/uL (0.0-0.5); EOS % 3.2 % (0.0-3.0); HEMATOCRIT 44.5 % (42.0-52.0); HEMOGLOBIN 15.4 g/dl (13.5-17.5); LYMPH # 2.4 10^3/uL (1.5-5.0); LYMPH % 32.9 % (24.0-44.0); MEAN CORPUSCULAR HEMOGLOBIN 33.2 pg (27.0-33.0); MEAN CORPUSCULAR HGB CONC 34.6 g/dl (32.0-36.5); MEAN CORPUSCULAR VOLUME 95.9 fl (80.0-96.0); MONO # 0.7 10^3/uL (0.0-0.8); NEUTROPHILS # 3.8 10^3/uL (1.5-8.5); NEUTROPHILS % 52.7 % (36.0-66.0); PLATELET COUNT, AUTOMATED 274 10^3/uL (150-450); RED BLOOD COUNT 4.64 10^6/uL (4.30-6.10); WHITE BLOOD COUNT 7.2 10^3/uL (4.0-10.0)
[2021-07-31] MEDS ORDERED: ASPIRIN 81 MG CHEW TABLET PO ONE (19:55)
[2021-07-31] MEDS ORDERED: fentaNYL 100 MCG/2 ML INJECTION IV ONE ×2 (19:55→21:00)
[2021-07-31 20:04] LABS: CK-MB VALUE MASS 3.9 NG/ML (<3.6); MB/CK RELATIVE INDEX 2.2 (< OR =4)
[2021-07-31] MEDS ORDERED: ISOVUE-370 76% 100ML VIAL As Ordered ONE (20:07)
[2021-07-31 20:12] LABS: BLOOD UREA NITROGEN 28 MG/DL (7-18); CARBON DIOXIDE LEVEL 23 MEQ/L (21-32); CHLORIDE LEVEL 106 MEQ/L (98-107); CREATININE FOR GFR 0.84 MG/DL (0.70-1.30); GLOMERULAR FILTRATION RATE > 60.0 (>42); GLUCOSE, FASTING 114 MG/DL (70-100); POTASSIUM SERUM 3.7 MEQ/L (3.5-5.1); SODIUM LEVEL 140 MEQ/L (136-145)
[2021-07-31 21:14] LABS: CK-MB VALUE MASS 4.1 NG/ML (<3.6); MB/CK RELATIVE INDEX 2.32 (< OR =4)
[2021-07-31 23:01] VITALS: BP 127/66
[2021-07-31] MEDS ORDERED: OXYCODONE/APAP 5MG/325MG(BULK FOR ED) 1 TABLET PO ONE (23:05)
== END 2021-07-31 23:17 | disposition home or self-care (01) ==
LOC: M ED 19:05
DX: R07.89 Other chest pain (principal); I10 Essential (primary) hypertension; E78.5 Hyperlipidemia, unspecified; I71.4 Abdominal aortic aneurysm, without rupture; Z79.899 Other long term (current) drug therapy; Z79.01 Long term (current) use of anticoagulants; Z87.891 Personal history of nicotine dependence
CPT/HCPCS: 71045; 71275; 80048; 82550; 82553; 84484; 85025; 93005; 93041; 94760; 96374; 96376; 99285; J3010; Q9967

== ENCOUNTER → 2021-08-02 | Outpatient (CLI) | payer MEDICARE, OTHER ==
[2021-08-02 10:09] LABS: BASO # 0.1 10^3/uL (0.0-0.2); EOS # 0.3 10^3/uL (0.0-0.5); EOS % 4.2 % (0.0-3.0); HEMATOCRIT 49.8 % (42.0-52.0); HEMOGLOBIN 16.8 g/dl (13.5-17.5); LYMPH # 1.8 10^3/uL (1.5-5.0); LYMPH % 26.7 % (24.0-44.0); MEAN CORPUSCULAR HEMOGLOBIN 32.6 pg (27.0-33.0); MEAN CORPUSCULAR HGB CONC 33.7 g/dl (32.0-36.5); MEAN CORPUSCULAR VOLUME 96.5 fl (80.0-96.0); MONO # 0.6 10^3/uL (0.0-0.8); NEUTROPHILS # 4.1 10^3/uL (1.5-8.5); NEUTROPHILS % 58.8 % (36.0-66.0); PLATELET COUNT, AUTOMATED 274 10^3/uL (150-450); RED BLOOD COUNT 5.16 10^6/uL (4.30-6.10); WHITE BLOOD COUNT 6.9 10^3/uL (4.0-10.0)
[2021-08-02 10:10] LABS: ALBUMIN 4.3 GM/DL (3.2-5.2); ALT/SGPT 38 U/L (12-78); BILIRUBIN,TOTAL 1.2 MG/DL (0.2-1.0); BLOOD UREA NITROGEN 22 MG/DL (7-18); CALCIUM LEVEL 9.9 MG/DL (8.8-10.2); CARBON DIOXIDE LEVEL 31 MEQ/L (21-32); CHLORIDE LEVEL 102 MEQ/L (98-107); CHOLESTEROL LEVEL 217 MG/DL (<200); CREATININE FOR GFR 0.91 MG/DL (0.70-1.30); GLOMERULAR FILTRATION RATE > 60.0 (>42); GLUCOSE, FASTING 120 MG/DL (70-100); HDL CHOLESTEROL 70 MG/DL (>40); LDL CHOLESTEROL 119 MG/DL (<100); NON-HDL-C 147 MG/DL; POTASSIUM SERUM 3.9 MEQ/L (3.5-5.1); SODIUM LEVEL 141 MEQ/L (136-145); TOTAL PROTEIN 8.2 GM/DL (6.4-8.2); TRIGLYCERIDES LEVEL 140 MG/DL (<150)
== END ==
LOC: M PLALAB 08:38
PROVIDERS: ATTEND Family Medicine
DX: E78.00 Pure hypercholesterolemia, unspecified (principal); I10 Essential (primary) hypertension; E78.6 Lipoprotein deficiency; Z87.19 Personal history of other diseases of the digestive system

== ENCOUNTER → 2021-11-04 | Outpatient (CLI) | payer MEDICARE, OTHER ==
[2021-11-04 14:07] LABS: BASO # 0.1 10^3/uL (0.0-0.2); BASO % 0.9 % (0.0-1.0); EOS # 0.3 10^3/uL (0.0-0.5); EOS % 5.2 % (0.0-3.0); HEMATOCRIT 48.2 % (42.0-52.0); HEMOGLOBIN 16.2 g/dl (13.5-17.5); LYMPH # 1.7 10^3/uL (1.5-5.0); LYMPH % 25.9 % (24.0-44.0); MEAN CORPUSCULAR HEMOGLOBIN 32.4 pg (27.0-33.0); MEAN CORPUSCULAR HGB CONC 33.6 g/dl (32.0-36.5); MEAN CORPUSCULAR VOLUME 96.4 fl (80.0-96.0); MONO # 0.7 10^3/uL (0.0-0.8); NEUTROPHILS # 3.6 10^3/uL (1.5-8.5); NEUTROPHILS % 56.2 % (36.0-66.0); PLATELET COUNT, AUTOMATED 272 10^3/uL (150-450); WHITE BLOOD COUNT 6.4 10^3/uL (4.0-10.0)
[2021-11-04 16:08] LABS: ALBUMIN 3.8 GM/DL (3.2-5.2); ALT/SGPT 39 U/L (12-78); BILIRUBIN,TOTAL 0.9 MG/DL (0.2-1.0); BLOOD UREA NITROGEN 19 MG/DL (7-18); CALCIUM LEVEL 9.5 MG/DL (8.8-10.2); CARBON DIOXIDE LEVEL 34 MEQ/L (21-32); CHLORIDE LEVEL 100 MEQ/L (98-107); CHOLESTEROL LEVEL 160 MG/DL (<200); GLOMERULAR FILTRATION RATE > 60.0 (>42); GLUCOSE, FASTING 118 MG/DL (70-100); HDL CHOLESTEROL 62 MG/DL (>40); LDL CHOLESTEROL 85 MG/DL (<100); NON-HDL-C 98 MG/DL; POTASSIUM SERUM 3.7 MEQ/L (3.5-5.1); SODIUM LEVEL 139 MEQ/L (136-145); TOTAL PROTEIN 7.3 GM/DL (6.4-8.2); TRIGLYCERIDES LEVEL 64 MG/DL (<150)
== END ==
LOC: M PLALAB 09:55
PROVIDERS: ATTEND Family Medicine
DX: E78.00 Pure hypercholesterolemia, unspecified (principal); E78.5 Hyperlipidemia, unspecified; I10 Essential (primary) hypertension; Z87.19 Personal history of other diseases of the digestive system; D50.0 Iron deficiency anemia secondary to blood loss (chronic)

== ENCOUNTER → 2022-08-18 | Outpatient (CLI) | payer MEDICARE, OTHER ==
[2022-08-18 14:02] LABS: BASO # 0.1 10^3/uL (0.0-0.2); BASO % 0.8 % (0.0-1.0); EOS # 0.2 10^3/uL (0.0-0.5); EOS % 3.3 % (0.0-3.0); HEMATOCRIT 45.7 % (42.0-52.0); HEMOGLOBIN 15.6 g/dl (13.5-17.5); LYMPH # 1.5 10^3/uL (1.5-5.0); LYMPH % 21.5 % (24.0-44.0); MEAN CORPUSCULAR HEMOGLOBIN 33.3 pg (27.0-33.0); MEAN CORPUSCULAR HGB CONC 34.1 g/dl (32.0-36.5); MEAN CORPUSCULAR VOLUME 97.4 fl (80.0-96.0); MONO # 0.6 10^3/uL (0.0-0.8); MONO % 8.9 % (2.0-8.0); NEUTROPHILS # 4.7 10^3/uL (1.5-8.5); NEUTROPHILS % 65.1 % (36.0-66.0); PLATELET COUNT, AUTOMATED 247 10^3/uL (150-450); RED BLOOD COUNT 4.69 10^6/uL (4.30-6.10); WHITE BLOOD COUNT 7.2 10^3/uL (4.0-10.0)
[2022-08-18 14:32] LABS: ALBUMIN 3.8 G/DL (3.2-5.2); ALKALINE PHOSPHATASE 77 U/L (46-116); ALT/SGPT 37 U/L (7.0-40); AST/SGOT 29 U/L (<34); BILIRUBIN,TOTAL 1.2 MG/DL (0.3-1.2); BLOOD UREA NITROGEN 18 MG/DL (9-23); CALCIUM LEVEL 9.3 MG/DL (8.3-10.6); CARBON DIOXIDE LEVEL 33 MMOL/L (20-31); CHLORIDE LEVEL 102 MMOL/L (98-107); CHOLESTEROL LEVEL 143 MG/DL (<200); CHOLESTEROL RISK RATIO 2.34 (<5); CREATININE FOR GFR 1.06 MG/DL (0.70-1.30); GLOMERULAR FILTRATION RATE > 60.0 (>42); GLUCOSE, FASTING 113 MG/DL (74-106); HDL CHOLESTEROL 61.1 MG/DL (>40); LDL CHOLESTEROL 61.9 MG/DL (<100); NON-HDL-C 81.9 MG/DL; POTASSIUM SERUM 3.6 MMOL/L (3.5-5.1); SODIUM LEVEL 142 MMOL/L (136-145); TOTAL PROTEIN 6.9 G/DL (5.7-8.2); TRIGLYCERIDES LEVEL 100 MG/DL (<150)
== END ==
LOC: M PLALAB 09:47
PROVIDERS: ATTEND Internal Medicine Cardiovascular Disease
DX: J20.8 Acute bronchitis due to other specified organisms (principal); E78.00 Pure hypercholesterolemia, unspecified; I10 Essential (primary) hypertension; Z95.2 Presence of prosthetic heart valve

== ENCOUNTER → 2023-03-03 | Outpatient (CLI) | payer MEDICARE, OTHER ==
[2023-03-03 15:29] LABS: HEMOGLOBIN A1c 5.7 % (4.0-6.0)
== END ==
LOC: M PLALAB 10:29
PROVIDERS: ATTEND Family Medicine
DX: R73.01 Impaired fasting glucose (principal)

== ENCOUNTER → 2023-06-01 | Outpatient (CLI) | payer MEDICARE, OTHER | LOC: M SOG 07:59 | PROVIDERS: ATTEND Orthopaedic Surgery | DX: M25.552 Pain in left hip (principal); M16.12 Unilateral primary osteoarthritis, left hip ==

== ENCOUNTER → 2023-06-15 | Outpatient (CLI) | payer MEDICARE, OTHER ==
[~2023-06-15] MED LIST changes: +ISOVUE-300 61% 100ML VIAL As Ordered ONE; +LIDOCAINE 1% MDV 20ML VIAL As Ordered ONE; +methylPREDNISolone SUSP 40MG/ML 1ML VIAL (DEPO MEDROL) As Ordered ONE
== END ==
LOC: M RAD 13:25
PROVIDERS: ATTEND Orthopaedic Surgery
DX: M16.12 Unilateral primary osteoarthritis, left hip (principal)
CPT/HCPCS: 20610; 77002; J0665; J1030; Q9967

== ENCOUNTER → 2023-11-18 | Outpatient (CLI) | payer MEDICARE, OTHER ==
[~2023-11-18] MED LIST changes: -CRAN400C PO; +CRANBERRY400 MG PO; -ISOVUE-300 61% 100ML VIAL As Ordered ONE; -LIDOCAINE 1% MDV 20ML VIAL As Ordered ONE; -methylPREDNISolone SUSP 40MG/ML 1ML VIAL (DEPO MEDROL) As Ordered ONE
[2023-11-18 12:59] LABS: HEMATOCRIT 47.4 % (42.0-52.0); HEMOGLOBIN 15.4 g/dl (13.5-17.5); MEAN CORPUSCULAR HEMOGLOBIN 31.4 pg (27.0-33.0); MEAN CORPUSCULAR HGB CONC 32.5 g/dl (32.0-36.5); MEAN CORPUSCULAR VOLUME 96.5 fl (80.0-96.0); PLATELET COUNT, AUTOMATED 416 10^3/uL (150-450); RED BLOOD COUNT 4.91 10^6/uL (4.30-6.10); WHITE BLOOD COUNT 11.3 10^3/uL (4.0-10.0)
[2023-11-18 13:28] LABS: ALBUMIN 3.5 G/DL (3.2-5.2); ALKALINE PHOSPHATASE 115 U/L (46-116); ALT/SGPT 43 U/L (7.0-40); AST/SGOT 30 U/L (<34); BILIRUBIN,TOTAL 0.9 MG/DL (0.3-1.2); BLOOD UREA NITROGEN 19 MG/DL (9-23); CALCIUM LEVEL 9.4 MG/DL (8.3-10.6); CARBON DIOXIDE LEVEL 33 MMOL/L (20-31); CHLORIDE LEVEL 102 MMOL/L (98-107); CHOLESTEROL LEVEL 122 MG/DL (<200); CHOLESTEROL RISK RATIO 2.51 (<5); CREATININE FOR GFR 0.89 MG/DL (0.70-1.30); GLOMERULAR FILTRATION RATE > 60.0 (>35); GLUCOSE, FASTING 119 MG/DL (74-106); HDL CHOLESTEROL 48.6 MG/DL (>40); LDL CHOLESTEROL 53.4 MG/DL (<100); NON-HDL-C 73.4 MG/DL; POTASSIUM SERUM 4.6 MMOL/L (3.5-5.1); SODIUM LEVEL 137 MMOL/L (136-145); TOTAL PROTEIN 7.7 G/DL (5.7-8.2); TRIGLYCERIDES LEVEL 100 MG/DL (<150)
== END ==
LOC: M PLALAB 10:34
PROVIDERS: ATTEND Family Medicine
DX: N52.9 Male erectile dysfunction, unspecified (principal); E78.00 Pure hypercholesterolemia, unspecified; E78.6 Lipoprotein deficiency; I10 Essential (primary) hypertension; L40.9 Psoriasis, unspecified

== ENCOUNTER → 2023-11-26 | Outpatient (REF) | payer MEDICARE, OTHER | LOC: M SFHCPLAZ 15:47 | PROVIDERS: ATTEND Family Medicine | DX: M35.3 Polymyalgia rheumatica (principal) ==

== ENCOUNTER → 2023-11-26 | Outpatient (CLI) | payer MEDICARE, OTHER ==
[2023-11-26 18:49] LABS: BASO # 0.1 10^3/uL (0.0-0.2); BASO % 0.5 % (0.0-1.0); EOS # 0.4 10^3/uL (0.0-0.5); EOS % 3.3 % (0.0-3.0); HEMATOCRIT 45.3 % (42.0-52.0); HEMOGLOBIN 14.7 g/dl (13.5-17.5); LYMPH # 2.1 10^3/uL (1.5-5.0); LYMPH % 18.8 % (24.0-44.0); MEAN CORPUSCULAR HEMOGLOBIN 31.2 pg (27.0-33.0); MEAN CORPUSCULAR HGB CONC 32.5 g/dl (32.0-36.5); MEAN CORPUSCULAR VOLUME 96.2 fl (80.0-96.0); MONO # 1.2 10^3/uL (0.0-0.8); MONO % 10.9 % (2.0-8.0); NEUTROPHILS # 7.3 10^3/uL (1.5-8.5); PLATELET COUNT, AUTOMATED 438 10^3/uL (150-450); RED BLOOD COUNT 4.71 10^6/uL (4.30-6.10)
[2023-11-26 18:54] LABS: ERYTHROCYTE SEDIMENTATION RATE 49 mm/hr (0-20)
[2023-11-26 19:22] LABS: RHEUMATOID FACTOR QUANT < 3.5 IU/ML (<14)
== END ==
LOC: M PLALAB 16:01
PROVIDERS: ATTEND Family Medicine
DX: M35.3 Polymyalgia rheumatica (principal)

== ENCOUNTER → 2023-12-14 | Outpatient (CLI) | payer MEDICARE, OTHER ==
[2023-12-14 10:16] LABS: BASO # 0.1 10^3/uL (0.0-0.2); BASO % 0.6 % (0.0-1.0); EOS # 0.3 10^3/uL (0.0-0.5); EOS % 2.1 % (0.0-3.0); HEMATOCRIT 45.7 % (42.0-52.0); LYMPH # 3.9 10^3/uL (1.5-5.0); LYMPH % 31.8 % (24.0-44.0); MEAN CORPUSCULAR HEMOGLOBIN 31.6 pg (27.0-33.0); MEAN CORPUSCULAR HGB CONC 32.8 g/dl (32.0-36.5); MEAN CORPUSCULAR VOLUME 96.4 fl (80.0-96.0); MONO # 1.2 10^3/uL (0.0-0.8); MONO % 9.7 % (2.0-8.0); NEUTROPHILS # 6.7 10^3/uL (1.5-8.5); NEUTROPHILS % 54.9 % (36.0-66.0); PLATELET COUNT, AUTOMATED 326 10^3/uL (150-450); RED BLOOD COUNT 4.74 10^6/uL (4.30-6.10); WHITE BLOOD COUNT 12.3 10^3/uL (4.0-10.0)
[2023-12-14 10:33] LABS: ALBUMIN 3.6 G/DL (3.2-5.2)
[2023-12-14 10:40] LABS: PERCENT SATURATION 28.4 % (19.7-50.0)
[2023-12-14 10:42] LABS: FERRITIN 262.6 NG/ML (10.5-307.3)
== END ==
LOC: M WUC 08:49
PROVIDERS: ATTEND Orthopaedic Surgery
DX: Z01.818 Encounter for other preprocedural examination (principal); M25.552 Pain in left hip; M16.12 Unilateral primary osteoarthritis, left hip

== ENCOUNTER → 2024-10-10 | Outpatient (CLI) | payer MEDICARE, OTHER | LOC: M WUC 13:29 | PROVIDERS: ATTEND Nurse Practitioner Family | DX: M25.512 Pain in left shoulder (principal); W01.10XA Fall on same level from slipping, tripping and stumbling with subsequent striking against unspecified object, initial encounter ==

== ENCOUNTER → 2024-10-17 | Outpatient (CLI) | payer MEDICARE, OTHER ==
[2024-10-17 11:04] LABS: PLATELET COUNT, AUTOMATED 249 10^3/uL (150-450)
[2024-10-17 11:12] LABS: ERYTHROCYTE SEDIMENTATION RATE 4 mm/hr (0-20)
[2024-10-17 11:16] LABS: ESTIMATED AVERAGE GLUCOSE 140.0 MG/DL (60-110)
[2024-10-17 11:25] LABS: ALT/SGPT 38 U/L (7.0-40); AST/SGOT 31 U/L (<34); C REACTIVE PROTEIN QUANTITATIV < 0.50 MG/DL (<1.0); CALCIUM LEVEL 9.1 MG/DL (8.3-10.6); CARBON DIOXIDE LEVEL 33 MMOL/L (20-31); CHLORIDE LEVEL 99 MMOL/L (98-107); CHOLESTEROL LEVEL 219 MG/DL (<200); CHOLESTEROL RISK RATIO 3.73 (<5); CREATININE FOR GFR 0.96 MG/DL (0.70-1.30); GLOMERULAR FILTRATION RATE 78.9 (>35); LDL CHOLESTEROL 114.6 MG/DL (<100); NON-HDL-C 160.4 MG/DL; POTASSIUM SERUM 3.4 MMOL/L (3.5-5.1); SODIUM LEVEL 144 MMOL/L (136-145); TRIGLYCERIDES LEVEL 229 MG/DL (<150)
== END ==
LOC: M PLALAB 08:35
PROVIDERS: ATTEND Family Medicine
DX: M35.3 Polymyalgia rheumatica (principal); Z79.899 Other long term (current) drug therapy